=== PATIENT | male | born 1960 | race Caucasian/White ===

== ENCOUNTER 2022-12-07 13:29 | Outpatient (OUT) | payer OTHER, SELFPAY ==
--- NOTE | 2022-12-07 13:59 | PM.CN ---
Consult Note: HPI Data of Consult Patient: known to practice within the last 3 years Consult date: 12/07/22 Requesting Physician: HEIDE GRANGER NP Primary Care Provider: BARRY DEL RIO Consult Narrative Reason for consult: back pain Narrative: Patricio is here for f/u of right low back and hip pain. He had LS MRI done 11/09/22. He had NJ on 11/20/22. He is on Brillinta. He had 2 MBBs with 80% relief after procedures for several hours. he would like to proceed with RFA. Procedure discussed in detail. KASHMIR 14%. No new sensorimotor issues or bowel or bladder issues. cc:: CC: HEIDE GRANGER NP Review of Systems ROS Status of ROS 10 or more systems reviewed and unremarkable except as noted in history and below Exam Constitutional: Documenting provider has reviewed patient's vital signs: yes Common normals: no apparent distress, average body habitus, oriented x3, no limitations, healthy appearing, alert and well nourished General appearance: cooperative, comfortable and well developed Orientation/consciousness: Yes awake, Yes oriented to person, Yes oriented to place and Yes oriented to time HENMT: Common normals: normocephalic and head/scalp atraumatic Head and scalp: normal to inspection Nose: external nose normal Mouth: oral and palatal mucosa normal Respiratory: Common normals: normal respiratory effort, no retractions and no use of accessory muscles Effort & inspection: able to speak in complete sentences Back & Pelvis: Lumbar spine/lower back: normal to inspection, pain with ROM, straight leg raise negative bilaterally and other soft tissue findings (positive facet loading lumbar) Extremity: Common normals: normal to inspection, full ROM and normal capillary refill Other: muscle strength 5/5 with intact sensation bilat LE Skin: Common normals: no rashes or lesions noted and no wounds Assessment and Plan Assessment and Plan (1) Lumbar spondylosis: Plan schedule for thermal RFA bilat lumbar L3,4 and L5, S1 under fluoroscopy
== END 2022-12-07 13:30 ==
PROVIDERS: PCP Internal Medicine; Visit Provider Nurse Practitioner
DX: M47.816 Spondylosis without myelopathy or radiculopathy, lumbar region (principal)
CPT/HCPCS: G0463

== ENCOUNTER 2023-01-01 06:53 | Day surgery (SDC) | payer OTHER, SELFPAY ==
[2023-01-01 07:09] VITALS: BP 130/93; PULSE 83; RESP 16; TEMP 35.7; O2SAT 96
[2023-01-01] MEDS: 0.9 % SODIUM CHLORIDE 500 ML IV (07:31)
[2023-01-01] MEDS: BUPIVACAINE HCL 0.25% PF 25 MG/10 ML VIAL INJ (07:56)
[2023-01-01] MEDS: LIDOCAINE HCL 2% 400 MG/20 ML MDV 15 ML INJ (07:57)
[2023-01-01] MEDS: TRIAMCINOLONE ACETONIDE 40 MG/ML VIAL INJ (07:57)
--- NOTE | 2023-01-01 08:08 | P.ON_ITS ---
Date of procedure: 01/01/23 Pre-op diagnosis: lumbosacral spondylosis Post-op diagnosis: same Procedure: Bilateral L3, L4, L5 RFA Medications: Bupivacaine 0.25% 6cc, kenalog 80mg The patient was seen and examined in the preoperative holding area.? The site was marked.? Written informed consent was obtained and placed on the chart.? The patient was brought to the medical procedure unit and placed in the prone position.? A timeout was completed verifying correct patient, procedure, positioning, and special requirements.? The skin overlying the target points, the designated medial branch, were prepped and draped in the usual sterile fashion.? The target point was achieved with a 20-gauge 15 cm with a 10 mm curved active tip radiofrequency cannula under direct fluoroscopic visualization.? The needle was inserted at level L3 on the right side. Needle tip position was confirmed with lateral fluoroscopic position.? Motor stimulation was carried out at 2 Hz up to 5 volts with the absence of extremity activity.? This was repeated at level L4, 5 on right side.?? Sensory stimulation was carried out.? Concordant pain was realized at the above- mentioned sites.? Then radiofrequency lesioning was carried out times 90 seconds at 80 degrees times 2 lesions at each level.? The radiofrequency probe was removed prior to cannula removal.? The above-mentioned injectate was placed in 1 mL increments.? The needle was removed.? Insertion sites were covered.? The patient was taken to the postoperative recovery area and monitored for an appropriate length of time before being found suitable for discharge in the company of a responsible adult. The same procedure was then completed on the left side. Anesthesia: ANTWON Surgeon: Iqra Benitez Condition: stable
[2023-01-01 08:12] VITALS: BP 133/88; PULSE 80; RESP 16; TEMP 36.6
[2023-01-01 08:15] VITALS: BP 125/77; PULSE 80; RESP 16; TEMP 36.6; O2SAT 95
== END 2023-01-01 08:25 | disposition home or self-care (01) ==
PROVIDERS: PCP Internal Medicine; Visit Provider Anesthesiology
DX: M47.817 Spondylosis without myelopathy or radiculopathy, lumbosacral region (principal)
CPT/HCPCS: 64635; 64636; J2704

== ENCOUNTER 2023-01-24 07:12 | Outpatient (RCR) | payer OTHER, SELFPAY ==
--- NOTE | 2022-12-12 | CR1_ITS ---
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
--- NOTE | 2023-01-10 15:32 | CR1_ITS ---
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
== END 2023-02-06 13:51 | disposition home or self-care (01) ==
LOC: CR 07:12
PROVIDERS: PCP Internal Medicine; Visit Provider Internal Medicine Cardiovascular Disease
DX: I25.5 Ischemic cardiomyopathy (principal); E66.3 Overweight; Z68.29 Body mass index [BMI] 29.0-29.9, adult; I25.2 Old myocardial infarction
CPT/HCPCS: 93797; 93798

== ENCOUNTER 2023-03-21 15:12 | Outpatient (OUT) | payer OTHER, SELFPAY ==
--- NOTE | 2023-03-21 15:31 | P.CN_ITS ---
Consult Note: HPI Data of Consult Patient: known to practice within the last 3 years Requesting Physician: Iqra Benitez MD Primary Care Provider: Saman Schaffer DO Consult Narrative Reason for consult: procedure f/u Narrative: Patricio Sierra a pleasant 62 year old male presents for evaluation of chronic low back pain. Today rating pain 0/10. Patient had a bilateral L3/4 L5/S1 RFA with 100% pain relief and functional improvement. cc:: CC: Iqra Benitez MD Review of Systems ROS Status of ROS 10 or more systems reviewed and unremarkable except as noted in history and below [facility] Medical History (Updated 12/07/22 @ 15:22 by Adriana Hill) Surgical History (Updated 12/07/22 @ 15:22 by Adriana Hill) Meds Home Medications and Allergies Home Medications Medication Instructions Recorded Confirmed Type aspirin 81 mg capsule 81 mg PO QDAY 12/07/22 01/01/23 History atorvastatin 80 mg tablet 80 mg PO QDAY 12/07/22 01/01/23 History lisinopril 10 mg tablet 10 mg PO QDAY 12/07/22 01/01/23 History loratadine 10 mg capsule 10 mg PO QDAY 12/07/22 01/01/23 History metoprolol tartrate 100 mg tablet 200 mg PO QDAY 12/07/22 01/01/23 History nitroglycerin 0.4 mg sublingual PRN PRN chest 12/07/22 01/01/23 History pain ticagrelor 90 mg tablet (Brilinta) 90 mg PO BID 12/07/22 01/01/23 History Allergies Allergy/AdvReac Type Severity Reaction Status Date / Time No Known Drug Allergies Allergy Verified 01/01/23 07:07 Exam Constitutional Documenting provider has reviewed patient's vital signs: yes Common normals: no apparent distress, oriented x3, healthy appearing, alert and well nourished General appearance: cooperative HENMT Common normals: normocephalic, hearing grossly normal bilaterally and moist oral mucous membranes Head and scalp: normocephalic Eye Common normals: PERRL Pupil: PERRL Neck & C-Spine Common normals: full ROM General: normal visual inspection Chest Common normals: inspection of chest normal Respiratory Common normals: normal respiratory effort, no retractions and no use of accessory muscles Neuro Common normals: oriented x3, CN's II-XII intact bilaterally, moves all extremities, no focal motor deficits, no sensory deficits noted, deep tendon reflexes 2+ bilaterally and gait normal Sensorium/orientation: alert Motor exam: strength 5/5 throughout and no movement abnormalities noted Psych Common normals: mental status grossly normal, thought process normal, cooperative, affect normal, speech normal and activity/motor behavior normal Speech: normal speech Thought process: normal thought process Results Additional Findings Additional findings: I have checked an [place]AR[facility] report on this patient today and there are no aberrancies noted in the prescribing history.?? A drug screen was completed and reviewed within the last year, and if there has not been a drug screen completed we ordered one today to monitor higher risk, state monitored pain medication use. As part of providing excellent, safe, comprehensive care, the following was completed at our patient's visit: 1. A medication reconciliation and review to ensure accurate knowledge of current/active medications, including asking our patients to inform us about any [id number] medications or herbal remedies/nutritional supplements/alternative remedies. 2. A review to specifically ensure our patients have had annual screening for: elevated body mass index (BMI), tobacco use, screening for depression, and screening for unhealthy alcohol use. When screening is concerning, patients are provided with education and the specific recommendation to discuss the concerning health issue and treatment options with their primary care provider. Assessment and Plan Assessment and Plan (1) Lumbar spondylosis: Plan follow up as needed, discussed expectations of thermal RFAs to provide >50% functional improvement and pain relief for at least 6 months
== END 2023-03-21 15:13 | disposition home or self-care (01) ==
LOC: PM 15:12
PROVIDERS: PCP Internal Medicine; Visit Provider Anesthesiology
DX: M47.816 Spondylosis without myelopathy or radiculopathy, lumbar region (principal)
CPT/HCPCS: G0463

== ENCOUNTER 2023-05-14 09:25 | Outpatient (OUT) | payer OTHER, SELFPAY ==
[2023-05-14 10:03] LABS: Basophils Percent Auto 0.7 % (0.2-2.0); Eosinophils Absolute Auto 0.2 10^3/uL (0.0-0.7); Eosinophils Percent Auto 5.7 % (0.9-7.0); Hematocrit 34.9 % (42.0-54.0); Hemoglobin 11.4 g/dL (14.0-18.0); Immature Granulocytes Abs Auto 0.02 10^3/uL (0.00-0.03); Immature Granulocytes Pct Auto 0.5 % (0.0-0.5); Lymphocytes Absolute Auto 0.7 10^3/uL (1.2-3.8); Lymphocytes Percent Auto 16.5 % (20.5-60.0); Mean Corpuscular HGB Conc 32.7 g/dL (29.9-35.2); Mean Corpuscular Hemoglobin 29.3 pg (25.9-34.0); Mean Corpuscular Volume 89.7 fL (80.0-94.0); Mean Platelet Volume 10.1 fL (9.5-13.5); Monocytes Absolute Auto 0.6 10^3/uL (0.3-0.8); Monocytes Percent Auto 13.1 % (1.7-12.0); Neutrophils Absolute Auto 2.7 10^3/uL (1.4-6.5); Neutrophils Percent Auto 63.5 % (43.0-75.0); Platelet Count 160 10^3/uL (150-450); Red Blood Count 3.89 10^6/uL (4.70-6.10); Red Cell Distribution Width 13.2 % (11.0-15.0); White Blood Count 4.2 10^3/uL (4.0-11.0)
[2023-05-14 10:17] LABS: Alanine Aminotransferase 23 U/L (16-63); Albumin Globulin Ratio 1.1; Albumin Level 3.7 g/dL (3.4-5.0); Alkaline Phosphatase 83 U/L (46-116); Anion Gap 14.5; Aspartate Amino Transferase 14 U/L (15-37); Bilirubin Total 0.6 mg/dL (0.2-1.0); Calcium 8.9 mg/dL (8.5-10.1); Carbon Dioxide 24.8 mmol/L (21.0-32.0); Chloride 105 mmol/L (98-107); Chol HDL Ratio 3.1; Cholesterol 143 mg/dL (<=200); Estimated GFR (African America >60 (>=60); Estimated GFR (Non-African Ame >60 (>=60); Globulin 3.5 g/dL; Glucose 110 mg/dL (74-106); HDL Cholesterol 46 mg/dL (40-60); Potassium 4.3 mmol/L (3.5-5.1); Sodium 140 mmol/L (136-145); Total Protein 7.2 g/dL (6.4-8.2); Triglycerides 181 mg/dL (<=150); VLDL CHOLESTEROL 36.2 mg/dL
[2023-05-14 10:49] LABS: Prostate Specific Antigen Scrn 0.57 ng/mL (<=4.00)
== END 2023-05-14 09:26 | disposition home or self-care (01) ==
LOC: LAB 09:26
PROVIDERS: PCP Internal Medicine; Visit Provider Internal Medicine
DX: Z00.00 Encounter for general adult medical examination without abnormal findings (principal)
CPT/HCPCS: 36415; 80053; 80061; 85025; G0103

== ENCOUNTER 2023-08-18 09:21 | Outpatient (OUT) | payer OTHER, SELFPAY ==
--- OUTSIDE RECORDS SUMMARY | 2023-08-18 09:28 | XMS_ITS | CCD ---
Author Name Unknown Address [address] [place] [address] Organization [facility] Care Team Providers Care Management Manager Name Role Phone Saman Schaffer Unavailable LUIS Luis Emergency Provider DO Saman Schaffer Primary Care Provider [phone] DO Daryl Farrell Attending Provider VOLODYMYR ., DR KASEY Shabazz Consulting Unavailable HELM ., DR KASEY Shabazz Admitting Unavailable QUANG, DR REDDY Primary Care Unavailable HELM ., DR KASEY Shabazz Attending Unavailable QUANG, DR REDDY Primary Care Unavailable HALKER ., HEIDE Admitting Unavailable HALKER .HEIDE Attending Unavailable HELM ., DR KASEY Shabazz Consulting Unavailable QUANG, DR REDDY Primary Care Unavailable HELM ., DR KASEY Shabazz Admitting Unavailable HELM ., DR KASEY Shabazz Attending Unavailable CASTILLO ., DON Consulting Unavailable LAKSHMIPATHY ., NARJONATHAN Admitting Brisa vailable RICHI, DR CAITLYN Power Consulting Unavailable QUANG, DR REDDY Primary Care Unavailable LAKSHMIPATHY ., NARJONATHAN Attending Brisa vailable LAKSHMIPATHY ., NARENDRANATH Consulting Brisa vailable QUANG, DR REDDY Attending Unavailable QUANG, DR REDDY Consulting Unavailable QUANG, DR REDDY Primary Care Unavailable QUANG, DR REDDY Admitting Unavailable RICHI, DR CAITLYN Power Consulting Unavailable VOLODYMYR ., DR KASEY Shabazz Consulting Unavailable QUANG, DR REDDY Primary Care Unavailable HELM ., DR KASEY Shabazz Admitting Unavailable HELM ., DR KASEY Shabazz Attending Unavailable HELM ., DR KASEY Shabazz Consulting Unavailable QUANG, DR REDDY Primary Care Unavailable HELM ., DR KASEY Shabazz Admitting Unavailable HELM ., DR KASEY Shabazz Attending Unavailable CASTILLO ., DON Consulting Unavailable HELM ., DR KASEY Shabazz Consulting Unavailable HELM ., DR KASEY Shabazz Admitting Unavailable QUANG, DR REDDY Primary Care Unavailable VOLODYMYR ., DR KASEY Shabazz Attending Unavailable Saman Schaffer Unavailable Unavailable Unavailable Jim Hines Admitting Unavailable Jim Hines Attending Unavailable Saman Schaffer [facility] Unavailable Saman Schaffer [facility] Unavailable David Adler Admitting Unavailable Julianna Nguyen Consulting Unavailable Lacy Mitchell Attending Unavailable Daryl Farrell Consulting Unavailable DormanSal phelps Consulting Unavailable Conrad De La [place] Consulting Unavail able Garland Rolle Consulting Unavailable Gonsalo Fritz Consulting Unavailab Sirena Solorio Consulting Unavailable Mary Ann Hester Consulting Unavailable Ayan Sams Consulting Unavailab Shira Bowen Consulting Unavailable Namrata Charles Consulting Unavailable Sheela Davis Consulting Unavailable Saman Schaffer [facility] Unavailable Daryl Farrell Admitting Unavailable Daryl Farrell Attending Unavailable Bee, Mile Consulting Unavailable Chaban, Kamal Consulting Unavailable Leida, Christopher E Consulting Unavaila ble Swedeh, Markus Rowell Consulting Unavailable Kyle Gonzalez Consulting Unavailabl e Mildred Judd Consulting Unavailable Torito Meza Consulting Unavailable Deandre Otero Consulting Unavailable Silvino Mendoza Consulting Unavailable Ramos, Dr. Conrad [place] Attending Fern Schaffer, Dr. Saman Andino [facility] Elías Schaffer, Dr. Saman Andino [facility] Elías Farrell, Dr. Conrad [place] Referring Fern Farrell, Dr. Conrad [place] Attending Fern Schaffer, Dr. Saman Andino [facility] Elías Schaffer, Dr. Saman Andino [facility] Elías Benitez MD, Iqra Blanc Attending Unavailable Saman Schaffer DO Primary Care Provider CONRAD FARRELL Attending Unavailable SAMAN SCHAFFER [facility] UnavailSaman Herrera DO Primary Care Provider CONRAD FARRELL Referring Unavailable ASMAN SCHAFFER [facility] Unavailrodger e Allergies Allergy Classification Reported Allergen(s) Allergy Type Date of Onset Reaction(s) Facility (2 sources) patient allergy list reviewed by nurse or physicia Propensity to adverse reactions 9 Comment:Done [employer] Other Medications Current Medications Medication Drug Class(es) Dates Sig (Normalized) Sig (Original) aspirin 81 mg delayed release oral tablet (11 sources) Platelet Aggregation Inhibitor, Nonsteroidal Anti-inflammatory Drug Start: 12-06-2022 take 1 tablet by mouth once daily aspirin 81 mg EC tablet Take 1 tablet (81 mg) by mouth once daily. 0 12/06/2022 Active atorvastatin 80 mg oral tablet (19 sources) HMG-CoA Reductase Inhibitor Start: 05-11-2023 End: 05-23-2024 take 1 tablet by mouth once daily at bedtime atorvastatin (Lipitor) 80 mg tablet Indications: ASHD (arteriosclerotic heart disease) Take 1 tablet (80 mg) by mouth once daily at bedtime. 90 tablet 3 05/24/2023 05/23/2024 Active Start: 11-20-2022 take 20 mg by mouth once daily at bedtime Atorvastatin Active 20 MG PO Daily at bedtime November 20, 2022 12:00am escitalopram 10 mg oral tablet (10 sources) Serotonin Reuptake Inhibitor Start: 05-11-2023 take 1 tablet by mouth once daily at bedtime escitalopram (Lexapro) 10 mg tablet Take 1 tablet (10 mg) by mouth once daily at bedtime. 0 05/11/2023 Active lisinopril 10 mg oral tablet (17 sources) Angiotensin Converting Enzyme Inhibitor Start: 11-20-2022 End: 05-23-2024 take 1 tablet by mouth once daily lisinopril 10 mg tablet Indications: Cardiomyopathy, ischemic , Essential hypertension Take 1 tablet (10 mg) by mouth once daily. 90 tablet 3 05/24/2023 05/23/2024 Active loratadine 10 mg oral tablet (16 sources) Start: 11-20-2022 take 1 tablet by mouth once daily Allergy Relief, loratadine, 10 mg tablet Take 1 tablet (10 mg) by mouth once daily. 0 05/11/2023 Active meloxicam 15 mg oral tablet (8 sources) Nonsteroidal Anti-inflammatory Drug Start: 11-20-2022 take 15 mg by mouth once daily Meloxicam Active 15 MG PO Daily November 20, 2022 12:00am Meloxicam Active 24 hr metoprolol succinate 100 mg extended release oral tablet (20 sources) beta-Adrenergic Jaime Start: 05-11-2023 End: 05-23-2024 take 2 tablets by mouth once daily metoprolol succinate XL (Toprol-XL) 100 mg 24 hr tablet Indications: Cardiomyopathy, ischemic , Essential hypertension Take 2 tablets (200 mg) by mouth once daily. 180 tablet 3 05/24/2023 05/23/2024 Active Start: 11-28-2022 take 2 tablets by [facility] every twenty-four hours Metoprolol Succinate ER 100 MG 2 tablet Orally Once a day November, Active Start: 11-20-2022 take 100 mg by mouth once queta y Metoprolol Succinate Active 100 MG PO Daily November 20, 2022 12:00am nitroglycerin 0.4 mg sublingual tablet (5 sources) Nitrate Vasodilator Start: 11-25-2022 nitroglyce rin (Nitrostat) 0.[address] 1 tablet (0.4 mg) under the tongue every 5 minutes if needed for chest pain. 0 11/25/2022 Active Nitroglycerin 0. 4 MG Sublingual Tablet Sublingual TAKE DIRECTED. Quantity: 25 Refills: 11 Ordered: 06-Dec-2022 DO Active omeprazole 40 mg delayed release oral capsule (10 sources) Proton Pump Inhibitor Start: 01-03-2023 omeprazole (PriLOSEC) [address] capsule 1 capsule (40 mg) once daily. 0 05/11/2023 Active ticagrelor 90 mg oral tablet (14 sources) Start: 05-07-2023 End: 05-23-2024 take 1 tablet by mouth twice daily Brilinta 90 mg tablet Indications: Cardiomyopathy, ischemic Take 1 tablet (90 mg) by mouth 2 times a day. 180 tablet 3 05/24/2023 05/23/2024 Active Start: 11-28-2022 End: 12-20-2022 take 1 tablet by mouth every twelve hours Brilinta 90 MG 1 tablet Orally Twice a day November, Active Completed/Discontinued Medications Medication Drug Class(es) Dates Sig (Normalized) Sig (Original) doxycycline hyclate 100 mg oral capsule (6 sources) Tetracycline-class Drug take 1 capsule by mouth twice daily Doxycycline Hyclate 100 MG 1 capsule Orally twice daily for 7 days Not-Taking hydrocortisone 10 mg/ml / neomycin 3.5 mg/ml / polymyxin b [id number] unt/ml otic suspension (10 sources) Aminoglycoside Antibacterial, Polymyxin-class Antibacterial, Corticosteroid Start: 11-07-2022 Neomycin-Polymyx in-HC [id number] 4 drops into affected ear Otic q HS PRN itching for 30 days November, Not-Taking triamcinolone acetonide 40 mg/ml injectable suspension (13 sources) Corticosteroid Start: 05-14-2023 Kenalog-40 May, 60 mg Start: 11-07-2022 Kenalog-40 November, 40 mg Problems Active Problems Problem Classification Problem Date Documented Date Episodic/Chronic Acute bronchitis (5 sources) Acute bronchitis due to other specified organisms; Translations: [Acute bronchitis] Onset: 11-18-2014 Episodic Acute myocardial infarction (19 sources) Myocardial infarction; Translations: [ST elevation (STEMI) myocardial infarction of unspecified site] Onset: 11-25-2022 11-20-2022 Chronic Anxiety disorders (9 sources) Generalized anxiety disorder; Translations: [Generalized anxiety disorder] Chronic Cardiac dysrhythmias (12 sources) Supraventricular tachycardia; Translations: [Supraventricular tachycardia] Chronic Cardiac dysrhythmias (1 source) Tachycardia, unspecified; Translations: [Tachycardia, unspecified] Onset: 11-25-2022 Episodic Conduction disorders (2 sources) Sinus node dysfunction; Translations: [Sinoatrial node dysfunction] Onset: 08-14-2018 Chronic Coronary atherosclerosis and other heart disease (20 sources) Coronary arteriosclerosis; Translations: [Atherosclerotic heart disease of [place] coronary artery without angina pectoris] Onset: 05-24-2023 Chronic Coronary atherosclerosis and other heart disease (3 sources) Presence of coronary angioplasty implant and graft; Translations: [Coronary angioplasty status] Onset: 11-25-2022 Episodic Deficiency and other anemia (2 sources) Nutritional anemia; Translations: [Nutritional anemia, unspecified] Episodic Deficiency and other anemia (2 sources) Anemia; Translations: [Anemia, unspecified] Episodic Disorders of lipid metabolism (17 sources) Hyperlipidemia, group A; Translations: [Pure hypercholesterolemia, unspecified] Onset: 11-25-2022 Chronic Esophageal disorders (7 sources) Gastro-esophageal reflux disease with esophagitis; Translations: [Gastroesophageal reflux disease with esophagitis without hemorrhage] Chronic Essential hypertension (20 sources) Essential hypertension; Translations: [Essential (primary) hypertension] Onset: 11-25-2022 Chronic Hyperplasia of prostate (14 sources) Benign prostatic hypertrophy without outflow obstruction; Translations: [Benign prostatic hyperplasia without lower urinary tract symptoms] Onset: 02-04-2015 Chronic Immunizations and screening for infectious disease (4 sources) Vaccination given; Translations: [Encounter for immunization] Episodic Nonspecific chest pain (2 sources) Precordial pain; Translations: [Chest pain, unspecified] Onset: 01-02-2023 Episodic Other and ill-defined heart disease (2 sources) Left ventricular systolic dysfunction; Translations: [Heart disease, unspecified] Chronic Other and ill-defined heart disease (6 sources) Mild left ventricular systolic dysfunction; Translations: [Other ill-defined heart diseases] Onset: 05-24-2023 05-24-2023 Chronic Other and ill-defined heart disease (4 sources) Other ill-defined heart diseases; Translations: [Other ill-defined heart diseases] Onset: 05-24-2023 Chronic Other and unspecified benign neoplasm (12 sources) Benign neoplasm of colon; Translations: [Benign neoplasm of descending colon] Episodic Other and unspecified benign neoplasm (2 sources) Benign neoplasm of descending colon; Translations: [Benign neoplasm of descending colon] Episodic Other connective tissue disease (10 sources) Pain in limb; Translations: [Pain in right leg] Episodic Other connective tissue disease (2 sources) Pain in right lower limb; Translations: [Pain in right leg] Episodic Other ear and sense organ disorders (10 sources) Bilateral auditory canal chronic non-infective otitis externa; Translations: [Other otitis externa, bilateral] Chronic Other ear and sense organ disorders (1 source) Other otitis externa, bilateral Chronic Other lower respiratory disease (1 source) Dyspnea, unspecified; Translations: [Dyspnea, unspecified] Onset: 11-25-2022 Episodic Other nutritional; endocrine; and metabolic disorders (2 sources) Body mass index 40+ - severely obese; Translations: [Body mass index (BMI) 40.0-44.9, adult] Onset: 02-06-2017 Chronic Other nutritional; endocrine; and metabolic disorders (2 sources) Simple obesity ; Translations: [Other obesity due to excess calories] Chronic Other nutritional; endocrine; and metabolic disorders (2 sources) Body mass index 30+ - obesity; Translations: [Body mass index 30.0-30.9, adult] Onset: 06-27-2016 Chronic Other nutritional; endocrine; and metabolic disorders (2 sources) Overweight in adulthood with body mass index of 25 or more but less than 30; Translations: [Overweight] Episodic Other nutritional; endocrine; and metabolic disorders (11 sources) Overweight; Translations: [Overweight] Onset: 05-24-2023 05-24-2023 Episodic Other screening for suspected conditions (not mental disorders or infectious disease) (2 sources) Encounter for screening for malignant neoplasm of prostate; Translations: [ENC SCREEN MALIG NEOPLASM PROSTATE] Onset: 05-18-2022 Episodic Other upper respiratory disease (12 sources) Allergic rhinitis due to pollen; Translations: [Allergic rhinitis due to pollen] Chronic Other upper respiratory disease (2 sources) Allergic rhinitis due to pollen Chronic Other upper respiratory disease (2 sources) Seasonal allergic rhinitis; Translations: [Other seasonal allergic rhinitis] Onset: 10-03-2017 Chronic Other upper respiratory disease (4 sources) Allergic rhinitis; Translations: [Allergic rhinitis, unspecified] Onset: 11-18-2014 Chronic Other upper respiratory disease (1 source) Dysphonia Episodic Other upper respiratory infections (4 sources) Acute maxillary sinusitis; Translations: [Acute maxillary sinusitis, unspecified] Onset: 11-18-2014 Episodic Spondylosis; intervertebral disc disorders; other back problems (17 sources) Lumbar spondylosis; Translations: [Spondylosis without myelopathy or radiculopathy, lumbar region] Onset: 06-17-2022 Chronic Spondylosis; intervertebral disc disorders; other back problems (16 sources) Sciatica; Translations: [Lumbago with sciatica, unspecified side] Onset: 09-14-2022 Episodic Sprains and strains (6 sources) Strain of muscle, fascia and tendon of right hip, subsequent encounter; Translations: [Strain of right quadriceps muscle, fascia and tendon, initial encounter] Onset: 01-04-2018 Episodic Substance-related disorders (10 sources) Tobacco user; Translations: [Nicotine dependence, cigarettes, in remission] Chronic Unclassified (4 sources) LOW BACK PAIN, UNSPECIFIED; Translations: [LOW BACK PAIN, UNSPECIFIED] Onset: 06-17-2022 Unclassified (2 sources) Dietary management surveillance; Translations: [Dietary surveillance and counseling] Onset: 12-30-2013 Past or Other Problems Problem Classification Problem Date Documented Da te Episodic/Chronic Abdominal pain (2 sources) Right upper quadrant pain; Translations: [Right upper quadrant pain] Resolved: 11-05-2019 Episodic Allergic reactions (2 sources) Contact dermatitis; Translations: [Contact dermatitis and other eczema, due to unspecified cause] Onset: 07-28-2014 Episodic Bacterial infection; unspecified site (2 sources) Bacterial infectious disease; Translations: [Bacterial infection, unspecified, in conditions classified elsewhere and of unspecified site] Onset: 06-27-2016 Episodic Esophageal disorders (3 sources) Esophageal disorders Other non-traumatic joint disorders (2 sources) Shoulder joint pain; Translations: [Pain in left shoulder] Onset: 01-04-2018 Episodic Other nutritional; endocrine; and metabolic disorders (2 sources) Body mass index 25-29 - overweight; Translations: [Body mass index 29.0-29.9, adult] Onset: 06-27-2016 Episodic Other skin disorders (2 sources) Atrophoderma; Translations: [Unspecified hypertrophic and atrophic condition of skin] Onset: 10-03-2017 Episodic Screening and history of mental health and substance abuse codes (4 sources) Ex-smoker; Translations: [Personal history of tobacco use] Onset: 07-16-2017 Episodic Comment on above: quit 1993; Unclassified (1 source) LOW BACK PAIN, UNSPECIFIED; Translations: [LOW BACK PAIN, UNSPECIFIED] Onset: 06-13-2022 Viral infection (2 sources) Verruca vulgaris; Translations: [Viral wart, unspecified] Onset: 02-27-2013 Episodic Viral infection (12 sources) Disease caused by 2019-nCoV; Translations: [COVID-19] Results Test Name Value Interpretation Reference Range Facility US Heart TransthoracicOrdere d By: Sal Dorman on 07-04-2023 LV A4C EF 70.3 [facility] Work Phone: LVIDd 5.80 [facility] Work Phone: LVOT diam 2.60 [facility] Work Phone: [facility] Work Phone: Heart Transthoracicon [address], [address] [address] TRANSTHORACIC ECHOCARDIOGRAM REPORT Patient Name: FLORES SIERRA Reading Physician: [id number] Sal Dorman MD, [facility] Study Date: 07/03/2023 Ordering Provider: [id number] CONRAD FARRELL MRN/PID: [id number] Fellow: Nurse: Date of /Age: 2 1960 / 62 years [employer] Teacher: Araseli Smith RDCS, RVT Gender: M Additional Staff: Height: 172.72 cm Admit Date: Weight: 86.18 kg Admission Status: BSA: 2.00 m2 Department Location: [facility] Blood Pressure: 136 /82 mmHg Study Type: TRANSTHORACIC ECHO (TTE) LIMITED Diagnosis/ICD: Other ill defined heart diseases-I51.89 Indication: CAD, MT and PTCA-11/2022, Dyspnea on Exertion, Former Smoker, Ischemic Cardiomyopathy CPT Codes: Echo Limited-70093 Study Detail: The following Echo studies were performed: 2D and M-Mode. PHYSICIAN INTERPRETATION: Left Ventricle: Left ventricular systolic function is mildly decreased, with an estimated ejection fraction of 45%. The left ventricular cavity size is normal. Left ventricular diastolic filling was not assessed. Moderate anteroseptal hypokinesis. Left Atrium: The left atrium is normal in size. Right Ventricle: The right ventricle is normal in size. There is normal right ventricular global systolic function. Right Atrium: The right atrium is normal in size. Aortic Valve: The aortic valve appears structurally normal. Aortic valve regurgitation was not assessed. Mitral Valve: The mitral valve is normal in structure. Mitral valve regurgitation was not assessed. Tricuspid Valve: The tricuspid valve is structurally normal. Tricuspid regurgitation was not assessed. Pulmonic Valve: The pulmonic valve is not well visualized. The pulmonic valve regurgitation was not assessed. Pericardium: There is no pericardial effusion noted. Aorta: The aortic root is normal. Systemic Veins: The inferior vena cava appears to be of normal size. In comparison to the previous echocardiogram(s): When compared to study from 11/21/2022 the ejection fraction remains unchanged, current study did not include Doppler imaging. CONCLUSIONS: 1. Left ventricular systolic function is mildly decreased with a 45% estimated ejection fraction. 2. Moderate anteroseptal hypokinesis. 3. When compared to study from 11/21/2022 the ejection fraction remains unchanged, current study did not include Doppler imaging. QUANTITATIVE DATA SUMMARY: 2D MEASUREMENTS: Normal Ranges: Ao Root d: 3.10 cm (2.0-3.7cm) LAs: 3.90 cm (2.7-4.0cm) RVIDd: 3.20 cm (0.9-3.6cm) IVSd: 1.00 cm (0.6-1.1cm) LVPWd: 0.80 cm (0.6-1.1cm) LVIDd: 5.80 cm (3.9-5.9cm) LVIDs: 4.50 cm LV Mass Index: 101.8 g/m2 LV % FS 22.4 % LV SYSTOLIC FUNCTION BY 2D PLANIMETRY (MOD): Normal Ranges: EF-A4C View: 70.3 % (>=55%) AORTIC VALVE: Normal Ranges: LVOT Diameter: 2.60 cm (1.8-2.4cm) [id number] Sal Dorman MD, FACC Electronically signed on 07/04/2023 at 1:42:19 PM Final Sal Schmidt MD - 07/04/[address], [address] [place] [address] TRANSTHORACIC ECHOCARDIOGRAM REPORT Patient Name: FLORES SIERRA Gaye Physician: [id number] Sal Dorman MD, FACC Study Date: 07/03/2023 Ordering Provider: [id number] CONRAD FARRELL MRN/PID: [id number] Fellow: Nurse: Date of /Age: 2 1960 / 62 years [employer] Teacher: Araseli Smith RDCS, RVT Gender: M Additional Staff: Height: 172.72 cm Admit Date: Weight: 86.18 kg Admission Status: BSA: 2.00 m2 Department Location: [facility] Blood Pressure: 136 /82 mmHg Study Type: TRANSTHORACIC ECHO (TTE) LIMITED Diagnosis/ICD: Other ill defined heart diseases-I51.89 Indication: CAD, MT and PTCA-11/2022, Dyspnea on Exertion, Former Smoker, Ischemic Cardiomyopathy CPT Codes: Echo Limited-23426 Study Detail: The following Echo studies were performed: 2D and M-Mode. PHYSICIAN INTERPRETATION: Left Ventricle: Left ventricular systolic function is mildly decreased, with an estimated ejection fraction of 45%. The left ventricular cavity size is normal. Left ventricular diastolic filling was not assessed. Moderate anteroseptal hypokinesis. Left Atrium: The left atrium is normal in size. Right Ventricle: The right ventricle is normal in size. There is normal right ventricular global systolic function. Right Atrium: The right atrium is normal in size. Aortic Valve: The aortic valve appears structurally normal. Aortic valve regurgitation was not assessed. Mitral Valve: The mitral valve is normal in structure. Mitral valve regurgitation was not assessed. Tricuspid Valve: The tricuspid valve is structurally normal. Tricuspid regurgitation was not assessed. Pulmonic Valve: The pulmonic valve is not well visualized. The pulmonic valve regurgitation was not assessed. Pericardium: There is no pericardial effusion noted. Aorta: The aortic root is normal. Systemic Veins: The inferior vena cava appears to be of normal size. In comparison to the previous echocardiogram(s): When compared to study from 11/21/2022 the ejection fraction remains unchanged, current study did not include Doppler imaging. CONCLUSIONS: 1. Left ventricular systolic function is mildly decreased with a 45% estimated ejection fraction. 2. Moderate anteroseptal hypokinesis. 3. When compared to study from 11/21/2022 the ejection fraction remains unchanged, current study did not include Doppler imaging. QUANTITATIVE DATA SUMMARY: 2D MEASUREMENTS: Normal Ranges: Ao Root d: 3.10 cm (2.0-3.7cm) LAs: 3.90 cm (2.7-4.0cm) RVIDd: 3.20 cm (0.9-3.6cm) IVSd: 1.00 cm (0.6-1.1cm) LVPWd: 0.80 cm (0.6-1.1cm) LVIDd: 5.80 cm (3.9-5.9cm) LVIDs: 4.50 cm LV Mass Index: 101.8 g/m2 LV % FS 22.4 % LV SYSTOLIC FUNCTION BY 2D PLANIMETRY (MOD): Normal Ranges: EF-A4C View: 70.3 % (>=55%) AORTIC VALVE: Normal Ranges: LVOT Diameter: 2.60 cm (1.8-2.4cm) [id number] Sal Dorman MD, [facility] Electronically signed on 07/04/2023 at 1:42:19 PM Final [facility] Work Phone: TRANSTHORACIC ECHO (TTE) JUNIOR ITEDon 07-03-2023 TRANSTHORACIC ECHO (TTE) LIMITED [address], [address], [place] [address] TRANSTHORACIC ECHOCARDIOGRAM REPORT Patient Name: FLORES SIERRA Reading Physician: [id number] Sal Dorman MD, [facility] Study Date: 07/03/2023 Ordering Provider: [id number] CONRAD FARRELL MRN/PID: [id number] Fellow: Nurse: Date of /Age: 2 1960 / 62 years [employer] Teacher: Araseli Smith RDCS, RVT Gender: M Additional Staff: Height: 172.72 cm Admit Date: Weight: 86.18 kg Admission Status: BSA: 2.00 m2 Department Location: [facility] Blood Pressure: 136 /82 mmHg Study Type: TRANSTHORACIC ECHO (TTE) LIMITED Diagnosis/ICD: Other ill defined heart diseases-I51.89 Indication: CAD, MT and PTCA-11/2022, Dyspnea on Exertion, Former Smoker, Ischemic Cardiomyopathy CPT Codes: Echo Limited-43662 Study Detail: The following Echo studies were performed: 2D and M-Mode. PHYSICIAN INTERPRETATION: Left Ventricle: Left ventricular systolic function is mildly decreased, with an estimated ejection fraction of 45%. The left ventricular cavity size is normal. Left ventricular diastolic filling was not assessed. Moderate anteroseptal hypokinesis. Left Atrium: The left atrium is normal in size. Right Ventricle: The right ventricle is normal in size. There is normal right ventricular global systolic function. Right Atrium: The right atrium is normal in size. Aortic Valve: The aortic valve appears structurally normal. Aortic valve regurgitation was not assessed. Mitral Valve: The mitral valve is normal in structure. Mitral valve regurgitation was not assessed. Tricuspid Valve: The tricuspid valve is structurally normal. Tricuspid regurgitation was not assessed. Pulmonic Valve: The pulmonic valve is not well visualized. The pulmonic valve regurgitation was not assessed. Pericardium: There is no pericardial effusion noted. Aorta: The aortic root is normal. Systemic Veins: The inferior vena cava appears to be of normal size. In comparison to the previous echocardiogram(s): When compared to study from 11/21/2022 the ejection fraction remains unchanged, current study did not include Doppler imaging. CONCLUSIONS: 1. Left ventricular systolic function is mildly decreased with a 45% estimated ejection fraction. 2. Moderate anteroseptal hypokinesis. 3. When compared to study from 11/21/2022 the ejection fraction remains unchanged, current study did not include Doppler imaging. QUANTITATIVE DATA SUMMARY: 2D MEASUREMENTS: Normal Ranges: Ao Root d: 3.10 cm (2.0-3.7cm) LAs: 3.90 cm (2.7-4.0cm) RVIDd: 3.20 cm (0.9-3.6cm) IVSd: 1.00 cm (0.6-1.1cm) LVPWd: 0.80 cm (0.6-1.1cm) LVIDd: 5.80 cm (3.9-5.9cm) LVIDs: 4.50 cm LV Mass Index: 101.8 g/m2 LV % FS 22.4 % LV SYSTOLIC FUNCTION BY 2D PLANIMETRY (MOD): Normal Ranges: EF-A4C View: 70.3 % (>=55%) AORTIC VALVE: Normal Ranges: LVOT Diameter: 2.60 cm (1.8-2.4cm) [id number] Sal Dorman MD, FACC Electronically signed on 07/04/2023 at 1:42:19 PM Final [facility] B-Type Natriuretic Peptideon 01-02-2023 Natriuretic peptide B (Bld) [Mass/Vol] 112.0 pg/mL High 5-100 [facility] Comment on above: Result Comment: PERF ORMED BY: [place] [address] PATHOLOGIST R D MANAGER VITO GIL M.D. Performed By: #### C BC, LIPID, BMP, HS TROP #### [address] Basic Metabolic Panelon - Anion gap [Moles/Vol] 13.3 mmol/L Normal 6.0-15.0 [facility] Comment on above: Performed By: #### C BC, LIPID, BMP, HS TROP #### [facility] [address] Calcium [Mass/Vol] 9.4 mg/dL Normal 8.6-10.3 [facility] Comment on above: Performed By: #### C BC, LIPID, BMP, HS TROP #### [facility] [address] Chloride [Moles/Vol] 108 mmol/L High 98-107 [facility] Comment on above: Performed By: #### C BC, LIPID, BMP, HS TROP #### [address] CO2 [Moles/Vol] 21.9 mmol/L Normal 21.0-31.0 [facility] Comment on above: Performed By: #### C BC, LIPID, BMP, HS TROP #### [address] Creatinine [Mass/Vol] 1.00 mg/dL Normal 0.70-1.30 [facility] Comment on above: Performed By: #### C BC, LIPID, BMP, HS TROP #### [address] Creatinine Clr Calc Pharmacy 83.05 [facility] Comment on above: Result Comment: PERF ORMED BY: [place] [address] PATHOLOGIST R D MANAGER VITO GIL M.D. Performed By: #### C BC, LIPID, BMP, HS TROP #### [place] [address] [place] GFR/1.73 sq M.predicted MDRD (S/P/Bld) [Vol rate/Area] mL/min/{1.73_m2} [facility] Comment on above: Performed By: #### C BC, LIPID, BMP, HS TROP #### [place] [address] [place] Glucose [Mass/Vol] 126 mg/dL High 70-100 [facility] Comment on above: Result Comment: [facility] Glucose Reference Range is dependent on time and content of last meal. Glucose of more than 200 mg/dL in a nonstressed, ambulatory subject supports the diagnosis of Diabetes Mellitus. ADA recommended reference range Performed By: #### C BC, LIPID, BMP, HS TROP #### [facility] [address] Potassium [Moles/Vol] 4.2 mmol/L Normal 3.5-5.1 [facility] Comment on above: Performed By: #### C BC, LIPID, BMP, HS TROP #### [facility] [address] Sodium [Moles/Vol] 139 mmol/L Normal 136-145 [facility] Comment on above: Performed By: #### C BC, LIPID, BMP, HS TROP #### [facility] [address] [place] [address] [place] Urea nitrogen [Mass/Vol] 12 mg/dL Normal 7-25 [facility] Comment on above: Performed By: #### C BC, LIPID, BMP, HS TROP #### [facility] [address] Complete Blood Count Auto Di ffon 01-02-2023 Basophils (Bld) [#/Vol] 0.0 10*3/uL Normal 0.0-0.2 [facility] Comment on above: Result Comment: PERF ORMED BY: [place] [address] PATHOLOGIST R D MANAGER VITO GIL M.D. Performed By: #### C BC, LIPID, BMP, HS TROP #### [place] [address] [place] Basophils/100 WBC (Bld) 0.3 % Normal . [facility] Comment on above: Performed By: #### C BC, LIPID, BMP, HS TROP #### [facility] [address] [place] [address] [place] Eosinophils (Bld) [#/Vol] 0.0 10*3/uL Normal 0.0-0.45 [facility] Comment on above: Performed By: #### C BC, LIPID, BMP, HS TROP #### [facility] [address] [place] [address] Eosinophils/100 WBC (Bld) 0.0 % Normal . [facility] Comment on above: Performed By: #### C BC, LIPID, BMP, HS TROP #### [facility] [address] [place] [address] Erythrocyte distribution width (RBC) [Ratio] 13.8 % Normal 12.0-14.8 [facility] Comment on above: Performed By: #### C BC, LIPID, BMP, HS TROP #### [address] Hematocrit (Bld) [Volume fraction] 36.0 % Low 38.8-50.0 [facility] Comment on above: Performed By: #### C BC, LIPID, BMP, HS TROP #### [address] Hemoglobin (Bld) [Mass/Vol] 12.3 g/dL Low 13.0-17.0 [facility] Comment on above: Performed By: #### C BC, LIPID, BMP, HS TROP #### [address] Lymphocytes (Bld) [#/Vol] 0.5 10*3/uL Low 1.00-4.8 [facility] Comment on above: Performed By: #### C BC, LIPID, BMP, HS TROP #### [address] Lymphocytes/100 WBC (Bld) 3.9 % Normal . [facility] Comment on above: Performed By: #### C BC, LIPID, BMP, HS TROP #### [address] MCH (RBC) [Entitic mass] 30.1 pg Normal 27.5-35.2 [facility] Comment on above: Performed By: #### C BC, LIPID, BMP, HS TROP #### [facility] [address] MCV (RBC) [Entitic vol] 88.2 fL Normal 83.5-101 [facility] Comment on above: Performed By: #### C BC, LIPID, BMP, HS TROP #### [address] Mean Corpuscular HGB Conc 34.1 g/dL Normal 32.5-35.6 [facility] Comment on above: Performed By: #### C BC, LIPID, BMP, HS TROP #### [facility] [address] [place] [address] [place] Monocytes (Bld) [#/Vol] 0.7 10*3/uL Normal 0.0-0.8 [facility] Comment on above: Performed By: #### C BC, LIPID, BMP, HS TROP #### [address] Monocytes/100 WBC (Bld) 17.89 % Normal 0.00-20.00 [facility] Comment on above: Performed By: #### C BC, LIPID, BMP, HS TROP #### [place] [address] [place] Monocytes/100 WBC (Bld) 5.6 % Normal . [facility] Comment on above: Performed By: #### C BC, LIPID, BMP, HS TROP #### [place] [address] [place] Neutrophils (Bld) [#/Vol] 11.1 10*3/uL High 1.8-7.7 [facility] Comment on above: Performed By: #### C BC, LIPID, BMP, HS TROP #### [place] [address] [place] Neutrophils/100 WBC (Bld) 90.2 % Normal . [facility] Comment on above: Performed By: #### C BC, LIPID, BMP, HS TROP #### [place] [address] [place] NRBC% 0.0 /100{WBC} Normal 0-0.5 [facility] Comment on above: Performed By: #### C BC, LIPID, BMP, HS TROP #### [facility] [address] [place] [address] Platelet mean volume (Bld) [Entitic vol] 8.0 fL Normal 6.6-10.1 [facility] Comment on above: Performed By: #### C BC, LIPID, BMP, HS TROP #### [address] Platelets (Bld) [#/Vol] 187 10*3/uL Normal 150-450 [facility] Comment on above: Performed By: #### C BC, LIPID, BMP, HS TROP #### [address] RBC (Bld) [#/Vol] 4.08 10*6/uL Normal 3.90-5.60 [facility] Comment on above: Performed By: #### C BC, LIPID, BMP, HS TROP #### [address] WBC (Bld) [#/Vol] 12.3 10*3/uL High 4.1-10.5 [facility] Comment on above: Performed By: #### C BC, LIPID, BMP, HS TROP #### [address] ECG 12 lead ECGon 01-02-2023 ECG 12 lead ECG [facility] [place] [address] Electrocardiograph Report Signed Patient: Flores Sierra MR#: [id number] : 1960 Acct:[id number] Age/Sex: 62 / M ADM Date: 01/02/23 Loc: ER Room: Type: [facility] ER Attending Dr: Ordering Provider: Jim Hines DO Date of Service: 01/02/23 ECG/ECG 12 lead ECG: Chest Pain Copies to: Test Reason : Blood Pressure : 162/092 mmHG Vent. Rate : 072 BPM Atrial Rate : 072 BPM P-R Int : 180 ms QRS Dur : 102 ms QT Int : 396 ms P-R-T Axes : 028 -19 087 degrees QTc Int : 433 ms Normal sinus rhythm Confirmed by Jim Hines DO ([id number]) on 01/02/2023 1:39:14 PM Referred By: Electronically Signed By:Jim Hines DO Transcribed By: MUS Signed By Jim Hines DO 133[address] [facility] ECG 12 lead ECG [facility] [place] [address] [place] [address] Electrocardiograph Report Signed Patient: Flores Sierra MR#: [id number] : 1960 Acct:[id number] Age/Sex: 62 / M ADM Date: 01/02/23 Loc: ER Room: Type: [facility] ER Attending Dr: Ordering Provider: Jim Hines DO Date of Service: 01/02/23 ECG/ECG 12 lead ECG: . Copies to: Test Reason : Blood Pressure : / mmHG Vent. Rate : 073 BPM Atrial Rate : 073 BPM P-R Int : 170 ms QRS Dur : 102 ms QT Int : 394 ms P-R-T Axes : 040 -08 088 degrees QTc Int : 434 ms Normal sinus rhythm Confirmed by Jim Hines DO ([id number]) on 01/02/2023 1:39:49 PM Referred By: Electronically Signed By:Jim Hines DO Transcribed By: MUS Signed By Jim Hines DO 133[address] [facility] Partial Thromboplastin Timeo n 01-02-2023 aPTT Coag (Bld) [Time] 29.4 s Normal 25.1-36.5 [facility] Comment on above: Result Comment: PERF ORMED BY: [place] [address] PATHOLOGIST R D MANAGER VITO GIL M.D. Performed By: #### C BC, LIPID, BMP, HS TROP #### [place] [address] [place] Prothrombin Time INRon 01-02 INR Coag (PPP) [Relative time] 1.1 {INR} Normal [facility] Comment on above: Result Comment: INR Therapeutic Range A) Pre- and Peroperative OAT started two weeks before surgery. NOT HIP SURGERY: 1.5 - 2.5 HIP SURGERY: 2 - 3 B) Primary and secondary prevention of venous THROMBOSIS: 2 - 3 C) Active venous thrombosis, pulmonary embolism and prevention of recurrent venous thrombosis: 2 - 3 D) Prevention of arterial thromboembolism including patients with mechanical heart valves: 3 - 4.5 Performed By: #### C BC, LIPID, BMP, HS TROP #### [facility] [address] PT Coag (PPP) [Time] 12.3 s Normal 9.0-12.9 [facility] Comment on above: Performed By: #### C BC, LIPID, BMP, HS TROP #### [address] Troponin I High Sensitivityo n 01-02-2023 Troponin I High Sensitivity 6.4 pg/mL Normal 0.0-20.0 [facility] Comment on above: Result Comment: PERF ORMED BY: [place] [address] PATHOLOGIST R D MANAGER VITO GIL M.D. Performed By: #### C BC, LIPID, BMP, HS TROP #### [address] [address] [facility] Troponin I High Sensitivity 8.0 pg/mL Normal 0.0-20.0 [facility] Comment on above: Result Comment: PERF ORMED BY: [facility] [address] [place] [address] PATHOLOGIST R D MANAGER VITO GIL M.D. Performed By: #### C BC, LIPID, BMP, HS TROP #### [place] [id number] [place] XR chest 1V portableon 01-02 XR chest 1V portable [facility] [place] [address] [place] [address] XRay Report Signed Patient: Flores Sierra MR#: [id number] : 1960 Acct:[id number] Age/Sex: 62 / M ADM Date: 01/02/23 Loc: ER Room: Type: [place] ER Attending Dr: Copies to: Jim Hines DO Ordering Provider: Jim Hines DO Date of Service: 01/02/23 XR/XR chest 1V portable: Chest Pain XR chest 1V portable 01/02/2023 7:56 AM SIGNS AND SYMPTOMS: Midsternal chest pain PROTOCOL: Frontal radiograph of the chest COMPARISON: 11/24/2022 FINDINGS: The trachea is midline. The heart and mediastinal structures are within normal limits. The lung parenchyma is clear. The bony thorax is intact. XR/XR chest 1V portable IMPRESSION: No acute cardiopulmonary pathology. Impression dictated by: Howard Rodriguez M.D.01/02/2023 8:16 AM Dictation Location: [facility] Transcribed By: WALI 01/02/23 0816 Dictated By: Howard Rodriguez II, MD 01/02/23 0816 Signed By: 01/02/[address] [facility] Office Visit (Cardiology)on 12-06-2022 Follow-up visit Diagnoses/Problems Assessed Single vessel coronary disease (414.00) (I25.10) ASHD (arteriosclerotic heart disease) (414.00) (I25.10) ST elevation myocardial infarction (STEMI) (410.90) (I21.3) Overweight with body mass index (BMI) of 29 to 29.9 in adult (278.02,V85.25) (E66.3,Z68.29) Former smoker (V15.82) (Z87.891) quit 1993 Hypertension (401.9) (I10) Mild left ventricular systolic dysfunction (LVSD) (429.9) (I51.89) Orders Hypertension Renew: Metoprolol Succinate ER 100 MG Oral Tablet Extended Release 24 Hour; TAKE 2 TABLET Daily Hypertension, Ischemic cardiomyopathy Renew: Atorvastatin Calcium 80 MG Oral Tablet; TAKE 1 TABLET DAILY Ischemic cardiomyopathy Renew: Aspirin 81 MG Oral Tablet Delayed Release; TAKE 1 TABLET DAILY Overweight with body mass index (BMI) of 29 to 29.9 in adult Healthy Weight Tips; Status:Complete - Retrospective Authorization; Done: [id number] Cardiac Rehab Referral Evaluation and Treatment Evaluate AND Treat Status: Hold For - Scheduling,Retrospec tive Authorization Requested for: [id number] Agreement : I agree to have my patient participate in the phase III outpatient cardiac rehabilitation program after completion of the phase II program. Consent : I consent to have my patient participate in the cardiac rehabilitation program. I will continue regular medical care of my patient throughout his/her participation in the program. Individualized Treatment Plan and Exercise Prescription : Defer the patients ITP and exercise prescription to be developed by the staff for your review and approval I authorize the Cardiac Rehabilitation Department to : Current lab values are helpful in order to assess the lipid status and individualize diet therapy. A venous blood sample will be drawn and lipids analyzed at the laboratory I authorize the Cardiac Rehabilitation Department to : Schedule a symptom limited graded exercise test with 12 lead ECG prior to starting cardiac rehabilitation and at discharge, if needed. Some eating tips that can help you lose weight.; Status:Complete - Retrospective Authorization; Done: [id number] SocHx: Former smoker Tobacco Use Screening; Status:Complete; Done: [id number] Patient Instructions Please bring all medicines, vitamins, and herbal supplements with you when you come to the office. Prescriptions will not be filled unless you are compliant with your follow up appointments or have a follow up appointment scheduled as per instruction of your physician. Refills should be requested at the time of your visit. Follow up in 6 months cardiac rehab 12 RTW in 2 weeks Chief Complaint FLORES SIERRA is being seen for a 2-3 weeks [facility] follow-up of. Patient is a 62-year-old gentleman returns for follow-up following recent large anterior STEMI with revascularization of the proximal LAD with 3.5 x 15 mm [place] stent without complications. 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 This requires him lifting anywhere between 20 to greater than 40 pounds of repetitive work on a regular basis. Patient is also asking to be released to fly on a vacation in January (I have no problem of this). He is asymptomatic doing well without any cardiovascular complaints or shortness of breath or angina. He has underlying obesity and mild hypertension and treated for tachycardia in the past. He is tolerating his GDMT well Recommendations: Initiate cardiac rehab, follow-up in 6 months on same therapy Surgical History Problems History of Cardiac catheterization with stent placement History of Colonoscopy Current Meds Medication NameInstruction Aspirin 81 MG Oral Tablet Delayed ReleaseTAKE 1 TABLET DAILY. Atorvastatin Calcium 80 MG Oral TabletTAKE 1 TABLET DAILY. Brilinta 90 MG Oral TabletTAKE 1 TABLET TWICE DAILY. Lipitor 80 MG Oral TabletTAKE 1 TABLET AT BEDTIME. Lisinopril 10 MG Oral TabletTAKE 1 TABLET BY MOUTH DAILY Loratadine 10 MG Oral TabletTAKE 1 TABLET BY MOUTH EVERY DAY Metoprolol Succinate ER 100 MG Oral Tablet Extended Release 24 HourTAKE 2 TABLET Daily Nitroglycerin 0.4 MG Sublingual Tablet SublingualTAKE DIRECTED. Allergies Medication No Known Drug Allergies Recorded By: Brie Peña; 12/06/2022 11:56:00 AM Social History Problems Consumes alcohol occasionally (V49.89) (Z78.9) Former smoker (V15.82) (Z87.891) quit 1993 No illicit drug use Occasional caffeine consumption Review of Systems Constitutional: not feeling tired. Cardiovascular: no intermittent leg claudication and as noted in HPI. Respiratory: shortness of breath, but no cough. Gastrointestinal: no change in bowel habits and no blood in stools. Integumentary: no skin rashes. Neurological: no seizures and no frequent falls. All other systems have been reviewed and are negative for complaint. Vitals Vital Signs Recorded (more content not included)... Normal [facility] Tobacco Screening.on 023 Adult depression screening assessment No [facility] y 250 DO Work Phone: Fall risk assessment a) No falls within the last year [facility] y 250 DO Work Phone: Tobacco use status CP b) No M [facility] y 250 DO Work Phone: Basic Metabolic Panelon 11-07 Anion gap [Moles/Vol] 10.6 mmol/L Normal 6.0-15.0 [facility] Comment on above: Order Comment: AMI VILLATORO IV START IN ERROR ALW Performed By: #### C BC, LIPID, BMP, HS TROP #### [facility] [address] Calcium [Mass/Vol] 9.0 mg/dL Normal 8.6-10.3 [facility] Comment on above: Order Comment: AMI Cano IV START IN ERROR ALW Performed By: #### C BC, LIPID, BMP, HS TROP #### [facility] [address] [place] [address] [place] Chloride [Moles/Vol] 107 mmol/L Normal 98-107 [facility] Comment on above: Order Comment: AMI Cano IV START IN ERROR ALW Performed By: #### C BC, LIPID, BMP, HS TROP #### [facility] [address] CO2 [Moles/Vol] 23.4 mmol/L Normal 21.0-31.0 [facility] Comment on above: Order Comment: AMI Cano IV START IN ERROR ALW Performed By: #### C BC, LIPID, BMP, HS TROP #### [facility] [address] Creatinine [Mass/Vol] 0.94 mg/dL Normal 0.70-1.30 [facility] Comment on above: Order Comment: AMI Cano IV START IN ERROR ALW Performed By: #### C BC, LIPID, BMP, HS TROP #### [facility] [address] [place] [address] [place] Creatinine Clr Calc Pharmacy 89.[address] [facility] Comment on above: Order Comment: AMI Cano IV START IN ERROR ALW Result Comment: PERF ORMED BY: [place] [address] PATHOLOGIST R D MANAGER VITO GIL M.D. Performed By: #### C BC, LIPID, BMP, HS TROP #### [facility] [address] [place] [address] [place] GFR/1.73 sq M.predicted MDRD (S/P/Bld) [Vol rate/Area] mL/min/{1.73_m2} [facility] Comment on above: Order Comment: AMI Cano IV START IN ERROR ALW Performed By: #### C BC, LIPID, BMP, HS TROP #### [address] Glucose [Mass/Vol] 104 mg/dL High 70-100 [facility] Comment on above: Order Comment: AMI Cano IV START IN ERROR ALW Result Comment: [facility] Glucose Reference Range is dependent on time and content of last meal. Glucose of more than 200 mg/dL in a nonstressed, ambulatory subject supports the diagnosis of Diabetes Mellitus. ADA recommended reference range Performed By: #### C BC, LIPID, BMP, HS TROP #### [address] Potassium [Moles/Vol] 4.0 mmol/L Normal 3.5-5.1 [facility] Comment on above: Order Comment: AMI Cano IV START IN ERROR ALW Performed By: #### C BC, LIPID, BMP, HS TROP #### [address] Sodium [Moles/Vol] 137 mmol/L Normal 136-145 [facility] Comment on above: Order Comment: AMI Cano IV START IN ERROR ALW Performed By: #### C BC, LIPID, BMP, HS TROP #### [address] Urea nitrogen [Mass/Vol] 19 mg/dL Normal 7-25 [facility] Comment on above: Order Comment: AMI Cano IV START IN ERROR ALW Performed By: #### C BC, LIPID, BMP, HS TROP #### [address] Complete Blood Count Auto Di ffon 11-25-2022 Basophils (Bld) [#/Vol] 0.1 10*3/uL Normal 0.0-0.2 [facility] Comment on above: Result Comment: PERF ORMED BY: [place] [address] PATHOLOGIST R D MANAGER VITO GIL M.D. Performed By: #### C BC, LIPID, BMP, HS TROP #### [facility] [address] [place] [address] [place] Basophils/100 WBC (Bld) 1.1 % Normal . [facility] Comment on above: Performed By: #### C BC, LIPID, BMP, HS TROP #### [facility] [address] Eosinophils (Bld) [#/Vol] 0.2 10*3/uL Normal 0.0-0.45 [facility] Comment on above: Performed By: #### C BC, LIPID, BMP, HS TROP #### [facility] [address] Eosinophils/100 WBC (Bld) 1.9 % Normal . [facility] Comment on above: Performed By: #### C BC, LIPID, BMP, HS TROP #### [address] Erythrocyte distribution width (RBC) [Ratio] 13.7 % Normal 12.0-14.8 [facility] Comment on above: Performed By: #### C BC, LIPID, BMP, HS TROP #### [address] Hematocrit (Bld) [Volume fraction] 37.8 % Low 38.8-50.0 [facility] Comment on above: Performed By: #### C BC, LIPID, BMP, HS TROP #### [place] [address] [place] Hemoglobin (Bld) [Mass/Vol] 12.6 g/dL Low 13.0-17.0 [facility] Comment on above: Performed By: #### C BC, LIPID, BMP, HS TROP #### [facility] [address] [place] [address] [place] Lymphocytes (Bld) [#/Vol] 0.9 10*3/uL Low 1.00-4.8 [facility] Comment on above: Performed By: #### C BC, LIPID, BMP, HS TROP #### [facility] [address] [place] [address] [place] Lymphocytes/100 WBC (Bld) 8.9 % Normal . [facility] Comment on above: Performed By: #### C BC, LIPID, BMP, HS TROP #### [facility] [address] [place] [address] MCH (RBC) [Entitic mass] 29.5 pg Normal 27.5-35.2 [facility] Comment on above: Performed By: #### C BC, LIPID, BMP, HS TROP #### [address] MCV (RBC) [Entitic vol] 88.2 fL Normal 83.5-101 [facility] Comment on above: Performed By: #### C BC, LIPID, BMP, HS TROP #### [address] Mean Corpuscular HGB Conc 33.5 g/dL Normal 32.5-35.6 [facility] Comment on above: Performed By: #### C BC, LIPID, BMP, HS TROP #### [address] Monocytes (Bld) [#/Vol] 0.9 10*3/uL High 0.0-0.8 [facility] Comment on above: Performed By: #### C BC, LIPID, BMP, HS TROP #### [address] Monocytes/100 WBC (Bld) 16.64 % Normal 0.00-20.00 [facility] Comment on above: Performed By: #### C BC, LIPID, BMP, HS TROP #### [address] Monocytes/100 WBC (Bld) 8.9 % Normal . [facility] Comment on above: Performed By: #### C BC, LIPID, BMP, HS TROP #### [address] Neutrophils (Bld) [#/Vol] 7.8 10*3/uL High 1.8-7.7 [facility] Comment on above: Performed By: #### C BC, LIPID, BMP, HS TROP #### [address] Neutrophils/100 WBC (Bld) 79.2 % Normal . [facility] Comment on above: Performed By: #### C BC, LIPID, BMP, HS TROP #### [address] NRBC% 0.0 /100{WBC} Normal 0-0.5 [facility] Comment on above: Performed By: #### C BC, LIPID, BMP, HS TROP #### [address] Platelet mean volume (Bld) [Entitic vol] 7.8 fL Normal 6.6-10.1 [facility] Comment on above: Performed By: #### C BC, LIPID, BMP, HS TROP #### [address] Platelets (Bld) [#/Vol] 205 10*3/uL Normal 150-450 [facility] Comment on above: Performed By: #### C BC, LIPID, BMP, HS TROP #### [address] RBC (Bld) [#/Vol] 4.28 10*6/uL Normal 3.90-5.60 [facility] Comment on above: Performed By: #### C BC, LIPID, BMP, HS TROP #### [address] WBC (Bld) [#/Vol] 9.9 10*3/uL Normal 4.1-10.5 [facility] Comment on above: Performed By: #### C BC, LIPID, BMP, HS TROP #### [address] Comprehensive Metabolic Pane sanya 11-25-2022 Albumin [Mass/Vol] 4.1 g/dL Normal 3.5-5.7 [facility] Comment on above: Performed By: #### C BC, LIPID, BMP, HS TROP #### [address] [place] [address] [place] Albumin/Globulin [Mass ratio] 1.4 {ratio} Normal [facility] Comment on above: Performed By: #### C BC, LIPID, BMP, HS TROP #### [facility] [address] ALP [Catalytic activity/Vol] 59 U/L Normal 34-104 [facility] Comment on above: Performed By: #### C BC, LIPID, BMP, HS TROP #### [facility] [address] ALT [Catalytic activity/Vol] 29 U/L Normal 7-52 [facility] Comment on above: Performed By: #### C BC, LIPID, BMP, HS TROP #### [address] Anion gap [Moles/Vol] 15.1 mmol/L High 6.0-15.0 [facility] Comment on above: Performed By: #### C BC, LIPID, BMP, HS TROP #### [address] AST [Catalytic activity/Vol] 31 U/L Normal 13-39 [facility] Comment on above: Performed By: #### C BC, LIPID, BMP, HS TROP #### [address] Bilirubin [Mass/Vol] 0.5 mg/dL Normal 0.3-1.0 [facility] Comment on above: Performed By: #### C BC, LIPID, BMP, HS TROP #### [address] Calcium [Mass/Vol] 9.1 mg/dL Normal 8.6-10.3 [facility] Comment on above: Performed By: #### C BC, LIPID, BMP, HS TROP #### [address] Chloride [Moles/Vol] 106 mmol/L Normal 98-107 [facility] Comment on above: Performed By: #### C BC, LIPID, BMP, HS TROP #### [facility] [address] [place] [address] [place] CO2 [Moles/Vol] 19.6 mmol/L Low 21.0-31.0 [facility] Comment on above: Performed By: #### C BC, LIPID, BMP, HS TROP #### [facility] [address] [place] [address] [place] Creatinine [Mass/Vol] 1.09 mg/dL Normal 0.70-1.30 [facility] Comment on above: Performed By: #### C BC, LIPID, BMP, HS TROP #### [facility] [address] [place] [address] [place] Creatinine Clr Calc Pharmacy 77.84 [facility] Comment on above: Performed By: #### C BC, LIPID, BMP, HS TROP #### [facility] [address] [place] [address] [place] GFR/1.73 sq M.predicted MDRD (S/P/Bld) [Vol rate/Area] mL/min/{1.73_m2} [facility] Comment on above: Performed By: #### C BC, LIPID, BMP, HS TROP #### [facility] [address] Globulin (S) [Mass/Vol] 3.0 g/dL Normal [facility] Comment on above: Performed By: #### C BC, LIPID, BMP, HS TROP #### [facility] [address] [place] [address] [place] Glucose [Mass/Vol] 150 mg/dL High 70-100 [facility] Comment on above: Result Comment: [facility] Glucose Reference Range is dependent on time and content of last meal. Glucose of more than 200 mg/dL in a nonstressed, ambulatory subject supports the diagnosis of Diabetes Mellitus. ADA recommended reference range Performed By: #### C BC, LIPID, BMP, HS TROP #### [facility] [address] Potassium [Moles/Vol] 3.7 mmol/L Normal 3.5-5.1 [facility] Comment on above: Performed By: #### C BC, LIPID, BMP, HS TROP #### [facility] [address] [place] [id number] [place] Protein [Mass/Vol] 7.1 g/dL Normal 6.4-8.9 [facility] Comment on above: Performed By: #### C BC, LIPID, BMP, HS TROP #### [facility] [address] [place] [id number] [place] Sodium [Moles/Vol] 137 mmol/L Normal 136-145 [facility] Comment on above: Performed By: #### C BC, LIPID, BMP, HS TROP #### [facility] [address] [place] [id number] [place] Urea nitrogen [Mass/Vol] 26 mg/dL High 7-25 [facility] Comment on above: Performed By: #### C BC, LIPID, BMP, HS TROP #### [facility] [address] [place] [id number] [facility] Creatine Kinaseon 11-25-2022 CK [Catalytic activity/Vol] 172 U/L Normal 30-223 [facility] Comment on above: Performed By: #### C BC, LIPID, BMP, HS TROP #### [facility] [address] ECG 12 lead ECGon 11-25-2022 ECG 12 lead ECG [facility] Main [place] [address] [place] [address] Electrocardiograph Report Signed Patient: Flores Sierra MR#: [id number] : 1960 Acct:[id number] Age/Sex: 62 / M ADM Date: 11/24/22 Loc: Room: [address] [place] [address] Type: DIS INOo Attending Dr: Lacy Mitchell MD Ordering Provider: Lashell Diaz APRN Date of Service: 11/25/22 ECG/ECG 12 lead ECG: palpitations Copies to: Test Reason : Blood Pressure : / mmHG Vent. Rate : 090 BPM Atrial Rate : 090 BPM P-R Int : 154 ms QRS Dur : 092 ms QT Int : 386 ms P-R-T Axes : 023 -54 -04 degrees QTc Int : 472 ms Normal sinus rhythm Left axis deviation Septal infarct (cited on or before 25-NOV-2022) Abnormal ECG When compared with ECG of 24-NOV-2022 22:04, Incomplete right bundle branch block is no longer present Confirmed by GARLAND ROLLE MD ([id number]) on 11/27/2022 11:47:02 AM Referred By: Electronically Signed By:GARLAND ROLLE MD Transcribed By: MUS Signed By Garland Rolle MD 0 11/27/[address] [facility] ECG 12 lead ECG [facility] [place] [address] Electrocardiograph Report Signed Patient: Flores Sierra MR#: [id number] : 1960 Acct:[id number] Age/Sex: 62 / M ADM Date: 11/24/22 Loc: ER Room: Type: [place] [facility] Attending Dr: Ordering Provider: Jim Hines DO Date of Service: 11/24/22 ECG/ECG 12 lead ECG: Arrhythmia/Palpitati ons Copies to: Test Reason : Blood Pressure : 151/090 mmHG Vent. Rate : 112 BPM Atrial Rate : 112 BPM P-R Int : 166 ms QRS Dur : 094 ms QT Int : 344 ms P-R-T Axes : 065 262 060 degrees QTc Int : 469 ms Sinus tachycardia Right superior axis deviation Incomplete right bundle branch block ST elevation in V1 V2 aVL Abnormal ECG When compared with ECG of 22-NOV-2022 10:37, ST elevation now present in V2 T wave inversion less evident in aVL T wave amplitude has decreased in Inferior leads Confirmed by RIGOBERTO LOPEZ MD ([id number]) on 11/24/2022 10:58:49 PM Referred By: Electronically Signed By:RIGOBERTO LOPEZ MD Transcribed By: MUS Signed By Rigoberto Lopez Jr, MD [id number] [facility] Magnesiumon 11-25-2022 Magnesium [Mass/Vol] 1.9 mg/dL Normal 1.9-2.7 [facility] Comment on above: Result Comment: PERF ORMED BY: [place] [address] PATHOLOGIST R D MANAGER VITO GIL M.D. Performed By: #### C BC, LIPID, BMP, HS TROP #### [place] [id number] [facility] Partial Thromboplastin Timeo n 11-25-2022 aPTT Coag (Bld) [Time] 28.9 s Normal 25.1-36.5 [facility] Comment on above: Result Comment: PERF ORMED BY: [place] [address] PATHOLOGIST R D MANAGER VITO GIL M.D. Performed By: #### C BC, LIPID, BMP, HS TROP #### [address] Prothrombin Time INRon 11-25 INR Coag (PPP) [Relative time] 1.0 {INR} Normal [facility] Comment on above: Result Comment: INR Therapeutic Range A) Pre- and Peroperative OAT started two weeks before surgery. NOT HIP SURGERY: 1.5 - 2.5 HIP SURGERY: 2 - 3 B) Primary and secondary prevention of venous THROMBOSIS: 2 - 3 C) Active venous thrombosis, pulmonary embolism and prevention of recurrent venous thrombosis: 2 - 3 D) Prevention of arterial thromboembolism including patients with mechanical heart valves: 3 - 4.5 Performed By: #### C BC, LIPID, BMP, HS TROP #### [address] PT Coag (PPP) [Time] 11.5 s Normal 9.0-12.9 [facility] Comment on above: Performed By: #### C BC, LIPID, BMP, HS TROP #### [facility] [address] [place] [address] [place] Troponin I High Sensitivityo n 11-25-2022 Troponin I High Sensitivity 5299.1 pg/mL Off scale high 0.0-20.0 [facility] Comment on above: Order Comment: AMI Cano IV START IN ERROR ALW Result Comment: Crit ical Result : Called to and read back by: LASHELL ERIC at: 11/25/2022 13:26:04 by:[id number] PERFORMED BY: [place] [address] PATHOLOGIST R D MANAGER VITO GIL M.D. Performed By: #### C BC, LIPID, BMP, HS TROP #### [address] Troponin I High Sensitivity 7314.7 pg/mL Off scale high 0.0-20.0 [facility] Comment on above: Result Comment: Crit ical Result : Called to and read back by: JOHN QUINTERO at: 11/25/2022 02:41:15 by:[id number] PERFORMED BY: [place] [address] PATHOLOGIST R D MANAGER VITO GIL M.D. Performed By: #### C BC, LIPID, BMP, HS TROP #### [address] Troponin I High Sensitivity 8205.6 pg/mL Off scale high 0.0-20.0 [facility] Comment on above: Result Comment: Crit ical Result : Called to and read back by: LIDIA AUGUSTE at: 11/24/2022 23:09:13 by:[id number] PERFORMED BY: [place] [address] PATHOLOGIST R D MANAGER VITO GIL M.D. Performed By: #### C BC, LIPID, BMP, HS TROP #### [place] [id number] [facility] XR chest 1V portableon 11-25 XR chest 1V portable [facility] [place] [address] XRay Report Signed Patient: Flores Sierra MR#: [id number] : 1960 Acct:[id number] Age/Sex: 62 / M ADM Date: 11/24/22 Loc: Room: [address] [place] [address] Type: ADM INOo Attending Dr: Lacy Mitchell MD Copies to: DO Lacy Morel MD Ordering Provider: Jim Hines DO Date of Service: 11/24/22 XR/XR chest 1V portable: Arrhythmia/Palpitati ons Plain film chest single view HISTORY: Elevated heart rate COMPARISON: None FINDINGS: SUPPORT DEVICES: None POSTSURGICAL CHANGES: None HEART: Within normal limits PULMONARY MARTA: Within normal limits MEDIASTINUM: Unremarkable LUNGS AND PLEURA: No acute lung process, pleural effusion or pneumothorax identified. BONY STRUCTURES: Intact ADDITIONAL FINDINGS None XR/XR chest 1V portable IMPRESSION: No acute process. Impression dictated by: Taj Morales M.D.11/25/2022 8:48 AM Dictation Location: [place] [address] Transcribed By: [facility] 11/25/22847 Dictated By: Taj Morales DO 11/25/2247 Signed By: 11/25/2248 Normal [facility] Basic Metabolic Panelon 11-06 Anion gap [Moles/Vol] 13.1 mmol/L Normal 6.0-15.0 [facility] Comment on above: Performed By: #### C BC, LIPID, BMP, HS TROP #### [facility] [address] [place] [address] [place] Calcium [Mass/Vol] 9.3 mg/dL Normal 8.6-10.3 [facility] Comment on above: Performed By: #### C BC, LIPID, BMP, HS TROP #### [facility] [address] [place] [id number] [place] Chloride [Moles/Vol] 103 mmol/L Normal 98-107 [facility] Comment on above: Performed By: #### C BC, LIPID, BMP, HS TROP #### [facility] [address] [place] [address] [place] CO2 [Moles/Vol] 24.1 mmol/L Normal 21.0-31.0 [facility] Comment on above: Performed By: #### C BC, LIPID, BMP, HS TROP #### [facility] [address] [place] [id number] [place] Creatinine [Mass/Vol] 1.05 mg/dL Normal 0.70-1.30 [facility] Comment on above: Performed By: #### C BC, LIPID, BMP, HS TROP #### [facility] [address] [place] [address] [place] Creatinine Clr Calc Pharmacy 82.76 [facility] Comment on above: Result Comment: PERF ORMED BY: [place] [address] PATHOLOGIST R D MANAGER VITO GIL M.D. Performed By: #### C BC, LIPID, BMP, HS TROP #### [facility] [address] [place] [address] [place] GFR/1.73 sq M.predicted MDRD (S/P/Bld) [Vol rate/Area] mL/min/{1.73_m2} [facility] Comment on above: Performed By: #### C BC, LIPID, BMP, HS TROP #### [place] [address] [place] Glucose [Mass/Vol] 109 mg/dL High 70-100 [facility] Comment on above: Result Comment: [facility] Glucose Reference Range is dependent on time and content of last meal. Glucose of more than 200 mg/dL in a nonstressed, ambulatory subject supports the diagnosis of Diabetes Mellitus. ADA recommended reference range Performed By: #### C BC, LIPID, BMP, HS TROP #### [place] [address] [place] Potassium [Moles/Vol] 4.2 mmol/L Normal 3.5-5.1 [facility] Comment on above: Performed By: #### C BC, LIPID, BMP, HS TROP #### [facility] [address] [place] [address] [place] Sodium [Moles/Vol] 136 mmol/L Normal 136-145 [facility] Comment on above: Performed By: #### C BC, LIPID, BMP, HS TROP #### [facility] [address] [place] [address] [place] Urea nitrogen [Mass/Vol] 17 mg/dL Normal 7-25 [facility] Comment on above: Performed By: #### C BC, LIPID, BMP, HS TROP #### [address] Complete Blood Count Auto Di ffon 11-22-2022 Basophils (Bld) [#/Vol] 0.0 10*3/uL Normal 0.0-0.2 [facility] Comment on above: Result Comment: PERF ORMED BY: [place] [address] PATHOLOGIST R D MANAGER VITO GIL M.D. Performed By: #### C BC, LIPID, BMP, HS TROP #### [address] Basophils/100 WBC (Bld) 0.4 % Normal . [facility] Comment on above: Performed By: #### C BC, LIPID, BMP, HS TROP #### [address] Eosinophils (Bld) [#/Vol] 0.2 10*3/uL Normal 0.0-0.45 [facility] Comment on above: Performed By: #### C BC, LIPID, BMP, HS TROP #### [address] Eosinophils/100 WBC (Bld) 1.8 % Normal . [facility] Comment on above: Performed By: #### C BC, LIPID, BMP, HS TROP #### [address] Erythrocyte distribution width (RBC) [Ratio] 13.9 % Normal 12.0-14.8 [facility] Comment on above: Performed By: #### C BC, LIPID, BMP, HS TROP #### [address] Hematocrit (Bld) [Volume fraction] 38.3 % Low 38.8-50.0 [facility] Comment on above: Performed By: #### C BC, LIPID, BMP, HS TROP #### [address] Hemoglobin (Bld) [Mass/Vol] 13.0 g/dL Normal 13.0-17.0 [facility] Comment on above: Performed By: #### C BC, LIPID, BMP, HS TROP #### [facility] [address] [place] [address] Lymphocytes (Bld) [#/Vol] 1.2 10*3/uL Normal 1.00-4.8 [facility] Comment on above: Performed By: #### C BC, LIPID, BMP, HS TROP #### [address] Lymphocytes/100 WBC (Bld) 10.8 % Normal . [facility] Comment on above: Performed By: #### C BC, LIPID, BMP, HS TROP #### [address] MCH (RBC) [Entitic mass] 30.2 pg Normal 27.5-35.2 [facility] Comment on above: Performed By: #### C BC, LIPID, BMP, HS TROP #### [address] MCV (RBC) [Entitic vol] 88.7 fL Normal 83.5-101 [facility] Comment on above: Performed By: #### C BC, LIPID, BMP, HS TROP #### [address] Mean Corpuscular HGB Conc 34.1 g/dL Normal 32.5-35.6 [facility] Comment on above: Performed By: #### C BC, LIPID, BMP, HS TROP #### [address] Monocytes (Bld) [#/Vol] 1.2 10*3/uL High 0.0-0.8 [facility] Comment on above: Performed By: #### C BC, LIPID, BMP, HS TROP #### [address] Monocytes/100 WBC (Bld) 11.0 % Normal . [facility] Comment on above: Performed By: #### C BC, LIPID, BMP, HS TROP #### [facility] [address] Neutrophils (Bld) [#/Vol] 8.2 10*3/uL High 1.8-7.7 [facility] Comment on above: Performed By: #### C BC, LIPID, BMP, HS TROP #### [address] Neutrophils/100 WBC (Bld) 76.0 % Normal . [facility] Comment on above: Performed By: #### C BC, LIPID, BMP, HS TROP #### [address] NRBC% 0.0 /100{WBC} Normal 0-0.5 [facility] Comment on above: Performed By: #### C BC, LIPID, BMP, HS TROP #### [address] Platelet mean volume (Bld) [Entitic vol] 8.1 fL Normal 6.6-10.1 [facility] Comment on above: Performed By: #### C BC, LIPID, BMP, HS TROP #### [place] [address] [place] Platelets (Bld) [#/Vol] 186 10*3/uL Normal 150-450 [facility] Comment on above: Performed By: #### C BC, LIPID, BMP, HS TROP #### [place] [address] [place] RBC (Bld) [#/Vol] 4.31 10*6/uL Normal 3.90-5.60 [facility] Comment on above: Performed By: #### C BC, LIPID, BMP, HS TROP #### [place] [address] [place] WBC (Bld) [#/Vol] 10.8 10*3/uL High 4.1-10.5 [facility] Comment on above: Performed By: #### C BC, LIPID, BMP, HS TROP #### [address] ECG 12 lead ECGon 11-22-2022 ECG 12 lead ECG [facility] Main [place] [address] [place] [address] Electrocardiograph Report Signed Patient: Flores Sierra MR#: [id number] : 1960 Acct:[id number] Age/Sex: 62 / M ADM Date: 11/20/22 Loc: Room: [address] [place] [address] Type: DIS IN Attending Dr: Daryl Farrell DO Ordering Provider: Daryl Farrell DO Date of Service: 11/22/22 ECG/ECG 12 lead ECG: Ant STEMI Copies to: Test Reason : Blood Pressure : / mmHG Vent. Rate : 095 BPM Atrial Rate : 095 BPM P-R Int : 164 ms QRS Dur : 092 ms QT Int : 384 ms P-R-T Axes : 050 -89 104 degrees QTc Int : 482 ms Normal sinus rhythm Pulmonary disease pattern Incomplete right bundle branch block Left anterior fascicular block Prolonged QT Abnormal ECG When compared with ECG of 21-NOV-2022 07:58, No significant change was found Confirmed by GARLAND ROLLE MD ([id number]) on 11/22/2022 4:42:06 PM Referred By: Electronically Signed By:GARLAND ROLLE MD Transcribed By: MUS Signed By Garland Rolle MD 0 11/22/22 1642 Normal [facility] Basic Metabolic Panelon 05- Anion gap [Moles/Vol] 14.5 mmol/L Normal 6.0-15.0 [facility] Comment on above: Performed By: #### C BC, LIPID, BMP, HS TROP #### [facility] [address] [place] [address] [place] Calcium [Mass/Vol] 8.8 mg/dL Normal 8.6-10.3 [facility] Comment on above: Performed By: #### C BC, LIPID, BMP, HS TROP #### [facility] [address] [place] [address] [place] Chloride [Moles/Vol] 106 mmol/L Normal 98-107 [facility] Comment on above: Performed By: #### C BC, LIPID, BMP, HS TROP #### [facility] [address] [place] [address] [place] CO2 [Moles/Vol] 18.7 mmol/L Low 21.0-31.0 [facility] Comment on above: Performed By: #### C BC, LIPID, BMP, HS TROP #### [facility] [address] [place] [address] [place] Creatinine [Mass/Vol] 0.91 mg/dL Normal 0.70-1.30 [facility] Comment on above: Performed By: #### C BC, LIPID, BMP, HS TROP #### [facility] [address] [place] [address] [place] Creatinine Clr Calc Pharmacy 95.06 [facility] Comment on above: Performed By: #### C BC, LIPID, BMP, HS TROP #### [facility] [address] [place] [address] [place] GFR/1.73 sq M.predicted MDRD (S/P/Bld) [Vol rate/Area] mL/min/{1.73_m2} [facility] Comment on above: Performed By: #### C BC, LIPID, BMP, HS TROP #### [facility] [address] [place] [address] [place] Glucose [Mass/Vol] 112 mg/dL High 70-100 [facility] Comment on above: Result Comment: [facility] Glucose Reference Range is dependent on time and content of last meal. Glucose of more than 200 mg/dL in a nonstressed, ambulatory subject supports the diagnosis of Diabetes Mellitus. ADA recommended reference range Performed By: #### C BC, LIPID, BMP, HS TROP #### [facility] [address] [place] [address] [place] Potassium [Moles/Vol] 4.2 mmol/L Normal 3.5-5.1 [facility] Comment on above: Performed By: #### C BC, LIPID, BMP, HS TROP #### [facility] [address] [place] [address] [place] Sodium [Moles/Vol] 135 mmol/L Low 136-145 [facility] Comment on above: Performed By: #### C BC, LIPID, BMP, HS TROP #### [address] Urea nitrogen [Mass/Vol] 15 mg/dL Normal 7-25 [facility] Comment on above: Performed By: #### C BC, LIPID, BMP, HS TROP #### [address] Complete Blood Count Auto Di ffon 11-21-2022 Basophils (Bld) [#/Vol] 0.1 10*3/uL Normal 0.0-0.2 [facility] Comment on above: Result Comment: PERF ORMED BY: [place] [address] PATHOLOGIST R D MANAGER VITO GIL M.D. Performed By: #### C BC, LIPID, BMP, HS TROP #### [address] Basophils/100 WBC (Bld) 0.4 % Normal . [facility] Comment on above: Performed By: #### C BC, LIPID, BMP, HS TROP #### [address] Eosinophils (Bld) [#/Vol] 0.1 10*3/uL Normal 0.0-0.45 [facility] Comment on above: Performed By: #### C BC, LIPID, BMP, HS TROP #### [address] Eosinophils/100 WBC (Bld) 0.7 % Normal . [facility] Comment on above: Performed By: #### C BC, LIPID, BMP, HS TROP #### [address] Erythrocyte distribution width (RBC) [Ratio] 13.8 % Normal 12.0-14.8 [facility] Comment on above: Performed By: #### C BC, LIPID, BMP, HS TROP #### [address] Hematocrit (Bld) [Volume fraction] 36.4 % Low 38.8-50.0 [facility] Comment on above: Performed By: #### C BC, LIPID, BMP, HS TROP #### [facility] [address] Hemoglobin (Bld) [Mass/Vol] 12.2 g/dL Low 13.0-17.0 [facility] Comment on above: Performed By: #### C BC, LIPID, BMP, HS TROP #### [facility] [address] Lymphocytes (Bld) [#/Vol] 0.9 10*3/uL Low 1.00-4.8 [facility] Comment on above: Performed By: #### C BC, LIPID, BMP, HS TROP #### [address] Lymphocytes/100 WBC (Bld) 6.9 % Normal . [facility] Comment on above: Performed By: #### C BC, LIPID, BMP, HS TROP #### [address] MCH (RBC) [Entitic mass] 29.7 pg Normal 27.5-35.2 [facility] Comment on above: Performed By: #### C BC, LIPID, BMP, HS TROP #### [address] MCV (RBC) [Entitic vol] 88.8 fL Normal 83.5-101 F [facility] Comment on above: Performed By: #### C BC, LIPID, BMP, HS TROP #### [address] Mean Corpuscular HGB Conc 33.5 g/dL Normal 32.5-35.6 [facility] Comment on above: Performed By: #### C BC, LIPID, BMP, HS TROP #### [address] Monocytes (Bld) [#/Vol] 1.2 10*3/uL High 0.0-0.8 [facility] Comment on above: Performed By: #### C BC, LIPID, BMP, HS TROP #### [facility] [address] Monocytes/100 WBC (Bld) 8.6 % Normal . [facility] Comment on above: Performed By: #### C BC, LIPID, BMP, HS TROP #### [facility] [address] [place] [address] Neutrophils (Bld) [#/Vol] 11.3 10*3/uL High 1.8-7.7 [facility] Comment on above: Performed By: #### C BC, LIPID, BMP, HS TROP #### [address] Neutrophils/100 WBC (Bld) 83.4 % Normal . [facility] Comment on above: Performed By: #### C BC, LIPID, BMP, HS TROP #### [address] NRBC% 0.1 /100{WBC} Normal 0-0.5 [facility] Comment on above: Performed By: #### C BC, LIPID, BMP, HS TROP #### [address] Platelet mean volume (Bld) [Entitic vol] 7.9 fL Normal 6.6-10.1 [facility] Comment on above: Performed By: #### C BC, LIPID, BMP, HS TROP #### [place] [address] [place] Platelets (Bld) [#/Vol] 174 10*3/uL Normal 150-450 [facility] Comment on above: Performed By: #### C BC, LIPID, BMP, HS TROP #### [place] [address] [place] RBC (Bld) [#/Vol] 4.10 10*6/uL Normal 3.90-5.60 [facility] Comment on above: Performed By: #### C BC, LIPID, BMP, HS TROP #### [address] [place] [address] [place] WBC (Bld) [#/Vol] 13.5 10*3/uL High 4.1-10.5 [facility] [facility] Comment on above: Performed By: #### C BC, LIPID, BMP, HS TROP #### [facility] [address] [place] [address] ECG 12 lead ECGon 11-21-2022 ECG 12 lead ECG [facility] [place] [address] Electrocardiograph Report Signed Patient: Flores Sierra MR#: [id number] : 1960 Acct:[id number] Age/Sex: 62 / M ADM Date: 11/20/22 Loc: Room: [address] [place] [address] Type: ADM IN Attending Dr: Daryl Farrell DO Ordering Provider: Daryl Farrell DO Date of Service: 11/21/22 ECG/ECG 12 lead ECG: Ant STEMI Copies to: Test Reason : Blood Pressure : / mmHG Vent. Rate : 077 BPM Atrial Rate : 077 BPM P-R Int : 146 ms QRS Dur : 088 ms QT Int : 398 ms P-R-T Axes : 038 -46 081 degrees QTc Int : 450 ms Normal sinus rhythm Left anterior fascicular block Nonspecific ST and T wave abnormality Abnormal ECG When compared with ECG of 20-NOV-2022 17:05, (Unconfirmed) No significant change was found Confirmed by GARLAND ROLLE MD ([id number]) on 11/21/2022 12:56:22 PM Referred By: Electronically Signed By:GARLAND ROLLE MD Transcribed By: MUS Signed By Garland Rolle MD 0 11/21/22 1256 Normal [facility] ECH echo transthoracicon ECH echo transthoracic [facility] [place] [address] Echocardiogram Signed Patient: Flores Sierra MR#: [id number] : 1960 Acct:[id number] Age/Sex: 62 / M ADM Date: 11/20/22 Loc: Room: 9C3018-0 Type: ADM IN Attending Dr: Daryl Farrell DO Ordering Provider: Daryl Farrell DO Date of Service: 11/21/22 E[facility] echo transthoracic: Ant STEMI Copies to: MD Daryl Rosenbaum DO BSA: 2.1 m2 BP: 144/88 mmHg HR: 74 Reason For Study: Ant STEMI History: PCI 11/20/22. HTN. HLD. Former Smoker. Interpretation Summary Mild to moderate concentric left ventricular hypertrophy. The LV ejection fraction is 45 %. A variety of Doppler measurements indicate impaired left ventricular relaxation, which is associated with grade I/IV or mild diastolic dysfunction. Severe hypokinesis of the mid to distal anteroseptal wall and apex There is trace mitral regurgitation. There is no comparison study available. Procedure/Quality: A two-dimensional transthoracic echocardiogram with color flow, Doppler and injection of contrast agent Definity was performed. A two- dimensional transthoracic echocardiogram with color flow and Doppler was performed. The study was technically good in quality. Left Ventricle: The left ventricular size is normal. Mild to moderate concentric left ventricular hypertrophy. The LV ejection fraction is 45 %. A variety of Doppler measurements indicate impaired left ventricular relaxation, which is associated with grade I/IV or mild diastolic dysfunction. Severe hypokinesis of the mid to distal anteroseptal wall and apex. Left Atrium: The left atrium appears normal in size. Right Atrium: The right atrium appears normal in size. Right Ventricle: The right ventricular size, thickness and function are normal. Aortic Valve: The aortic valve is normal in structure and function. No aortic regurgitation is present. Mitral Valve: The mitral valve is normal in structure and function. There is trace mitral regurgitation. Tricuspid Valve: The tricuspid valve is normal in structure and function. No tricuspid regurgitation. Pulmonic Valve: The pulmonic valve is normal in structure and function. Arteries: The aortic root is normal size. Pericardium/Pleura: No pericardial effusion seen. There is no pleural effusion. IVC/Hepatic Viens: The inferior vena cava is normal in size, with a normal collapsibility index. Measurements with Normals IVSd: 1.6 cm (0.7-1.1 cm)LVIDd: 4.7 cm (3.7-5.4 cm) LVPWd: 1.5 cm (0.7-1.1 cm)LVIDs: 3.5 cm (2.3-3.6 cm) LA dimension: 3.2 cm (2.3-4.0 cm)Ao root diam: 4.5 cm(2.0-3.6 cm) asc Aorta Diam: 3.7 cm(2.1-3.4cm) Doppler with Normals RVSP(TR): 24.3 mmHg (18-35mmHg) MV E max margarette: 56.6 cm/sec (0.8-1.3m/s) MV A max margarette: 109.7 cm/sec(0.0-0.0m/s) MV E/A: 0.52 (<1.5) MMode/2D Measurements Calculations RVDd: 2.5 cm FS: 25.8 % Ao root area: LVLd ap4: 8.9 cm TAPSE: 1.9 cm EDV(Teich): 15.8 cm2 EDV(MOD-sp4): RV S Margarette: 101.9 ml 176.0 ml 23.2 cm/sec ESV(Teich): LVLs ap4: 7.4 cm 50.2 ml ESV(MOD-sp4): EF(Teich): 50.7 % 115.0 ml EF(MOD-sp4): 34.7 % __ SV(MOD-sp4): LAV(MOD-sp4): LA A2 area: 10.8 cm2 61.0 ml 23.2 ml LAV(MOD-sp2): LA A4 area: 10.8 cm2 24.3 ml LA length (vol): 4.1 cm LA vol: 24.3 ml LA vol index: 11.6 ml/m2 Doppler Measurements Calculations MV max P.0 mmHg E/E' lat: MR max margarette: TV max P.4 210.4 cm/sec 21.0 mmHg E/E' med: MR max P.7 mmHg 8.7 __ TR max margarette: 230.8 cm/sec TR max P.3 mmHg RAP systole: 3.0 mmHg Transcribed By: HUGH Performed At: 11/21/22 0759 Signed By: aGrland Rolle MD 11/21/22 0921 Normal [facility] Lipid Panelon 11-21-2022 Cholesterol [Mass/Vol] 163 mg/dL Normal 140-200 [facility] Comment on above: Result Comment: Chol less than 200 mg/dl low risk Chol 201-239 mg/dl borderline risk Chol 240 mg/dl and greater high risk Performed By: #### C BC, LIPID, BMP, HS TROP #### [facility] [address] Cholesterol in HDL [Mass/Vol] 51 mg/dL Normal 29-71 [facility] Comment on above: Result Comment: HDL CHOL ATP-III CLASSIFICATION Cardiovascular Risk HDL > or equal to 60 mg/dL LOW HDL < 40 mg/dL HIGH Performed By: #### C BC, LIPID, BMP, HS TROP #### [facility] [address] Cholesterol.total/Choles terol in HDL [Mass ratio] 3.2 {ratio} Normal <5.0 [facility] Comment on above: Result Comment: PERF ORMED BY: [place] [address] PATHOLOGIST R D MANAGER VITO GIL M.D. Performed By: #### C BC, LIPID, BMP, HS TROP #### [facility] [address] [place] [id number] [place] LDL Cholesterol,Calculated 57 mg/dL Normal 0-100 [facility] Comment on above: Result Comment: LDL ATP III CLASSIFICATION LDL less than 100 mg/dL Optimal LDL 100-129 mg/dL Near or above optimal LDL 130-159 mg/dL Borderline high LDL 160-189 mg/dL High LDL greater than 189 mg/dL Very high Performed By: #### C BC, LIPID, BMP, HS TROP #### [facility] [address] Triglyceride w/Reflex 277 mg/dL High 0-149 [facility] Comment on above: Result Comment: TRIG ATP III CLASSIFICATION TRIG less than 150 mg/dL Normal TRIG 150-199 mg/dL Borderline high TRIG 200-500 mg/dL High TRIG greater than 500 mg/dL Very high Standard traceable to the Center for Disease Conrtrol and Prevention (CDC) test method. Performed By: #### C BC, LIPID, BMP, HS TROP #### [address] VLDL CHOLESTEROL 55 mg/dL Normal [facility] Comment on above: Performed By: #### C BC, LIPID, BMP, HS TROP #### [address] Troponin I High Sensitivityo n 11-21-2022 Troponin I High Sensitivity 77995.0 pg/mL Off scale high 0.0-20.0 [facility] Comment on above: Result Comment: Crit ical Result I_TnIHS_d:[id number] Called to and read back by: STEPHANI CONNER at: 11/21/2022 05:35:07 by:[id number] PERFORMED BY: [place] [address] PATHOLOGIST R D MANAGER VITO GIL M.D. Performed By: #### C BC, LIPID, BMP, HS TROP #### [address] Troponin I High Sensitivity 66881.5 pg/mL Off scale high 0.0-20.0 [facility] Comment on above: Result Comment: Crit ical Result I_TnIHS_d:78714.5 Called to and read back by: MAGDIEL FARAH at: 11/21/2022 02:20:21 by:[id number] PERFORMED BY: [place] [address] PATHOLOGIST R D MANAGER VITO GIL M.D. Performed By: #### H S TROP #### [address] Troponin I High Sensitivity 950623.8 pg/mL Off scale high 0.0-20.0 [facility] Comment on above: Result Comment: Crit ical Result [id number]_d:[id number] Called to and read back by: STEPHANI CONNER at: 11/21/2022 01:16:55 by:[id number] PERFORMED BY: [place] [address] PATHOLOGIST R D MANAGER VITO GIL M.D. Performed By: #### C BC, LIPID, BMP, HS TROP #### [place] [id number] [facility] Alanine aminotransferase [En zymatic activity/volume] in Serum or PlasmaOrdered By: Ottoniel Luis on 11-20-2022 ALT [Catalytic activity/Vol] 18 U/L 7-52 [facility] Albumin [Mass/volume] in Ser um or Plasma by Bromocresol green (BCG) dye binding methoOrdered By: Ottoniel Luis on 11-20-2022 Albumin BCG dye [Mass/Vol] 3.8 g/dL 3.5-5.7 [facility] Alkaline phosphatase [Enzyma tic activity/volume] in Serum or PlasmaOrdered By: Ottoniel Luis on 11-20-2022 ALP [Catalytic activity/Vol] 40 U/L 34-104 [facility] Aspartate aminotransferase [ Enzymatic activity/volume] in Serum or PlasmaOrdered By: Ottoniel Luis on 11-20-2022 AST [Catalytic activity/Vol] 17 U/L 13-39 [facility] B-Type Natriuretic Peptideon 11-20-2022 Natriuretic peptide B (Bld) [Mass/Vol] 8.0 pg/mL Normal 5-100 [facility] Comment on above: Result Comment: PERF ORMED BY: [place] [address] PATHOLOGIST R D MANAGER VITO GIL M.D. Performed By: #### C BC, LIPID, BMP, HS TROP #### [place] [id number] [place] Basophils Auto (Bld) [#/Vol] Ordered By: Ottoniel Luis on 11-20-2022 Basophils (Bld) [#/Vol] 0.1 10*3/uL 0.0-0.2 [facility] Basophils/100 WBC Auto (Bld) Ordered By: Ottoniel Luis on 11-20-2022 Basophils/100 WBC (Bld) 0.7 % . [facility] Bilirubin.total [Mass/volume ] in Serum or PlasmaOrdered By: Ottoniel Luis on 11-20-2022 Bilirubin [Mass/Vol] 0.3 mg/dL 0.3-1.0 [facility] Calcium [Mass/volume] in Ser um or PlasmaOrdered By: Ottoniel Luis on 11-20-2022 Calcium [Mass/Vol] 8.0 mg/dL 8.6-10.3 [facility] Carbon dioxide, total [Moles /volume] in Serum or PlasmaOrdered By: Ottoniel Luis on 11-20-2022 CO2 [Moles/Vol] 23.8 mmol/L 21.0-31.0 [facility] Chloride [Moles/volume] in S raj or PlasmaOrdered By: Ottoniel Luis on 11-20-2022 Chloride [Moles/Vol] 108 mmol/L 98-107 [facility] Complete Blood Count Auto Di ffon 11-20-2022 Basophils (Bld) [#/Vol] 0.1 10*3/uL Normal 0.0-0.2 [facility] Comment on above: Result Comment: PERF ORMED BY: [facility] [address] [facility] [place] [address] PATHOLOGIST R D MANAGER VITO GIL M.D. Performed By: #### C BC, LIPID, BMP, HS TROP #### [facility] [address] [place] [address] [place] Basophils/100 WBC (Bld) 0.7 % Normal . [facility] Comment on above: Performed By: #### C BC, LIPID, BMP, HS TROP #### [facility] [address] [place] [address] [place] Eosinophils (Bld) [#/Vol] 0.2 10*3/uL Normal 0.0-0.45 [facility] Comment on above: Performed By: #### C BC, LIPID, BMP, HS TROP #### [address] Eosinophils/100 WBC (Bld) 2.3 % Normal . [facility] Comment on above: Performed By: #### C BC, LIPID, BMP, HS TROP #### [address] Erythrocyte distribution width (RBC) [Ratio] 13.5 % Normal 12.0-14.8 [facility] Comment on above: Performed By: #### C BC, LIPID, BMP, HS TROP #### [address] Hematocrit (Bld) [Volume fraction] 32.9 % Low 38.8-50.0 [facility] Comment on above: Performed By: #### C BC, LIPID, BMP, HS TROP #### [address] Hemoglobin (Bld) [Mass/Vol] 11.0 g/dL Low 13.0-17.0 [facility] Comment on above: Performed By: #### C BC, LIPID, BMP, HS TROP #### [address] Lymphocytes (Bld) [#/Vol] 2.0 10*3/uL Normal 1.00-4.8 [facility] Comment on above: Performed By: #### C BC, LIPID, BMP, HS TROP #### [address] Lymphocytes/100 WBC (Bld) 21.0 % Normal . [facility] Comment on above: Performed By: #### C BC, LIPID, BMP, HS TROP #### [address] MCH (RBC) [Entitic mass] 30.2 pg Normal 27.5-35.2 [facility] Comment on above: Performed By: #### C BC, LIPID, BMP, HS TROP #### [facility] [address] MCV (RBC) [Entitic vol] 90.3 fL Normal 83.5-101 [facility] Comment on above: Performed By: #### C BC, LIPID, BMP, HS TROP #### [facility] [address] Mean Corpuscular HGB Conc 33.4 g/dL Normal 32.5-35.6 [facility] Comment on above: Performed By: #### C BC, LIPID, BMP, HS TROP #### [facility] [address] Monocytes (Bld) [#/Vol] 1.0 10*3/uL High 0.0-0.8 [facility] Comment on above: Performed By: #### C BC, LIPID, BMP, HS TROP #### [facility] [address] [place] [address] [place] Monocytes/100 WBC (Bld) 10.6 % Normal . [facility] Comment on above: Performed By: #### C BC, LIPID, BMP, HS TROP #### [facility] [address] [place] [address] [place] Neutrophils (Bld) [#/Vol] 6.1 10*3/uL Normal 1.8-7.7 [facility] Comment on above: Performed By: #### C BC, LIPID, BMP, HS TROP #### [facility] [address] [place] [address] [place] Neutrophils/100 WBC (Bld) 65.4 % Normal . [facility] Comment on above: Performed By: #### C BC, LIPID, BMP, HS TROP #### [facility] [address] [place] [address] [place] NRBC% 0.1 /100{WBC} Normal 0-0.5 [facility] Comment on above: Performed By: #### C BC, LIPID, BMP, HS TROP #### [facility] [address] [place] [address] [place] Platelet mean volume (Bld) [Entitic vol] 7.8 fL Normal 6.6-10.1 [facility] Comment on above: Performed By: #### C BC, LIPID, BMP, HS TROP #### [facility] [address] [place] [address] Platelets (Bld) [#/Vol] 218 10*3/uL Normal 150-450 [facility] Comment on above: Performed By: #### C BC, LIPID, BMP, HS TROP #### [facility] [address] [place] [address] RBC (Bld) [#/Vol] 3.65 10*6/uL Low 3.90-5.60 [facility] Comment on above: Performed By: #### C BC, LIPID, BMP, HS TROP #### [address] WBC (Bld) [#/Vol] 9.4 10*3/uL Normal 4.1-10.5 [facility] Comment on above: Performed By: #### C BC, LIPID, BMP, HS TROP #### [address] Comprehensive Metabolic Pane sanya 11-20-2022 Albumin [Mass/Vol] 3.8 g/dL Normal 3.5-5.7 [facility] Comment on above: Performed By: #### C BC, LIPID, BMP, HS TROP #### [address] Albumin/Globulin [Mass ratio] 1.6 {ratio} Normal [facility] Comment on above: Performed By: #### C BC, LIPID, BMP, HS TROP #### [facility] [address] [place] [address] ALP [Catalytic activity/Vol] 40 U/L Normal 34-104 [facility] Comment on above: Performed By: #### C BC, LIPID, BMP, HS TROP #### [address] ALT [Catalytic activity/Vol] 18 U/L Normal 7-52 [facility] Comment on above: Performed By: #### C BC, LIPID, BMP, HS TROP #### [facility] [address] Anion gap [Moles/Vol] 10.3 mmol/L Normal 6.0-15.0 [facility] Comment on above: Performed By: #### C BC, LIPID, BMP, HS TROP #### [facility] [address] AST [Catalytic activity/Vol] 17 U/L Normal 13-39 [facility] Comment on above: Performed By: #### C BC, LIPID, BMP, HS TROP #### [facility] [address] Bilirubin [Mass/Vol] 0.3 mg/dL Normal 0.3-1.0 [facility] Comment on above: Performed By: #### C BC, LIPID, BMP, HS TROP #### [facility] [address] Calcium [Mass/Vol] 8.0 mg/dL Low 8.6-10.3 [facility] Comment on above: Performed By: #### C BC, LIPID, BMP, HS TROP #### [facility] [address] [place] [address] [place] Chloride [Moles/Vol] 108 mmol/L High 98-107 [facility] Comment on above: Performed By: #### C BC, LIPID, BMP, HS TROP #### [facility] [address] [place] [address] [place] CO2 [Moles/Vol] 23.8 mmol/L Normal 21.0-31.0 [facility] Comment on above: Performed By: #### C BC, LIPID, BMP, HS TROP #### [facility] [address] [place] [address] [place] Creatinine [Mass/Vol] 1.24 mg/dL Normal 0.70-1.30 [facility] Comment on above: Performed By: #### C BC, LIPID, BMP, HS TROP #### [facility] [address] [place] [address] [place] Creatinine Clr Calc Pharmacy 69.76 Normal [facility] Comment on above: Result Comment: PERF ORMED BY: [place] [address] PATHOLOGIST R D MANAGER VITO GIL M.D. Performed By: #### C BC, LIPID, BMP, HS TROP #### [facility] [address] GFR/1.73 sq M.predicted MDRD (S/P/Bld) [Vol rate/Area] mL/min/{1.73_m2} Normal [facility] Comment on above: Performed By: #### C BC, LIPID, BMP, HS TROP #### [facility] [address] Globulin (S) [Mass/Vol] 2.4 g/dL Normal [facility] Comment on above: Performed By: #### C BC, LIPID, BMP, HS TROP #### [address] Glucose [Mass/Vol] 144 mg/dL High 70-100 [facility] Comment on above: Result Comment: [facility] Glucose Reference Range is dependent on time and content of last meal. Glucose of more than 200 mg/dL in a nonstressed, ambulatory subject supports the diagnosis of Diabetes Mellitus. ADA recommended reference range Performed By: #### C BC, LIPID, BMP, HS TROP #### [address] Potassium [Moles/Vol] 4.1 mmol/L Normal 3.5-5.1 [facility] Comment on above: Performed By: #### C BC, LIPID, BMP, HS TROP #### [address] Protein [Mass/Vol] 6.2 g/dL Low 6.4-8.9 [facility] Comment on above: Performed By: #### C BC, LIPID, BMP, HS TROP #### [address] Sodium [Moles/Vol] 138 mmol/L Normal 136-145 [facility] Comment on above: Performed By: #### C BC, LIPID, BMP, HS TROP #### [facility] [address] [place] [id number] [place] Urea nitrogen [Mass/Vol] 20 mg/dL Normal - [facility] Comment on above: Performed By: #### C BC, LIPID, BMP, HS TROP #### [facility] [address] [place] [id number] [place] Creatinine [Mass/volume] in Serum or PlasmaOrdered By: Ottoniel Luis on 11-20-2022 Creatinine [Mass/Vol] 1.24 mg/dL 0.70-1.30 [facility] ECG 12 lead ECGon 11-20-2022 ECG 12 lead ECG [facility] [place] [address] [place] [address] Electrocardiograph Report Signed Patient: Flores Sierra MR#: [id number] : 1960 Acct:[id number] Age/Sex: 62 / M ADM Date: 11/20/22 Loc: Room: [address] [place] [address] Type: ADM IN Attending Dr: Daryl Farrell DO Ordering Provider: Daryl Farrell DO Date of Service: 11/20/22 ECG/ECG 12 lead ECG: Post Angioplasty Procedure Copies to: Test Reason : Blood Pressure : / mmHG Vent. Rate : 076 BPM Atrial Rate : 076 BPM P-R Int : 182 ms QRS Dur : 102 ms QT Int : 386 ms P-R-T Axes : 061 -50 062 degrees QTc Int : 434 ms Normal sinus rhythm Incomplete right bundle branch block Left anterior fascicular block Nonspecific ST and T wave abnormality Abnormal ECG When compared with ECG of 20-NOV-2022 15:52, (Unconfirmed) ST no longer elevated in Lateral leads T wave inversion no longer evident in Inferior leads T wave inversion less evident in Lateral leads Confirmed by GARLAND ROLLE MD ([id number]) on 11/21/2022 12:56:17 PM Referred By: Electronically Signed By:GARLAND ROLLE MD Transcribed By: MUS Signed By Garland Rolle MD 0 11/21/22 1256 Normal [facility] ECG 12 lead ECG [facility] [place] [address] [place] [address] Electrocardiograph Report Signed Patient: Flores Sierra MR#: [id number] : 1960 Acct:[id number] Age/Sex: 62 / M ADM Date: 11/20/22 Loc: Room: [address] [place] [address] Type: DIS IN Attending Dr: Daryl Farrell DO Ordering Provider: Ottoniel Luis PA-C Date of Service: 11/20/22 ECG/ECG 12 lead ECG: chest pain Copies to: Test Reason : Blood Pressure : / mmHG Vent. Rate : 060 BPM Atrial Rate : 060 BPM P-R Int : 178 ms QRS Dur : 110 ms QT Int : 426 ms P-R-T Axes : 066 -46 -23 degrees QTc Int : 426 ms Normal sinus rhythm Incomplete right bundle branch block Left anterior fascicular block Minimal voltage criteria for LVH, may be normal variant ST elevation, consider anterolateral injury or acute infarct ACUTE MT / STEMI Abnormal ECG No previous ECGs available Confirmed by GARLAND ROLLE MD ([id number]) on 11/22/2022 4:41:43 PM Referred By: Electronically Signed By:GARLAND ROLLE MD Transcribed By: MUS Signed By Garland Rolle MD 0 11/22/22 1641 Normal [facility] Eosinophils Auto (Bld) [#/Vo l]Ordered By: Ottoniel Luis on 11-20-2022 Eosinophils (Bld) [#/Vol] 0.2 10*3/uL 0.0-0.45 [facility] Eosinophils/100 WBC Auto (Bl d)Ordered By: Ottoniel Luis on 11-20-2022 Eosinophils/100 WBC (Bld) 2.3 % . [facility] Erythrocyte distribution wid th Auto (RBC) [Ratio]Ordered By: Ottoniel Luis on 11-20-2022 Erythrocyte distribution width (RBC) [Ratio] 13.5 % 12.0-14.8 [facility] Globulin Calc (S) [Mass/Vol] Ordered By: Ottoniel Luis on 11-20-2022 Globulin (S) [Mass/Vol] 2.4 g/dL [facility] Glucose [Mass/volume] in Ser um or PlasmaOrdered By: Ottoniel Luis on 11-20-2022 Glucose [Mass/Vol] 144 mg/dL 70-100 [facility] Comment on above: ADA recommended refe rence rangeRandom Glucose Reference Range is dependent on time and content of last meal. Glucose of more than 200 mg/dL in a nonstressed, ambulatory subject supports the diagnosis of Diabetes Mellitus. Hematocrit Auto (Bld) [Volum e fraction]Ordered By: Ottoniel Luis on 11-20-2022 Hematocrit (Bld) [Volume fraction] 32.9 % 38.8-50.0 [facility] Hemoglobin [Mass/volume] in BloodOrdered By: Ottoniel Luis on 11-20-2022 Hemoglobin (Bld) [Mass/Vol] 11.0 g/dL 13.0-17.0 [facility] Leukocytes [#/volume] correc flores for nucleated erythrocytes in Blood by Automated counOrdered By: Ottoniel Luis on 11-20-2022 WBC corrected for nucl RBC Auto (Bld) [#/Vol] 9.4 10*3/uL 4.1-10.5 [facility] Lymphocytes Auto (Bld) [#/Vo l]Ordered By: Ottoniel Luis on 11-20-2022 Lymphocytes (Bld) [#/Vol] 2.0 10*3/uL 1.00-4.8 [facility] Lymphocytes/100 WBC Auto (Bl d)Ordered By: Ottoniel Luis on 11-20-2022 Lymphocytes/100 WBC (Bld) 21.0 % . [facility] MCH Auto (RBC) [Entitic mass ]Ordered By: Ottoniel Luis on 11-20-2022 MCH (RBC) [Entitic mass] 30.2 pg 27.5-35.2 [facility] MCHC Auto (RBC) [Mass/Vol]Or dered By: Ottoniel Luis on 11-20-2022 MCHC (RBC) [Mass/Vol] 33.4 g/dL 32.5-35.6 [facility] MCV Auto (RBC) [Entitic vol] Ordered By: Ottoniel Luis on 11-20-2022 MCV (RBC) [Entitic vol] 90.3 fL 83.5-101 [facility] Monocytes Auto (Bld) [#/Vol] Ordered By: Ottoniel Luis on 11-20-2022 Monocytes (Bld) [#/Vol] 1.0 10*3/uL 0.0-0.8 [facility] Monocytes/100 WBC Auto (Bld) Ordered By: Ottoniel Luis on 11-20-2022 Monocytes/100 WBC (Bld) 10.6 % . [facility] Natriuretic peptide B [Mass/ Vol]Ordered By: Ottoniel Luis on 11-20-2022 Natriuretic peptide B (Bld) [Mass/Vol] 8.0 pg/mL 5-100 [facility] Neutrophils Auto (Bld) [#/Vo l]Ordered By: Ottoniel Luis on 11-20-2022 Neutrophils (Bld) [#/Vol] 6.1 10*3/uL 1.8-7.7 [facility] Neutrophils/100 WBC Auto (Bl d)Ordered By: Ottoniel Luis on 11-20-2022 Neutrophils/100 WBC (Bld) 65.4 % . [facility] No Panel InformationOrdered By: Ottoniel Luis on 11-20-2022 Estimated GFR (CKD-EPI) > 60.0 mL/Min [facility] Creatinine Clearance (Chem 69.76 [facility] Nucleated erythrocytes [Pres ence] in Blood by Automated countOrdered By: Ottoniel Luis on 11-20-2022 Nucleated RBC Auto Ql (Bld) 0.1 /100{WBC} 0-0.5 [facility] Platelet mean volume Auto (B ld) [Entitic vol]Ordered By: Ottoniel Luis on 11-20-2022 Platelet mean volume (Bld) [Entitic vol] 7.8 fL 6.6-10.1 [facility] Center Platelets Auto (Bld) [#/Vol] Ordered By: Ottoniel Luis on 11-20-2022 Platelets (Bld) [#/Vol] 218 10*3/uL 150-450 [facility] Potassium [Moles/volume] in Serum or PlasmaOrdered By: Ottoniel Luis on 11-20-2022 Potassium [Moles/Vol] 4.1 mmol/L 3.5-5.1 [facility] Protein [Mass/volume] in Ser um or PlasmaOrdered By: Ottoniel Luis on 11-20-2022 Protein [Mass/Vol] 6.2 g/dL 6.4-8.9 [facility] RBC Auto (Bld) [#/Vol]Ordere d By: Ottoniel Luis on 11-20-2022 RBC (Bld) [#/Vol] 3.65 10*6/uL 3.90-5.60 [facility] Serum or plasma albumin/glob ulin mass ratioOrdered By: Ottoniel Luis on 11-20-2022 Albumin/Globulin [Mass ratio] 1.6 {ratio} [facility] Serum or plasma anion gap de terminationOrdered By: Ottoniel Luis on 11-20-2022 Anion gap [Moles/Vol] 10.3 mmol/L 6.0-15.0 [facility] Sodium [Moles/volume] in Ser um or PlasmaOrdered By: Ottoniel Luis on 11-20-2022 Sodium [Moles/Vol] 138 mmol/L 136-145 [facility] Troponin I High Sensitivityo n 11-20-2022 Troponin I High Sensitivity 51178.5 pg/mL Off scale high 0.0-20.0 [facility] Comment on above: Result Comment: Crit ical Result I_TnIHS_d:[id number] Called to and read back by: JAVIER DIAZ at: 11/20/2022 22:33:11 by:[email or web address] PERFORMED BY: [place] [address] PATHOLOGIST R D MANAGER VITO GIL M.D. Performed By: #### H S TROP #### [address] Troponin I High Sensitivity 84360.0 pg/mL Off scale high 0.0-20.0 [facility] Comment on above: Result Comment: Crit ical Result I_TnIHS_d:[id number] Called to and read back by: ROBERTO CLARK at: 11/20/2022 19:39:08 by:[email or web address] PERFORMED BY: [place] [address] PATHOLOGIST R D MANAGER VITO GIL M.D. Performed By: #### C BC, LIPID, BMP, HS TROP #### [address] [address] [facility] Troponin I High Sensitivity 18.3 pg/mL Normal 0.0-20.0 [facility] Comment on above: Result Comment: PERF ORMED BY: [place] [address] PATHOLOGIST R D MANAGER VITO GIL M.D. Performed By: #### C BC, LIPID, BMP, HS TROP #### [address] [address] [facility] Troponin I.cardiac [Mass/vol ume] in Serum or Plasma by Detection limit <= 0.01 ng/Ordered By: Ottoniel Luis on 11-20-2022 Troponin I.cardiac DL <= 0.01 ng/mL [Mass/Vol] 18.3 pg/mL 0.0-20.0 [facility] Urea nitrogen [Mass/volume] in Serum or PlasmaOrdered By: Ottoniel Luis on 11-20-2022 Urea nitrogen [Mass/Vol] 20 mg/dL 7-25 [facility] WBC Auto (Bld) [#/Vol]Ordere d By: Ottoniel Luis on 11-20-2022 WBC (Bld) [#/Vol] 9.4 10*3/uL 4.1-10.5 [facility] MRI LSPINE WO CONon 11-10-19 23 MRI LSPINE WO CON EXAMINATION: MRI LSPINE WO CON HISTORY: Lumbar spondylosis COMPARISON: No relevant comparison available. TECHNIQUE: A variety of imaging planes and parameters were utilized for visualization of suspected pathology. FINDINGS: For the purposes of numbering, sagittal T2 image # 8 extends from the T11 vertebral body superiorly to the S3-S4 level inferiorly. PARASPINAL AREA: Normal with no visible mass. BONES: Normal alignment with no acute fracture or spondylolisthesis. Mild anterior wedging T12 and L1, chronic versus physiologic. Area of decreased STIR and decreased T1 and T2 signal superior endplate of L3 likely Modic 3 change CORD/CAUDA EQUINA: Normal caliber, contour, and signal intensity. DISC LEVELS: 12-L1: No significant disc/facet abnormality, spinal stenosis, or foraminal stenosis. L1-L2: No significant disc/facet abnormality, spinal stenosis, or foraminal stenosis. L2-L3: Disc desiccation. Mild diffuse disc bulge extending 2.8 mm. No central or foraminal stenosis L3-L4: Disc space narrowing with desiccation. Mild diffuse disc bulge. No central or foraminal stenosis L4-L5: Disc space narrowing and disc desiccation. Posterior broad-based disc herniation the protrusion type extending up to 3.9 mm sagittal image #8. Moderate to severe ligamentum flavum hypertrophy. This displaces nodes. No foraminal stenosis L5-S1: No significant disc/facet abnormality, spinal stenosis, or foraminal stenosis. IMPRESSION: Moderate degenerative changes as detailed above most significant at L4-L5 where there is mild central canal stenosis. No foraminal stenosis Electronically authenticated by: CAITLYN STODDARD Date: 2022-11-09 17:57 Normal [facility] CBC AUTO DIFFon 05-12-2022 BASO # 0.1 103/ul Normal 0.0-0.1 [facility] Comment on above: Performed By: #### C BC #### [facility] [address] [place] [address] Dr. Isabel Vega Basophils/100 WBC (Bld) 0.8 % Normal 0.2-2.0 [facility] Comment on above: Performed By: #### C BC #### [facility] [address] [place] [address] Dr. Isabel Vega EO # 0.3 103/ul Normal 0.0-0.7 [facility] Comment on above: Performed By: #### C BC #### [facility] [address] [place] [address] Dr. Isabel Vega Eosinophils/100 WBC (Bld) 5.5 % Normal 0.9-7.0 [facility] Comment on above: Performed By: #### C BC #### [facility] [address] [place] [address] Dr. Isabel Vega Erythrocyte distribution width (RBC) [Ratio] 12.9 % Normal 11.0-15.0 [facility] Comment on above: Performed By: #### C BC #### [facility] [address] [place] [address] Dr. Isabel Vega Hematocrit (Bld) [Volume fraction] 37.2 % Critically low 42.0-54.0 [facility] Comment on above: Performed By: #### C BC #### [facility] [address] [place] [address] Dr. Isabel Vega Hemoglobin (Bld) [Mass/Vol] 12.4 g/dL Critically low 14.0-18.0 [facility] Comment on above: Performed By: #### C BC #### [facility] [address] [place] [address] Dr. Isabel Vega IG # 0.02 10e3/ul Normal 0.00-0.03 [facility] Comment on above: Performed By: #### C BC #### [facility] [address] [place] [address] Dr. Isabel Vega IG % 0.3 % Normal 0.0-0.5 [facility] Comment on above: Performed By: #### C BC #### [facility] [address] [place] [address] Dr. Isabel Vega LYMPH # 1.3 103/ul Normal 1.2-3.8 [facility] Comment on above: Performed By: #### C BC #### [facility] [address] [place] [address] Dr. Isabel Vega Lymphocytes/100 WBC (Bld) 20.9 % Normal 20.5-60.0 [facility] Comment on above: Performed By: #### C BC #### [facility] [address] [place] [address] Dr. Isabel Vega MANUAL DIFF REQ NO Normal [facility] Comment on above: Performed By: #### C BC #### [facility] [address] [place] [address] Dr. Isabel Vega MCH (RBC) [Entitic mass] 30.4 pg Normal 25.9-34.0 [facility] Comment on above: Performed By: #### C BC #### [facility] [address] [place] [address] Dr. Isabel Vega MCHC (RBC) [Mass/Vol] 33.3 g/dL Normal 29.9-35.2 [facility] Comment on above: Performed By: #### C BC #### [facility] [address] [place] [address] Dr. Isabel Vega MCV (RBC) [Entitic vol] 91.2 fL Normal 80.0-94.0 [facility] Comment on above: Performed By: #### C BC #### [facility] [address] [place] [address] Dr. Isabel Vega MONO # 0.6 103/ul Normal 0.3-0.8 [facility] Comment on above: Performed By: #### C BC #### [facility] [address] [place] [address] Dr. Isabel Vega Monocytes/100 WBC (Bld) 10.2 % Normal 1.7-12.0 [facility] Comment on above: Performed By: #### C BC #### [facility] [address] [place] [address] Dr. Isabel Vega NEUT # 3.8 103/ul Normal 1.4-6.5 [facility] Comment on above: Performed By: #### C BC #### [facility] [address] [place] [address] Dr. Isabel Vega Neutrophils/100 WBC (Bld) 62.3 % Normal 43.0-75.0 [facility] Comment on above: Performed By: #### C BC #### [facility] [address] [place] [address] Dr. Isabel Vega Platelet mean volume (Bld) [Entitic vol] 9.5 fL Normal 9.5-13.5 [facility] Comment on above: Performed By: #### C BC #### [facility] [address] [place] [address] Dr. Isabel Vega PLT 206 103/ul Normal 150-450 [facility] Comment on above: Performed By: #### C BC #### [facility] [address] [address] [address] Isabel Vega RBC 4.08 106/ul Critically low 4.70-6.10 [facility] Comment on above: Performed By: #### C BC #### [facility] [address] [address] [address] Isabel Vega WBC 6.2 103/ul Normal 4.0-11.0 [facility] Comment on above: Performed By: #### C BC #### [facility] [address] [address] [address] Isabel Vega LIPID PROFILEon 05-12-2022 CHOL-HDL RATIO NORM SEE BELOW Normal [facility] Comment on above: Result Comment: 3.3 - 4.4 LOW RISK 4.4 - 7.1 AVERAGE RISK 7.1 - 11.0 MODERATE RISK >11.0 HIGH RISK Performed By: #### C MP, LIPID #### [facility] [address] [place] [address] Dr. Isabel Vega Cholesterol [Mass/Vol] 169 mg/dL Normal <=200 [facility] Comment on above: Performed By: #### C MP, LIPID #### [facility] [address] [address] [address] Isabel Vega Cholesterol in HDL [Mass/Vol] 50 mg/dL Normal 40-60 [facility] Comment on above: Performed By: #### C MP, LIPID #### [facility] [address] [address] [address] Isabel Vega Cholesterol in LDL [Mass/Vol] 45.4 mg/dL Normal [facility] Comment on above: Performed By: #### C MP, LIPID #### [facility] [address] [address] [address] Isabel Vega Cholesterol.total/Choles terol in HDL [Mass ratio] 3.4 {ratio} Normal [facility] Comment on above: Performed By: #### C MP, LIPID #### [facility] [address] [address] [address] Isabel Vega HDL NORMAL > or = 60 mg/dl - LOW CARDIOVASCULAR RISK <40 mg/dl - HIGH CARDIOVASCULAR RISK Normal [facility] Comment on above: Performed By: #### C MP, LIPID #### [facility] [address] [address] [address] Isabel Vega LDL CALC NORMAL SEE BELOW Normal [facility] Comment on above: Result Comment: <100 mg/dl OPTIMAL 100 - 129 mg/dl NEAR OR ABOVE OPTIMAL 130 - 159 mg/dl BORDERLINE HIGH 160 - 189 mg/dl HIGH >190 mg/dl VERY HIGH Performed By: #### C MP, LIPID #### [facility] [address] [address] [address] Isabel Vega Triglyceride [Mass/Vol] 368 mg/dL Critically high <=150 [facility] Comment on above: Performed By: #### C MP, LIPID #### [facility] [address] [place] [address] Dr. Isabel Vega VLDL CALC 73.6 mg/dL Normal [facility] Comment on above: Performed By: #### C MP, LIPID #### [facility] [address] [address] [address] Isabel Vega PROF 14(COMP METB)on 022 Albumin [Mass/Vol] 4.1 g/dL Normal 3.4-5.0 [facility] Comment on above: Performed By: #### C MP, LIPID #### [facility] [address] [place] [address] Dr. Isabel Vega Albumin/Globulin [Mass ratio] 1.1 {ratio} Normal [facility] Comment on above: Performed By: #### C MP, LIPID #### [facility] [address] [address] [address] Isabel Vega ALP [Catalytic activity/Vol] 62 U/L Normal 46-116 [facility] Comment on above: Performed By: #### C MP, LIPID #### [facility] [address] [address] [address] Isabel Vega ALT [Catalytic activity/Vol] 30 U/L Normal 16-63 [facility] Comment on above: Performed By: #### C MP, LIPID #### [facility] [address] [address] [address] Isabel Vega Anion gap [Moles/Vol] 10.5 mmol/L Normal [facility] Comment on above: Performed By: #### C MP, LIPID #### [facility] [address] [address] [address] Isabel Vega AST [Catalytic activity/Vol] 17 U/L Normal 15-37 [facility] Comment on above: Performed By: #### C MP, LIPID #### [facility] [address] [address] [address] Isabel Vega Bilirubin [Mass/Vol] 0.4 mg/dL Normal 0.2-1.0 [facility] Comment on above: Performed By: #### C MP, LIPID #### [facility] [address] [address] [address] Isabel Vega Calcium [Mass/Vol] 9.4 mg/dL Normal 8.5-10.1 [facility] Comment on above: Performed By: #### C MP, LIPID #### [facility] [address] [address] [address] Isabel Vega Chloride [Moles/Vol] 103 mmol/L Normal 98-107 [facility] Comment on above: Performed By: #### C MP, LIPID #### [facility] [address] [address] [address] Isabel Vega CO2 [Moles/Vol] 27.3 mmol/L Normal 21.0-32.0 [facility] Comment on above: Performed By: #### C MP, LIPID #### [facility] [address] [address] [address] Isabel Vega Creatinine [Mass/Vol] 0.98 mg/dL Normal 0.70-1.30 [facility] Comment on above: Performed By: #### C MP, LIPID #### [facility] [address] [address] [address] Isabel Vega EGFR-AF CITIZEN OF [place] >60 Normal >=60 [facility] Comment on above: Performed By: #### C MP, LIPID #### [facility] [address] [address] [address] Isabel Vega EGFR-NON AF CITIZEN OF [place] >60 Normal >=60 [facility] Comment on above: Performed By: #### C MP, LIPID #### [facility] [address] [address] [address] Isabel Vega Globulin (S) [Mass/Vol] 3.8 g/dL Normal [facility] Comment on above: Performed By: #### C MP, LIPID #### [facility] [address] [address] [address] Isabel Vega Glucose [Mass/Vol] 108 mg/dL Critically high 74-106 [facility] Comment on above: Performed By: #### C MP, LIPID #### [facility] [address] [address] [address] Isabel Vega Potassium [Moles/Vol] 4.8 mmol/L Normal 3.5-5.1 [facility] Comment on above: Performed By: #### C MP, LIPID #### [facility] [address] [address] [address] Isabel Vega Protein [Mass/Vol] 7.9 g/dL Normal 6.4-8.2 [facility] Comment on above: Performed By: #### C MP, LIPID #### [facility] [address] [address] [address] Isabel Vega Sodium [Moles/Vol] 136 mmol/L Normal 136-145 [facility] Comment on above: Performed By: #### C MP, LIPID #### [facility] [address] [address] [address] Isabel Vega Urea nitrogen [Mass/Vol] 14.0 mg/dL Normal 7.0-18.0 [facility] Comment on above: Performed By: #### C MP, LIPID #### [facility] [address] [address] [address] Isabel Vega Urea nitrogen/Creatinine [Mass ratio] 14.3 mg/mg Normal [facility] Comment on above: Performed By: #### C MP, LIPID #### [facility] [address] [place] [address] Dr. Isabel Vega XR LSPINE 2_3 VIEWSon 2021 XR LSPINE 2_3 VIEWS EXAMINATION: XR LSPINE 2_3 VIEWS HISTORY: Low back pain COMPARISON: No relevant comparison available. FINDINGS: BONES: Normal alignment with no acute fracture or spondylolisthesis. Moderate degenerative spondylosis and facet osteoarthropathy DISC SPACES: Normal. No significant disc height narrowing, subluxation, or endplate abnormality. PARASPINOUS: Negative. No paraspinous abnormality is seen. OTHER: Negative. IMPRESSION: Moderate degenerative changes Electronically authenticated by: CAITLYN STODDARD Date: 2022-05-12 17:27 Normal [facility] Vital Signs Date Time Vital Sign Value Performing Clinician Facility 07-03-2023 11:39-0500 Body height 172.[address] 07-03-2023 11:39-0500 Body mass index (BMI) [Ratio] 28.89 kg/m2 [address] 07-03-2023 11:39-0500 Body weight 86.[address] 07-03-2023 11:39-0500 Diastolic blood pressure 82 mm[Hg] [address] 07-03-2023 11:39-0500 Systolic blood pressure 136 mm[Hg] [address] 05-24-2023 11:42-0500 Diastolic blood pressure 78 mm[Hg] Conrad Farrell DO Work Phone: [facility] 05-24-2023 11:42-0500 Systolic blood pressure 126 mm[Hg] Conrad Farrell DO Work Phone: [facility] 05-24-2023 11:18-0500 Body height 172.7 cm Conrad Farrell DO Work Phone: [facility] 05-24-2023 11:18-0500 Body mass index (BMI) [Ratio] 28.89 kg/m2 Conrad Farrell DO Work Phone: [facility] 05-24-2023 11:18-0500 Body weight 86.18 kg Conrad Farrell DO Work Phone: [facility] 05-24-2023 11:18-0500 Heart rate 60 /min Conrad Farrell DO Work Phone: [facility] 05-14-2023 08:30-0500 Body height 172.72 cm Saman Ball Other [employer] Other 05-14-2023 08:30-0500 Body mass index (BMI) [Ratio] 29.1 kg/m2 Saman Ball Other [employer] Other 05-14-2023 08:30-0500 Body weight 86.82 kg Saman Ball Other [employer] Other 05-14-2023 08:30-0500 Diastolic blood pressure 79 mm[Hg] Saman Ball Other [employer] Other 05-14-2023 08:30-0500 Respiratory rate 16 /min Saman Ball Other [employer] Other 05-14-2023 08:30-0500 Systolic blood pressure 134 mm[Hg] Saman Ball Other [employer] Other 01-03-2023 15:15-0400 Body height 172.72 cm Saman Ball Other [employer] Other 01-03-2023 15:15-0400 Body mass index (BMI) [Ratio] 28.92 kg/m2 Saman Ball Other [employer] Other 01-03-2023 15:15-0400 Body weight 86.27 kg Saman Ball Other [employer] Other 01-03-2023 15:15-0400 Diastolic blood pressure 87 mm[Hg] Saman Ball Other [facility] [employer] Other 01-03-2023 15:15-0400 Respiratory rate 12 /min Saman Ball Other [facility] [employer] Other 01-03-2023 15:15-0400 Systolic blood pressure 122 mm[Hg] Saman Ball Other [facility] [employer] Other 12-06-2022 11:58-0400 Body height 172.72 cm Saman E Ball Work Phone: [facility] [employer] [address] DO Work Phone: 12-06-2022 11:58-0400 Body mass index (BMI) [Ratio] 29.19 kg/m2 Saman E Ball Work Phone: [facility] [employer] [address] DO Work Phone: 12-06-2022 11:58-0400 Body surface area Derived from formula 2.01 m2 Saman E Ball Work Phone: [facility] [employer] [address] DO Work Phone: 12-06-2022 11:58-0400 Body weight 87.09 kg Saman E Ball Work Phone: [facility] [employer] [address] DO Work Phone: 12-06-2022 11:58-0400 Diastolic blood pressure 60 mm[Hg] Saman E Ball Work Phone: [facility] [employer] [address] DO Work Phone: 12-06-2022 11:58-0400 Heart rate 80 /min Saman E Ball Work Phone: [facility] [place] [facility]Carl[facility] 250 DO Work Phone: 12-06-2022 11:58-0400 Systolic blood pressure 134 mm[Hg] Saman E Ball Work Phone: [facility] 250 DO Work Phone: 11-20-2022 17:20-0400 Body temperature 97.9 [degF] PA-C Ottoniel Luis Work Phone: [facility] 11-20-2022 17:20-0400 Diastolic blood pressure 89 mm[Hg] PA-C Ottoniel Luis Work Phone: [facility] 11-20-2022 17:20-0400 Heart rate 81 /min PA-C Ottoniel Luis Work Phone: [facility] 11-20-2022 17:20-0400 Respiratory rate 18 /min PA-C Ottoniel Luis Work Phone: [facility] 11-20-2022 17:20-0400 SaO2% (BldA) [Mass fraction] 98 % PA-C Ottoniel Luis Work Phone: [facility] 11-20-2022 17:20-0400 Systolic blood pressure 134 mm[Hg] PA-C Ottoniel Luis Work Phone: [facility] 11-20-2022 15:53-0400 Body height 172.72 cm PA-C Ottoniel Luis Work Phone: [facility] 11-20-2022 15:53-0400 Body weight 94.5 kg PA-C Ottoniel Luis Work Phone: [facility] 11-07-2022 16:30-0400 Body height 172.72 cm Saman Ball Other [facility] [employer] Other 11-07-2022 16:30-0400 Body mass index (BMI) [Ratio] 31.41 kg/m2 Saman Ball Other [facility] [employer] Other 11-07-2022 16:30-0400 Body weight 93.71 kg Saman Ball Other [facility] [employer] Other 11-07-2022 16:30-0400 Diastolic blood pressure 92 mm[Hg] Saman Schaffer Other [employer] Other 11-07-2022 16:30-0400 Respiratory rate 12 /min Saman Schaffer Other [employer] Other 11-07-2022 16:30-0400 Systolic blood pressure 151 mm[Hg] Saman Schaffer Other [employer] Other Encounters Encounter Date Encounter Type Care Provider Facility Start: 07-03-2023 End: 07-04-2023 ambulatory [facility] Start: 07-03-2023 End: 07-03-2023 Subsequent hospital visit by physician Nataliya Gonzalez Echo[facility] Comment on above: Mild left ventricula r systolic dysfunction Start: 05-24-2023 End: 05-24-2023 ambulatory [facility] Start: 05-24-2023 End: 05-24-2023 Office outpatient visit 15 minutes [facility] DO Work Phone: [facility] Comment on above: ASHD (arteriosclerot ic heart disease); ST elevation myocardial infarction (STEMI), unspecified artery (CMS/HCC); Cardiomyopathy, ischemic; Mild left ventricular systolic dysfunction; Essential hypertension; History of PTCA Start: 05-21-2023 End: 05-21-2023 ambulatory Saman Schaffer Other [employer] Other Start: 05-21-2023 Nursing evaluation o f patient and report Saman Schaffer [facility] Start: 05-15-2023 End: 05-15-2023 ambulatory Saman Schaffer Other [employer] Other Start: 05-15-2023 Telephone encounter Saman [facility] Start: 05-14-2023 End: 05-14-2023 ambulatory Saman [facility] Other [employer] Other Start: 05-14-2023 Encounter for genera l adult medical examination without abnormal findings Saman Schaffer [facility] Start: 05-14-2023 Periodic preventive med est patient 40-64yrs Saman Schaffer [facility] Start: 03-02-2023 End: 03-02-2023 ambulatory Saman Schaffer Other [employer] Other Start: 03-02-2023 Telephone encounter Saman Schaffer [facility] Start: 02-05-2023 End: 02-05-2023 ambulatory Saman Schaffer Other [employer] Other Start: 02-05-2023 Telephone encounter Saman Schaffer [facility] Start: 01-10-2023 End: 01-10-2023 ambulatory Saman Schaffer Other [employer] Other Start: 01-10-2023 Telephone encounter Saman Schaffer [facility] Start: 01-03-2023 End: 01-03-2023 ambulatory Saman Schaffer Other [employer] Other Start: 01-03-2023 Office outpatient visit 25 minutes Saman Schaffer [facility] Start: 01-02-2023 End: 01-02-2023 Emergency department patient visit Jim Hines Facility:[facility] Start: 01-01-2023 End: 01-02-2023 [facility] Start: 12-07-[address] SAMAN SCHAFFER Facili ty:[facility] Start: 12-06-2022 Telephone encounter Saman Schaffer [facility] [facility] Start: 12-06-2022 Office outpatient visit 25 minutes Saman Schaffer Work Phone: [facility] 250 DO Work Phone: Start: 12-06-2022 End: 12-06-[address] Saman Schaffer [employer] Other Start: 11-25-[address] Conrad Farrell Fac ility:[id number] Start: 11-25-2022 End: 11-25-2022 ambulatory Saman Schaffer Facility:[facility] Start: 11-22-[address] Conrad Headley ility:[id number] Start: 11-21-2022 Telephone encounter Saman Schaffer [facility] Start: 11-21-2022 End: 11-21-[address] Saman Schaffer [facility] Other Start: 11-20-2022 End: 11-22-2022 Evaluation and management of inpatient Saman Schaffer Facility:[facility] Start: 11-20-2022 Admission to [facility] LUIS Luis Work Phone: [facility] Work Phone: Start: 11-20-2022 ambulatory LUIS Luis Work Phone: [facility] Work Phone: Start: 11-20-[address] Saman Schaffer Facility:[id number] Start: 11-09-2022 End: 11-10-2022 ambulatory LONNIE LUISMIRAMONITA . Facility:H1 Start: 11-07-2022 End: 11-07-2022 ambulatory Saman Schaffer Other [facility] Other Start: 11-07-2022 Office outpatient visit 25 minutes Saman Schaffer [facility] Start: 09-14-2022 End: 09-15-[address] KASEY HELM . Facility:H1 Start: 08-22-2022 End: 08-22-[address] KASEY HELM . Facility:H1 Start: 08-03-2022 End: 08-04-[address] KASEY HELM . Facility:[facility]1 Start: 07-11-2022 End: 07-11-[address] KASEY HELM . Facility:[facility]1 Start: 06-13-2022 End: 06-14-[address] KASEY HELM . Facility:[facility]1 Start: 05-18-2022 Encounter for genera l adult medical examination without abnormal findings DR SAMAN SCHAFFER [facility] Start: 05-12-2022 Adult health examination Saman Schaffer Other [facility] Other Start: 05-12-2022 End: 05-13-[address] SAMAN SCHAFFER Facility:H1 Start: 05-12-2022 End: 05-13-2022 Encounter for general adult medical examination without abnormal findings DR SAMAN SCHAFFER Facility:H1 Procedures Date Procedure Procedure Detail Performing Clinician Start: 07-03-2023 TRANSTHORACIC ECHO ( TTE) LIMITED CONRAD FARRELL Start: 07-03-2023 Echo transthorc r-t 2d w/wo m-mode rec f-up/lmtd Conrad Farrell DO Work Phone: Start: 05-24-2023 History of percutane ous transluminal coronary angioplasty History of PTCA Conrad Farrell DO Work Phone: Start: 11-20-[address] acement 0 LUIS Luis Work Phone: Start: 11-20-2022 CL Coronary Thrombolysis IC RICARDO-C Ottoniel Luis Work Phone: Start: 11-20-2022 CL LHC & COR Angio PA-C Ottoniel Luis Work Phone: Start: 11-20-2022 CL PCI AMI 1st Vesse l LAD DOUG PA-C Ottoniel Luis Work Phone: Start: 05-12-[address] KASEY HELM . Comment on above: Performed By: #### P [facility] #### [facility] [address] [place] [address] Dr. Isabel Vega Start: 02-06-2017 General examination of patient Saman Schaffer Other Cardiac catheterization Benj sergio Schaffer Work Phone: Colonoscopy Saman Schaffer Work Phone: Depression screening Jimi Schaffer Other Screening for malign ant neoplasm of prostate Saman Schaffer Other Plan of Treatment Date Care Activity Detail Author Start: 11-22-2023 End: 11-22-2023 Patient encounter procedure 11/22/2023 11:00 AM EDT Office Visit [facility] [address] [place] [address] Conrad Farrell DO [address] [place] [address] [facility] Start: 05-24-2023 End: 05-24-2025 Heart Transthoracic Transthoracic Echo (TTE) Limited Echocardiography Routine Mild left ventricular systolic dysfunction Expected: 05/24/2023 (Approximate), Expires: 05/24/2025 [facility] Service Area Work Phone: Comment on above: Expected: 05/24/2023 (Approximate), Expires: 05/24/2025 Start: 05-24-2023 FUV, Provider: Conrad Farrell, Status: Pen, Time: 10:40 AM FUV, Provider: Conrad Farrell, Status: Pen, Time: 10:40 AM [facility] 250 DO Work Phone: Start: 03-09-2023 Influenza vaccination Influenza Vacc ine (#1) [facility] Start: 11-25-2022 Blood chemistry [facility] Start: 11-25-2022 [facility] Start: 11-24-2022 Blood chemistry [facility] Start: 11-24-2022 [facility] Start: 11-23-2022 Blood chemistry [facility] Start: 11-23-2022 [facility] Start: 11-22-2022 Blood chemistry [facility] Start: 11-22-2022 [facility] Start: 11-21-2022 Blood chemistry [facility] Start: 11-21-2022 Lipid panel [facility] Start: 11-21-2022 [facility] Start: 11-21-2022 [facility] Start: 11-20-2022 [facility] Start: 11-20-2022 [facility] Start: 11-20-2022 Consultation [facility] Start: 11-20-2022 Hospital admission [facility] Start: 11-20-2022 Referral to cardiac rehabilitation program [facility] Start: 11-20-2022 End: 11-20-2022 [facility] Start: 08-18-2021 COVID-19 Vaccine (4 - Pfizer series) COVID-19 Vaccine (4 - Pfizer series) [facility] Start: 2011 Zoster Vaccines (1 of 2) Zoster Vacc henrietta (1 of 2) [facility] Start: 1983 DTaP/Tdap/Td Vaccine s (1 - Tdap) DTaP/Tdap/Td Vaccines (1 - Tdap) [facility] Start: 1979 Diabetes mellitus screening Diabetes Screening [facility] Start: 1979 Hepatitis C [facility] Start: 1967 Pneumococcal Vaccine : Pediatrics (0 to 5 Years) and At-Risk Patients (6 to 64 Years) (1 - PCV) Pneumococcal Vaccine: Pediatrics (0 to 5 Years) and At-Risk Patients (6 to 64 Years) (1 - PCV) [facility] Start: 1962 MMR Vaccines (1 of 1 - Standard series) MMR Vaccines (1 of 1 - Standard series) [facility] Start: 1961 HIV screening HIV Screening [facility] Start: 1961 Lipid panel Lipid Panel [facility] Start: 1961 Screening for malign ant neoplasm of colon [facility] Start: 1961 Yearly Adult Physical Yearly Adult P hysical [facility] End: 07-03-2023 US Heart Transthoracic [facility] Service Area Work Phone: Comment on above: Once for 1 Occurrenc es starting 07/03/2023 until 07/03/2023 Immunizations Immunization Date Immunization Notes Care Provider Markos hare 05-21-2023 influenza, injectabl e, quadrivalent, preservative free Saman Schaffer Other [employer] Other 05-12-2022 influenza virus vaccine, split virus (incl. purified surface antigen) Saman Schaffer Other [employer] Other 05-12-2022 Influenza, injectabl e, Madin Wright Canine Kidney, preservative free, quadrivalent Saman Chance LD [employer] Work Phone: [facility] Work Phone: 05-12-2022 influenza virus vaccine, unspecified formulation Conrad Farrell DO Work Phone: [facility] Work Phone: 06-23-2021 Pfizer-BioNTech COVID-19 Vacc 30 MCG/0.3ML Intramuscular Suspension Saman Chance LD [employer] Work Phone: [facility] [employer] [facility] DO Work Phone: 05-11-2021 influenza virus vaccine, split virus (incl. purified surface antigen) Saman Schaffer Other [employer] Other 10-23-2020 Pfizer-BioNTech COVID-19 Vacc 30 MCG/0.3ML Intramuscular Suspension Saman Chance LD [employer] Work Phone: [facility] [employer] DO Work Phone: 10-02-2020 Pfizer-BioNTech COVID-19 Vacc 30 MCG/0.3ML Intramuscular Suspension Saman Chance LD [employer] Work Phone: [facility] [employer] DO Work Phone: 05-03-2020 influenza virus vaccine, split virus (incl. purified surface antigen) Saman Schaffer Other [employer] Other 05-03-2020 influenza, injectabl e, quadrivalent, preservative free Saman Chance LD [employer] Work Phone: [facility] [employer] [facility] DO Work Phone: 04-23-2019 influenza virus vaccine, split virus (incl. purified surface antigen) Saman Schaffer Other [employer] Other 04-02-2018 influenza virus vaccine, split virus (incl. purified surface antigen) Saman Schaffer Other [employer] [facility] Other 04-02-2018 influenza, injectabl e, quadrivalent, preservative free Saman Schaffer Work Phone: [facility] [employer] DO Work Phone: 05-03-2015 influenza, seasonal, injectable, preservative free Saman Schaffer Work Phone: [facility] Work Phone: 05-03-2015 tetanus and diphther ia toxoids, adsorbed, preservative free, for adult use (5 Lf of tetanus toxoid and 2 Lf of diphtheria toxoid) Saman Schaffer Other [employer] Other 02-18-2003 diphtheria, tetanus toxoids and acellular pertussis vaccine, unspecified formulation Saman Schaffer Other [employer] Other Payers Date Payer Category Payer Self-pay 2022 Unknown 1960 Unknown [id number] 2.16.84 [id number] 1960 Unknown [id number] 2.16.84 0.1.063588.3.579.2.593 1961 Unknown [id number] 2.16.84 0.1.250688.3.579.2.593 1961 Unknown [id number] 2.16.84 0.1.318760.3.579.2.593 1961 Unknown [id number] 2.16.84 0.1.481469.3.579.2.593 1961 Unknown [id number] 2.16.84 0.1.500579.3.579.2.593 1961 Unknown [id number] 2.16.84 0.1.108878.3.579.2.593 1961 Unknown [id number] 2.16.84 0.1.377252.3.579.2.593 1961 Unknown [id number] 2.16. 840.1.998537.3.579.2.356 1961 Unknown [id number] 2.16. 840.1.980235.3.579.2.356 1961 Unknown [id number] 2.16. 840.1.732297.3.579.2.356 1961 Unknown [id number] 2.16. 840.1.290593.3.579.2.356 1961 Unknown [id number] 2.16. 840.1.320685.3.579.2.356 1961 Unknown [id number] 2.16. 840.1.994594.3.579.2.356 1961 Unknown [id number] 2.16. 840.1.161105.3.579.2.356 1961 Unknown [id number] 2.16. 840.1.471399.3.579.2.196 1961 Unknown [id number] 2.16.8 40.1.323831.3.579.2.1244 1961 Unknown [id number] 2.16.84 0.1.913082.3.579.2.1246 1959 Unknown [id number] 1959 Unknown [id number] Unknown [id number] 2.16 .840.1.210174.19 Unknown [id number] 2.16.8 40.1.035182.3.579.2.531 Unknown [id number] 2.16.8 40.1.039222.3.579.2.531 Unknown [id number] 2.16.8 40.1.207524.3.579.2.531 Social History Date Type Detail Facility Start: 05-24-2023 Sex Assigned At N [facility] Other Start: 11-20-2022 End: 05-24-2023 Tobacco smoking status NHIS Ex-smoker (finding) [facility] Start: 1960 Sex Assigned At Male F [facility] Start: 05-24-2023 Consumes alcohol occasionally Consumes alcohol occasionally -[facility] DO Work Phone: Comment on above: quit 1993; End: 07-09-1993 History of tobacco use Current smoker [facility] Work Phone: End: 07-09-1993 History of tobacco use Cigarette Smoker [facility] Work Phone: Start: 05-24-2023 Tobacco use and exposure Smokeless tobacco non-user [facility] Work Phone: Start: 05-24-2023 Alcohol intake Current drinke r of alcohol (finding) [facility] Work Phone: Start: 05-24-2023 Alcohol Comment occasionally [facility] Work Phone: Start: 1960 Sex Assigned At Not on file [facility] Work Phone: Start: 05-14-2023 End: 07-03-2023 Exposure to SARS-CoV-2 (event) Not sure [facility] Functional Status Date Assessment Result Facility 11-20-2022 Functional status Patient is Pro gressing Toward Baseline [facility] Work Phone: Mental Status Date Assessment Result Facility 11-20-2022 Cognitive function Cognitive Sta tus Patient at Baseline [facility] Work Phone: Clinical Notes 06-13-2022 to 05-24-2023 Conrad Farrell, DO - 05/24/2023 10:40 AM ESTPatient Instructions Note Date & Type Note Facility 05-24-2023 History of Present illness Narrative Subjective Flores Tea is a 62 y.o. male Chief Complaint Follow-up 62-year-old gentleman returns for follow-up he is doing well he has no cardiovascular complaints, nitrate usage or recurrent hospitalizations. He does mention that he has exertional dyspnea which is likely in part related to ticagrelor side effect. He has a history of anterior STEMI in November 2022 with primary revascularization of the proximal RCA with large 3.5 mm stent with mild left ventricular dysfunction at the time ejection fraction of 45%. He remains on appropriate GDMT and DAPT. NYHA classification is II/C Recommendations, follow-up in 6 months we will obtain a limited echocardiogram to reassess LV function as well as obtain lipid panel prior to his return. ROS Visit Vitals BP (!) 134/92 (BP Location: Left arm, Patient Position: Sitting) Pulse 60 Ht 1.727 m (5' 8 ) Wt 86.2 kg (190 lb) BMI 28.89 kg/m Smoking Status Former BSA 2.03 m Objective Physical Exam Constitutional: Appearance: Normal appearance. He is normal weight. HENT: Nose: Nose normal. Neck: Vascular: No carotid bruit. Cardiovascular: Rate and Rhythm: Normal rate. Pulses: Normal pulses. Heart sounds: Normal heart sounds. Pulmonary: Effort: Pulmonary effort is normal. Abdominal: General: Bowel sounds are normal. Palpations: Abdomen is soft. Genitourinary: Rectum: Normal. Musculoskeletal: General: Normal range of motion. Cervical back: Normal range of motion. Right lower leg: No edema. Left lower leg: No edema. Skin: General: Skin is warm and dry. Neurological: General: No focal deficit present. Mental Status: He is alert. Psychiatric: Mood and Affect: Mood normal. Behavior: Behavior normal. Thought Content: Thought content normal. Judgment: Judgment normal. Current Medications Current Outpatient Medications: Allergy Relief, loratadine, 10 mg tablet, Take 1 tablet (10 mg) by mouth once daily., Disp: , Rfl: aspirin 81 mg EC tablet, Take 1 tablet (81 mg) by mouth once daily., Disp: , Rfl: atorvastatin (Lipitor) 80 mg tablet, Take 1 tablet (80 mg) by mouth once daily at bedtime., Disp: , Rfl: Brilinta 90 mg tablet, Take 1 tablet (90 mg) by mouth 2 times a day., Disp: , Rfl: escitalopram (Lexapro) 10 mg tablet, Take 1 tablet (10 mg) by mouth once daily at bedtime., Disp: , Rfl: lisinopril 10 mg tablet, Take 1 tablet (10 mg) by mouth once daily., Disp: , Rfl: metoprolol succinate XL (Toprol-XL) 100 mg 24 hr tablet, Take 2 tablets (200 mg) by mouth once daily., Disp: , Rfl: nitroglycerin (Nitrostat) 0.4 mg SL tablet, Place 1 tablet (0.4 mg) under the tongue every 5 minutes if needed for chest pain., Disp: , Rfl: omeprazole (PriLOSEC) [address] capsule, 1 capsule (40 mg) once daily., Disp: , Rfl: Assessment/Plan 1. ASHD (arteriosclerotic heart disease) 2. ST elevation myocardial infarction (STEMI), unspecified artery (CMS/HCC) 3. Cardiomyopathy, ischemic 4. Mild left ventricular systolic dysfunction 5. Essential hypertension 6. History of PTCA documented in this encounter [facility] Work Phone: 05-24-2023 Instructions Rosa Marcano CMA - 05/24/2023 10:40 AM EST Please bring all medicines, vitamins, and herbal supplements with you when you come to the office. Prescriptions will not be filled unless you are compliant with your follow up appointments or have a follow up appointment scheduled as per instruction of your physician. Refills should be requested at the time of your visit. documented in this encounter [facility] Work Phone: 05-14-2023 Evaluation note Encounter Date Diagnosis Assessment Notes May, Wellness examination (ICD-10 - Z00.00) Healthy diet and exercise. Reviewed age-appropriate preventive testing recommended. May, ASHD (arteriosclerotic heart disease) (ICD-10 - I25.10) PCI/stent LAD - 11/2022 This patient is stable without activity related CP, dyspnea or lightheadedness. They are instructed to continue exercise and AHA diet plan. Continue secondary prevention measures. May, Primary hypertension (ICD-10 - I10) This patient is instructed to consume a healthy, low-fat, low-salt diet. They are also encouraged to continue exercise to achieve/maintain a normal BMI. May, Hyperlipidemia, group A (ICD-10 - E78.00) Instructed on diet and exercise with continued statin therapy.Discussed the beneficial effects of lowering cholesterol in reducing the risk for cerebrovascular and cardiovascular disease. May, Gastroesophageal reflux disease with esophagitis without hemorrhage (ICD-10 - K21.00) Diet instructions: Smaller portions, avoid eating and laying flat, avoid eating or drinking prior to bedtime. Weight loss. May, MODESTA (generalized anxiety disorder) (ICD-10 - F41.1) Healthy diet and exercise, keep active. Continue medical therapy, counseled against abrupt cessation May, Seasonal allergic rhinitis due to pollen (ICD-10 - J30.1) Continue antihistamine and Flonase. Irrigate nasal passages w/ saline May, Screening PSA (prostate specific antigen) (ICD-10 - Z12.5) [employer] Other 08-25-2023 Evaluation note* Encounter Date Diagnosis Assessment Notes Treatment Notes Treatment Clinical Notes Feb, ASHD (arteriosclerot ic heart disease) (ICD-10 - I25.10) PCI/stent LAD - 11/2022Feb, Gastroesophageal ref lux disease with esophagitis without hemorrhage (ICD-10 - K21.00) [employer] Other 07-05-2023 Evaluation note* Encounter Date Diagnosis Assessment Notes Treatment Notes Treatment Clinical Notes Jan, Acute bronchitis due to other specified organisms (ICD-10 - J20.8) [employer] Other 06-28-2023 Evaluation note* Encounter Date Diagnosis Assessment Notes Treatment Notes Treatment Clinical Notes Dec, Precordial pain (ICD-10 - R07.2) Evaluated in ER: - no improvement w/ SLNTG - normal EKG and cardiac enzymes - reassured DIscussed alternative dx - GERD - MODESTA Dec, ASHD (arteriosclerot ic heart disease) (ICD-10 - I25.10) PCI/stent LAD - 11/2022 This patient is stable without activity related CP, dyspnea or lightheadedness. They are instructed to continue exercise and AHA diet plan. ER evaluation negative Dec, MODESTA (generalized anxiety disorder) (ICD-10 - F41.1) Healthy diet, exercise and keep active. Begin SSRI Dec, Gastroesophageal reflux disease with esophagitis without hemorrhage (ICD-10 - K21.00) Diet instructions: Smaller portions, avoid eating and laying flat, avoid eating or drinking prior to bedtime. Weight loss. Initiate PPI Dec, Hoarseness of voice (ICD-10 - R49.0) Likely due to GERD. Nonsmoker. Denies PND Recommend initiating PPI w/ GERD instructions. - update in month - ENT if no improvement [employer] Other 05-16-2023 Evaluation note* Encounter Date Diagnosis Assessment Notes Treatment Notes Treatment Clinical Notes November, ASHD (arteriosclerotic heart disease) (ICD-10 - I25.10) PCI/stent LAD - 11/2022 [employer] Other 05-15-2023 Procedure [facility]05-15-2023 Procedure [facility]05-02-2023 Evaluation note* Encounter Date Diagnosis Assessment Notes Treatment Notes Treatment Clinical Notes November, Essential hypertension (ICD-10 - I10) This patient is instructed to consume a healthy, low-fat, low-salt diet. They are also encouraged to continue exercise to achieve/maintain a normal BMI. November, Hyperlipidemia, group A (ICD-10 - E78.00) Instructed on diet and exercise with continued statin therapy.Discussed the beneficial effects of lowering cholesterol in reducing the risk for cerebrovascular and cardiovascular disease. November, Lumbar spondylosis (ICD-10 - M47.816) The patient is instructed to avoid bending, twisting or lifting. They are to use intermittent heat and ice as needed. They may schedule a massage or gentle manipulation. They may safely use Tylenol as needed. f/u pain management for ablation. November, Chronic actinic otitis externa of both ears (ICD-10 - H60.8X3) Keep clean and dry. Avoid use of QTips. Initiated cortisporin November, Seasonal allergic rhinitis due to pollen (ICD-10 - J30.1) Antihistamine: Meseret, Claritin or Zyrtec. Flonase NS Kenalog for seasonal flare of symptoms [employer] Other 03-09-2023 NoteCONSULTATION CONSULTATION DATE: 09/14/2022 HISTORY OF PRESENT ILLNESS: This is a 62-year-old gentleman who returns to the clinic, status post #2 bilateral MBB of L3, L4 and L5, S1 completed on 08/22/2022. The patient received 80% relief for three hours. During the time, he was able to sit for a prolonged period of time and have a longer endurance with activity. Today, his pain is 4/10 at rest, and he describes it as a dull achy feeling. It is diffusely across his back with radiating pain across his right buttock, down the lateral aspect of his right lower extremity to the calf. Only medication that he takes for pain is Extra Strength Tylenol. He denies any numbness or tingling. Patient's REVIEW OF SYSTEMS / PAST MEDICAL HISTORY / ALLERGIES and IMAGES have been reviewed and noted on the chart. PHYSICAL EXAM: VITAL SIGNS: Blood pressure 144/85, heart rate is 77. Temperature is 98. He is 5'8 and weighs 90 kg. GENERAL IMPRESSION: Pleasant, appropriate, in no acute distress. FOCUSED EXAM - BACK: Range of motion is guarded in lateral rotation and flexion/extension. Paravertebral muscles are non-spasmodic. Reproduction of spinal axial pain noted to direct compression along the lumbar facets of L3, L4 and L5, S1. Fullness palpated at the facets, indicative of facet arthropathy, lumbar spondylosis. Ronda's point non-tender. MUSCULOSKELETAL: Motor is intact, 4/5 bilaterally. Slight weakness noted to the right anterior tibialis. Extensors are intact. Patient walks unassisted with a stable gait. NEUROLOGICALLY: Patchy hypoesthesia noted along the L5 distribution to the level of the calf. Bilateral patellar and Achilles reflexes are 2/2 bilaterally. DIAGNOSIS: Spinal axial lower back pain, lumbar degenerative disc disease, lumbar spondylosis and lumbar radiculitis. PLAN: We will progress to radiofrequency ablation starting on the right side, subsequently move to the left of L3, L4 and L5, S1. He will begin meloxicam 15 mg daily. I encouraged the use of heat as well as stretches which were demonstrated. Patient agrees with the plan of care, will be followed up in the office thereafter.[id number] NoteCONSULTATION CONSULTATION DATE: 08/03/2022 HISTORY OF PRESENT ILLNESS: This is a pleasant, 61-year-old gentleman who returns to the clinic status post #1 bilateral MBB of L3, L4, and L5, S1 completed on 07/11/2022. The patient was afforded 75% relief for two hours. The patient, prior to the injection, had radiating pain down the lateral and anterior part of his right lower extremity to the level of the maxwell. This was completely mitigated and only now does it come back episodically. At rest his pain is a 4/10. He describes it as dull, diffusely across his lower back. Activities such as prolonged sitting and transitioning sitting to standing aggravate his pain. He will occasionally try heat, which is helpful to his pain. His medications include Extra Strength Tylenol 2-3 times a day. He does have an inversion table, which he does use for two minutes at a time, at least once daily. Patient's REVIEW OF SYSTEMS / PAST MEDICAL HISTORY / ALLERGIES and IMAGES have been reviewed and noted on the chart. PHYSICAL EXAM: VITAL SIGNS: Blood pressure 145/85, heart rate is 74. He is 5'8 , weighs 91 kg. GENERAL IMPRESSION: Pleasant, appropriate, in no acute distress. FOCUSED EXAM - BACK: Range of motion is guarded in lateral rotation and flexion/extension. Paravertebral muscles are taut but non-spasmodic. Reproduction of spinal axial pain noted to direct compression along the lumbar facets of L3, L4 and L5, S1 with fullness palpated as well. Pain does radiate below the right knee. Ronda's point non-tender bilaterally. Negative FABERs and compression test. MUSCULOSKELETAL: Motor is intact, 4/5 bilaterally. Patient walks unassisted with an antalgic gait. Some diffuse muscle atrophy noted bilateral lower extremities. NEUROLOGICAL: Radicular sensory is intact. Patchy hypoesthesia along the L4-L5 distribution on the right lower extremity. DIAGNOSIS: Lumbar radiculitis, lumbar spondylosis, lower back pain, lumbar degenerative disc disease. PLAN: We will move forward with the #2 bilateral MBB of L3, L4 and L5, S1. I did encourage the patient to daily use his Biofreeze with a heat pad and continue to use his inversion table daily. Patient agrees to move forward and will be followed up in the clinic thereafter.[facility] [id number] NoteCONSULTATION CONSULTATION DATE: 06/13/2022 CHIEF COMPLAINT: Low back pain, right posterior/anterior thigh pain. HISTORY OF PRESENT ILLNESS: This is a very pleasant, 61-year-old gentleman who has had chronic pain since 2020. The patient states the pain is in his low back, radiating to his right posterolateral thigh. He rates the pain as a 5/10, a dull aching sensation, which he cannot get away from. Sitting increases the pain. Standing, walking mitigate the pain. Driving aggravates the pain. Lifting the right leg aggravates the pain. Activities mitigate the pain. The patient has attended physical therapy. He has also attended chiropractic treatment for help. The patient takes Tylenol 1500 mg on a twice a day basis. The patient's PAST MEDICAL HISTORY / SURGICAL HISTORY / REVIEW OF SYSTEMS are noted on the chart, along with the MEDICATION LIST / ALLERGIES and the X-RAY of his lumbar spine and right hip, which are noted on to the chart. PHYSICAL EXAM: Upon physical examination, this is a very young, 61-year-old gentleman, who does not appear to be in acute distress. VITAL SIGNS: Stable at 146/84, with a heart rate of 91. At a height of 5'8 , the patient weighs 87 kg. HEAD: Atraumatic. NECK: No crepitus is noted. HEART: No orthopnea. LUNGS: No dyspnea. ABDOMEN: Soft, non-distended. BACK: The patient has slight loss of lumbar lordosis. Extension, compression and direct palpation along the L5-S1 facet, especially reproduces a substantial component of the patient's pain symptomatology. EXTREMITIES: No pedal edema. MUSCULOSKELETAL: Intact in the lower extremities at 4+/5 bilaterally. NEUROLOGICALLY: The patient is intact. PSYCHIATRICALLY: Affect is appropriate. IMPRESSION: Chronic low back pain, lumbar spondylosis. PLAN: We will schedule the patient for a diagnostic lumbar medial branch block at the level of L3, L4 and L5, S1. The patient is to continue using the Icy Hot rub that he applies on this. The patient understands and would like to proceed. CC: Saman Schaffer D.O.[facility]* Diagnosis Onset Date Resolution Status Hypercholesteremia acute Hypertension acute ST elevation (STEMI) myocardial infarction acute [facility] Work Phone: Evaluation noteNo [facility] impok Other Evaluation note* Diagnosis ASHD (arteriosclerotic heart disease) Coronary atherosclerosis of unspecified type of vessel, [place] or graft ST elevation myocardial infarction (STEMI), unspecified artery (CMS/HCC) Cardiomyopathy, ischemic Other specified forms of chronic ischemic heart disease Mild left ventricular systolic dysfunction Essential hypertension Unspecified essential hypertension History of PTCA Postsurgical percutaneous transluminal coronary angioplasty status documented in this encounter [facility] Work Phone: Evaluation note* Diagnosis Mild left ventricular systolic dysfunction documented in this encounter [facility] Work Phone: Evaluation note* Diagnosis Mild left ventricular systolic dysfunction documented in this encounter [facility] Work Phone: History and physical note Author Daryl Farrell [facility] November 20, 2022 5:18pm Note Date/Time November 20, 2022 5:01p m [facility] [address] [place] [address] Cardiology H&P Signed Patient: Flores Sierra MR#: [id number] 8 : 1960 Acct:[id number] Age/Sex: 62 / M Adm Date: 3 Loc: Room: [address] [place] [address] Type: REG SDC Attending Dr: Daryl Farrell DO Copies to: DO Daryl Mcdaniel DO~ Date of Service: 11/20/2022 Cardiology HPI History of Present Illness Chief complaint: Anterolateral STEMI HPI: Mr. Sierra is a 62 year old male admitted in transfer from [facility] with acute anterior ST elevation myocardial infarction. Patient developed chest discomfort at approximately 1445. He called the paramedics, transferred to the [facility], initial ECGs at 1523 and 1529 and 1545PM were all reviewed. Patient arrived at ER at 1548, Oxygraph Operator at 1603 and PCI of primary infarct vessel at 1623; door to device time was 20 minutes, after administering upstream antithrombotic and antiplatelet therapies, obtaining ECG. Past medical history is noted for hypertension and hyperlipidemia Patient is a non-smoker nondiabetic He denies any previous myocardial infarction, revascularization, stroke, thromboembolic or bleeding disorder. Upon arrival he is hemodynamically stable, with normal sinus rhythm with PVCs, no evidence of cardiogenic shock or pulmonary edema. A total of 60 minutes nonprocedural critical care time were devoted to the ER staff, reviewing of ECGs from the field, Oxygraph Operator staff, nursing staff, patient and family both pre and post procedurally. Review of Systems Review of Systems All other systems reviewed & are negative unless noted below or in HPI Constitutional Constitutional: Reports as per HPI Cardiovascular Cardiovascular: Reports as per HPI and Reports chest pain at rest Respiratory Respiratory: Reports system reviewed and no additional complaints, except as documented Gastrointestinal Gastrointestinal: Reports system reviewed and no additional complaints, except as documented Genitourinary Genitourinary: Reports system reviewed and no additional complaints, except as documented Musculoskeletal Musculoskeletal: Reports system reviewed and no additional complaints, except asdocumented Integumentary/Breasts Skin/Breast: Reports system reviewed and no additional complaints, except as documented Neurologic Neurologic: Reports system reviewed and no additional complaints, except as documented PMFSH Vaccinated for COVID-19?: Unknown Medical History (Updated 11/20/22 @ 17:18 by Daryl Farrell DO) Hypercholesteremia Hypertension Social History Smoking Status: Former smoker Substance Use Type: Alcohol Meds Medications and Allergies Allergies No Known Allergies Allergy (Verified 11/20/22 15:57) Home Medications atorvastatin 20 mg tablet 20 mg PO QHS 11/20/22 [History Confirmed 11/20/22] lisinopril 10 mg tablet 10 mg PO DAILY 11/20/22 [History Confirmed 11/20/22] loratadine 10 mg tablet 10 mg PO DAILY 11/20/22 [History Confirmed 11/20/22] meloxicam 15 mg tablet 15 mg PO DAILY 11/20/22 [History Confirmed 11/20/22] metoprolol succinate 100 mg tablet,extended release 24 hr 100 mg PO DAILY 11/20/22 [History Confirmed 11/20/22] Exam Physical Exam Vital Signs: Temp Resp BP Pulse Ox O2 Del Method 98.1 F 18 148/86 H 100 Room Air 11/20/22 15:53 11/20/22 15:53 11/20/22 15:53 11/20/22 15:53 11/20/22 15:53 Const General: cooperative, acute distress and anxious Nutritional Appearance: average body habitus Orientation: alert, awake and oriented x3 HEENT Head: normal to inspection Eyes General: appearance normal, both eyes and all related structures Neck Neck: normal visual inspection Chest Chest palpation & inspection: normal inspection of the chest Resp Effort & Inspection: normal respiratory effort Auscultation: clear to auscultation bilaterally Cardio Palpation: normal PMI Rate: regular rate Rhythm: regular rhythm Heart Sounds: S1 normal and S2 normal Pulses: radial pulses present and femoral pulses present GI Palpation: soft Skin General: no rashes or lesions noted Neuro General: patient alert, patient awake and patient oriented x3 Cognition: normal cognition Speech: speech normal Extrem General: no clubbing, cyanosis or edema Results Labs 11/20/22 15:50 11/20/22 15:50 Lab results: Cardiac Enzymes 11/20/22 11/20/22 Range/Units 15:50 15:50 AST 17 (13-39) U/L B-Natriuretic Peptide 8.0 (5-100) pg/mL CBC 11/20/22 Range/Units 15:50 RBC 3.65 L (3.90-5.60) X10E6/uL Hgb 11.0 L (13.0-17.0) g/dL Hct 32.9 L (38.8-50.0) % Plt Count 218 (150-450) x10E3/uL Neut # (Auto) 6.1 (1.8-7.7) x10E3/uL Lymph # (Auto) 2.0 (1.00-4.8) x10E3/uL [place] # (Auto) 1.0 H (0.0-0.8) x10E3/uL Eos # (Auto) 0.2 (0.0-0.45) x10E3/uL Baso # (Auto) 0.1 (0.0-0.2) x10E3/uL Comprehensive Metabolic Panel 11/20/22 Range/Units 15:50 Sodium 138 (136-145) mmol/L Potassium 4.1 (3.5-5.1) mmol/L Chloride 108 H (98-107) mmol/L Carbon Dioxide 23.8 (21.0-31.0) mmol/L BUN 20 (7-25) mg/dL Creatinine 1.24 (0.70-1.30) mg/dL Glucose 144 H (70-100) mg/dL Calcium 8.0 L (8.6-10.3) mg/dL AST 17 (13-39) U/L ALT 18 (7-52) U/L Alkaline Phosphatase 40 (34-104) U/L Total Protein 6.2 L (6.4-8.9) gm/dL Albumin 3.8 (3.5-5.7) gm/dL Intake and Output 11/20/22 11/20/22 11/20/22 07:59 15:59 23:59 Other: Weight 94.5 kg Patient Weight 11/20/22 23:59 Weight 94.5 kg EKG Interpretations EKG EKG results cardiology: sinus rhythm MT, pacemaker, normal Myocardial infarction: anterior MT (acute or recent) A&P - Cardiology (1) ST elevation (STEMI) myocardial infarction: Code(s): I21.3 - ST elevation (STEMI) myocardial infarction of unspecified site (2) Hypertension: Code(s): I10 - Essential (primary) hypertension (3) Hypercholesteremia: Code(s): E78.00 - Pure hypercholesterolemia, unspecified Documented By: Daryl Farrell DO 11/20/22 1657 Signed By: <Electronically signed by Daryl Farrell, > 11/20/22 1718 [facility] Work Phone: [facility] general Narrative - Reported* Type Description Date Medical History Seasonal allergic rhinitis due t o pollen Medical History Low back pain with radiation Medical History Leg pain, anterior, right Medical History COVID Medical History ANEMIA, DEFICENCY Medical History Nicotine dependence, cigarettes, in remission Medical History Hyperlipidemia, group A Medical History Adenomatous polyp of descending colon Medical History Essential hypertension Medical History Benign prostatic hyp erplasia without lower urinary tract symptoms Surgical History COLONOSCOPY 2016,2019 Surgical History LIGATION, HEMORRHOID, EXTERNAL 2019 Hospitalization History SEE SURGICAL [facility] Other History general Narrative - Reported* Type Description Date Medical History Seasonal allergic rhinitis due t o pollen Medical History Low back pain with radiation Medical History Leg pain, anterior, right Medical History COVID Medical History ANEMIA, DEFICENCY Medical History Nicotine dependence, cigarettes, in remission Medical History Hyperlipidemia, group A Medical History Adenomatous polyp of descending colon Medical History Essential hypertension Medical History Benign prostatic hyp erplasia without lower urinary tract symptoms Medical History ASHD Surgical History COLONOSCOPY Surgical History LIGATION, HEMORRHOID, EXTERNAL 2019 Surgical History PCI/stent LAD 11/2022 Hospitalization History SEE SURGICAL HX [facility] Other History general Narrative - Reported* Type Description Date Medical History Seasonal allergic rhinitis due t o pollen Medical History Low back pain with radiation Medical History Leg pain, anterior, right Medical History COVID Medical History ANEMIA, DEFICENCY Medical History Nicotine dependence, cigarettes, in remission Medical History Hyperlipidemia, group A Medical History Adenomatous polyp of descending colon Medical History Essential hypertension Medical History Benign prostatic hyp erplasia without lower urinary tract symptoms Medical History ASHD Surgical History COLONOSCOPY (repeat in 10 years) - hyperplastic polyps 05/28/2020 Surgical History LIGATION, HEMORRHOID, EXTERNAL 2019 Surgical History PCI/stent LAD 11/2022 Surgical History Colonoscopy 2016 Hospitalization History SEE SURGICAL [facility] Other Chief Complaint and Reason for Visit Chief Complaint chest pain Reason for Visit Hypercholesteremia Hypertension ST elevation (STEMI) myocardial infarction Advance Directives No Advanced Directives Records Found Advance Directive Response Recorded Date/ Time Advance Directives No November 20 4:03pm Summary Purpose Family History No Family History Records FoundUnknown Family Member Name Dates Details No pertinent family history: Mother(V49.89, Z78.9) Status:Active Family history of coronary a rtery disease: Sister(V17.3, Z82.49) Status:Active Family history of PTCA: Sist er(V17.49, Z82.49) Status:Active Unknown Family Member Name Dates Details No pertinent family history: Mother(V49.89, Z78.9) Status:Active Family history of coronary a rtery disease: Sister(V17.3, Z82.49) Status:Active Family history of PTCA: Sist er(V17.49, Z82.49) Status:Active Reason for Referral Specialty Diagnoses / Procedures Referred By Contac t Referred To Contact Cardiology Diagnoses Mild left ventricular systolic dysfunction Procedures Transthoracic Echo (TTE) Limited LA ECHO TRANSTHORC R-T 2D W/WO M-MODE REC F-UP/LMTD LA DOP ECHOCARD COLOR FLOW VELOCITY MAPPING LA DOP ECHOCARD PULSE WAVE W/SPECTRAL F-UP/LMTD STD Conrad Farrell, DO [address] [place] [address] 2, [address] [address] Referral ID Status Reason Start Date Expiration Date Visits Requested Visits Authorized [id number] Pending Review Perform Procedure 3 05/23/2024 1 1 Specialty Diagnoses / Procedures Referred By Anaid t Referred To Contact Cardiology Diagnoses ASHD (arteriosclerotic heart disease) Cardiomyopathy, ischemic Mild left ventricular systolic dysfunction Essential hypertension History of PTCA Procedures Follow Up In Cardiology Conrad Farrell, DO [address] [place] [address] [address], [address] [address] RamosConrad, DO [address] [place] [address] [address], [address] [address] Referral ID Status Reason Start Date Expiration Date V isits Requested Visits Authorized [id number] Authorized 05/24/2023 05/23/2024 1 1 Additional Source Comments REASON FOR VISIT (unrecogniz ed section and content) Reason Comments Follow-up 6 months Specialty Diagnoses / Procedures Referred By Anaid t Referred To Contact Cardiology Diagnoses Mild left ventricular systolic dysfunction Procedures Transthoracic Echo (TTE) Limited LA ECHO TRANSTHORC R-T 2D W/WO M-MODE REC F-UP/LMTD LA DOP ECHOCARD COLOR FLOW VELOCITY MAPPING LA DOP ECHOCARD PULSE WAVE W/SPECTRAL F-UP/LMTD STD Conrad Farrell, DO [address] [place] [address] 2, [address] [address] Referral ID Status Reason Start Date Expiration Date Visits Requested Visits Authorized [id number] Authorized Perform Procedure 3 05/23/2024 1 1 Care Teams (unrecognized sec tion and content) Team Status: Active Member Role Status Dates Saman Schaffer DO Primary Care Provider Active Team Status: Active Member Role Status Dates Ottoniel Luis PA-C Emergency Provider Active Saman Schaffer DO Primary Care Provider Active W Cruz Farrell DO Attending Provider Active Management Manager Relationship Specialty Start Date End Date Saman Schaffer DO [address] [facility] [place] [address] [place] [address] PCP - General 12/06/22 Management Manager Relationship Specialty Start Date End Date Saman Schaffer DO [address] [facility] [place] [address] [place] [address] PCP - General Internal Medicine 07/03/23 Management Manager Relationship Specialty Start Date End Date Saman Schaffer DO [address] [facility] [place] [address] [place] [address] PCP - General Internal Medicine 07/03/23 Goals (unrecognized section and content) Goals may be documented in a n alternate section (unrecognized sect ion and content) No Status Records FoundNo Status Records FoundNo Status Records FoundNo Status Records FoundNo Status Records FoundNo Status Records FoundNo Status Records Found INFORMATION SOURCE (unrecogn ized section and content) DATE CREATED AUTHOR 12/16/[address] [facility] DATE CREATED AUTHOR AUTHOR'S ORGANIZ ATION 12/16/2022 [facility] DATE CREATED AUTHOR AUTHOR'S ORGANIZ ATION 01/18/2023 [facility] DATE CREATED AUTHOR AUTHOR'S ORGANIZ ATION 01/20/2023 [facility] DATE CREATED AUTHOR AUTHOR'S ORGANIZ ATION 02/27/2023 [facility] DATE CREATED AUTHOR AUTHOR'S ORGANIZ ATION 05/26/2023 [facility] DATE CREATED AUTHOR AUTHOR'S ORGANIZ ATION 07/08/2023 [facility] FOR RECORDS PERTAINING TO PATIENTS WHO ARE OR HAVE BEEN ENROLLED IN A CHEMICAL DEPENDENCY/SUBSTANCEABUSE PROGRAM, SOME INFORMATION MAY BE OMITTED. This clinical summary was aggregated from multiple sources. Caution should be exercised in using it in the provision of clinical care. This summary normalizes information from multiple sources, and as a consequence, information in this document may materially change the coding, format and clinical context of patient data. In addition, data may be omitted in some cases. CLINICAL DECISIONS SHOULD BE BASED ON THE PRIMARY CLINICAL RECORDS. [facility] [employer] [facility]. provides no warranty or guarantee of the accuracy or completeness of information in this document.
[2023-08-18 10:06] LABS: Basophils Percent Auto 0.5 % (0.2-2.0); Eosinophils Absolute Auto 0.3 10^3/uL (0.0-0.7); Eosinophils Percent Auto 5.2 % (0.9-7.0); Hematocrit 37.5 % (42.0-54.0); Immature Granulocytes Abs Auto 0.03 10^3/uL (0.00-0.03); Immature Granulocytes Pct Auto 0.5 % (0.0-0.5); Lymphocytes Absolute Auto 0.9 10^3/uL (1.2-3.8); Lymphocytes Percent Auto 15.5 % (20.5-60.0); Mean Corpuscular Volume 90.6 fL (80.0-94.0); Mean Platelet Volume 10.4 fL (9.5-13.5); Monocytes Absolute Auto 0.7 10^3/uL (0.3-0.8); Monocytes Percent Auto 11.6 % (1.7-12.0); Neutrophils Absolute Auto 3.8 10^3/uL (1.4-6.5); Neutrophils Percent Auto 66.7 % (43.0-75.0); Platelet Count 164 10^3/uL (150-450); Red Blood Count 4.14 10^6/uL (4.70-6.10); Red Cell Distribution Width 13.5 % (11.0-15.0); Reticulocyte Pct Auto 1.33 % (0.60-3.10); White Blood Count 5.6 10^3/uL (4.0-11.0)
[2023-08-18 10:58] LABS: Percent Iron Saturation 17.2 %
== END 2023-08-18 09:22 | disposition home or self-care (01) ==
LOC: LAB 09:25
PROVIDERS: PCP Internal Medicine; Visit Provider Internal Medicine
DX: D64.9 Anemia, unspecified (principal)
CPT/HCPCS: 36415; 82607; 82728; 82746; 83540; 83550; 85025

== ENCOUNTER 2023-11-30 09:00 | Outpatient (OUT) | payer OTHER, SELFPAY ==
[2023-11-30 10:29] LABS: Chol HDL Ratio 2.9; Cholesterol 149 mg/dL (<=200); HDL Cholesterol 51 mg/dL (40-60); LDL Cholesterol Calculated 70.6 mg/dL; Triglycerides 137 mg/dL (<=150); VLDL CHOLESTEROL 27.4 mg/dL
== END 2023-11-30 09:01 | disposition home or self-care (01) ==
LOC: LAB 09:02
PROVIDERS: PCP Internal Medicine; Visit Provider Internal Medicine Cardiovascular Disease
DX: E78.5 Hyperlipidemia, unspecified (principal)
CPT/HCPCS: 36415; 80061

== ENCOUNTER 2024-02-05 09:27 | Outpatient (OUT) | payer OTHER, SELFPAY ==
--- OUTSIDE RECORDS SUMMARY | 2024-02-05 09:38 | XMS_ITS | CCD ---
Author Organization [facility] Care Team Providers Care Pad Extraction Tender Name Role Phone Saman Del Rio Unavailable LUIS Luis Emergency Provider DO Saman Del Rio Primary Care Provider DO Daryl Beasley Attending Provider VOLODYMYR ., DR KASEY Shabazz Consulting Unavailable HELM ., DR KASEY Shabazz Admitting Unavailable QUANG, DR REDDY Primary Care Unavailable HELM ., DR KASEY Shabazz Attending Unavailable QUANG, DR REDDY Primary Care Unavailable HALKER ., HEIDE Admitting Unavailable HALKER ., HEIDE Attending Unavailable HELM ., DR KASEY Shabazz Consulting Unavailable QUANG, DR REDDY Primary Care Unavailable HELM ., DR KASEY Shabazz Admitting Unavailable HELM ., DR KASEY Shabazz Attending Unavailable CASTILLO .DON Consulting Unavailable LAKSHMIPATHY ., LONNIE Admitting Brisa vailable RICHI, DR CAITLYN Power Consulting Unavailable QUANG, DR REDDY Primary Care Unavailable JANELLEMIPATHJoslyn ., LONNIE Attending Brisa vailable JANELLEMIRAMONITA ., LONNIE Consulting Brisa vailable QUANG, DR REDDY Attending Unavailable QUANG, DR REDDY Consulting Unavailable QUANG, DR REDDY Primary Care Unavailable QUANG, DR REDDY Admitting Unavailable RICHI, DR CAITLYN Power Consulting Unavailable VOLODYMYR ., DR KASEY Shabazz Consulting Unavailable QUANG, DR REDDY Primary Care Unavailable VOLODYMYR ., DR KASEY Shabazz Admitting Unavailable HELM [...] HELM ., DR KASEY Shabazz Attending Unavailable Saman Del Rio Unavailable Unavailable Unavailable Jim Andujar Admitting Unavailable Jim Andujar Attending Unavailable Saman Del Rio Primary Care Unavailable Saman Del Rio Primary Care Unavailable David Adler Admitting Unavailable Julianna Nguyen Consulting Unavailable Lacy Mitchell Attending Unavailable Daryl Beasley Consulting Unavailable Sal Dorman Consulting Unavailable Conrad De La Vega Consulting Unavail able Garland Wren Consulting Unavailable Gonsalo Fritz Consulting Unavailab Sirena Solorio Consulting Unavailable Mary Ann Hester Consulting Unavailable LatrellAyan jo Consulting Unavailab Shira Bowen Consulting Unavailable Namrata Charles Consulting Unavailable Sheela Davis Consulting Unavailable Saman Del Rio [facility] Care Unavailable Daryl Beasley Admitting Unavailable Daryl Beasley Attending Unavailable Bee, Mile Consulting Unavailable Chaban, Kamal Consulting Unavailable Leida, Luiz Chance Consulting Unavaila Markus Landaverde Consulting Unavailable Kyle Gonzalze Consulting Unavailabl e BalbinauwMildred garcia Consulting Unavailable KoszuTorito sharpe Consulting Unavailable ManDeandre moy Consulting Unavailable Silvino Mendoza Consulting Unavailable Ramos, Dr. Conrad Arroyo Attending Fern Del Rio, Dr. Saman Andino Primary Care Elías Del Rio, Dr. Saman Andino Primary [facility] Elías Beasley, Dr. Conrad Arroyo Referring Fern Beasley, Dr. Conrad Arroyo Attending Fern Del Rio, Dr. Saman Andino Primary [facility] Elías Del Rio, Dr. Saman Andino Primary [facility] Elías Benitez MD, Iqra Blanc Attending Saman Ovalle DO Primary Care Provider Saman Del Rio DO Primary Care Provider CONRAD BEASLEY Referring Unavailable SAMAN DEL RIO Primary [facility] UnavailSaman Herrera DO Primary Care Provider CONRAD BEASLEY Attending Unavailable SAMAN DEL RIO Primary Care Unavailable CONRAD BEASLEY Attending Unavailable CONRAD BEASLEY Referring Unavailable SAMAN DEL RIO Primary Care Unavailable SAMAN DEL RIO Primary Care Unavailable CONRAD BEASLEY Referring Unavailable Allergies Allergy Classification Reported Allergen(s) Allergy Type Date of Onset Reaction(s) Facility (2 sources) patient allergy list reviewed by nurse or physicia Propensity to adverse reactions Comment:Done [employer] Other Medications Current Medications Medication Drug Class(es) Dates Sig (Normalized) Sig (Original) aspirin 81 mg delayed release oral tablet (16 sources) Platelet Aggregation Inhibitor, Nonsteroidal Anti-inflammatory Drug Start: 11-22-2022 take 1 tablet by mouth once daily aspirin 81 mg EC tablet Take 1 tablet (81 mg) by mouth once daily. 12/06/2022 Active atorvastatin 80 mg oral tablet (20 sources) HMG-CoA Reductase Inhibitor Start: 11-22-2022 End: 11-21-2024 take 1 tablet by mouth once daily at bedtime atorvastatin (Lipitor) 80 mg tablet Indications: ASHD (arteriosclerotic heart disease) , Hyperlipidemia, unspecified hyperlipidemia type Take 1 tablet (80 mg) by mouth once daily at bedtime. 90 tablet 3 11/22/2023 11/21/2024 Active Start: 11-20-2022 End: 11-22-2022 take 20 mg by mouth once daily at bedtime Atorvastatin Discontinued 20 MG PO Daily at bedtime November 20, 2022 12:00am November 22, 2022 2:17pm escitalopram 10 mg oral tablet (14 sources) Serotonin Reuptake Inhibitor Start: 05-11-2023 take 10 mg by mouth once daily Escitalopram Oxalate Active 10 MG PO Daily November 09, 2023 12:00am lisinopril 10 mg oral tablet (20 sources) Angiotensin Converting Enzyme Inhibitor Start: 11-20-2022 End: 11-21-2024 take 1 tablet by mouth once daily lisinopril 10 mg tablet Indications: Cardiomyopathy, ischemic , Essential hypertension Take 1 tablet (10 mg) by mouth once daily. 90 tablet 3 11/22/2023 11/21/2024 Active loratadine 10 mg oral tablet (20 sources) Start: 11-20-2022 take 1 tablet by mouth once daily Allergy Relief, loratadine, 10 mg tablet Take 1 tablet (10 mg) by mouth once daily. 05/11/2023 Active 24 hr metoprolol succinate 100 mg extended release oral tablet (20 sources) beta-Adrenergic Jaime Start: 05-11-2023 End: 11-21-2024 take 2 tablets by mouth once daily metoprolol succinate XL (Toprol-XL) 100 mg 24 hr tablet Indications: Cardiomyopathy, ischemic , Essential hypertension Take 2 tablets (200 mg) by mouth once daily. 180 tablet 3 11/22/2023 11/21/2024 Active Start: 11-28-2022 take 2 tablets by [facility] every twenty-four hours Metoprolol Succinate ER 100 MG 2 tablet Orally Once a day November, Active Start: 11-25-2022 take 200 mg by mouth once queta y Metoprolol Succinate Active 200 MG PO Daily 0 November 25, 2022 4:33pm Start: 11-20-2022 End: 11-25-2022 take 150 mg by mouth once daily Metoprolol Succinate Discontinued 150 MG PO Daily November 20, 2022 12:00am November 25, 2022 4:33pm Start: 11-20-2022 take 100 mg by mouth once queta y Metoprolol Succinate Active 100 MG PO Daily November 20, 2022 12:00am nitroglycerin 0.4 mg sublingual tablet (8 sources) Nitrate Vasodilator Start: 11-25-2022 nitroglyce rin (Nitrostat) 0.[address] 1 tablet (0.4 mg) under the tongue every 5 minutes if needed for chest pain. 11/25/2022 Active Nitroglycerin 0. 4 MG Sublingual Tablet Sublingual TAKE DIRECTED. Quantity: 25 Refills: 11 Ordered: 06-Dec-2022 DO Active omeprazole 40 mg delayed release oral capsule (17 sources) Proton Pump Inhibitor Start: 09-11-2023 take 1 capsule by mouth once daily 30 minutes before breakfast Omeprazole Active 0 .ROUTE .COMPLEX September 11, 2023 5:43pm TAKE 1 CAPSULE BY MOUTH ONCE DAILY ON AN EMPTY STOMACH 30 MINUTES BEFORE BREAKFAST Start: 01-03-2023 End: 09-11-2023 take 40 mg by mouth once daily Omeprazole Discontinued 40 MG PO Daily September 11, 2023 1:00am September 11, 2023 5:43pm ticagrelor 90 mg oral tablet (19 sources) Start: 11-22-2022 End: 05-23-2024 take 1 tablet by mouth twice daily Brilinta 90 mg tablet Indications: Cardiomyopathy, ischemic Take 1 tablet (90 mg) by mouth 2 times a day. 180 tablet 3 05/24/2023 11/22/2023 Discontinued (Therapy completed) Completed/Discontinued Medications Medication Drug Class(es) Dates Sig (Normalized) Sig (Original) doxycycline hyclate 100 mg oral capsule (8 sources) Tetracycline-class Drug take 1 capsule by mouth twice daily as needed Doxycycline Hyclate 100 MG 1 capsule Orally twice daily for 7 days Not-Taking/PRN hydrocortisone 10 mg/ml / neomycin 3.5 mg/ml / polymyxin b [id number] unt/ml otic suspension (12 sources) Aminoglycoside Antibacterial, Polymyxin-class Antibacterial, Corticosteroid Start: 11-07-2022 Neomycin-Polymyxi n-HC 3.5-05151-9 4 drops into affected ear Otic q HS PRN itching for 30 days November, Not-Taking/PRN meloxicam 15 mg oral tablet (10 sources) Nonsteroidal Anti-inflammatory Drug Start: 11-20-2022 End: 11-22-2022 take 15 mg by mouth once daily Meloxicam Discontinued 15 MG PO Daily November 20, 2022 12:00am November 22, 2022 2:17pm Meloxicam Active triamcinolone acetonide 40 mg/ml injectable suspension (17 sources) Corticosteroid Start: 05-14-2023 Kenalog-40 May, 60 mg Start: 11-07-2022 Kenalog-40 November, 40 mg Problems Active Problems Problem Classification Problem Date Documented Date Episodic/Chronic Acute bronchitis (5 sources) Acute bronchitis due to other specified organisms; Translations: [Acute bronchitis] Onset: 11-18-2014 Episodic Acute myocardial infarction (20 sources) Myocardial infarction; Translations: [ST elevation (STEMI) myocardial infarction of unspecified site] Onset: 11-25-2022 11-20-2022 Chronic Anxiety disorders (11 sources) Generalized anxiety disorder; Translations: [Generalized anxiety disorder] Chronic Cardiac dysrhythmias (14 sources) Supraventricular tachycardia; Translations: [Supraventricular tachycardia] Chronic Cardiac dysrhythmias (7 sources) Tachycardia, unspecified; Translations: [Sinus tachycardia] Onset: 11-25-2022 06-20-2023 Episodic Conduction disorders (2 sources) Sinus node dysfunction; Translations: [Sinoatrial node dysfunction] Onset: 08-14-2018 Chronic Coronary atherosclerosis and other heart disease (20 sources) Coronary arteriosclerosis; Translations: [Atherosclerotic heart disease of redding coronary artery without angina pectoris] Onset: 05-24-2023 Chronic Deficiency and other anemia (2 sources) Nutritional anemia; Translations: [Nutritional anemia, unspecified] Episodic Deficiency and other anemia (2 sources) Anemia; Translations: [Anemia, unspecified] Episodic Deficiency and other anemia (1 source) Anemia, unspecified Episodic Disorders of lipid metabolism (20 sources) Hyperlipidemia, group A; Translations: [Pure hypercholesterolemia, unspecified] Onset: 11-25-2022 Chronic Esophageal disorders (9 sources) Gastro-esophageal reflux disease with esophagitis; Translations: [Gastroesophageal reflux disease with esophagitis without hemorrhage] Chronic Essential hypertension (20 sources) Essential hypertension; Translations: [Essential (primary) hypertension] Onset: 11-25-2022 Chronic Hyperplasia of prostate (16 sources) Benign prostatic hypertrophy without outflow obstruction; Translations: [Benign prostatic hyperplasia without lower urinary tract symptoms] Onset: 02-04-2015 Chronic Immunizations and screening for infectious disease (4 sources) Vaccination given; Translations: [Encounter for immunization] Episodic Nonspecific chest pain (4 sources) Precordial pain; Translations: [Chest pain, unspecified] Onset: 01-02-2023 Episodic Other and ill-defined heart disease (2 sources) Left ventricular systolic dysfunction; Translations: [Heart disease, unspecified] Chronic Other and ill-defined heart disease (8 sources) Mild left ventricular systolic dysfunction; Translations: [Other ill-defined heart diseases] Onset: 05-24-2023 05-24-2023 Chronic Other and ill-defined heart disease (4 sources) Other ill-defined heart diseases; Translations: [Other ill-defined heart diseases] Onset: 05-24-2023 Chronic Other and unspecified benign neoplasm (14 sources) Benign neoplasm of colon; Translations: [Benign neoplasm of descending colon] Episodic Other and unspecified benign neoplasm (2 sources) Benign neoplasm of descending colon; Translations: [Benign neoplasm of descending colon] Episodic Other connective tissue disease (12 sources) Pain in limb; Translations: [Pain in right leg] Episodic Other connective tissue disease (2 sources) Pain in right lower limb; Translations: [Pain in right leg] Episodic Other ear and sense organ disorders (12 sources) Bilateral auditory canal chronic non-infective otitis externa; Translations: [Other otitis externa, bilateral] Chronic Other ear and sense organ disorders (1 source) Other otitis externa, bilateral Chronic Other lower respiratory disease (1 source) Dyspnea, unspecified; Translations: [Dyspnea, unspecified] Onset: 11-25-2022 Episodic Other lower respiratory disease (2 sources) Dyspnea; Translations: [Dyspnea, unspecified] 06-20-2023 Episodic Other nutritional; endocrine; and metabolic disorders [...] Chronic Other nutritional; endocrine; and metabolic disorders (3 sources) Overweight in adulthood with body mass index of 25 or more but less than 30; Translations: [Overweight] Onset: 11-22-2023 11-22-2023 Episodic Other screening for suspected conditions (not mental disorders or infectious disease) (8 sources) Encounter for screening for malignant neoplasm of prostate; Translations: [Electrocardiogram abnormal] Onset: 05-18-2022 Episodic Other upper respiratory disease (14 sources) Allergic rhinitis due to pollen; Translations: [...] [Acute maxillary sinusitis, unspecified] Onset: 11-18-2014 Episodic Screening and history of mental health and substance abuse codes (5 sources) Ex-smoker; Translations: [Personal history of tobacco use] Onset: 07-16-2017 11-22-2023 Episodic Comment on above: quit 1994; Spondylosis; intervertebral disc disorders; other back problems (19 sources) Lumbar spondylosis; Translations: [Spondylosis without myelopathy or radiculopathy, lumbar region] Onset: 06-17-2022 Chronic Spondylosis; intervertebral disc disorders; other back problems (18 sources) Sciatica; Translations: [Lumbago with sciatica, unspecified side] Onset: 09-14-2022 Episodic Sprains and strains (6 sources) Strain of muscle, fascia and tendon of right hip, subsequent encounter; Translations: [Strain of right quadriceps muscle, fascia and tendon, initial encounter] Onset: 01-04-2018 Episodic Substance-related disorders (14 sources) Tobacco user; Translations: [Nicotine dependence, cigarettes, in remission] 11-10-2023 Chronic Unclassified (4 sources) LOW BACK PAIN, [...] and of unspecified site] Onset: 06-27-2016 Episodic Coronary atherosclerosis and other heart disease (5 sources) Presence of coronary angioplasty implant and graft; Translations: [Stented coronary artery] Onset: 11-25-2022 06-20-2023 Episodic Esophageal disorders (3 sources) Esophageal disorders Other non-traumatic joint disorders (2 sources) Shoulder joint pain; Translations: [Pain in left shoulder] Onset: 01-04-2018 Episodic Other nutritional; endocrine; and metabolic disorders (14 sources) Overweight; Translations: [Overweight] Onset: 05-24-2023 05-24-2023 Episodic Other nutritional; endocrine; and metabolic disorders (2 sources) Body mass index 25-29 - overweight; Translations: [Body mass index 29.0-29.9, adult] Onset: 06-27-2016 Episodic Other skin disorders (2 sources) Atrophoderma; Translations: [Unspecified hypertrophic and atrophic condition of skin] Onset: 10-03-2017 Episodic Unclassified (1 source) LOW BACK PAIN, UNSPECIFIED; Translations: [LOW BACK PAIN, UNSPECIFIED] Onset: 06-13-2022 Unclassified (2 sources) Recent myocardial infarction; Translations: [Recent ST elevation myocardial infarction (STEMI)] 06-20-2023 Viral infection (2 sources) Verruca vulgaris; Translations: [Viral wart, unspecified] Onset: 02-27-2013 Episodic Viral infection (14 sources) Disease caused by 2019-nCoV; Translations: [COVID-19] Results Test Name Value Interpretation Reference Range Facility Heart TransthoracicOrdere d By: Sal Dorman on 07-04-2023 LV A4C EF 70.3 [facility] Work Phone: LVIDd 5.80 [facility] Work Phone: LVOT diam 2.60 [facility] Work Phone: [facility] Work Phone: Heart Transthoracicon [address], [address] [place] [address] TRANSTHORACIC ECHOCARDIOGRAM REPORT Patient Name: FLORES SIERRA Gaye Physician: [id number] Sal Dorman MD, [facility] Study Date: 07/03/2023 Ordering Provider: [id number] CONRAD BEASLEY MRN/PID: [id number] Fellow: Nurse: Date of /Age: 2 1960 / 62 years Advertising Sales Consultant: Araseli Smith RDCS, T Gender: M Additional Staff: Height: 172.72 cm Admit Date: Weight: 86.18 kg Admission Status: BSA: 2.00 m2 Department Location: [facility] Blood Pressure: 136 /82 mmHg Study Type: TRANSTHORACIC ECHO (TTE) LIMITED Diagnosis/ICD: Other ill defined heart diseases-I51.89 Indication: CAD, ND and PTCA-11/2022, Dyspnea on Exertion, Former Smoker, Ischemic Cardiomyopathy CPT Codes: Echo Limited-[id number] Study Detail: The following Echo studies were [...] Normal Ranges: LVOT Diameter: 2.60 cm (1.8-2.4cm) [id number] Sal Dorman MD, FACC Electronically signed on 07/04/2023 at 1:42:19 PM Final Sal Schmidt MD - 07/04/[address], [address], [place] [address] TRANSTHORACIC ECHOCARDIOGRAM REPORT Patient Name: FLORES SIERRA Reading Physician: [id number] Sal Dorman MD, [facility] Study Date: 07/03/2023 Ordering Provider: [id number] CONRAD BEASLEY MRN/PID: [id number] Fellow: Nurse: Date of /Age: 2 1960 / 62 years Advertising Sales Consultant: Araseli Smith RDCS, T Gender: M Additional Staff: Height: 172.72 cm Admit Date: Weight: 86.18 kg Admission Status: BSA: 2.00 m2 Department Location: [facility] Blood Pressure: 136 /82 mmHg Study Type: TRANSTHORACIC ECHO (TTE) LIMITED Diagnosis/ICD: Other ill defined heart diseases-I51.89 Indication: CAD, ND and PTCA-11/2022, Dyspnea on Exertion, Former Smoker, Ischemic Cardiomyopathy CPT Codes: Echo Limited-78246 Study Detail: The following Echo studies were [...] Normal Ranges: LVOT Diameter: 2.60 cm (1.8-2.4cm) [id number] Sal Dorman MD, FACC Electronically signed on 07/04/2023 at 1:42:19 PM Final [facility] Work Phone: TRANSTHORACIC ECHO (TTE) [facility] 07-03-2023 TRANSTHORACIC ECHO (TTE) [address], [address] [place] [address] TRANSTHORACIC ECHOCARDIOGRAM REPORT Patient Name: FLORES SIERRA Gaye Physician: [id number] aSl Dorman MD, FACC Study Date: 07/03/2023 Ordering Provider: [id number] CONRAD BEASLEY MRN/PID: [id number] Fellow: Nurse: Date of /Age: 2 1960 / 62 years Advertising Sales Consultant: Araseli Smith RDCS, RVT Gender: M Additional Staff: Height: 172.72 cm Admit Date: Weight: 86.18 kg Admission Status: BSA: 2.00 m2 Department Location: [facility] Blood Pressure: 136 /82 mmHg Study Type: TRANSTHORACIC ECHO (TTE) LIMITED Diagnosis/ICD: Other ill defined heart diseases-I51.89 Indication: CAD, ND and PTCA-11/2022, Dyspnea on Exertion, Former Smoker, Ischemic Cardiomyopathy CPT Codes: Echo Limited-[id number] Study Detail: The following Echo studies were [...] Normal Ranges: LVOT Diameter: 2.60 cm (1.8-2.4cm) [id number] Sal Dorman MD, [facility] Electronically signed on 07/04/2023 at 1:42:19 PM Final [facility] B-Type Natriuretic Peptideon 01-02-2023 Natriuretic peptide B (Bld) [Mass/Vol] 112.0 pg/mL High 5-100 [facility] Comment on above: Result Comment: PERF ORMED BY: [place] [address] PATHOLOGIST ASSISTANT SIGNAL MAINTAINER VITO GIL M.D. Performed By: #### C BC, LIPID, BMP, HS TROP #### [address] Basic Metabolic Panelon 12-08 Anion gap [Moles/Vol] 13.3 mmol/L Normal 6.0-15.0 [facility] Comment on above: Performed By: #### C BC, LIPID, BMP, HS TROP #### [address] Calcium [Mass/Vol] 9.4 mg/dL Normal 8.6-10.3 [facility] Comment on above: Performed By: #### C BC, LIPID, BMP, HS TROP #### [place] [address] [place] Chloride [Moles/Vol] 108 mmol/L High 98-107 [facility] Comment on above: Performed By: #### C BC, LIPID, BMP, HS TROP #### [address] CO2 [Moles/Vol] 21.9 mmol/L Normal 21.0-31.0 [facility] Comment on above: Performed By: #### C BC, LIPID, BMP, HS TROP #### [facility] [address] Creatinine [Mass/Vol] 1.00 mg/dL Normal 0.70-1.30 [facility] Comment on above: Performed By: #### C BC, LIPID, BMP, HS TROP #### [facility] [address] Creatinine Clr Calc Pharmacy 83.05 [facility] Comment on above: Result Comment: PERF ORMED BY: [facility] [address] [place] [address] PATHOLOGIST ASSISTANT SIGNAL MAINTAINER VITO GIL M.D. Performed By: #### C BC, LIPID, BMP, HS TROP #### [facility] [address] [place] [address] [place] GFR/1.73 sq M.predicted MDRD (S/P/Bld) [Vol rate/Area] mL/min/{1.73_m2} [facility] Comment on above: Performed By: #### C BC, LIPID, BMP, HS TROP #### [facility] [address] Glucose [Mass/Vol] 126 mg/dL High 70-100 [facility] Comment on above: Result Comment: [facility] Glucose Reference Range is dependent on time and content of last meal. Glucose of more than 200 mg/dL in a nonstressed, ambulatory subject supports the diagnosis of Diabetes Mellitus. ADA recommended reference range Performed By: #### C BC, LIPID, BMP, HS TROP #### [facility] [address] [place] [address] [place] Potassium [Moles/Vol] 4.2 mmol/L Normal 3.5-5.1 [facility] Comment on above: Performed By: #### C BC, LIPID, BMP, HS TROP #### [facility] [address] [place] [address] [place] Sodium [Moles/Vol] 139 mmol/L Normal 136-145 [facility] Comment on above: Performed By: #### C BC, LIPID, BMP, HS TROP #### [facility] [address] [place] [address] [place] Urea nitrogen [Mass/Vol] 12 mg/dL Normal 7-25 [facility] Comment on above: Performed By: #### C BC, LIPID, BMP, HS TROP #### [address] Complete Blood Count Auto Di ffon 01-02-2023 Basophils (Bld) [#/Vol] 0.0 10*3/uL Normal 0.0-0.2 [facility] Comment on above: Result Comment: PERF ORMED BY: [place] [address] PATHOLOGIST ASSISTANT SIGNAL MAINTAINER VITO GIL M.D. Performed By: #### C BC, LIPID, BMP, HS TROP #### [address] Basophils/100 WBC (Bld) 0.3 % Normal . [facility] Comment on above: Performed By: #### C BC, LIPID, BMP, HS TROP #### [address] Eosinophils (Bld) [#/Vol] 0.0 10*3/uL Normal 0.0-0.45 [facility] Comment on above: Performed By: #### C BC, LIPID, BMP, HS TROP #### [address] Eosinophils/100 WBC (Bld) 0.0 % Normal . [facility] Comment on above: Performed By: #### C BC, LIPID, BMP, HS TROP #### [address] Erythrocyte distribution width (RBC) [Ratio] 13.8 % Normal 12.0-14.8 [facility] Comment on above: Performed By: #### C BC, LIPID, BMP, HS TROP #### [address] Hematocrit (Bld) [Volume fraction] 36.0 % Low 38.8-50.0 [facility] Comment on above: Performed By: #### C BC, LIPID, BMP, HS TROP #### [facility] [address] Hemoglobin (Bld) [Mass/Vol] 12.3 g/dL Low 13.0-17.0 [facility] Comment on above: Performed By: #### C BC, LIPID, BMP, HS TROP #### [facility] [address] Lymphocytes (Bld) [#/Vol] 0.5 10*3/uL Low 1.00-4.8 [facility] Comment on above: Performed By: #### C BC, LIPID, BMP, HS TROP #### [address] Lymphocytes/100 WBC (Bld) 3.9 % Normal . [facility] Comment on above: Performed By: #### C BC, LIPID, BMP, HS TROP #### [address] MCH (RBC) [Entitic mass] 30.1 pg Normal 27.5-35.2 [facility] Comment on above: Performed By: #### C BC, LIPID, BMP, HS TROP #### [address] MCV (RBC) [Entitic vol] 88.2 fL Normal 83.5-101 [facility] Comment on above: Performed By: #### C BC, LIPID, BMP, HS TROP #### [address] Mean Corpuscular HGB Conc 34.1 g/dL Normal 32.5-35.6 [facility] Comment on above: Performed By: #### C BC, LIPID, BMP, HS TROP #### [facility] [address] [place] [address] [place] Monocytes (Bld) [#/Vol] 0.7 10*3/uL Normal 0.0-0.8 [facility] Comment on above: Performed By: #### C BC, LIPID, BMP, HS TROP #### [place] [address] [place] Monocytes/100 WBC (Bld) 17.89 % Normal 0.00-20.00 [facility] Comment on above: Performed By: #### C BC, LIPID, BMP, HS TROP #### [address] Monocytes/100 WBC (Bld) 5.6 % Normal . [facility] Comment on above: Performed By: #### C BC, LIPID, BMP, HS TROP #### [address] Neutrophils (Bld) [#/Vol] 11.1 10*3/uL High 1.8-7.7 [facility] Comment on above: Performed By: #### C BC, LIPID, BMP, HS TROP #### [address] Neutrophils/100 WBC (Bld) 90.2 % Normal . [facility] Comment on above: Performed By: #### C BC, LIPID, BMP, HS TROP #### [address] NRBC% 0.0 /100{WBC} Normal 0-0.5 [facility] Comment on above: Performed By: #### C BC, LIPID, BMP, HS TROP #### [address] Platelet mean volume (Bld) [Entitic vol] 8.0 fL Normal 6.6-10.1 [facility] Comment on above: Performed By: #### C BC, LIPID, BMP, HS TROP #### [place] [address] [place] Platelets (Bld) [#/Vol] 187 10*3/uL Normal 150-450 [facility] Comment on above: Performed By: #### C BC, LIPID, BMP, HS TROP #### [address] RBC (Bld) [#/Vol] 4.08 10*6/uL Normal 3.90-5.60 [facility] Comment on above: Performed By: #### C BC, LIPID, BMP, HS TROP #### [facility] [address] [place] [address] WBC (Bld) [#/Vol] 12.3 10*3/uL High 4.1-10.5 [facility] Comment on above: Performed By: #### C BC, LIPID, BMP, HS TROP #### [facility] [address] [place], [place] [id number] [facility] ECG 12 lead ECGon 01-02-2023 ECG 12 lead ECG [facility] [place] [address] Electrocardiograph Report Signed Patient: Flores Sierra MR#: [id number] : 1960 Acct:[id number] Age/Sex: 62 / M ADM Date: 01/02/23 Loc: ER Room: Type: [facility] ER Attending Dr: Ordering Provider: Jim Andujar DO Date of Service: 01/02/23 ECG/ECG 12 [...] ms Normal sinus rhythm Confirmed by Jim Andujar DO ([id number]) on 01/02/2023 1:39:14 PM Referred By: Electronically Signed By:Jim Andujar DO Transcribed By: MUS Signed By Jim Andujar DO 1339 Normal [facility] ECG 12 lead ECG [facility] [place] [address] Electrocardiograph Report Signed Patient: Flores Sierra MR#: [id number] : 1960 Acct:[id number] Age/Sex: 62 / M ADM Date: 01/02/23 Loc: ER Room: Type: DEP ER Attending Dr: Ordering Provider: Jim Andujar DO Date of Service: 01/02/23 ECG/ECG 12 lead ECG: . Copies to: Test Reason : Blood Pressure : / mmHG Vent. Rate : 073 BPM Atrial Rate : 073 BPM P-R Int : 170 ms QRS Dur : 102 ms QT Int : 394 ms P-R-T Axes : 040 -08 088 degrees QTc Int : 434 ms Normal sinus rhythm Confirmed by Jim Andujar DO ([id number]) on 01/02/2023 1:39:49 PM Referred By: Electronically Signed By:Jim Andujar DO Transcribed By: MUS Signed By Jim Andujar DO 1339 Normal [facility] Partial Thromboplastin Timeo n 01-02-2023 aPTT Coag (Bld) [Time] 29.4 s Normal 25.1-36.5 [facility] Comment on above: Result Comment: PERF ORMED BY: [place] [address] PATHOLOGIST ASSISTANT SIGNAL MAINTAINER VITO GIL M.D. Performed By: #### C BC, LIPID, BMP, HS TROP #### [address] Prothrombin Time INRon 01-02 INR Coag (PPP) [Relative time] 1.1 {INR} Normal [facility] Comment on above: Result Comment: INR Therapeutic [...] C BC, LIPID, BMP, HS TROP #### [facility] [address] PT Coag (PPP) [Time] 12.3 s Normal 9.0-12.9 [facility] Comment on above: Performed By: #### C BC, LIPID, BMP, HS TROP #### [facility] [address] [place] [address] [place] Troponin I High Sensitivityo n 01-02-2023 Troponin I High Sensitivity 6.4 pg/mL Normal 0.0-20.0 [facility] Comment on above: Result Comment: PERF ORMED BY: [place] [address] PATHOLOGIST ASSISTANT SIGNAL MAINTAINER VITO GIL M.D. Performed By: #### C BC, LIPID, BMP, HS TROP #### [address] Troponin I High Sensitivity 8.0 pg/mL Normal 0.0-20.0 [facility] Comment on above: Result Comment: PERF ORMED BY: [place] [address] PATHOLOGIST ASSISTANT SIGNAL MAINTAINER VITO GIL M.D. Performed By: #### C BC, LIPID, BMP, HS TROP #### [address] XR chest 1V portableon 01-02 XR chest 1V portable [facility] [place] [address] XRay Report Signed Patient: Flores Sierra MR#: [id number] : 1960 Acct:[id number] Age/Sex: 62 / M ADM Date: 01/02/23 Loc: Room: Type: [facility] ER Attending Dr: Copies to: Jim Andujar DO Ordering Provider: Jim Andujar DO Date of Service: 01/02/23 XR/XR chest [...] Howard Rodriguez M.D.01/02/2023 8:16 AM Dictation Location: [place] [address] Transcribed By: [facility] 01/02/23 0816 Dictated By: Howard Rodriguez II, MD 01/02/2316 Signed By: 01/02/23815 [facility] Office Visit (Cardiology)on 12-06-2022 Follow-up visit [...] Weight Tips; Status:Complete - Retrospective Authorization; Done: 06Dec2022 Cardiac Rehab Referral Evaluation and Treatment Evaluate AND Treat Status: Hold For - Scheduling,Retrospec tive Authorization Requested for: 06Dec2022 Agreement : I agree to have my [...] lose weight.; Status:Complete - Retrospective Authorization; Done: 06Dec2022 SocHx: Former smoker Tobacco Use Screening; Status:Complete; Done: [id number] Patient Instructions Please bring all medicines, vitamins, [...] is being seen for a 2-3 weeks [facility] week follow-up of. Patient is a 62-year-old gentleman returns for follow-up following recent large anterior STEMI with revascularization of the proximal LAD with 3.5 x 15 mm Moris stent without complications. Ejection fraction subsequently measured by echo was 45% confirmed by angiography as well He works at [employer] is anxious to get back to working on the [employer] line. This requires him lifting anywhere between [...] Signs Recorded (more content not included)... Normal [employer] Tobacco Screening.on 023 Adult depression screening assessment No [facility] [employer] y 250 DO Work Phone: Fall risk assessment a) No falls within the last year [facility] [employer] y 250 DO Work Phone: Tobacco use status CP b) No [facility] [employer] y 250 DO Work Phone: Basic Metabolic Panelon 11-07-2022 Anion gap [Moles/Vol] 10.6 mmol/L Normal 6.0-15.0 [facility] Comment on above: Order Comment: AMI Cano IV START IN ERROR ALW Performed By: #### C BC, LIPID, BMP, HS TROP #### [facility] [address] [place] [id number] [place] Calcium [Mass/Vol] 9.0 mg/dL Normal 8.6-10.3 [facility] Comment on above: Order Comment: AMI Cano IV START IN ERROR ALW Performed By: #### C BC, LIPID, BMP, HS TROP #### [facility] [address] [place] [id number] [place] Chloride [Moles/Vol] 107 mmol/L Normal 98-107 [facility] Comment on above: Order Comment: AMI Cano IV START IN ERROR ALW Performed By: #### C BC, LIPID, BMP, HS TROP #### [facility] [address] [place] [id number] [place] CO2 [Moles/Vol] 23.4 mmol/L Normal 21.0-31.0 [facility] Comment on above: Order Comment: AMI Cano IV START IN ERROR ALW Performed By: #### C BC, LIPID, BMP, HS TROP #### [facility] [address] Creatinine [Mass/Vol] 0.94 mg/dL Normal 0.70-1.30 [facility] Comment on above: Order Comment: AMI Cano IV START IN ERROR ALW Performed By: #### C BC, LIPID, BMP, HS TROP #### [facility] [address] [place] [address] [place] Creatinine Clr Calc Pharmacy 89.93 [facility] Comment on above: Order Comment: AMI Cano IV START IN ERROR ALW Result Comment: PERF ORMED BY: [place] [address] PATHOLOGIST ASSISTANT SIGNAL MAINTAINER VITO GIL M.D. Performed By: #### C BC, LIPID, BMP, HS TROP #### [facility] [address] [place] [address] [place] GFR/1.73 sq M.predicted MDRD (S/P/Bld) [Vol rate/Area] mL/min/{1.73_m2} [facility] Comment on above: Order Comment: AMI Cano IV START IN ERROR ALW Performed By: #### C BC, LIPID, BMP, HS TROP #### [facility] [address] Glucose [Mass/Vol] 104 mg/dL High 70-100 [facility] Comment on above: Order Comment: AMI Cano IV START IN ERROR ALW Result Comment: [place] Glucose Reference Range is dependent on time and content of last meal. Glucose of more than 200 mg/dL in a nonstressed, ambulatory subject supports the diagnosis of Diabetes Mellitus. ADA recommended reference range Performed By: #### C BC, LIPID, BMP, HS TROP #### [facility] [address] [place] [address] [place] Potassium [Moles/Vol] 4.0 mmol/L Normal 3.5-5.1 [facility] Comment on above: Order Comment: AMI Rachael IV START IN ERROR ALW Performed By: #### C BC, LIPID, BMP, HS TROP #### [facility] [address] Sodium [Moles/Vol] 137 mmol/L Normal 136-145 [facility] Comment on above: Order Comment: AMI Cano IV START IN ERROR ALW Performed By: #### C BC, LIPID, BMP, HS TROP #### [facility] [address] Urea nitrogen [Mass/Vol] 19 mg/dL Normal 7-25 [facility] Comment on above: Order Comment: AMI Cano IV START IN ERROR ALW Performed By: #### C BC, LIPID, BMP, HS TROP #### [facility] [address] Complete Blood Count Auto Di ffon 11-25-2022 Basophils (Bld) [#/Vol] 0.1 10*3/uL Normal 0.0-0.2 [facility] Comment on above: Result Comment: PERF ORMED BY: [place] [address] PATHOLOGIST ASSISTANT SIGNAL MAINTAINER VITO GIL M.D. Performed By: #### C BC, LIPID, BMP, HS TROP #### [address] Basophils/100 WBC (Bld) 1.1 % Normal . [facility] Comment on above: Performed By: #### C BC, LIPID, BMP, HS TROP #### [address] Eosinophils (Bld) [#/Vol] 0.2 10*3/uL Normal 0.0-0.45 [facility] Comment on above: Performed By: #### C BC, LIPID, BMP, HS TROP #### [facility] [address] [place] [address] [place] Eosinophils/100 WBC (Bld) 1.9 % Normal . [facility] Comment on above: Performed By: #### C BC, LIPID, BMP, HS TROP #### [facility] [address] Erythrocyte distribution width (RBC) [Ratio] 13.7 % Normal 12.0-14.8 [facility] Comment on above: Performed By: #### C BC, LIPID, BMP, HS TROP #### [address] Hematocrit (Bld) [Volume fraction] 37.8 % Low 38.8-50.0 [facility] Comment on above: Performed By: #### C BC, LIPID, BMP, HS TROP #### [address] Hemoglobin (Bld) [Mass/Vol] 12.6 g/dL Low 13.0-17.0 [facility] Comment on above: Performed By: #### C BC, LIPID, BMP, HS TROP #### [address] Lymphocytes (Bld) [#/Vol] 0.9 10*3/uL Low 1.00-4.8 [facility] Comment on above: Performed By: #### C BC, LIPID, BMP, HS TROP #### [address] Lymphocytes/100 WBC (Bld) 8.9 % Normal . [facility] Comment on above: Performed By: #### C BC, LIPID, BMP, HS TROP #### [address] MCH (RBC) [Entitic mass] 29.5 pg Normal 27.5-35.2 [facility] Comment on above: Performed By: #### C BC, LIPID, BMP, HS TROP #### [address] MCV (RBC) [Entitic vol] 88.2 fL Normal 83.5-101 [facility] Comment on above: Performed By: #### C BC, LIPID, BMP, HS TROP #### [address] Mean Corpuscular HGB Conc 33.5 g/dL Normal 32.5-35.6 [facility] Comment on above: Performed By: #### C BC, LIPID, BMP, HS TROP #### [facility] [address] [place] [address] [place] Monocytes (Bld) [#/Vol] 0.9 10*3/uL High 0.0-0.8 [facility] Comment on above: Performed By: #### C BC, LIPID, BMP, HS TROP #### [facility] [address] [place] [address] [place] Monocytes/100 WBC (Bld) 16.64 % Normal 0.00-20.00 [facility] Comment on above: Performed By: #### C BC, LIPID, BMP, HS TROP #### [facility] [address] [place] [address] [place] Monocytes/100 WBC (Bld) 8.9 % Normal . [facility] Comment on above: Performed By: #### C BC, LIPID, BMP, HS TROP #### [facility] [address] [place] [address] [place] Neutrophils (Bld) [#/Vol] 7.8 10*3/uL High 1.8-7.7 [facility] Comment on above: Performed By: #### C BC, LIPID, BMP, HS TROP #### [facility] [address] [place] [address] [place] Neutrophils/100 WBC (Bld) 79.2 % Normal . [facility] Comment on above: Performed By: #### C BC, LIPID, BMP, HS TROP #### [facility] [address] [place] [address] [place] NRBC% 0.0 /100{WBC} Normal 0-0.5 [facility] Comment on above: Performed By: #### C BC, LIPID, BMP, HS TROP #### [facility] [address] [place] [address] [place] Platelet mean volume (Bld) [Entitic vol] 7.8 fL Normal 6.6-10.1 [facility] Comment on above: Performed By: #### C BC, LIPID, BMP, HS TROP #### [facility] [address] [place] [address] [place] Platelets (Bld) [#/Vol] 205 10*3/uL Normal 150-450 [facility] Comment on above: Performed By: #### C BC, LIPID, BMP, HS TROP #### [facility] [address] RBC (Bld) [#/Vol] 4.28 10*6/uL Normal 3.90-5.60 [facility] Comment on above: Performed By: #### C BC, LIPID, BMP, HS TROP #### [facility] [address] WBC (Bld) [#/Vol] 9.9 10*3/uL Normal 4.1-10.5 [facility] Comment on above: Performed By: #### C BC, LIPID, BMP, HS TROP #### [address] Comprehensive Metabolic Pane sanya 11-25-2022 Albumin [Mass/Vol] 4.1 g/dL Normal 3.5-5.7 [facility] Comment on above: Performed By: #### C BC, LIPID, BMP, HS TROP #### [facility] [address] [place] [address] Albumin/Globulin [Mass ratio] 1.4 {ratio} Normal [facility] Comment on above: Performed By: #### C BC, LIPID, BMP, HS TROP #### [facility] [address] [place] [address] ALP [Catalytic activity/Vol] 59 U/L Normal 34-104 [facility] Comment on above: Performed By: #### C BC, LIPID, BMP, HS TROP #### [facility] [address] [place] [address] ALT [Catalytic activity/Vol] 29 U/L Normal 7-52 [facility] Comment on above: Performed By: #### C BC, LIPID, BMP, HS TROP #### [facility] [address] [place] [address] Anion gap [Moles/Vol] 15.1 mmol/L High 6.0-15.0 [facility] Comment on above: Performed By: #### C BC, LIPID, BMP, HS TROP #### [facility] [address] [place] [address] [place] AST [Catalytic activity/Vol] 31 U/L Normal 13-39 [facility] Comment on above: Performed By: #### C BC, LIPID, BMP, HS TROP #### [facility] [address] Bilirubin [Mass/Vol] 0.5 mg/dL Normal 0.3-1.0 [facility] Comment on above: Performed By: #### C BC, LIPID, BMP, HS TROP #### [facility] [address] Calcium [Mass/Vol] 9.1 mg/dL Normal 8.6-10.3 [facility] Comment on above: Performed By: #### C BC, LIPID, BMP, HS TROP #### [facility] [address] [place] [address] [place] Chloride [Moles/Vol] 106 mmol/L Normal 98-107 [facility] Comment on above: Performed By: #### C BC, LIPID, BMP, HS TROP #### [facility] [address] [place] [address] [place] CO2 [Moles/Vol] 19.6 mmol/L Low 21.0-31.0 [facility] Comment on above: Performed By: #### C BC, LIPID, BMP, HS TROP #### [facility] [address] [place] [address] [place] Creatinine [Mass/Vol] 1.09 mg/dL Normal 0.70-1.30 [facility] Comment on above: Performed By: #### C BC, LIPID, BMP, HS TROP #### [facility] [address] [place] [address] [place] Creatinine Clr Calc Pharmacy 77.84 Normal [facility] Comment on above: Performed By: #### C BC, LIPID, BMP, HS TROP #### [facility] [address] [place] [address] [place] GFR/1.73 sq M.predicted MDRD (S/P/Bld) [Vol rate/Area] mL/min/{1.73_m2} Normal [facility] Comment on above: Performed By: #### C BC, LIPID, BMP, HS TROP #### [facility] [address] Globulin (S) [Mass/Vol] 3.0 g/dL Normal [facility] Comment on above: Performed By: #### C BC, LIPID, BMP, HS TROP #### [facility] [address] Glucose [Mass/Vol] 150 mg/dL High 70-100 [facility] Comment on above: Result Comment: [facility] Glucose Reference Range is dependent on time and content of last meal. Glucose of more than 200 mg/dL in a nonstressed, ambulatory subject supports the diagnosis of Diabetes Mellitus. ADA recommended reference range Performed By: #### C BC, LIPID, BMP, HS TROP #### [facility] [address] Potassium [Moles/Vol] 3.7 mmol/L Normal 3.5-5.1 [facility] Comment on above: Performed By: #### C BC, LIPID, BMP, HS TROP #### [address] Protein [Mass/Vol] 7.1 g/dL Normal 6.4-8.9 [facility] Comment on above: Performed By: #### C BC, LIPID, BMP, HS TROP #### [place] [address] [place] Sodium [Moles/Vol] 137 mmol/L Normal 136-145 [facility] Comment on above: Performed By: #### C BC, LIPID, BMP, HS TROP #### [facility] [address] [place] [address] [place] Urea nitrogen [Mass/Vol] 26 mg/dL High 7-25 [facility] Comment on above: Performed By: #### C BC, LIPID, BMP, HS TROP #### [place] [address] [place] Creatine Kinaseon 11-25-2022 CK [Catalytic activity/Vol] 172 U/L Normal 30-223 [facility] Comment on above: Performed By: #### C BC, LIPID, BMP, HS TROP #### [address] ECG 12 lead ECGon 11-25-2022 ECG 12 lead ECG [facility] [place] [address] [place] [address] Electrocardiograph Report Signed Patient: Flores Sierra MR#: [id number] : 1960 Acct:[id number] Age/Sex: 62 / M ADM Date: 11/24/22 Loc: Room: [address] [place] [address] Type: DIS INOo Attending Dr: Lacy Mitchell [...] is no longer present Confirmed by GARLAND WREN MD ([id number]) on 11/27/2022 11:47:02 AM Referred By: Electronically Signed By:GARLAND WREN MD Transcribed By: MUS Signed By Garland Wren MD 0 11/27/22 1147 Normal [facility] ECG 12 lead ECG [facility] [place] [address] [place] [address] Electrocardiograph Report Signed Patient: Flores Sierra MR#: [id number] : 1960 Acct:[id number] Age/Sex: 62 / M ADM Date: 11/24/22 Loc: ER Room: Type: REG ER Attending Dr: Ordering Provider: Jim Andujar, DO Date of Service: 11/24/22 ECG/ECG 12 [...] Inferior leads Confirmed by RIGOBERTO LOPEZ MD ([id number]) on 11/24/2022 10:58:49 PM Referred By: Electronically Signed By:RIGOBERTO LOPEZ MD Transcribed By: MUS Signed By Rigoberto Lopez Jr, MD 0905 Normal [facility] Magnesiumon 11-25-2022 Magnesium [Mass/Vol] 1.9 mg/dL Normal 1.9-2.7 [facility] Comment on above: Result Comment: PERF ORMED BY: [place] [address] PATHOLOGIST ASSISTANT SIGNAL MAINTAINER VITO GIL M.D. Performed By: #### C BC, LIPID, BMP, HS TROP #### [facility] [address] [place] [address] Partial Thromboplastin Timeo n 11-25-2022 aPTT Coag (Bld) [Time] 28.9 s Normal 25.1-36.5 [facility] Comment on above: Result Comment: PERF ORMED BY: [place] [address] PATHOLOGIST ASSISTANT SIGNAL MAINTAINER VITO GIL M.D. Performed By: #### C BC, LIPID, BMP, HS TROP #### [facility] [address] [place] [address] [place] Prothrombin Time INRon 11-25 INR Coag (PPP) [Relative time] 1.0 {INR} Normal [facility] Comment on above: Result Comment: INR Therapeutic [...] C BC, LIPID, BMP, HS TROP #### [facility] [address] PT Coag (PPP) [Time] 11.5 s Normal 9.0-12.9 [facility] Comment on above: Performed By: #### C BC, LIPID, BMP, HS TROP #### [place] [address] [place] Troponin I High Sensitivityo n 11-25-2022 Troponin I High Sensitivity 5299.1 pg/mL Off scale high 0.0-20.0 [facility] Comment on above: Order Comment: AMI Cano IV START IN ERROR ALW Result Comment: Crit ical Result : Called to and read back by: LASHELL ERIC at: 11/25/2022 13:26:04 by:[id number] PERFORMED BY: [place] [address] PATHOLOGIST ASSISTANT SIGNAL MAINTAINER VITO GIL M.D. Performed By: #### C BC, LIPID, BMP, HS TROP #### [place] [id number] [facility] Troponin I High Sensitivity 7314.7 pg/mL Off scale high 0.0-20.0 [facility] Comment on above: Result Comment: Crit ical Result : Called to and read back by: JOHN QUINTERO at: 11/25/2022 02:41:15 by:[id number] PERFORMED BY: [place] [address] PATHOLOGIST ASSISTANT SIGNAL MAINTAINER VITO GIL M.D. Performed By: #### C BC, LIPID, BMP, HS TROP #### [place] [id number] [place] Troponin I High Sensitivity 8205.6 pg/mL Off scale high 0.0-20.0 [facility] Comment on above: Result Comment: Crit ical Result : Called to and read back by: LIDIA AUGUSTE at: 11/24/2022 23:09:13 by:[id number] PERFORMED BY: [place] [address] PATHOLOGIST ASSISTANT SIGNAL MAINTAINER VITO GIL M.D. Performed By: #### C BC, LIPID, BMP, HS TROP #### [address] XR chest 1V portableon 11-25 XR chest 1V portable [facility] [place] [address] [place] [address] XRay Report Signed Patient: Flores Sierra MR#: [id number] : 1960 Acct:[id number] Age/Sex: 62 / M ADM Date: 11/24/22 Loc: Room: [address] [place] [address] Type: ADM INOo Attending Dr: Lacy Mitchell MD Copies to: DO Lacy Morel MD Ordering Provider: Jim Andujar DO Date of Service: 11/24/22 XR/XR chest [...] Taj Morales M.D.11/25/2022 8:48 AM Dictation Location: [place] [address] Transcribed By: [facility] 11/25/2248 Dictated By: Taj Morales DO 11/25/22 0847 Signed By: 11/25/22 0848 Normal [facility] Basic Metabolic Panelon 05- Anion gap [Moles/Vol] 13.1 mmol/L Normal 6.0-15.0 [facility] Comment on above: Performed By: #### C BC, LIPID, BMP, HS TROP #### [facility] [address] Calcium [Mass/Vol] 9.3 mg/dL Normal 8.6-10.3 [facility] Comment on above: Performed By: #### C BC, LIPID, BMP, HS TROP #### [facility] [address] [place] [address] [place] Chloride [Moles/Vol] 103 mmol/L Normal 98-107 [facility] Comment on above: Performed By: #### C BC, LIPID, BMP, HS TROP #### [address] CO2 [Moles/Vol] 24.1 mmol/L Normal 21.0-31.0 [facility] Comment on above: Performed By: #### C BC, LIPID, BMP, HS TROP #### [address] Creatinine [Mass/Vol] 1.05 mg/dL Normal 0.70-1.30 [facility] Comment on above: Performed By: #### C BC, LIPID, BMP, HS TROP #### [address] Creatinine Clr Calc Pharmacy 82.76 [facility] Comment on above: Result Comment: PERF ORMED BY: [place] [address] PATHOLOGIST ASSISTANT SIGNAL MAINTAINER VITO GIL M.D. Performed By: #### C BC, LIPID, BMP, HS TROP #### [place] [address] [place] GFR/1.73 sq M.predicted MDRD (S/P/Bld) [Vol rate/Area] mL/min/{1.73_m2} [facility] Comment on above: Performed By: #### C BC, LIPID, BMP, HS TROP #### [place] [address] [place] Glucose [Mass/Vol] 109 mg/dL High 70-100 [facility] Comment on above: Result Comment: [place] Glucose Reference Range is dependent on time and content of last meal. Glucose of more than 200 mg/dL in a nonstressed, ambulatory subject supports the diagnosis of Diabetes Mellitus. ADA recommended reference range Performed By: #### C BC, LIPID, BMP, HS TROP #### [facility] [address] Potassium [Moles/Vol] 4.2 mmol/L Normal 3.5-5.1 [facility] Comment on above: Performed By: #### C BC, LIPID, BMP, HS TROP #### [facility] [address] Sodium [Moles/Vol] 136 mmol/L Normal 136-145 [facility] Comment on above: Performed By: #### C BC, LIPID, BMP, HS TROP #### [facility] [address] Urea nitrogen [Mass/Vol] 17 mg/dL Normal 7-25 [facility] Comment on above: Performed By: #### C BC, LIPID, BMP, HS TROP #### [facility] [address] Complete Blood Count Auto Di ffon 11-22-2022 Basophils (Bld) [#/Vol] 0.0 10*3/uL Normal 0.0-0.2 [facility] Comment on above: Result Comment: PERF ORMED BY: [place] [address] PATHOLOGIST ASSISTANT SIGNAL MAINTAINER VITO GIL M.D. Performed By: #### C BC, LIPID, BMP, HS TROP #### [facility] [address] [place] [address] [place] Basophils/100 WBC (Bld) 0.4 % Normal . [facility] Comment on above: Performed By: #### C BC, LIPID, BMP, HS TROP #### [facility] [address] [place] [address] [place] Eosinophils (Bld) [#/Vol] 0.2 10*3/uL Normal 0.0-0.45 [facility] Comment on above: Performed By: #### C BC, LIPID, BMP, HS TROP #### [address] Eosinophils/100 WBC (Bld) 1.8 % Normal . [facility] Comment on above: Performed By: #### C BC, LIPID, BMP, HS TROP #### [address] Erythrocyte distribution width (RBC) [Ratio] 13.9 % Normal 12.0-14.8 [facility] Comment on above: Performed By: #### C BC, LIPID, BMP, HS TROP #### [address] Hematocrit (Bld) [Volume fraction] 38.3 % Low 38.8-50.0 [facility] Comment on above: Performed By: #### C BC, LIPID, BMP, HS TROP #### [address] Hemoglobin (Bld) [Mass/Vol] 13.0 g/dL Normal 13.0-17.0 [facility] Comment on above: Performed By: #### C BC, LIPID, BMP, HS TROP #### [address] Lymphocytes (Bld) [#/Vol] 1.2 10*3/uL Normal 1.00-4.8 [facility] Comment on above: Performed By: #### C BC, LIPID, BMP, HS TROP #### [address] Lymphocytes/100 WBC (Bld) 10.8 % Normal . [facility] Comment on above: Performed By: #### C BC, LIPID, BMP, HS TROP #### [address] MCH (RBC) [Entitic mass] 30.2 pg Normal 27.5-35.2 [facility] Comment on above: Performed By: #### C BC, LIPID, BMP, HS TROP #### [facility] [address] MCV (RBC) [Entitic vol] 88.7 fL Normal 83.5-101 [facility] Comment on above: Performed By: #### C BC, LIPID, BMP, HS TROP #### [facility] [address] Mean Corpuscular HGB Conc 34.1 g/dL Normal 32.5-35.6 [facility] Comment on above: Performed By: #### C BC, LIPID, BMP, HS TROP #### [facility] [address] [place] [address] [place] Monocytes (Bld) [#/Vol] 1.2 10*3/uL High 0.0-0.8 [facility] Comment on above: Performed By: #### C BC, LIPID, BMP, HS TROP #### [facility] [address] [place] [address] [place] Monocytes/100 WBC (Bld) 11.0 % Normal . [facility] Comment on above: Performed By: #### C BC, LIPID, BMP, HS TROP #### [facility] [address] [place] [address] [place] Neutrophils (Bld) [#/Vol] 8.2 10*3/uL High 1.8-7.7 [facility] Comment on above: Performed By: #### C BC, LIPID, BMP, HS TROP #### [facility] [address] [place] [address] [place] Neutrophils/100 WBC (Bld) 76.0 % Normal . [facility] Comment on above: Performed By: #### C BC, LIPID, BMP, HS TROP #### [facility] [address] [place] [address] [place] NRBC% 0.0 /100{WBC} Normal 0-0.5 [facility] Comment on above: Performed By: #### C BC, LIPID, BMP, HS TROP #### [facility] [address] [place] [address] [place] Platelet mean volume (Bld) [Entitic vol] 8.1 fL Normal 6.6-10.1 [facility] Comment on above: Performed By: #### C BC, LIPID, BMP, HS TROP #### [facility] [address] Platelets (Bld) [#/Vol] 186 10*3/uL Normal 150-450 [facility] Comment on above: Performed By: #### C BC, LIPID, BMP, HS TROP #### [facility] [address] [place] [address] [place] RBC (Bld) [#/Vol] 4.31 10*6/uL Normal 3.90-5.60 [facility] Comment on above: Performed By: #### C BC, LIPID, BMP, HS TROP #### [facility] [address] WBC (Bld) [#/Vol] 10.8 10*3/uL High 4.1-10.5 [facility] Comment on above: Performed By: #### C BC, LIPID, BMP, HS TROP #### [facility] [address] ECG 12 lead ECGon 11-22-2022 ECG 12 lead ECG [facility] [place] [address] [place] [address] Electrocardiograph Report Signed Patient: Flores Sierra MR#: [id number] : 1960 Acct:[id number] Age/Sex: 62 / M ADM Date: 11/20/22 Loc: Room: [address] [place] [address] Type: DIS IN Attending Dr: Daryl Beasley DO Ordering Provider: Daryl Beasley DO Date of Service: 11/22/22 ECG/ECG 12 [...] Abnormal ECG When compared with ECG of 16-MAY-2023 07:58, No significant change was found Confirmed by GARLAND WREN MD ([id number]) on 11/22/2022 4:42:06 PM Referred By: Electronically Signed By:GARLAND WREN MD Transcribed By: MUS Signed By Garland Wren MD 0 11/22/22 1642 [facility] Basic Metabolic Panelon 05- Anion gap [Moles/Vol] 14.5 mmol/L Normal 6.0-15.0 [facility] Comment on above: Performed By: #### C BC, LIPID, BMP, HS TROP #### [facility] [address] Calcium [Mass/Vol] 8.8 mg/dL Normal 8.6-10.3 [facility] Comment on above: Performed By: #### C BC, LIPID, BMP, HS TROP #### [facility] [address] Chloride [Moles/Vol] 106 mmol/L Normal 98-107 [facility] Comment on above: Performed By: #### C BC, LIPID, BMP, HS TROP #### [facility] [address] CO2 [Moles/Vol] 18.7 mmol/L Low 21.0-31.0 [facility] Comment on above: Performed By: #### C BC, LIPID, BMP, HS TROP #### [facility] [address] Creatinine [Mass/Vol] 0.91 mg/dL Normal 0.70-1.30 [facility] Comment on above: Performed By: #### C BC, LIPID, BMP, HS TROP #### [facility] [address] [place] [address] [place] Creatinine Clr Calc Pharmacy 95.06 [facility] Comment on above: Performed By: #### C BC, LIPID, BMP, HS TROP #### [facility] [address] [place] [address] [place] GFR/1.73 sq M.predicted MDRD (S/P/Bld) [Vol rate/Area] mL/min/{1.73_m2} Normal [facility] Comment on above: Performed By: #### C BC, LIPID, BMP, HS TROP #### [facility] [address] Glucose [Mass/Vol] 112 mg/dL High 70-100 [facility] Comment on above: Result Comment: [place] Glucose Reference Range is dependent on time and content of last meal. Glucose of more than 200 mg/dL in a nonstressed, ambulatory subject supports the diagnosis of Diabetes Mellitus. ADA recommended reference range Performed By: #### C BC, LIPID, BMP, HS TROP #### [address] Potassium [Moles/Vol] 4.2 mmol/L Normal 3.5-5.1 [facility] Comment on above: Performed By: #### C BC, LIPID, BMP, HS TROP #### [address] Sodium [Moles/Vol] 135 mmol/L Low 136-145 [facility] Comment on above: Performed By: #### C BC, LIPID, BMP, HS TROP #### [address] Urea nitrogen [Mass/Vol] 15 mg/dL Normal 7-25 [facility] Comment on above: Performed By: #### C BC, LIPID, BMP, HS TROP #### [address] Complete Blood Count Auto Di ffon 11-21-2022 Basophils (Bld) [#/Vol] 0.1 10*3/uL Normal 0.0-0.2 [facility] Comment on above: Result Comment: PERF ORMED BY: [place] [address] PATHOLOGIST ASSISTANT SIGNAL MAINTAINER VITO GIL M.D. Performed By: #### C BC, LIPID, BMP, HS TROP #### [place] [address] [place] Basophils/100 WBC (Bld) 0.4 % Normal . [facility] Comment on above: Performed By: #### C BC, LIPID, BMP, HS TROP #### [facility] [address] Eosinophils (Bld) [#/Vol] 0.1 10*3/uL Normal 0.0-0.45 [facility] Comment on above: Performed By: #### C BC, LIPID, BMP, HS TROP #### [facility] [address] Eosinophils/100 WBC (Bld) 0.7 % Normal . [facility] Comment on above: Performed By: #### C BC, LIPID, BMP, HS TROP #### [address] Erythrocyte distribution width (RBC) [Ratio] 13.8 % Normal 12.0-14.8 [facility] Comment on above: Performed By: #### C BC, LIPID, BMP, HS TROP #### [address] Hematocrit (Bld) [Volume fraction] 36.4 % Low 38.8-50.0 [facility] Comment on above: Performed By: #### C BC, LIPID, BMP, HS TROP #### [address] Hemoglobin (Bld) [Mass/Vol] 12.2 g/dL Low 13.0-17.0 [facility] Comment on above: Performed By: #### C BC, LIPID, BMP, HS TROP #### [place] [address] [place] Lymphocytes (Bld) [#/Vol] 0.9 10*3/uL Low 1.00-4.8 [facility] Comment on above: Performed By: #### C BC, LIPID, BMP, HS TROP #### [address] Lymphocytes/100 WBC (Bld) 6.9 % Normal . [facility] Comment on above: Performed By: #### C BC, LIPID, BMP, HS TROP #### [address] MCH (RBC) [Entitic mass] 29.7 pg Normal 27.5-35.2 [facility] Comment on above: Performed By: #### C BC, LIPID, BMP, HS TROP #### [address] MCV (RBC) [Entitic vol] 88.8 fL Normal 83.5-101 F [facility] Comment on above: Performed By: #### C BC, LIPID, BMP, HS TROP #### [address] Mean Corpuscular HGB Conc 33.5 g/dL Normal 32.5-35.6 [facility] Comment on above: Performed By: #### C BC, LIPID, BMP, HS TROP #### [address] Monocytes (Bld) [#/Vol] 1.2 10*3/uL High 0.0-0.8 [facility] Comment on above: Performed By: #### C BC, LIPID, BMP, HS TROP #### [address] Monocytes/100 WBC (Bld) 8.6 % Normal . [facility] Comment on above: Performed By: #### C BC, LIPID, BMP, HS TROP #### [address] Neutrophils (Bld) [#/Vol] 11.3 10*3/uL High 1.8-7.7 [facility] Comment on above: Performed By: #### C BC, LIPID, BMP, HS TROP #### [address] Neutrophils/100 WBC (Bld) 83.4 % Normal . [facility] Comment on above: Performed By: #### C BC, LIPID, BMP, HS TROP #### [address] NRBC% 0.1 /100{WBC} Normal 0-0.5 [facility] Comment on above: Performed By: #### C BC, LIPID, BMP, HS TROP #### [address] Platelet mean volume (Bld) [Entitic vol] 7.9 fL Normal 6.6-10.1 [facility] Comment on above: Performed By: #### C BC, LIPID, BMP, HS TROP #### [address] Platelets (Bld) [#/Vol] 174 10*3/uL Normal 150-450 [facility] Comment on above: Performed By: #### C BC, LIPID, BMP, HS TROP #### [address] RBC (Bld) [#/Vol] 4.10 10*6/uL Normal 3.90-5.60 [facility] Comment on above: Performed By: #### C BC, LIPID, BMP, HS TROP #### [address] WBC (Bld) [#/Vol] 13.5 10*3/uL High 4.1-10.5 [facility] Comment on above: Performed By: #### C BC, LIPID, BMP, HS TROP #### [address] ECG 12 lead ECGon 11-21-2022 ECG 12 lead ECG [facility] [place] [address] Electrocardiograph Report Signed Patient: Flores Sierra MR#: [id number] : 1960 Acct:[id number] Age/Sex: 62 / M ADM Date: 11/20/22 Loc: Room: [address] [place] [address] Type: ADM IN Attending Dr: Daryl Beasley DO Ordering Provider: Daryl Beasley DO Date of Service: 11/21/22 ECG/ECG 12 [...] significant change was found Confirmed by GARLAND WREN MD ([id number]) on 11/21/2022 12:56:22 PM Referred By: Electronically Signed By:GARLAND WREN MD Transcribed By: MUS Signed By Garland Wren MD 0 11/21/22 1256 [facility] echo transthoracicon [facility] echo transthoracic [facility] [place] [address] Echocardiogram Signed Patient: Flores Sierra MR#: [id number] : 1960 Acct:[id number] Age/Sex: 62 / M ADM Date: 11/20/22 Loc: Room: [address] [place] [address] Type: ADM IN Attending Dr: Daryl Beasley DO Ordering Provider: Daryl Beasley DO Date of Service: 11/21/22 [facility] echo transthoracic: Ant STEMI Copies to: MD [...] mmHg RAP systole: 3.0 mmHg Transcribed By: SCV Performed At: 11/21/22 0759 Signed By: Garland Wren MD 11/21/22 0921 [facility] Lipid Panelon 11-21-2022 Cholesterol [Mass/Vol] 163 mg/dL Normal 140-200 [facility] Comment on above: Result Comment: Chol less than 200 mg/dl low risk Chol 201-239 mg/dl borderline risk Chol 240 mg/dl and greater high risk Performed By: #### C BC, LIPID, BMP, HS TROP #### [address] Cholesterol in HDL [Mass/Vol] 51 mg/dL Normal 29-71 [facility] Comment on above: Result Comment: HDL CHOL ATP-III CLASSIFICATION Cardiovascular Risk HDL > or equal to 60 mg/dL LOW HDL < 40 mg/dL HIGH Performed By: #### C BC, LIPID, BMP, HS TROP #### [facility] [address] Cholesterol.total/Choles terol in HDL [Mass ratio] 3.2 {ratio} Normal <5.0 [facility] Comment on above: Result Comment: PERF ORMED BY: [place] [address] PATHOLOGIST ASSISTANT SIGNAL MAINTAINER VITO GIL M.D. Performed By: #### C BC, LIPID, BMP, HS TROP #### [facility] [address] LDL Cholesterol,Calculated 57 mg/dL Normal 0-100 [facility] Comment on above: Result Comment: LDL ATP III CLASSIFICATION LDL less than 100 mg/dL Optimal LDL 100-129 mg/dL Near or above optimal LDL 130-159 mg/dL Borderline high LDL 160-189 mg/dL High LDL greater than 189 mg/dL Very high Performed By: #### C BC, LIPID, BMP, HS TROP #### [facility] [address] Triglyceride w/Reflex 277 mg/dL High 0-149 [facility] Comment on above: Result Comment: TRIG ATP III CLASSIFICATION TRIG less than 150 mg/dL Normal TRIG 150-199 mg/dL Borderline high TRIG 200-500 mg/dL High TRIG greater than 500 mg/dL Very high Standard traceable to the Center for Disease Conrtrol and Prevention (CDC) test method. Performed By: #### C BC, LIPID, BMP, HS TROP #### [facility] [address] VLDL CHOLESTEROL 55 mg/dL Normal [facility] Comment on above: Performed By: #### C BC, LIPID, BMP, HS TROP #### [facility] [address] Troponin I High Sensitivityo n 11-21-2022 Troponin I High Sensitivity 99908.0 pg/mL Off scale high 0.0-20.0 [facility] Comment on above: Result Comment: Crit ical Result I_TnIHS_d:[id number] Called to and read back by: STEPHANI CONNER at: 11/21/2022 05:35:07 by:[id number] PERFORMED BY: [place] [phone] PATHOLOGIST ASSISTANT SIGNAL MAINTAINER VITO GIL M.D. Performed By: #### C BC, LIPID, BMP, HS TROP #### [facility] [address] [place] [address] Troponin I High Sensitivity 83404.5 pg/mL Off scale high 0.0-20.0 [facility] Comment on above: Result Comment: Crit ical Result I_TnIHS_d:93870.5 Called to and read back by: MAGDIEL FARAH at: 11/21/2022 02:20:21 by:[id number] PERFORMED BY: [place] [phone] PATHOLOGIST ASSISTANT SIGNAL MAINTAINER VITO GIL M.D. Performed By: #### H S TROP #### [address] Troponin I High Sensitivity 197696.8 pg/mL Off scale high 0.0-20.0 [facility] Comment on above: Result Comment: Crit ical Result I_TnIHS_d:[id number] Called to and read back by: STEPHANI CONNER at: 11/21/2022 01:16:55 by:[id number] PERFORMED BY: [place] [phone] PATHOLOGIST ASSISTANT SIGNAL MAINTAINER VITO GIL M.D. Performed By: #### C BC, LIPID, BMP, HS TROP #### [facility] [address] [place] [address] Alanine aminotransferase [En zymatic activity/volume] in Serum or PlasmaOrdered By: Ottoniel Luis on 11-20-2022 ALT [Catalytic activity/Vol] 18 U/L 7-52 [facility] Albumin [Mass/volume] in Ser um or Plasma by Bromocresol green (BCG) dye binding methoOrdered By: Ottoniel Luis on 11-20-2022 Albumin BCG dye [Mass/Vol] 3.8 g/dL 3.5-5.7 [facility] Alkaline phosphatase [Enzyma tic activity/volume] in Serum or PlasmaOrdered By: Ottoniel uLis on 11-20-2022 ALP [Catalytic activity/Vol] 40 U/L 34-104 [facility] Aspartate aminotransferase [ Enzymatic activity/volume] in Serum or PlasmaOrdered By: Ottoniel Luis on 11-20-2022 AST [Catalytic activity/Vol] 17 U/L 13-39 [facility] B-Type Natriuretic Peptideon 11-20-2022 Natriuretic peptide B (Bld) [Mass/Vol] 8.0 pg/mL Normal 5-100 [facility] Comment on above: Result Comment: PERF ORMED BY: [place] [address] PATHOLOGIST ASSISTANT SIGNAL MAINTAINER VITO GIL M.D. Performed By: #### C BC, LIPID, BMP, HS TROP #### [address] Basophils Auto (Bld) [#/Vol] Ordered By: Ottoniel Luis on 11-20-2022 Basophils (Bld) [#/Vol] 0.1 10*3/uL 0.0-0.2 [facility] Basophils/100 WBC Auto (Bld) Ordered By: Ottoniel Luis on 11-20-2022 Basophils/100 WBC (Bld) 0.7 % . [facility] Bilirubin.total [Mass/volume ] in Serum or PlasmaOrdered By: Ottoniel Luis on 11-20-2022 Bilirubin [Mass/Vol] 0.3 mg/dL 0.3-1.0 [facility] Calcium [Mass/volume] in Ser um or PlasmaOrdered By: Ottoniel Luis on 11-20-2022 Calcium [Mass/Vol] 8.0 mg/dL 8.6-10.3 [facility] Carbon dioxide, total [Moles /volume] in Serum or PlasmaOrdered By: Ottoniel Luis on 11-20-2022 CO2 [Moles/Vol] 23.8 mmol/L 21.0-31.0 [facility] Chloride [Moles/volume] in S raj or PlasmaOrdered By: Ottoniel Luis on 11-20-2022 Chloride [Moles/Vol] 108 mmol/L 98-107 [facility] Complete Blood Count Auto Di ffon 11-20-2022 Basophils (Bld) [#/Vol] 0.1 10*3/uL Normal 0.0-0.2 [facility] Comment on above: Result Comment: PERF ORMED BY: [place] [address] PATHOLOGIST ASSISTANT SIGNAL MAINTAINER VITO GIL M.D. Performed By: #### C BC, LIPID, BMP, HS TROP #### [address] Basophils/100 WBC (Bld) 0.7 % Normal . [facility] Comment on above: Performed By: #### C BC, LIPID, BMP, HS TROP #### [facility] [address] [place] [address] Eosinophils (Bld) [#/Vol] 0.2 10*3/uL Normal 0.0-0.45 [facility] Comment on above: Performed By: #### C BC, LIPID, BMP, HS TROP #### [address] Eosinophils/100 WBC (Bld) 2.3 % Normal . [facility] Comment on above: Performed By: #### C BC, LIPID, BMP, HS TROP #### [facility] [address] [place] [address] Erythrocyte distribution width (RBC) [Ratio] 13.5 % Normal 12.0-14.8 [facility] Comment on above: Performed By: #### C BC, LIPID, BMP, HS TROP #### [facility] [address] [place] [address] Hematocrit (Bld) [Volume fraction] 32.9 % Low 38.8-50.0 [facility] Comment on above: Performed By: #### C BC, LIPID, BMP, HS TROP #### [address] [place] [address] [place] Hemoglobin (Bld) [Mass/Vol] 11.0 g/dL Low 13.0-17.0 [facility] Comment on above: Performed By: #### C BC, LIPID, BMP, HS TROP #### [facility] [address] Lymphocytes (Bld) [#/Vol] 2.0 10*3/uL Normal 1.00-4.8 [facility] Comment on above: Performed By: #### C BC, LIPID, BMP, HS TROP #### [facility] [address] Lymphocytes/100 WBC (Bld) 21.0 % Normal . [facility] Comment on above: Performed By: #### C BC, LIPID, BMP, HS TROP #### [address] MCH (RBC) [Entitic mass] 30.2 pg Normal 27.5-35.2 [facility] Comment on above: Performed By: #### C BC, LIPID, BMP, HS TROP #### [place] [address] [place] MCV (RBC) [Entitic vol] 90.3 fL Normal 83.5-101 F [facility] Comment on above: Performed By: #### C BC, LIPID, BMP, HS TROP #### [address] Mean Corpuscular HGB Conc 33.4 g/dL Normal 32.5-35.6 [facility] Comment on above: Performed By: #### C BC, LIPID, BMP, HS TROP #### [facility] [address] [place] [address] [place] Monocytes (Bld) [#/Vol] 1.0 10*3/uL High 0.0-0.8 [facility] Comment on above: Performed By: #### C BC, LIPID, BMP, HS TROP #### [place] [address] [place] Monocytes/100 WBC (Bld) 10.6 % Normal . [facility] Comment on above: Performed By: #### C BC, LIPID, BMP, HS TROP #### [facility] [address] [place] [address] Neutrophils (Bld) [#/Vol] 6.1 10*3/uL Normal 1.8-7.7 [facility] Comment on above: Performed By: #### C BC, LIPID, BMP, HS TROP #### [address] Neutrophils/100 WBC (Bld) 65.4 % Normal . [facility] Comment on above: Performed By: #### C BC, LIPID, BMP, HS TROP #### [address] NRBC% 0.1 /100{WBC} Normal 0-0.5 [facility] Comment on above: Performed By: #### C BC, LIPID, BMP, HS TROP #### [address] Platelet mean volume (Bld) [Entitic vol] 7.8 fL Normal 6.6-10.1 [facility] Comment on above: Performed By: #### C BC, LIPID, BMP, HS TROP #### [address] Platelets (Bld) [#/Vol] 218 10*3/uL Normal 150-450 [facility] Comment on above: Performed By: #### C BC, LIPID, BMP, HS TROP #### [address] RBC (Bld) [#/Vol] 3.65 10*6/uL Low 3.90-5.60 [facility] Comment on above: Performed By: #### C BC, LIPID, BMP, HS TROP #### [place] [address] [place] WBC (Bld) [#/Vol] 9.4 10*3/uL Normal 4.1-10.5 [facility] Comment on above: Performed By: #### C BC, LIPID, BMP, HS TROP #### [facility] [address] Comprehensive Metabolic Pane sanya 11-20-2022 Albumin [Mass/Vol] 3.8 g/dL Normal 3.5-5.7 [facility] Comment on above: Performed By: #### C BC, LIPID, BMP, HS TROP #### [facility] [address] Albumin/Globulin [Mass ratio] 1.6 {ratio} Normal [facility] Comment on above: Performed By: #### C BC, LIPID, BMP, HS TROP #### [facility] [address] ALP [Catalytic activity/Vol] 40 U/L Normal 34-104 [facility] Comment on above: Performed By: #### C BC, LIPID, BMP, HS TROP #### [facility] [address] ALT [Catalytic activity/Vol] 18 U/L Normal 7-52 [facility] Comment on above: Performed By: #### C BC, LIPID, BMP, HS TROP #### [facility] [address] Anion gap [Moles/Vol] 10.3 mmol/L Normal 6.0-15.0 [facility] Comment on above: Performed By: #### C BC, LIPID, BMP, HS TROP #### [facility] [address] [place] [address] [place] AST [Catalytic activity/Vol] 17 U/L Normal 13-39 [facility] Comment on above: Performed By: #### C BC, LIPID, BMP, HS TROP #### [facility] [address]111 [place] [address] [place] Bilirubin [Mass/Vol] 0.3 mg/dL Normal 0.3-1.0 [facility] Comment on above: Performed By: #### C BC, LIPID, BMP, HS TROP #### [facility] [address] [place] [address] [place] Calcium [Mass/Vol] 8.0 mg/dL Low 8.6-10.3 [facility] Comment on above: Performed By: #### C BC, LIPID, BMP, HS TROP #### [facility] [address] Chloride [Moles/Vol] 108 mmol/L High 98-107 [facility] Comment on above: Performed By: #### C BC, LIPID, BMP, HS TROP #### [address] CO2 [Moles/Vol] 23.8 mmol/L Normal 21.0-31.0 [facility] Comment on above: Performed By: #### C BC, LIPID, BMP, HS TROP #### [address] Creatinine [Mass/Vol] 1.24 mg/dL Normal 0.70-1.30 [facility] Comment on above: Performed By: #### C BC, LIPID, BMP, HS TROP #### [address] Creatinine Clr Calc Pharmacy 69.76 Normal [facility] Comment on above: Result Comment: PERF ORMED BY: [place] [address] PATHOLOGIST ASSISTANT SIGNAL MAINTAINER VITO GIL M.D. Performed By: #### C BC, LIPID, BMP, HS TROP #### [address] GFR/1.73 sq M.predicted MDRD (S/P/Bld) [Vol rate/Area] mL/min/{1.73_m2} Normal [facility] Comment on above: Performed By: #### C BC, LIPID, BMP, HS TROP #### [address] Globulin (S) [Mass/Vol] 2.4 g/dL Normal [facility] Comment on above: Performed By: #### C BC, LIPID, BMP, HS TROP #### [place] [address] [place] Glucose [Mass/Vol] 144 mg/dL High 70-100 [facility] Comment on above: Result Comment: [place] Glucose Reference Range is dependent on time and content of last meal. Glucose of more than 200 mg/dL in a nonstressed, ambulatory subject supports the diagnosis of Diabetes Mellitus. ADA recommended reference range Performed By: #### C BC, LIPID, BMP, HS TROP #### [facility] [address] Potassium [Moles/Vol] 4.1 mmol/L Normal 3.5-5.1 [facility] Comment on above: Performed By: #### C BC, LIPID, BMP, HS TROP #### [facility] [address] [place] [address] [place] Protein [Mass/Vol] 6.2 g/dL Low 6.4-8.9 [facility] Comment on above: Performed By: #### C BC, LIPID, BMP, HS TROP #### [facility] [address] Sodium [Moles/Vol] 138 mmol/L Normal 136-145 [facility] Comment on above: Performed By: #### C BC, LIPID, BMP, HS TROP #### [facility] [address] [place] [address] [place] Urea nitrogen [Mass/Vol] 20 mg/dL Normal 7-25 [facility] Comment on above: Performed By: #### C BC, LIPID, BMP, HS TROP #### [facility] [address] [place] [address] [place] Creatinine [Mass/volume] in Serum or PlasmaOrdered By: Ottoniel Luis on 11-20-2022 Creatinine [Mass/Vol] 1.24 mg/dL 0.70-1.30 [facility] ECG 12 lead ECGon 11-20-2022 ECG 12 lead ECG [facility] [place] [address] [place] [address] Electrocardiograph Report Signed Patient: Flores Sierra MR#: [id number] : 1960 Acct:[id number] Age/Sex: 62 / M ADM Date: 11/20/22 Loc: Room: [address] [place] [address] Type: ADM IN Attending Dr: Daryl Beasley DO Ordering Provider: Daryl Beasley DO Date of Service: 11/20/22 ECG/ECG 12 [...] evident in Lateral leads Confirmed by GARLAND WREN MD ([facility]) on 11/21/2022 12:56:17 PM Referred By: Electronically Signed By:GARLAND WREN MD Transcribed By: MUS Signed By Garland Wren MD 0 11/21/22 1256 Normal [facility] ECG 12 lead ECG [facility] [place] [address] [place] [address] Electrocardiograph Report Signed Patient: Flores Sierra MR#: [id number] : 1960 Acct:[id number] Age/Sex: 62 / M ADM Date: 11/20/22 Loc: Room: [address] [place] [address] Type: DIS IN Attending Dr: Daryl Beasley DO Ordering Provider: Ottoniel Luis PA-C Date [...] consider anterolateral injury or acute infarct ACUTE ND / STEMI Abnormal ECG No previous ECGs available Confirmed by GARLAND WREN MD ([id number]) on 11/22/2022 4:41:43 PM Referred By: Electronically Signed By:GARLAND WREN MD Transcribed By: MUS Signed By Garland Wren MD 0 11/22/22 1641 Normal [facility] Eosinophils Auto (Bld) [#/Vo l]Ordered By: Ottoniel Luis on 11-20-2022 Eosinophils (Bld) [#/Vol] 0.2 10*3/uL 0.0-0.45 [facility] Eosinophils/100 WBC Auto (Bl d)Ordered By: Ottoniel Luis on 11-20-2022 Eosinophils/100 WBC (Bld) 2.3 % . [facility] Erythrocyte distribution wid th Auto (RBC) [Ratio]Ordered By: Ottoniel Luis on 11-20-2022 Erythrocyte distribution width (RBC) [Ratio] 13.5 % 12.0-14.8 [facility] Globulin Calc (S) [Mass/Vol] Ordered By: Ottoniel Luis on 11-20-2022 Globulin (S) [Mass/Vol] 2.4 g/dL [facility] Glucose [Mass/volume] in Ser um or PlasmaOrdered By: Ottoniel Luis on 11-20-2022 Glucose [Mass/Vol] 144 mg/dL 70-100 [facility] Comment on above: ADA recommended refe rence rangeRandom Glucose Reference Range is dependent on time and content of last meal. Glucose of more than 200 mg/dL in a nonstressed, ambulatory subject supports the diagnosis of Diabetes Mellitus. Hematocrit Auto (Bld) [Volum e fraction]Ordered By: Ottoniel Luis on 11-20-2022 Hematocrit (Bld) [Volume fraction] 32.9 % 38.8-50.0 [facility] Hemoglobin [Mass/volume] in BloodOrdered By: Ottoniel Luis on 11-20-2022 Hemoglobin (Bld) [Mass/Vol] 11.0 g/dL 13.0-17.0 [facility] Leukocytes [#/volume] correc flores for nucleated erythrocytes in Blood by Automated counOrdered By: Ottoniel Luis on 11-20-2022 WBC corrected for nucl RBC Auto (Bld) [#/Vol] 9.4 10*3/uL 4.1-10.5 [facility] Lymphocytes Auto (Bld) [#/Vo l]Ordered By: Ottoniel Luis on 11-20-2022 Lymphocytes (Bld) [#/Vol] 2.0 10*3/uL 1.00-4.8 [facility] Lymphocytes/100 WBC Auto (Bl d)Ordered By: Ottoniel Luis on 11-20-2022 Lymphocytes/100 WBC (Bld) 21.0 % . [facility] MCH Auto (RBC) [Entitic mass ]Ordered By: Ottoniel Luis on 11-20-2022 MCH (RBC) [Entitic mass] 30.2 pg 27.5-35.2 [facility] MCHC Auto (RBC) [Mass/Vol]Or dered By: Ottoniel Luis on 11-20-2022 MCHC (RBC) [Mass/Vol] 33.4 g/dL 32.5-35.6 [facility] MCV Auto (RBC) [Entitic vol] Ordered By: Ottoniel Luis on 11-20-2022 MCV (RBC) [Entitic vol] 90.3 fL 83.5-101 [facility] Monocytes Auto (Bld) [#/Vol] Ordered By: Ottoniel Luis on 11-20-2022 Monocytes (Bld) [#/Vol] 1.0 10*3/uL 0.0-0.8 [facility] Monocytes/100 WBC Auto (Bld) Ordered By: Ottoniel Luis on 11-20-2022 Monocytes/100 WBC (Bld) 10.6 % . [facility] Natriuretic peptide B [Mass/ Vol]Ordered By: Ottoniel Luis on 11-20-2022 Natriuretic peptide B (Bld) [Mass/Vol] 8.0 pg/mL 5-100 [facility] Neutrophils Auto (Bld) [#/Vo l]Ordered By: Ottoniel Luis on 11-20-2022 Neutrophils (Bld) [#/Vol] 6.1 10*3/uL 1.8-7.7 [facility] Neutrophils/100 WBC Auto (Bl d)Ordered By: Ottoniel Luis on 11-20-2022 Neutrophils/100 WBC (Bld) 65.4 % . [facility] No Panel InformationOrdered By: Ottoniel Luis on 11-20-2022 Estimated GFR (CKD-EPI) > 60.0 mL/Min [facility] Creatinine Clearance (Chem 69.76 [facility] Nucleated erythrocytes [Pres ence] in Blood by Automated countOrdered By: Ottoniel Luis on 11-20-2022 Nucleated RBC Auto Ql (Bld) 0.1 /100{WBC} 0-0.5 [facility] Platelet mean volume Auto (B ld) [Entitic vol]Ordered By: Ottoniel Luis on 11-20-2022 Platelet mean volume (Bld) [Entitic vol] 7.8 fL 6.6-10.1 [facility] Platelets Auto (Bld) [#/Vol] Ordered By: Ottoniel Luis on 11-20-2022 Platelets (Bld) [#/Vol] 218 10*3/uL 150-450 [facility] Potassium [Moles/volume] in Serum or PlasmaOrdered By: Ottoniel Luis on 11-20-2022 Potassium [Moles/Vol] 4.1 mmol/L 3.5-5.1 [facility] Protein [Mass/volume] in Ser um or PlasmaOrdered By: Ottoniel Luis on 11-20-2022 Protein [Mass/Vol] 6.2 g/dL 6.4-8.9 [facility] RBC Auto (Bld) [#/Vol]Ordere d By: Ottoniel Luis on 11-20-2022 RBC (Bld) [#/Vol] 3.65 10*6/uL 3.90-5.60 [facility] Serum or plasma albumin/glob ulin mass ratioOrdered By: Ottoniel Luis on 11-20-2022 Albumin/Globulin [Mass ratio] 1.6 {ratio} [facility] Serum or plasma anion gap de terminationOrdered By: Ottoniel Luis on 11-20-2022 Anion gap [Moles/Vol] 10.3 mmol/L 6.0-15.0 [facility] Sodium [Moles/volume] in Ser um or PlasmaOrdered By: Ottoniel Luis on 11-20-2022 Sodium [Moles/Vol] 138 mmol/L 136-145 [facility] Troponin I High Sensitivityo n 11-20-2022 Troponin I High Sensitivity 93435.5 pg/mL Off scale high 0.0-20.0 [facility] Comment on above: Result Comment: Crit ical Result I_TnIHS_d:58878.5 Called to and read back by: JAVIER DIAZ at: 11/20/2022 22:33:11 by:[id number] PERFORMED BY: [place] [address] PATHOLOGIST ASSISTANT SIGNAL MAINTAINER VITO GIL M.D. Performed By: #### H S TROP #### [address] Troponin I High Sensitivity 56083.0 pg/mL Off scale high 0.0-20.0 [facility] Comment on above: Result Comment: Crit ical Result I_TnIHS_d:54576.0 Called to and read back by: ROBERTO CLARK at: 11/20/2022 19:39:08 by:LFM PERFORMED BY: [place] [address] PATHOLOGIST ASSISTANT SIGNAL MAINTAINER VITO GIL M.D. Performed By: #### C BC, LIPID, BMP, HS TROP #### [facility] [address] [place] [address] Troponin I High Sensitivity 18.3 pg/mL Normal 0.0-20.0 [facility] Comment on above: Result Comment: PERF ORMED BY: [place] [address] PATHOLOGIST ASSISTANT SIGNAL MAINTAINER VITO GIL M.D. Performed By: #### C BC, LIPID, BMP, HS TROP #### [facility] [address] [place] [address] Troponin I.cardiac [Mass/vol ume] in Serum or Plasma by Detection limit <= 0.01 ng/Ordered By: Ottoniel Luis on 11-20-2022 Troponin I.cardiac DL <= 0.01 ng/mL [Mass/Vol] 18.3 pg/mL 0.0-20.0 [facility] Urea nitrogen [Mass/volume] in Serum or PlasmaOrdered By: Ottoniel Luis on 11-20-2022 Urea nitrogen [Mass/Vol] 20 mg/dL 7-25 [facility] WBC Auto (Bld) [#/Vol]Ordere d By: Ottoniel Luis on 11-20-2022 WBC (Bld) [#/Vol] 9.4 10*3/uL 4.1-10.5 [facility] MRI LSPINE WO CONon 11-10-19 MRI LSPINE WO CON EXAMINATION: MRI LSPINE [...] CAITLYN STODDARD Date: 2022-11-09 17:57 Normal [facility] CBC AUTO DIFFon 05-12-2022 BASO # 0.1 103/ul Normal 0.0-0.1 [facility] Comment on above: Performed By: #### C BC #### [facility] [address] [address] [address] Isabel Vega Basophils/100 WBC (Bld) 0.8 % Normal 0.2-2.0 [facility] Comment on above: Performed By: #### C BC #### [facility] [address] [address] [address] Isabel Vega EO # 0.3 103/ul Normal 0.0-0.7 [facility] Comment on above: Performed By: #### C BC #### [facility] [address] [place] [address] Dr. Isabel Vega Eosinophils/100 WBC (Bld) 5.5 % Normal 0.9-7.0 [facility] Comment on above: Performed By: #### C BC #### [facility] [address] [address] [address] Isabel Vega Erythrocyte distribution width (RBC) [Ratio] 12.9 % Normal 11.0-15.0 [facility] Comment on above: Performed By: #### C BC #### [facility] [address] [place] [address] Dr. Isabel Vega Hematocrit (Bld) [Volume fraction] 37.2 % Critically low 42.0-54.0 [facility] Comment on above: Performed By: #### C BC #### [facility] [address] [address] [address] Isabel Vega Hemoglobin (Bld) [Mass/Vol] 12.4 g/dL Critically low 14.0-18.0 [facility] Comment on above: Performed By: #### C BC #### [facility] [address] [address] [address] Isabel Vega IG # 0.02 10e3/ul Normal 0.00-0.03 [facility] Comment on above: Performed By: #### C BC #### [facility] [address] [place] [address] Dr. Isabel Vega IG % 0.3 % Normal 0.0-0.5 [facility] Comment on above: Performed By: #### C BC #### [facility] [address] [place] [address] Dr. Isabel Vega LYMPH # 1.3 103/ul Normal 1.2-3.8 [facility] Comment on above: Performed By: #### C BC #### [facility] [address] [place] [address] Dr. Isabel Vega Lymphocytes/100 WBC (Bld) 20.9 % Normal 20.5-60.0 [facility] Comment on above: Performed By: #### C BC #### [facility] [address] [place] [address] Dr. Isabel Vega MANUAL DIFF REQ NO Normal [facility] Comment on above: Performed By: #### C BC #### [facility] [address] [place] [address] Dr. Isbael Vega MCH (RBC) [Entitic mass] 30.4 pg Normal 25.9-34.0 [facility] Comment on above: Performed By: #### C BC #### [facility] [address] [place] [address] Dr. Isabel Vega MCHC (RBC) [Mass/Vol] 33.3 g/dL Normal 29.9-35.2 [facility] Comment on above: Performed By: #### C BC #### [facility] [address] [place] [address] Dr. Isabel Vega MCV (RBC) [Entitic vol] 91.2 fL Normal 80.0-94.0 [facility] Comment on above: Performed By: #### C BC #### [facility] [address] [place] [address] Dr. Isabel Vega MONO # 0.6 103/ul Normal 0.3-0.8 [facility] Comment on above: Performed By: #### C BC #### [facility] [address] [place] [address] Dr. Isabel Vega Monocytes/100 WBC (Bld) 10.2 % Normal 1.7-12.0 [facility] Comment on above: Performed By: #### C BC #### [facility] [address] [place] [address] Dr. Isabel Vega NEUT # 3.8 103/ul Normal 1.4-6.5 [facility] Comment on above: Performed By: #### C BC #### [facility] [address] [place] [address] Dr. Isabel Vega Neutrophils/100 WBC (Bld) 62.3 % Normal 43.0-75.0 [facility] Comment on above: Performed By: #### C BC #### [facility] [address] [place] [address] Dr. Isabel Vega Platelet mean volume (Bld) [Entitic vol] 9.5 fL Normal 9.5-13.5 [facility] Comment on above: Performed By: #### C BC #### [facility] [address] [place] [address] Dr. Isabel Vega PLT 206 103/ul Normal 150-450 [facility] Comment on above: Performed By: #### C BC #### [facility] [address] [place] [address] Dr. Isabel Vega RBC 4.08 106/ul Critically low 4.70-6.10 [facility] Comment on above: Performed By: #### C BC #### [facility] [address] [place] [address] Dr. Isabel Vega WBC 6.2 103/ul Normal 4.0-11.0 [facility] Comment on above: Performed By: #### C BC #### [facility] [address] [place], [place] [id number] Dr. Isabel Vega LIPID PROFILEon 05-12-2022 CHOL-HDL RATIO NORM SEE BELOW Normal [facility] Comment on above: Result Comment: 3.3 - 4.4 LOW RISK 4.4 - 7.1 AVERAGE RISK 7.1 - 11.0 MODERATE RISK >11.0 HIGH RISK Performed By: #### C MP, LIPID #### [facility] [address] [address] [address] Isabel Vega Cholesterol [Mass/Vol] 169 mg/dL Normal <=200 [facility] Comment on above: Performed By: #### C MP, LIPID #### [facility] [address] [address] [address] Isabel Vega Cholesterol in HDL [Mass/Vol] 50 mg/dL Normal 40-60 [facility] Comment on above: Performed By: #### C MP, LIPID #### [facility] [address] [address] [address] Isabel Vega Cholesterol in LDL [Mass/Vol] 45.4 mg/dL Normal [facility] Comment on above: Performed By: #### C MP, LIPID #### [facility] [address] [place] [address] Dr. Isabel Vega Cholesterol.total/Choles terol in HDL [Mass ratio] 3.4 {ratio} Normal [facility] Comment on above: Performed By: #### C MP, LIPID #### [facility] [address] [address] [address] Isabel Vega HDL NORMAL > or = 60 mg/dl - LOW CARDIOVASCULAR RISK <40 mg/dl - HIGH CARDIOVASCULAR RISK Normal [facility] Comment on above: Performed By: #### C MP, LIPID #### [facility] [address] [address] [address] Isabel Vega LDL CALC NORMAL SEE BELOW Normal [facility] Comment on above: Result Comment: <100 mg/dl OPTIMAL 100 - 129 mg/dl NEAR OR ABOVE OPTIMAL 130 - 159 mg/dl BORDERLINE HIGH 160 - 189 mg/dl HIGH >190 mg/dl VERY HIGH Performed By: #### C MP, LIPID #### [facility] [address] [address] [address] Isabel Vega Triglyceride [Mass/Vol] 368 mg/dL Critically high <=150 [facility] Comment on above: Performed By: #### C MP, LIPID #### [facility] [address] [address] [address] Isabel Vega VLDL CALC 73.6 mg/dL Normal [facility] Comment on above: Performed By: #### C MP, LIPID #### [facility] [address] [place] [address] Dr. Isabel Vega PROF 14(COMP METB)on 022 Albumin [Mass/Vol] 4.1 g/dL Normal 3.4-5.0 [facility] Comment on above: Performed By: #### C MP, LIPID #### [facility] [address] [place] [address] Dr. Isabel Vega Albumin/Globulin [Mass ratio] 1.1 {ratio} Normal [facility] Comment on above: Performed By: #### C MP, LIPID #### [facility] [address] [place] [address] Dr. Isabel Vega ALP [Catalytic activity/Vol] 62 U/L Normal 46-116 [facility] Comment on above: Performed By: #### C MP, LIPID #### [facility] [address] [place] [address] Dr. Isabel Vega ALT [Catalytic activity/Vol] 30 U/L Normal 16-63 [facility] Comment on above: Performed By: #### C MP, LIPID #### [facility] [address] [place] [address] Dr. Isabel Vega Anion gap [Moles/Vol] 10.5 mmol/L Normal [facility] Comment on above: Performed By: #### C MP, LIPID #### [facility] [address] [place] [address] Dr. Isabel Vega AST [Catalytic activity/Vol] 17 U/L Normal 15-37 [facility] Comment on above: Performed By: #### C MP, LIPID #### [facility] [address] [place] [address] Dr. Isabel Vega Bilirubin [Mass/Vol] 0.4 mg/dL Normal 0.2-1.0 [facility] Comment on above: Performed By: #### C MP, LIPID #### [facility] [address] [place] [address] Dr. Isabel Vega Calcium [Mass/Vol] 9.4 mg/dL Normal 8.5-10.1 [facility] Comment on above: Performed By: #### C MP, LIPID #### [facility] [address] [place] [address] Dr. Isabel Vega Chloride [Moles/Vol] 103 mmol/L Normal 98-107 [facility] Comment on above: Performed By: #### C MP, LIPID #### [facility] [address] [place] [address] Dr. Isabel Vega CO2 [Moles/Vol] 27.3 mmol/L Normal 21.0-32.0 [facility] Comment on above: Performed By: #### C MP, LIPID #### [facility] [address] [place] [address] Dr. Isabel Vega Creatinine [Mass/Vol] 0.98 mg/dL Normal 0.70-1.30 [facility] Comment on above: Performed By: #### C MP, LIPID #### [facility] [address] [place] [address] Dr. Isabel Vega EGFR-AF BELGIAN >60 Normal >=60 [facility] Comment on above: Performed By: #### C MP, LIPID #### [facility] [address] [place] [address] Dr. Isabel Vega EGFR-NON AF BELGIAN >60 Normal >=60 [facility] Comment on above: Performed By: #### C MP, LIPID #### [facility] [address] [place] [address] Dr. Isabel Vega Globulin (S) [Mass/Vol] 3.8 g/dL Normal [facility] Comment on above: Performed By: #### C MP, LIPID #### [facility] [address] [place] [address] Dr. Isabel Vega Glucose [Mass/Vol] 108 mg/dL Critically high 74-106 [facility] Comment on above: Performed By: #### C MP, LIPID #### [facility] [address] [place] [address] Dr. Isabel Vega Potassium [Moles/Vol] 4.8 mmol/L Normal 3.5-5.1 [facility] Comment on above: Performed By: #### C MP, LIPID #### [facility] [address] [place] [address] Dr. Isabel Vega Protein [Mass/Vol] 7.9 g/dL Normal 6.4-8.2 [facility] Comment on above: Performed By: #### C MP, LIPID #### [facility] [address] [place] [address] Dr. Isabel Vega Sodium [Moles/Vol] 136 mmol/L Normal 136-145 [facility] Comment on above: Performed By: #### C MP, LIPID #### [facility] [address] [place] [address] Dr. Isabel Vega Urea nitrogen [Mass/Vol] 14.0 mg/dL Normal 7.0-18.0 [facility] Comment on above: Performed By: #### C MP, LIPID #### [facility] [address] [place] [address] Dr. Isabel Vega Urea nitrogen/Creatinine [Mass ratio] 14.3 mg/mg Normal [facility] Comment on above: Performed By: #### C MP, LIPID #### [facility] [address] [place] [address] Dr. Isabel Vega XR LSPINE 2_3 VIEWSon [...] by: CAITLYN STODDARD Date: 2022-05-12 17:27 Normal [facility] Vital Signs Date Time Vital Sign Value Performing Clinician Facility 11-22-2023 12:16-0400 Diastolic blood pressure 100 mm[Hg] Conrad Beasley DO Work Phone: [facility] 11-22-2023 12:16-0400 Systolic blood pressure 148 mm[Hg] Conrad Beasley DO Work Phone: [facility] 11-22-2023 11:34-0400 Body height 172.7 cm Conrad Beasley DO Work Phone: [facility] 11-22-2023 11:34-0400 Body mass index (BMI) [Ratio] 29.8 kg/m2 Conrad Beasley DO Work Phone: [facility] 11-22-2023 11:34-0400 Body weight 88.91 kg Conrad Beasley DO Work Phone: [facility] 11-22-2023 11:34-0400 Heart rate 62 /min Conrad Beasley DO Work Phone: [facility] 11-12-2023 16:09-0400 Body height 172.72 cm [facility] 11-12-2023 16:09-0400 Body mass index (BMI) [Ratio] 30.2 kg/m2 [facility] 11-12-2023 16:09-0400 Body weight 90.37 kg [facility] 11-12-2023 16:09-0400 Diastolic blood pressure 86 mm[Hg] [facility] 11-12-2023 16:09-0400 Heart rate 71 /min [facility] 11-12-2023 16:09-0400 Respiratory rate 12 /min [facility] 11-12-2023 16:09-0400 Systolic blood pressure 134 mm[Hg] [facility] 07-03-2023 11:39-0500 Body height 172.[address] 07-03-2023 11:39-0500 Body mass index (BMI) [Ratio] 28.89 kg/m2 [address] 07-03-2023 11:39-0500 Body weight 86.[address] 07-03-2023 11:39-0500 Diastolic blood pressure 82 mm[Hg] [address] 12-26-2023 11:39-0500 Systolic blood pressure 136 mm[Hg] Nataliya 2 [facility] 05-24-2023 11:42-0500 Diastolic blood pressure 78 mm[Hg] Conrad Beasley DO Work Phone: [facility] 05-24-2023 11:42-0500 Systolic blood pressure 126 mm[Hg] Conrad Beasley DO Work Phone: [facility] 05-24-2023 11:18-0500 Body height 172.7 cm Conrad Beasley DO Work Phone: [facility] 05-24-2023 11:18-0500 Body mass index (BMI) [Ratio] 28.89 kg/m2 Conrad Beasley DO Work Phone: [facility] 05-24-2023 11:18-0500 Body weight 86.18 kg Conrad Beasley DO Work Phone: [facility] 05-24-2023 11:18-0500 Heart rate 60 /min Conrad Beasley DO Work Phone: [facility] 05-14-2023 08:30-0500 Body height 172.72 cm Saman Ball Other [employer] Other 05-14-2023 08:30-0500 Body mass index (BMI) [Ratio] 29.1 kg/m2 Saman Ball Other [employer] Other 05-14-2023 08:30-0500 Body weight 86.82 kg Saman Ball Other [employer] Other 05-14-2023 08:30-0500 Diastolic blood pressure 79 mm[Hg] Saman Ball Other [employer] Other 05-14-2023 08:30-0500 Respiratory rate 16 /min Saman Ball Other [employer] Other 05-14-2023 08:30-0500 Systolic blood pressure 134 mm[Hg] Saman Ball Other [employer] Other 01-03-2023 15:15-0400 Body height 172.72 cm Saman Ball Other [employer] Other 01-03-2023 15:15-0400 Body mass index (BMI) [Ratio] 28.92 kg/m2 Saman Ball Other [employer] Other 01-03-2023 15:15-0400 Body weight 86.27 kg Saman Ball Other [employer] Other 01-03-2023 15:15-0400 Diastolic blood pressure 87 mm[Hg] Saman Ball Other [employer] Other 01-03-2023 15:15-0400 Respiratory rate 12 /min Saman Ball Other [employer] Other 01-03-2023 15:15-0400 Systolic blood pressure 122 mm[Hg] Saman Ball Other [employer] Other 12-06-2022 11:58-0400 Body height 172.72 cm Saman E Ball Work Phone: [facility] [employer] 250 DO Work Phone: 12-06-2022 11:58-0400 Body mass index (BMI) [Ratio] 29.19 kg/m2 Saman E Ball Work Phone: [employer] 250 DO Work Phone: 12-06-2022 11:58-0400 Body surface area Derived from formula 2.01 m2 Saman E Ball Work Phone: [employer] 250 DO Work Phone: 12-06-2022 11:58-0400 Body weight 87.09 kg Saman E Ball Work Phone: [facility] [employer] 250 DO Work Phone: 12-06-2022 11:58-0400 Diastolic blood pressure 60 mm[Hg] Saman Chance Ball Work Phone: [facility] [employer] 250 DO Work Phone: 12-06-2022 11:58-0400 Heart rate 80 /min Saman Chance Ball Work Phone: [facility] [employer] 250 DO Work Phone: 12-06-2022 11:58-0400 Systolic blood pressure 134 mm[Hg] Saman Chance Ball Work Phone: [facility] [employer]Carlos 250 DO Work Phone: 11-20-2022 17:20-0400 Body temperature 97.9 [degF] PAMichael Luis Work Phone: [facility] 11-20-2022 17:20-0400 Diastolic blood pressure 89 mm[Hg] RICARDO-Gary Luis Work Phone: [facility] 11-20-2022 17:20-0400 Heart rate 81 /min LUIS Luis Work Phone: [facility] 11-20-2022 17:20-0400 Respiratory rate 18 /min LUIS Luis Work Phone: [facility] 11-20-2022 17:20-0400 SaO2% (BldA) [Mass fraction] 98 % RICARDO-Gary Luis Work Phone: [facility] 11-20-2022 17:20-0400 Systolic blood pressure 134 mm[Hg] RICARDO-Gary Luis Work Phone: [facility] 11-20-2022 15:53-0400 Body height 172.72 cm RICARDO-Gary Luis Work Phone: [facility] 11-20-2022 15:53-0400 Body weight 94.5 kg LUIS Luis Work Phone: [facility] 11-07-2022 16:30-0400 Body height 172.72 cm Saman Del Rio Other [employer] Other 11-07-2022 16:30-0400 Body mass index (BMI) [Ratio] 31.41 kg/m2 Saman Del Rio Other [employer] Other 11-07-2022 16:30-0400 Body weight 93.71 kg Saman Del Rio Other [employer] Other 11-07-2022 16:30-0400 Diastolic blood pressure 92 mm[Hg] Saman Del Rio Other [employer] Other 11-07-2022 16:30-0400 Respiratory rate 12 /min Saman Del Rio Other [employer] Other 11-07-2022 16:30-0400 Systolic blood pressure 151 mm[Hg] Saman Del Rio Other [employer] Other Encounters Encounter Date Encounter Type Care Provider Facility Start: 01-02-2024 End: 01-02-2024 ambulatory SAMAN Chance [facility] Start: 11-22-2023 End: 11-22-2023 Office outpatient visit 25 minutes Conrad Beasley DO Work Phone: [facility] Comment on above: ASHD (arteriosclerot ic heart disease); Cardiomyopathy, ischemic; Mild left ventricular systolic dysfunction; Essential hypertension; History of PTCA; ST elevation myocardial infarction (STEMI), unspecified artery (Multi); Hyperlipidemia, unspecified hyperlipidemia type; Ejection fraction < 50% Start: 11-22-2023 End: 11-22-2023 ambulatory [facility] Start: 11-12-2023 End: 11-12-2023 [facility] Work Phone: Start: 11-12-2023 End: 11-12-2023 Patient encounter procedure [facility] Work Phone: Start: 09-25-2023 End: 09-25-2023 ambulatory [facility] Work Phone: Start: 09-25-2023 End: 09-25-2023 Patient encounter procedure [facility] Work Phone: Start: 09-11-2023 Non-patient / Non-visit [facility] Work Phone: Start: 08-20-2023 End: 08-20-2023 ambulatory Saman Del Rio Other [employer] Other Start: 08-20-2023 Telephone encounter Saman WHITTINGTON [facility] Start: 08-15-2023 End: 08-15-2023 ambulatory Saman Del Rio Other [employer] Other Start: 08-15-2023 Telephone encounter Saman Quang [facility] Start: 07-03-2023 End: 07-04-2023 ambulatory [facility] Start: 07-03-2023 End: 07-03-2023 Subsequent hospital visit by physician Nataliya Gonzalez Echo/Vasc Room 2 [facility] Comment on above: Mild left ventricula r systolic dysfunction Start: 05-24-2023 End: 05-24-2023 Office outpatient visit 15 minutes [facility] Work Phone: [facility] Comment on above: ASHD (arteriosclerot ic heart disease); ST elevation myocardial infarction (STEMI), unspecified artery (CMS/HCC); Cardiomyopathy, ischemic; Mild left ventricular systolic dysfunction; Essential hypertension; History of PTCA Start: 05-24-2023 End: 05-24-2023 ambulatory [facility] Start: 05-21-2023 End: 05-21-2023 ambulatory Saman Del Rio Other [employer] Other Start: 05-21-2023 Nursing evaluation o f patient and report Saman Del Rio [facility] Start: 05-15-2023 End: 05-15-2023 ambulatory Saman Del Rio Other [employer] Other Start: 05-15-2023 Telephone encounter Saman Del Rio [facility] Start: 05-14-2023 End: 05-14-2023 ambulatory Saman Del Rio Other [employer] Other Start: 05-14-2023 Encounter for genera l adult medical examination without abnormal findings Saman Del Rio [facility] Start: 05-14-2023 Periodic preventive med est patient 40-64yrs Saman Del Rio [facility] Start: 03-02-2023 End: 03-02-2023 ambulatory Saman Del Rio Other [employer] Other Start: 03-02-2023 Telephone encounter Saman Del Rio [facility] Start: 02-05-2023 End: 02-05-2023 ambulatory Saman Del Rio Other [employer] Other Start: 02-05-2023 Telephone encounter Saman Del Rio [facility] Start: 01-10-2023 End: 01-10-2023 ambulatory Saman Del Rio Other [employer] Other Start: 01-10-2023 Telephone encounter Saman Del Rio [facility] Start: 01-03-2023 End: 01-03-2023 ambulatory Saman Del Rio Other [employer] Other Start: 01-03-2023 Office outpatient vi sit 25 minutes Saman Del Rio [facility] Start: 01-02-2023 End: 01-02-2023 Emergency department patient visit Jim Andujar Facility:[facility] Start: 01-01-2023 End: 01-02-2023 ambulatory Iqra Benitez MD Facility:[facility] Start: 12-07-[address] SAMAN DEL RIO Facili ty:H1 Start: 12-06-2022 Telephone encounter Saman Del Rio [facility] Start: 12-06-2022 Office outpatient vi sit 25 minutes Saman Del Rio Work Phone: [facility]Carl[facility] 250 DO Work Phone: Start: 12-06-2022 End: 12-06-[address] Saman Del Rio [facility] [employer] Other Start: 11-25-[address] Conrad Beasley Fac ility:[id number] Start: 11-25-2022 End: 11-25-2022 ambulatory Saman Del Rio Facility:[facility] Start: 11-22-[address] Conrad Headley ility:[id number] Start: 11-21-2022 Telephone encounter Saman WHITTINGTON Quang [facility] Start: 11-21-2022 End: 11-21-[address] Saman Del Rio [facility] [employer] Other Start: 11-20-2022 End: 11-22-2022 Evaluation and management of inpatient Saman Del Rio Facility:[facility] Start: 11-20-[address] [facility] LUIS Luis Work Phone: [facility] Work Phone: Start: 11-20-2022 ambulatory LUIS Luis Work Phone: [facility] Work Phone: Start: 11-20-[address] Saman Del Rio Facility:[id number] Start: 11-09-2022 End: 11-10-2022 ambulatory LONNIE VARNER . Facility:H1 Start: 11-07-2022 End: 11-07-2022 ambulatory Saman Del Rio Other [facility] [employer] Other Start: 11-07-2022 Office outpatient vi sit 25 minutes Saman Del Rio [facility] Start: 09-14-2022 End: 09-15-[address] [...] medical examination without abnormal findings DR SAMAN DEL RIO [facility] Start: 05-12-2022 Adult health examination Quintin Del Rio Other [employer] Other Start: 05-12-2022 End: 05-13-[address] SAMAN DEL RIO Facility:[facility] Start: 05-12-2022 End: 05-13-2022 Encounter for general adult medical examination without abnormal findings DR SAMAN DEL RIO Facility:[facility]1 Procedures Date Procedure Procedure Detail Performing Clinician Start: 11-22-2023 Lipid panel CONRAD CHAPO CASTILLO Start: 11-22-2023 FOLLOW UP IN CARDIOLOGY CONRAD BEASLEY Start: 07-03-2023 TRANSTHORACIC ECHO ( TTE) LIMITED CONRAD BEASLEY Start: 07-03-2023 Echo transthorc r-t 2d w/wo m-mode rec f-up/lmtd Conrad Mahandon DO Work Phone: Start: 05-24-2023 History of percutane ous transluminal coronary angioplasty History of PTCA Conrad Mahandon DO Work Phone: Start: 11-20-[address] acement 0 LUIS Luis Work Phone: Start: 11-20-2022 CL Coronary Thrombolysis IC LUIS Luis Work Phone: Start: 11-20-2022 CL LHC & COR Angio LUIS Luis Work Phone: Start: 11-20-2022 CL PCI AMI 1st Vesse l LAD DOUG LUIS Luis Work Phone: Start: 05-12-[address] KASEY HELM . Comment on above: Performed By: #### P [facility] #### [facility] [address] [address] [address] Isabel Vega Start: 02-06-2017 General examination of patient Saman Del Rio Other Cardiac catheterization [facility] Del [facility] Work Phone: Colonoscopy Saman Del Rio Work Phone: Depression screening Jimi Del Rio Other History of percutane ous transluminal coronary angioplasty History of PTCA Conrad Beasley DO Work Phone: Screening for malign ant neoplasm of prostate Saman Del Rio Other Plan of Treatment Date Care Activity Detail Author Start: 08-14-2024 End: 08-14-2024 Patient encounter procedure 08/14/2024 9:40 AM EST Office Visit [address] [address] Conrad Beasley DO [address] [place] [address] 2, Rajesh [address] [place] [id number] [facility] Start: 03-09-2024 Influenza vaccination Influenz a Vaccine (Season Ended) [facility] Start: 11-22-2023 End: 11-21-2024 Lipid 1996 panel - Serum or Plasma Lipid Panel Lab Routine Hyperlipidemia, unspecified hyperlipidemia type Expected: 11/22/2023 (Approximate), Expires: 11/21/2024 [facility] Service Area Work Phone: Comment on above: Expected: 11/22/2023 (Approximate), Expires: 11/21/2024 Start: 11-22-2023 End: 11-22-2023 Patient encounter procedure 11/22/2023 11:00 AM EDT Office Visit [address] [place] [address] Conrad Beasley DO [address] [facility] 2, Rajesh [address] [place] [address] [facility] Start: 05-24-2023 End: 05-24-2025 US Heart Transthoracic Transthoracic Echo (TTE) Limited Echocardiography Routine Mild left ventricular systolic dysfunction Expected: 05/24/2023 (Approximate), Expires: 05/24/2025 [facility] Service Area Work Phone: Comment on above: Expected: 05/24/2023 (Approximate), Expires: 05/24/2025 Start: 05-24-2023 FUV, Provider: Conrad Beasley, Status: Pen, Time: 10:40 AM FUV, Provider: Conrad Beasley, Status: Pen, Time: 10:40 AM [facility] 250 DO Work Phone: Start: 03-09-2023 COVID-19 Vaccine ( season) COVID-19 Vaccine ( season) [facility] Start: 03-09-2023 Influenza vaccination Influenza Vacc ine (#1) [facility] Start: 11-25-2022 Blood chemistry [facility] Start: 11-25-2022 [facility] Start: 11-24-2022 Blood chemistry [facility] Start: 11-24-2022 [facility] Start: 11-23-2022 Blood chemistry [facility] Start: 11-23-2022 [facility] Start: 11-22-2022 Blood chemistry [facility] Start: 11-22-2022 [facility] Start: 11-21-2022 Blood chemistry [facility] Start: 11-21-2022 Lipid panel [facility] Start: 11-21-2022 [facility] Start: 11-21-2022 [facility] Start: 11-20-2022 [facility] Start: 11-20-2022 [facility] Start: 11-20-2022 Consultation [facility] Start: 11-20-2022 Hospital admission [facility] Start: 11-20-2022 Referral to cardiac rehabilitation program [facility] Start: 11-20-2022 End: 11-20-2022 [facility] Start: 2021 RSV patient s and/or patients aged 60+ years (1 - 1-dose 60+ series) RSV patients and/or patients aged 60+ years (1 - 1-dose 60+ series) [facility] Start: 08-18-2021 COVID-19 Vaccine (4 - Pfizer series) COVID-19 Vaccine (4 - Pfizer series) [facility] Start: 2011 Zoster Vaccines (1 of 2) Zoster Vacc henrietta (1 of 2) [facility] Start: 1983 DTaP/Tdap/Td Vaccine s (1 - Tdap) DTaP/Tdap/Td Vaccines (1 - Tdap) [facility] Start: 1979 Diabetes mellitus screening Diabetes Screening [facility] Start: 1979 Hepatitis C screening Hepatitis C Sc [facility] Start: 1967 Pneumococcal Vaccine : Pediatrics (0 to 5 Years) and At-Risk Patients (6 to 64 Years) (1 - PCV) Pneumococcal Vaccine: Pediatrics (0 to 5 Years) and At-Risk Patients (6 to 64 Years) (1 - PCV) [facility] Start: 1967 Pneumococcal Vaccine : Pediatrics (0 to 5 Years) and At-Risk Patients (6 to 64 Years) (1 of 2 - PCV) Pneumococcal Vaccine: Pediatrics (0 to 5 Years) and At-Risk Patients (6 to 64 Years) (1 of 2 - PCV) [facility] Start: 1962 MMR Vaccines (1 of 1 - Standard series) MMR Vaccines (1 of 1 - Standard series) [facility] Start: 1961 HIV screening HIV Screening [facility] Start: 1961 Lipid panel Lipid Panel [facility] Start: 1961 Screening for malign ant neoplasm of colon [facility] Start: 1961 Yearly Adult Physical Yearly Adult P hysical [facility] End: 07-03-2023 US Heart Transthoracic [facility] Service Area Work Phone: Comment on above: Once for 1 Occurrenc es starting 07/03/2023 until 07/03/2023 Immunizations Immunization Date Immunization Notes Care Provider Markos hare 05-21-2023 influenza, injectabl e, quadrivalent, preservative free Saman Del Rio Other [facility] 05-12-2022 influenza virus vaccine, split virus (incl. purified surface antigen) Saman Del Rio Other [facility] [employer] Other 05-12-2022 Influenza, injectabl e, Madin Pemberton Canine Kidney, preservative free, quadrivalent [facility]an Del [facility] Work Phone: 05-12-2022 influenza virus vaccine, unspecified formulation Conrad Beasley DO Work Phone: [facility] 06-23-2021 Pfizer-BioNTech COVID-19 Vacc 30 MCG/0.3ML Intramuscular Suspension [facility] E Quang [facility] Work Phone: 05-11-2021 influenza virus vaccine, split virus (incl. purified surface antigen) Saman Del Rio Other [facility] [employer] Other 05-11-2021 influenza virus vaccine, unspecified formulation [facility] 10-23-2020 Pfizer-BioNTech COVID-19 Vacc 30 MCG/0.3ML Intramuscular Suspension Saman E Quang [facility] Work Phone: 10-02-2020 Pfizer-BioNTech COVID-19 Vacc 30 MCG/0.3ML Intramuscular Suspension Saman E Quang Work Phone: [facility] 250 DO Work Phone: 05-03-2020 influenza virus vaccine, split virus (incl. purified surface antigen) Saman Del Rio Other [facility] [employer] Other 05-03-2020 influenza virus vaccine, unspecified formulation [facility] 05-03-2020 influenza, injectabl e, quadrivalent, preservative free Saman Del Rio Work Phone: [facility] [employer] DO Work Phone: 04-23-2019 influenza virus vaccine, split virus (incl. purified surface antigen) Saman Del Rio Other [facility] [employer] Other 04-23-2019 influenza virus vaccine, unspecified formulation [facility] 04-02-2018 influenza virus vaccine, split virus (incl. purified surface antigen) Saman Del Rio Other [facility] [employer] Other 04-02-2018 influenza virus vaccine, unspecified formulation [facility] 04-02-2018 influenza, injectabl e, quadrivalent, preservative free Saman Del Rio Work Phone: [place] [address] DO Work Phone: 05-03-2015 influenza, seasonal, injectable, preservative free Saman Del Rio Work [facility]: [facility] DO Work Phone: 05-03-2015 tetanus and diphther ia toxoids, adsorbed, preservative free, for adult use (5 Lf of tetanus toxoid and 2 Lf of diphtheria toxoid) Saman Del Rio Other [facility] 02-18-2003 diphtheria, tetanus toxoids and acellular pertussis vaccine, unspecified formulation Saman eDl Rio Other [facility] Payers Date Payer Category Payer Unknown [id number] 2022 Self-pay 2022 Unknown 1960 Unknown [id number] 2.16.84 [id number] 1961 Unknown [id number] 2.16.84 0.1.221556.3.579.2.593 1961 Unknown [id number] 2.16.84 0.1.221198.3.579.2.593 1961 Unknown [id number] 2.16.84 0.1.327852.3.579.2.593 1961 Unknown [id number] 2.16.84 0.1.984255.3.579.2.593 1961 Unknown [id number] 2.16.84 0.1.236699.3.579.2.593 1961 Unknown [id number] 2.16.84 0.1.533554.3.579.2.593 1961 Unknown [id number] 2.16.84 0.1.520516.3.579.2.593 1961 Unknown [id number] 2.16. 840.1.667273.3.579.2.356 1961 Unknown [id number] 2.16. 840.1.496229.3.579.2.356 1961 Unknown [id number] 2.16. 840.1.835690.3.579.2.356 1961 Unknown [id number] 2.16. 840.1.970259.3.579.2.356 1961 Unknown [id number] 2.16. 840.1.384054.3.579.2.356 1961 Unknown [id number] 2.16. 840.1.324864.3.579.2.356 1961 Unknown [id number] 2.16. 840.1.168106.3.579.2.356 1961 Unknown [id number] 2.16. 840.1.108960.3.579.2.196 1961 Unknown [id number] 2.16.84 0.1.363240.3.579.2.1246 1961 Unknown [id number] 2.16.8 40.1.658132.3.579.2.1244 1961 Unknown [id number] 2.16.8 40.1.558193.3.579.2.1244 1961 Unknown [id number] 2.16.8 40.1.690405.3.579.2.1244 1959 Unknown [id number] 1959 Unknown [id number] Unknown [id number] 2.16 .840.1.211787.19 Unknown [id number] 2.16.8 40.1.950282.3.579.2.531 Unknown [id number] 2.16.8 40.1.234936.3.579.2.531 Unknown [id number] 2.16.8 40.1.477429.3.579.2.531 Social History Date Type Detail Facility Start: 05-24-2023 Sex Assigned At [facility] [employer] Other Start: 11-20-2022 End: 11-22-2023 Tobacco smoking status MTIS Ex-smoker (finding) [facility] Start: 1960 Sex Assigned At Male [facility] Start: 05-24-2023 Consumes alcohol occasionally Consumes alcohol occasionally -[facility] 250 DO Work Phone: Comment on above: quit 1993; End: 07-09-1993 History of tobacco use Current smoker [facility] Work Phone: End: 07-09-1993 History of tobacco use Cigarette Smoker [facility] Work Phone: Start: 05-24-2023 End: 11-22-2023 Tobacco use and exposure Smokeless tobacco non-user [facility] Work Phone: Start: 05-24-2023 End: 11-22-2023 Alcohol intake Current drinker of alcohol (finding) [facility] Work Phone: Start: 05-24-2023 Alcohol Comment occasionally [facility] Work Phone: Start: 1960 Sex Assigned At Not on file [facility] Work Phone: Start: 05-14-2023 End: 11-22-2023 Exposure to SARS-CoV-2 (event) Not sure [facility] Start: 01-02-2023 Tobacco smoking stat us NHIS Never smoked tobacco (finding) [facility] Medical Equipment Procedure Code Equipment Code Equipment Origin al Text Equipment Identifier Dates CL CLOSURE DEVIC E ANGIOSEAL 6F FDA Start: 11-20-2022 CL STENT MORIS FRONTIER 3.5 X 15 FDA Start: 11-20-2022 CL CLOSURE DEVIC E ANGIOSEAL 6F FDA Start: 11-20-2022 CL STENT MORIS FRONTIER 3.5 X 15 FDA Start: 11-20-2022 Functional Status Date Assessment Result Facility 11-20-2022 Functional status Patient is Pro gressing [facility] Work Phone: Mental Status Date Assessment Result Facility 11-20-2022 Cognitive function Cognitive Sta tus Patient at [facility] Work Phone: Clinical Notes 06-13-2022 to 11-22-2023 Conrad Beasley, DO - 11/22/2023 11:00 AM EDTPatient Instructions Note Date & Type Note Facility 11-22-2023 History of Present illness Narrative Subjective Flores Sierra is a 63 y.o. male Chief Complaint Follow-up 63-year-old gentleman returns for 6-month follow-up he is doing well he denies any cardiovascular events, complaints, nitrate usage or hospitalizations He sustained anterolateral STEMI in November 2022 with revascularization of the LAD and mild persistent LV dysfunction upon follow-up with recent echo revealing ejection fraction of 45%. He has no shortness of breath or heart failure He remains on appropriate GDMT as reviewed. Today's blood pressure is elevated at 148/100 Recommendations, continue current therapies, recheck blood pressure in the next 6 to 8 weeks, discontinue Brilinta when this current prescription runs out as he is satisfied the 1 year guideline for DAPT, and we will see him again in 8 months. Make appropriate adjustments in antihypertensives following blood pressure check. Review of Systems Respiratory: Positive for shortness of breath. All other systems reviewed and are negative. Vitals: 11/22/23 1134 BP: (!) 140/100 BP Location: Right arm Patient Position: Sitting Pulse: 62 Weight: 88.9 kg (196 lb) Height: 1.727 m (5' 8 ) Objective Physical Exam Constitutional: Appearance: Normal appearance. HENT: Nose: Nose normal. Neck: Vascular: No carotid bruit. Cardiovascular: Rate and Rhythm: Normal rate. Pulses: Normal pulses. Heart sounds: Normal heart sounds. Pulmonary: Effort: Pulmonary effort is normal. Abdominal: General: Bowel sounds are normal. Palpations: Abdomen is soft. Musculoskeletal: General: Normal range of motion. Cervical back: Normal range of motion. Right lower leg: No edema. Left lower leg: No edema. Skin: General: Skin is warm and dry. Neurological: General: No focal deficit present. Mental Status: He is alert. Psychiatric: Mood and Affect: Mood normal. Behavior: Behavior normal. Thought Content: Thought content normal. Judgment: Judgment normal. Allergies Patient has no known allergies. Current Medications Current Outpatient Medications: Allergy Relief, loratadine, 10 mg tablet, Take 1 tablet (10 mg) by mouth once daily., Disp: , Rfl: aspirin 81 mg EC tablet, Take 1 tablet (81 mg) by mouth once daily., Disp: , Rfl: atorvastatin (Lipitor) 80 mg tablet, Take 1 tablet (80 mg) by mouth once daily at bedtime., Disp: 90 tablet, Rfl: 3 Brilinta 90 mg tablet, Take 1 tablet (90 mg) by mouth 2 times a day., Disp: 180 tablet, Rfl: 3 escitalopram (Lexapro) 10 mg tablet, Take 1 tablet (10 mg) by mouth once daily at bedtime., Disp: , Rfl: lisinopril 10 mg tablet, Take 1 tablet (10 mg) by mouth once daily., Disp: 90 tablet, Rfl: 3 metoprolol succinate XL (Toprol-XL) 100 mg 24 hr tablet, Take 2 tablets (200 mg) by mouth once daily., Disp: 180 tablet, Rfl: 3 nitroglycerin (Nitrostat) 0.4 mg SL tablet, Place 1 tablet (0.4 mg) under the tongue every 5 minutes if needed for chest pain., Disp: , Rfl: omeprazole (PriLOSEC) [address] capsule, 1 capsule (40 mg) once daily., Disp: , Rfl: Assessment/Plan 1. ASHD (arteriosclerotic heart disease) Follow Up In Cardiology 2. Cardiomyopathy, ischemic Follow Up In Cardiology 3. Mild left ventricular systolic dysfunction Follow Up In Cardiology 4. Essential hypertension Follow Up In Cardiology 5. History of PTCA Follow Up In Cardiology 6. ST elevation myocardial infarction (STEMI), unspecified artery (Multi) 7. Hyperlipidemia, unspecified hyperlipidemia type 8. Ejection fraction < 50% Scribe Attestation By signing my name below, ICharlotte LPN Scribalondra attest that this documentation has been prepared under the direction and in the presence of Conrad Beasley DO. Provider Attestation - Scribe documentation All medical record entries made by the Scribe were at my direction and personally dictated by me. I have reviewed the chart and agree that the record accurately reflects my personal performance of the history, physical exam, discussion and plan. documented in this encounter [facility] Work Phone: 11-22-2023 Instructions Sam Buenrostro MA - 11/22/2023 11:00 AM EDT Please bring all medicines, vitamins, and herbal supplements with you when you come to the office. Prescriptions will not be filled unless you are compliant with your follow up appointments or have a follow up appointment scheduled as per instruction of your physician. Refills should be requested at the time of your visit. documented in this encounter [facility] Work Phone: 08-15-2023 Evaluation note Encounter Date Diagnosis Assessment Notes Aug, Anemia (ICD-10 - D64.9) [employer] Other [id number] History of Present illness Narrative* Conrad Beasley DO - 05/24/2023 10:40 AM EST Subjective Flores Tea is a 62 y.o. [...] by mouth once daily at bedtime., Disp: ,Rfl: Brilinta 90 mg tablet, Take 1 tablet (90 mg) by mouth 2 times a day., Disp: , Rfl: escitalopram (Lexapro) 10 mg tablet, Take 1 tablet (10 mg) by mouth once daily at bedtime., Disp: ,Rfl: lisinopril 10 mg tablet, Take 1 tablet [...] 6. History of PTCA [facility]: 1(779) 250-628411-16-2023 Instructions* Patient Instructions* Rosa Marcano CMA - 05/24/2023 10:40 AM [...] time of your visit. [facility] Phone: 1(833) 195-974011-06-2023 Evaluation note* Encounter Date Diagnosis Assessment Notes Treatment Notes Treatment Clinical Notes May, Wellness examination (ICD-10 - Z00.00) [...] to achieve/maintain a normal BMI. May, Hyperlipidemia, grou p A (ICD-10 - E78.00) Instructed on diet [...] PSA (prostate specific antigen) (ICD-10 - Z12.5) [employer] Other 08-25-2023 Evaluation note* Encounter Date Diagnosis Assessment Notes Treatment Notes Treatment Clinical Notes Feb, ASHD (arteriosclerot ic heart disease) (ICD-10 - I25.10) PCI/stent LAD - 11/2022Feb, Gastroesophageal ref lux disease with esophagitis without hemorrhage (ICD-10 - K21.00) [employer] Other 07-05-2023 Evaluation note* Encounter Date Diagnosis Assessment Notes Treatment Notes Treatment Clinical Notes Jan, Acute bronchitis due to other specified organisms (ICD-10 - J20.8) [employer] Other 06-28-2023 Evaluation note* Encounter Date Diagnosis [...] in month - ENT if no improvement [employer] Other 05-16-2023 Evaluation note* Encounter Date Diagnosis Assessment Notes Treatment Notes Treatment Clinical Notes November, ASHD (arteriosclerotic heart disease) (ICD-10 - I25.10) PCI/stent LAD - 11/2022 [employer] Other 05-15-2023 Procedure [facility]05-15-2023 Procedure [facility]05-02-2023 Evaluation note* Encounter Date Diagnosis [...] NS Kenalog for seasonal flare of symptoms [employer] Other 03-09-2023 NoteCONSULTATION CONSULTATION DATE: 09/14/2022 HISTORY [...] be followed up in the office thereafter.[id number] NoteCONSULTATION CONSULTATION DATE: 08/03/2022 HISTORY OF PRESENT [...] be followed up in the clinic thereafter.[facility] [id number] NoteCONSULTATION CONSULTATION DATE: 06/13/2022 CHIEF COMPLAINT: Low [...] and would like to proceed. CC: Saman Del Rio D.O.[facility]* Diagnosis Onset Date Resolution Status Hypercholesteremia acute Hypertension acute ST elevation (STEMI) myocardial infarction acute [facility] Work Phone: Evaluation noteNo InformationN[employer] Other Evaluation note* Diagnosis ASHD (arteriosclerotic heart disease) Coronary atherosclerosis of unspecified type of vessel, redding or graft ST elevation myocardial infarction (STEMI), unspecified artery (CMS/HCC) Cardiomyopathy, ischemic Other specified forms of chronic ischemic heart disease Mild left ventricular systolic dysfunction Essential hypertension Unspecified essential hypertension History of PTCA Postsurgical percutaneous transluminal coronary angioplasty status documented in this encounter [facility] Work Phone: Evaluation note* Diagnosis Mild left ventricular systolic dysfunction documented in this encounter [facility] Work Phone: Evaluation note* Diagnosis Mild left ventricular systolic dysfunction documented in this encounter [facility] Work Phone: Evaluation noteNo assessment information available [facility] Work Phone: Evaluation note* Diagnosis Onset Date Resolution Status ASHD (arteriosclerotic heart disease) acute Elevated cholesterol acute Essential hypertension acute Nicotine dependence, cigarettes, in remission acute [facility] Work Phone: Evaluation note* Diagnosis ASHD (arteriosclerotic heart disease) Coronary atherosclerosis of unspecified type of vessel, redding or graft Cardiomyopathy, ischemic Other specified forms of chronic ischemic heart disease Mild left ventricular systolic dysfunction Essential hypertension Unspecified essential hypertension History of PTCA Postsurgical percutaneous transluminal coronary angioplasty status ST elevation myocardial infarction (STEMI), unspecified artery (Multi) Hyperlipidemia, unspecified hyperlipidemia type Ejection fraction < 50% Other symptoms involving cardiovascular system documented in this encounter [facility] Work Phone: History and physical note Author Daryl Beasley [facility] November 20, 2022 5:18pm Note Date/Time November 20, 2022 5:01p m [facility] [address] [place] [address] Cardiology H&P Signed Patient: Flores Sierra MR#: [id number] 8 : 1960 Acct:[id number] Age/Sex: 62 / M Adm Date: 3 Loc: Room: [address] [place] [address] Type: REG SDC Attending Dr: Daryl Beasley DO Copies to: DO Daryl Mcdaniel DO~ Date of Service: 11/20/2022 Cardiology HPI History of Present Illness Chief complaint: Anterolateral STEMI HPI: Mr. Sierra is a 62 year old male admitted in transfer from [facility]) with acute anterior ST elevation myocardial infarction. Patient developed chest discomfort at approximately 1445. He called the paramedics, transferred to the [facility], initial ECGs at 1523 and 1529 and 1545PM were all reviewed. Patient arrived at ER at 1548, Community Leader at 1603 and PCI of primary infarct [...] staff, reviewing of ECGs from the field, Community Leader staff, nursing staff, patient and family both [...] History (Updated 11/20/22 @ 17:18 by Daryl Beasley DO) Hypercholesteremia Hypertension Social History Smoking Status: [...] x10E3/uL Lymph # (Auto) 2.0 (1.00-4.8) x10E3/uL [place] # (Auto) 1.0 H (0.0-0.8) x10E3/uL Eos [...] Interpretations EKG EKG results cardiology: sinus rhythm ND, pacemaker, normal Myocardial infarction: anterior ND (acute or recent) A&P - Cardiology (1) ST elevation (STEMI) myocardial infarction: Code(s): I21.3 - ST elevation (STEMI) myocardial infarction of unspecified site (2) Hypertension: Code(s): I10 - Essential (primary) hypertension (3) Hypercholesteremia: Code(s): E78.00 - Pure hypercholesterolemia, unspecified Documented By: Daryl Beasley DO 11/20/22 1657 Signed By: <Electronically signed by Daryl Beasley DO> 11/20/22 1715 [facility] Work Phone: His[facility] general Narrative - Reported* Type Description Date [...] lower urinary tract symptoms Surgical History COLONOSCOPY Surgical History LIGATION, HEMORRHOID, EXTERNAL 2019 Hospitalization History SEE SURGICAL [employer] Other [employer] general Narrative - Reported* Type Description Date [...] PCI/stent LAD 11/2022 Hospitalization History SEE SURGICAL [employer] Other [facility]issk[facility] general Narrative - Reported* Type Description Date [...] History PCI/stent LAD 11/2022 Surgical History Colonoscopy 2017 Hospitalization History SEE SURGICAL [employer] Other Reason for referral (narrative)* Consultation (Routine) - Authorized Specialty Diagnoses / Procedures Referred By Anaid burnham Referred To Contact Cardiology Diagnoses Cardiomyopathy, ischemic Procedures Follow Up In Cardiology Conrad Beasley DO [address] [facility] [address], [address] [address] Conrad Beasley DO [address] [facility], [address] [place] [address] Referral ID Status Reason Start Date Expiration Date V isits Requested Visits Authorized [id number] Authorized 11/22/2023 11/21/2024 1 1 [facility] Work Phone: Chief Complaint and Reason for Visit Chief Complaint chest pain Reason for Visit Hypercholesteremia Hypertension ST elevation (STEMI) myocardial infarction Chief Complaint Amb Documentation Allergy Shot Chief Complaint Amb Documentation Allergy Shot 6 month follow up Reason for Visit ASHD (arteriosclerot ic heart disease) Elevated cholesterol Essential hypertension Nicotine dependence, cigarettes, in remission Advance Directives No Advanced Directives Records Found [...] history of PTCA: Sist er(V17.49, Z82.49) Status:Active Relationship Condition Age at Onset Recorded Date/T yari Not Specified Hypertension Unknown Reason for Referral Specialty Diagnoses / Procedures Referred By Contac t Referred To Contact Cardiology Diagnoses Mild left ventricular systolic dysfunction Procedures Transthoracic Echo (TTE) Limited [place] ECHO TRANSTHORC R-T 2D W/WO M-MODE REC F-UP/LMTD IL DOP ECHOCARD COLOR FLOW VELOCITY MAPPING IL DOP ECHOCARD PULSE WAVE W/SPECTRAL F-UP/LMTD STD Conrad Beasley DO [address] [facility] [address], [address] [place] [phone] Referral ID Status Reason Start Date Expiration Date Visits Requested Visits Authorized [id number] Pending Review Perform Procedure 3 05/23/2024 1 1 Specialty Diagnoses / Procedures Referred By Contac t Referred To Contact Cardiology Diagnoses ASHD (arteriosclerotic heart disease) Cardiomyopathy, ischemic Mild left ventricular systolic dysfunction Essential hypertension History of PTCA Procedures Follow Up In Cardiology Conrad Beasley, DO [address], [address] [place] [phone] Conrad Beasley, DO [address], [address] [place], [place] [phone] Referral ID Status Reason Start Date Expiration Date V isits Requested Visits Authorized [id number] Authorized 05/24/2023 05/23/2024 1 1 Additional Source Comments REASON FOR VISIT (unrecogniz ed section and content) Reason Comments Follow-up 6 months Specialty Diagnoses / Procedures Referred By Contac t Referred To Contact Cardiology Diagnoses Mild left ventricular systolic dysfunction Procedures Transthoracic Echo (TTE) Limited IL ECHO TRANSTHORC R-T 2D W/WO M-MODE REC F-UP/LMTD IL DOP ECHOCARD COLOR FLOW VELOCITY MAPPING IL DOP ECHOCARD PULSE WAVE W/SPECTRAL F-UP/LMTD STD Conrad Beasley, DO [address] [facility], [place] [phone] Referral ID Status Reason Start Date Expiration Date Visits Requested Visits Authorized [id number] Authorized Perform Procedure 3 05/23/2024 1 1 Reason Comments Follow-up 6m Specialty Diagnoses / Procedures Referred By Contac t Referred To Contact Cardiology Diagnoses ASHD (arteriosclerotic heart disease) Cardiomyopathy, ischemic Mild left ventricular systolic dysfunction Essential hypertension History of PTCA Procedures Follow Up In Cardiology RamosConrad pena, DO [address], [address] [place] [phone] Ramos, Conrad Mele, DO [address], [address] [address] Referral ID Status Reason Start Date Expiration Date V isits Requested Visits Authorized [id number] Authorized 05/24/2023 05/23/2024 1 1 Care Teams (unrecognized sec tion and content) Team Status: Active Member Role Status Dates Saman Del Rio DO Primary Care Provider Active Team Status: Active Member Role Status Dates Ottoniel Luis PA-C Emergency Provider Active Saman Del Rio , Primary Care Provider Active Daryl Beasley DO Attending Provider Active Pad Extraction Tender Relationship Specialty Start Date End Date QuangSaman FarooqjenniferDO [address] [facility] [address] [place] [id number] PCP - General 12/06/22 Pad Extraction Tender Relationship Specialty Start Date End Date QuangSaman FarooqjenniferDO [address] [facility] [place] [id number] PCP - General Internal Medicine 07/03/23 Pad Extraction Tender Relationship Specialty Start Date End Date Quang Saman Andino DO [address] [facility] [address] Mike [id number] PCP - General Internal Medicine 07/03/23 Team Status: Active Member Role Status Dates Saman Del Rio DO Primary Care Provider Active Start: September 11, 2023 ISAIAS Cervantes Attending Provider Active Start : September 11, 2023 Team Status: Inactive Member Role Status Dates Saman Del Rio DO Primary Care Provide r, Attending Provider Active Start: September 25, 2023 End: September 25, 2023 Team Status: Inactive Member Role Status Dates Saman Del Rio DO Primary Care Provide r, Attending Provider Active Start: November 12, 2023 End: November 12, 2023 Pad Extraction Tender Relationship Specialty Start Date End Date Saman Del Rio DO PCP - General Internal Medicine 07/03/23 Goals (unrecognized section and content) Goals may be documented in a n alternate section (unrecognized sect ion and content) No Status Records FoundNo Status Records FoundNo Status Records FoundNo Status Records FoundNo Status Records FoundNo Status Records FoundNo Status Records Found INFORMATION SOURCE (unrecogn ized section and content) DATE CREATED AUTHOR 12/16/2022 [facility] DATE CREATED AUTHOR AUTHOR'S ORGANIZ ATION 12/16/2022 [employer] DATE CREATED AUTHOR AUTHOR'S ORGANIZ ATION 01/18/2023 [facility] DATE CREATED AUTHOR AUTHOR'S ORGANIZ ATION 01/20/2023 [facility] DATE CREATED AUTHOR AUTHOR'S ORGANIZ ATION 02/27/2023 [facility] DATE CREATED AUTHOR AUTHOR'S ORGANIZ ATION 07/08/2023 [facility] DATE CREATED AUTHOR AUTHOR'S ORGANIZ ATION 01/04/2024 [facility] FOR RECORDS PERTAINING TO PATIENTS WHO ARE [...] BE BASED ON THE PRIMARY CLINICAL RECORDS. [facility] provides no warranty or guarantee of the accuracy or completeness of information in this document.
[2024-02-05 10:00] LABS: Hematocrit 36.6 % (42.0-54.0); Hemoglobin 11.7 g/dL (14.0-18.0); Mean Corpuscular Hemoglobin 28.9 pg (25.9-34.0); Mean Corpuscular Volume 90.4 fL (80.0-94.0); Mean Platelet Volume 10.4 fL (9.5-13.5); Platelet Count 156 10^3/uL (150-450); Red Blood Count 4.05 10^6/uL (4.70-6.10); Red Cell Distribution Width 13.5 % (11.0-15.0); White Blood Count 4.7 10^3/uL (4.0-11.0)
[2024-02-05 14:42] LABS: Basophils Abs Manual 0.09 10^3/uL (0.00-0.10); Eosinophils Absolute Manual 0.23 10^3/uL (0.00-0.70); Lymphocytes Absolute Manual 0.65 10^3/uL (1.20-3.80); Monocytes Absolute Manual 0.23 10^3/uL (0.30-0.80); Segmented Neut Absolute Manual 3.47 10^3/uL (1.4-6.5)
== END 2024-02-05 09:28 | disposition home or self-care (01) ==
LOC: LAB 09:28
PROVIDERS: PCP Internal Medicine; Visit Provider Internal Medicine
DX: D64.9 Anemia, unspecified (principal)
CPT/HCPCS: 36415; 85007; 85027

== ENCOUNTER 2024-05-30 08:15 | Outpatient (OUT) | payer OTHER, SELFPAY ==
[2024-05-30 08:45] LABS: Basophils Percent Auto 0.8 % (0.2-2.0); Eosinophils Absolute Auto 0.6 10^3/uL (0.0-0.7); Eosinophils Percent Auto 11.9 % (0.9-7.0); Hematocrit 36.3 % (42.0-54.0); Hemoglobin 11.8 g/dL (14.0-18.0); Immature Granulocytes Abs Auto 0.01 10^3/uL (0.00-0.03); Immature Granulocytes Pct Auto 0.2 % (0.0-0.5); Lymphocytes Absolute Auto 0.8 10^3/uL (1.2-3.8); Lymphocytes Percent Auto 16.1 % (20.5-60.0); Mean Corpuscular HGB Conc 32.5 g/dL (29.9-35.2); Mean Corpuscular Hemoglobin 28.9 pg (25.9-34.0); Mean Corpuscular Volume 88.8 fL (80.0-94.0); Monocytes Absolute Auto 0.6 10^3/uL (0.3-0.8); Neutrophils Absolute Auto 3.1 10^3/uL (1.4-6.5); Platelet Count 170 10^3/uL (150-450); Red Blood Count 4.09 10^6/uL (4.70-6.10); Red Cell Distribution Width 13.3 % (11.0-15.0); White Blood Count 5.2 10^3/uL (4.0-11.0)
[2024-05-30 09:12] LABS: Percent Iron Saturation 16.2 %
[2024-05-30 09:17] LABS: Alanine Aminotransferase 27 U/L (16-63); Albumin Globulin Ratio 1.1; Albumin Level 3.7 g/dL (3.4-5.0); Alkaline Phosphatase 89 U/L (46-116); Anion Gap 16.8; Aspartate Amino Transferase 21 U/L (15-37); BUN Creatinine Ratio 10.3; Bilirubin Total 0.5 mg/dL (0.2-1.0); Calcium 8.7 mg/dL (8.5-10.1); Carbon Dioxide 24.3 mmol/L (21.0-32.0); Chloride 104 mmol/L (98-107); Chol HDL Ratio 3.2; Cholesterol 155 mg/dL (<=200); Estimated GFR (African America >60 (>=60 mL/min/1.73m^2); Estimated GFR (Non-African Ame >60 (>=60 mL/min/1.73m^2); Globulin 3.3 g/dL; Glucose 118 mg/dL (74-106); HDL Cholesterol 49 mg/dL (40-60); Potassium 4.1 mmol/L (3.5-5.1); Sodium 141 mmol/L (136-145); Thyroid Stimulating Hormone 1.707 uIU/mL (0.358-3.740); Triglycerides 204 mg/dL (<=150); VLDL CHOLESTEROL 40.8 mg/dL
[2024-05-30 09:27] LABS: Prostate Specific Antigen Scrn 1.01 ng/mL (<=4.00)
[2024-05-31 04:07] LABS: Vitamin B12 529 pg/mL (232-1245)
== END 2024-05-30 08:16 | disposition home or self-care (01) ==
LOC: LAB 08:17
PROVIDERS: PCP Internal Medicine; Visit Provider Internal Medicine
DX: Z00.00 Encounter for general adult medical examination without abnormal findings (principal); D64.9 Anemia, unspecified; R25.1 Tremor, unspecified
CPT/HCPCS: 36415; 80053; 80061; 82607; 82728; 82746; 83540; 83550; 84443; 85025; G0103

== ENCOUNTER 2024-09-30 10:57 | Outpatient (OUT) | payer OTHER, SELFPAY ==
--- NOTE | 2024-09-30 11:12 | XR_ITS ---
The [address] [address] Patient Name: AISHA POOLE MRN: [id number] date: 1960 Sex: M Assigned Patient Location: LAB Current Patient Location: LAB Accession/Order Number: [id number] Exam Date: 09/30/2024 14:01 Report Date: 09/30/2024 14:03 At the request of: BARRY DEL RIO DO Procedure: XR ankle RT min 3V RIGHT ANKLE - 3 views CLINICAL HISTORY: Right Ankle Swelling COMPARISON: None FINDINGS: Soft tissue swelling is noted. Ankle mortise appears intact with degenerative change. No acute bony process. Plantar spurring. XR/XR ankle RT min 3V IMPRESSION: SOFT TISSUE SWELLING. NO ACUTE BONY PROCESS IS SEEN. Impression dictated by: Lawson Rodriguez Jr., D.O.09/30/2024 2:03 PM Dictation Location: [place] [address] Electronically authenticated by: [id number] Y Date: 09/30/2024 14:03
[2024-09-30 11:20] LABS: Basophils Percent Auto 0.2 % (0.2-2.0); Eosinophils Absolute Auto 0.2 10^3/uL (0.0-0.7); Eosinophils Percent Auto 4.2 % (0.9-7.0); Hematocrit 34.6 % (42.0-54.0); Hemoglobin 11.4 g/dL (14.0-18.0); Immature Granulocytes Abs Auto 0.02 10^3/uL (0.00-0.03); Immature Granulocytes Pct Auto 0.4 % (0.0-0.5); Lymphocytes Absolute Auto 0.7 10^3/uL (1.2-3.8); Lymphocytes Percent Auto 12.5 % (20.5-60.0); Mean Corpuscular HGB Conc 32.9 g/dL (29.9-35.2); Mean Corpuscular Hemoglobin 29.6 pg (25.9-34.0); Mean Corpuscular Volume 89.9 fL (80.0-94.0); Mean Platelet Volume 9.6 fL (9.5-13.5); Monocytes Absolute Auto 0.7 10^3/uL (0.3-0.8); Monocytes Percent Auto 12.7 % (1.7-12.0); Platelet Count 140 10^3/uL (150-450); Red Blood Count 3.85 10^6/uL (4.70-6.10); Red Cell Distribution Width 13.8 % (11.0-15.0); White Blood Count 5.7 10^3/uL (4.0-11.0)
--- OUTSIDE RECORDS SUMMARY | 2024-09-30 11:20 | XMS_ITS | CCD ---
Author Organization [facility] Care Team Providers Care Senior Mortgage Loan Processor Name Role Phone Saman Schaffer Unavailable LUIS Luis Emergency Provider DO Saman Schaffer Primary Care Provider DO Daryl Farrell Attending Provider VOLODYMYR ., [...] CASTILLO ., DON Consulting Unavailable LAKSHMIPATHY ., LONNIE Admitting Brisa vailable WEST, DR CAITLYN Power Consulting Unavailable QUANG, DR REDDY Primary Care Unavailable LAKSHMIPATHY ., LONNIE Attending Brisa vailable LAKSHMIPATHY ., LONNIE Consulting Brisa vailable QUANG, DR REDDY Attending Unavailable QUANG, DR REDDY Consulting Unavailable QUANG, DR REDYD Primary Care Unavailable QUANG, DR REDDY Admitting Unavailable WEST, DR CAITLYN Power Consulting Unavailable HELM ., DR KASEY Shabazz [...] Attending Unavailable Saman Schaffer Unavailable Unavailable Unavailable Ramos, Dr. Conrad Arroyo Attending Fern Schaffer, Dr. Saman Triveditowaco Primary Care Elías Schaffer, Dr. Saman Andino Primary Care Elías Farrell, Dr. Conrad Arroyo Referring Fern Farrell, Dr. Conrad Arroyo Attending Fern Schaffer, Dr. Saman Andino Primary Care Elías Schaffer, Dr. Saman Andino Primary [facility] Elías Benitez MD, Iqra Blanc Attending Unavailable Quang DO, Saman Andino Primary Care Provider Quang DO, Saman Andino Primary Care Provider Quang DO, Saman Chance Primary Care Provider CONRAD FARRELL Referring Unavailable QUANG, SAMAN E Primary Care Unavailable Quang DUDLEY, Saman Primary Care Provider Maxx Doss MD Attending Provider [phone] Maxx Doss Attending Unavailable Maxx Doss Admitting Unavailable Saman Schaffer Primary Care Unavailable RAMOS, CONRAD Shabazz Attending Unavailable RAMOS, CONRAD S Referring Unavailable BALL, SAMAN Chance Primary Care Unavailable QUANG, SAMAN Chance Primary Care Unavailable RAMOS, CONRAD S Referring Unavailable RAMOS, CONRAD S Attending Unavailable RAMOS, CONRAD S Referring Unavailable QUANG, SAMAN E Primary Care Unavailable Quang , Saman Primary Care Provider Maxx Doss MD Attending Provider Allergies Allergy Classification Reported Allergen(s) Allergy Type Date of Onset Reaction(s) Facility (2 sources) patient allergy list reviewed by nurse or physicia Propensity to adverse reactions 9 Comment:Done Numecent Other Medications Current Medications Medication Drug Class(es) Dates Sig (Normalized) Sig (Original) aspirin 81 mg delayed release oral tablet (20 sources) Platelet Aggregation Inhibitor, Nonsteroidal Anti-inflammatory Drug Start: 11-22-2022 take 1 tablet by mouth once daily Aspirin 81 mg Tablet,Delayed Release (Dr/Ec) Active 81 MG PO Daily 0 November 22, 2022 12:00am atorvastatin 80 mg oral tablet (20 sources) HMG-CoA Reductase Inhibitor Start: 11-22-2022 End: 05-16-2025 take 1 tablet by mouth once daily in the evening Atorvastatin 80 mg Tablet Active 80 MG PO Every evening November 22, 2022 12:00am Start: 11-20-2022 End: 11-22-2022 take 1 tablet by mouth once daily at bedtime Atorvastatin 20 mg tablet Discontinued 20 MG PO Daily at bedtime November 20, 2022 12:00am November 22, 2022 2:17pm escitalopram 10 mg oral tablet (20 sources) Serotonin Reuptake Inhibitor Start: 11-27-2023 End: 06-08-2024 take 1 tablet by mouth at bedtime Escitalopram Oxalate 10 mg tablet Active 0 .ROUTE .COMPLEX June 08, 2024 9:51am TAKE 1 TABLET BY MOUTH AT BEDTIME Start: 11-27-2023 take 1 tablet by chilo th at bedtime Escitalopram Oxalate Active 0 .ROUTE .COMPLEX November 27, 2023 1:19pm TAKE 1 TABLET BY MOUTH AT BEDTIME Start: 05-11-2023 End: 11-27-2023 take 1 tablet by mouth once daily Escitalopram Oxalate 10 mg tablet Discontinued 10 MG PO Daily November 09, 2023 12:00am November 27, 2023 1:19pm lisinopril 10 mg oral tablet (20 sources) Angiotensin Converting Enzyme Inhibitor Start: 03-07-2024 take 1 tablet by mouth once daily Lisinopril 10 mg tablet Active 0 .ROUTE .COMPLEX March 07, 2024 1:34pm TAKE 1 TABLET BY MOUTH ONCE DAILY Start: 11-20-2022 End: 11-21-2024 take 1 tablet by mouth once daily Lisinopril 10 mg tablet Discontinued 10 MG PO Daily November 20, 2022 12:00am March 07, 2024 1:34pm loratadine 10 mg oral tablet (20 sources) Start: 11-27-2023 take 1 tablet by mouth once daily Loratadine (Allergy Relief (Loratadine)) 10 mg tablet Active 0 .ROUTE .COMPLEX November 27, 2023 1:37pm TAKE 1 TABLET BY MOUTH DAILY Start: 11-20-2022 End: 11-27-2023 take 1 tablet by mouth once daily Loratadine 10 mg tablet Discontinued 10 MG PO Daily November 20, 2022 12:00am November 27, 2023 1:37pm 24 hr metoprolol succinate 100 mg extended release oral tablet (20 sources) beta-Adrenergic Jaime Start: 05-11-2023 End: 11-21-2024 take 2 tablets by mouth once daily metoprolol succinate XL (Toprol-XL) 100 mg 24 hr tablet Indications: Cardiomyopathy, ischemic , Essential hypertension Take 2 tablets (200 mg) by mouth once daily. 180 tablet 3 11/22/2023 11/21/2024 Active Start: 11-28-2022 take 2 tablets by [facility] every twenty-four hours Metoprolol Succinate ER 100 MG 2 tablet Orally Once a day November, Active Start: 11-25-2022 End: 09-06-2024 Metoprolol Succinate 100 mg tablet extended release 24 hr Discontinued 200 MG PO Daily 0 November 25, 2022 4:33pm September 06, 2024 2:57pm Start: 11-25-2022 take 200 mg by mouth once queta y Metoprolol Succinate Active 200 MG PO Daily 0 November 25, 2022 4:33pm Start: 11-20-2022 End: 11-25-2022 Metoprolol Succinate 100 mg tablet extended release 24 hr Discontinued 150 MG PO Daily November 20, 2022 12:00am November 25, 2022 4:33pm Start: 11-20-2022 End: 11-25-2022 take 150 mg by mouth once daily Metoprolol Succinate Discontinued 150 MG PO Daily November 20, 2022 12:00am November 25, 2022 4:33pm Start: 11-20-2022 take 100 mg by mouth once queta y Metoprolol Succinate Active 100 MG PO Daily November 20, 2022 12:00am nitroglycerin 0.4 mg sublingual tablet (15 sources) Nitrate Vasodilator Start: 11-25-2022 Nitroglyce rin 0.4 mg Tablet, Sublingual Active 0.4 MG SUBLINGUAL Q5M as needed for Chest Pain November 25, 2022 12:00am every 5 minutes x 3 doses do not exceed 3 doses per episode Nitroglycerin 0. 4 MG Sublingual Tablet Sublingual TAKE DIRECTED. Quantity: 25 Refills: 11 Ordered: 06-Dec-2022 DO Active omeprazole 40 mg delayed release oral capsule (20 sources) Proton Pump Inhibitor Start: 09-11-2023 End: 03-06-2024 take 1 capsule by mouth once daily at breakfast Omeprazole 40 mg capsule,delayed release(DR/EC) Active 0 .ROUTE .COMPLEX March 06, 2024 9:58am TAKE 1 CAPSULE BY MOUTH ONCE DAILY ON AN EMPTY STOMACH 30 MINUTES BREAKFAST Start: 01-03-2023 End: 09-11-2023 take 1 capsule by mouth once daily Omeprazole 40 mg capsule,delayed release(DR/EC) Discontinued 40 MG PO Daily September 11, 2023 1:00am September 11, 2023 5:43pm predniSONE 20 mg oral tablet (3 sources) Start: 09-12-2024 take 1 tablet by mouth twice daily, then take 1 tablet by mouth once daily Prednisone 20 mg tablet Active 20 MG PO As Directed 15 September 12, 2024 1:00am 1 tablet bid x 5 days followed by 1 tablet qd x 5 days Start: 09-06-2024 Prednisone 20 mg tablet Active 20 MG PO .COMPLEX September 06, 2024 1:00am Take 2 tabs po daily x 4 days, then take 1 tab po x 4 days Completed/Discontinued Medications Medication Drug Class(es) Dates Sig (Normalized) Sig (Original) doxycycline hyclate 100 mg oral capsule (13 sources) Tetracycline-cla ss Drug Start: 03-26-2024 End: 05-23-2024 take 1 capsule by mouth twice daily Doxycycline Hyclate 100 mg capsule Discontinued 100 MG PO Twice daily 04 12March 26, 2024 12:00am May 23, 2024 11:04am take 1 capsule by [facility] twice daily as needed Doxycycline Hyclate 100 MG 1 capsule Ora lly twice daily for 7 days Not-Taking/PRN hydrocortisone 10 mg/ml / neomycin 3.5 mg/ml / polymyxin b 08008 unt/ml otic suspension (12 sources) Aminoglycoside Antibacterial, Polymyxin-class Antibacterial, Corticosteroid Start: 11-07-2022 [id number]-[id number] 3.5-82290-4 4 drops into affected ear Otic q HS PRN itching for 30 days November, Not-Taking/PRN meloxicam 15 mg oral tablet (16 sources) Nonsteroidal Anti-inflammatory Drug Start: 11-20-2022 End: 11-22-2022 take 1 tablet by mouth once daily Meloxicam 15 mg tablet Discontinued 15 MG PO Daily November 20, 2022 12:00am November 22, 2022 2:17pm Meloxicam Active ticagrelor 90 mg oral tablet (20 sources) Start: 11-22-2022 End: 08-14-2024 take 1 tablet by mouth twice daily Ticagrelor (Brilinta) 90 mg Tablet Discontinued 90 MG PO Twice daily 180 90 November 22, 2022 12:00am November 22, 2023 12:47pm triamcinolone acetonide 40 mg/ml injectable suspension (17 sources) Corticosteroid Start: 05-14-2023 Kenalog-40 May, 60 mg Start: 11-07-2022 Kenalog-40 November, 40 mg Problems Active Problems Problem Classification Problem Date Documented Date Episodic/Chronic Acute bronchitis (12 sources) Acute bronchitis due to other specified organisms; Translations: [Acute bronchitis] Onset: 11-18-2014 Episodic Acute myocardial infarction (20 sources) Myocardial infarction; Translations: [ST elevation (STEMI) myocardial infarction of unspecified site] Onset: 05-24-2023 11-20-2022 Chronic Comment on above: Problem List clean-u p per request of Phys. EHR Cmte Anxiety disorders (11 sources) Generalized anxiety disorder; Translations: [Generalized anxiety disorder] Chronic Cardiac dysrhythmias (14 sources) Supraventricular tachycardia; Translations: [Supraventricular tachycardia] Chronic Cardiac dysrhythmias (20 sources) Sinus tachycardia; Translations: [Tachycardia, unspecified] 06-20-2023 Episodic Comment on above: Problem List clean-u p per request of Phys. EHR Cmte Conduction disorders (2 sources) Sinus node dysfunction; Translations: [Sinoatrial node dysfunction] Onset: 08-14-2018 Chronic Congestive heart failure; nonhypertensive (2 sources) Chronic systolic heart failure; Translations: [Chronic systolic (congestive) heart failure] 08-14-2024 Chronic Comment on above: Echo: LVEF 45%, norm al RV size/function, RVSP - 11/2022 Coronary atherosclerosis and other heart disease (20 sources) Coronary arteriosclerosis; Translations: [Atherosclerotic heart disease of [place] coronary artery without angina pectoris] Onset: 05-24-2023 Chronic Comment on above: Problem List clean-u p per request of Phys. EHR Cmte PCI/stent LAD - 11/25 22 Coronary atherosclerosis and other heart disease (10 sources) Stented coronary artery; Translations: [Presence of coronary angioplasty implant and graft] Onset: 05-24-2023 06-20-2023 Episodic Comment on above: Problem List clean-u p per request of Phys. EHR Cmte Deficiency and other anemia (2 sources) Nutritional anemia; Translations: [Nutritional anemia, unspecified] Episodic Deficiency and other anemia (8 sources) Anemia; Translations: [Anemia, unspecified] 11-12-2023 Episodic Deficiency and other anemia (7 sources) Anemia, unspecified; Translations: [Anemia, unspecified] Onset: 07-18-2024 Episodic Disorders of lipid metabolism (20 sources) Hyperlipidemia, group A; Translations: [Pure hypercholesterolemia, unspecified] Onset: 11-22-2023 Chronic Comment on above: Problem List clean-u p per request of Phys. EHR Cmte Esophageal disorders (9 sources) Gastro-esophageal reflux disease with esophagitis; Translations: [Gastroesophageal reflux disease with esophagitis without hemorrhage] Chronic Essential hypertension (20 sources) Essential hypertension; Translations: [Essential (primary) hypertension] Onset: 05-24-2023 Chronic Comment on above: Problem List clean-u p per request of Phys. EHR Cmte Gout and other crystal arthropathies (3 sources) Gouty arthritis of right ankle; Translations: [Gout, unspecified] 09-12-2024 Chronic Hyperplasia of prostate (16 sources) Benign prostatic hypertrophy without outflow obstruction; Translations: [Benign prostatic hyperplasia without lower urinary tract symptoms] Onset: 02-04-2015 Chronic Immunizations and screening for infectious disease (4 sources) Vaccination given; Translations: [Encounter for immunization] Episodic Nonspecific chest pain (9 sources) Precordial pain; Translations: [Chest pain] Episodic Comment on above: Problem List clean-u p per request of Phys. EHR Cmte Other and ill-defined heart disease (2 sources) Left ventricular systolic dysfunction; Translations: [Heart disease, unspecified] Chronic Other and ill-defined heart disease (9 sources) Mild left ventricular systolic dysfunction; Translations: [...] externa, bilateral Chronic Other lower respiratory disease (8 sources) Dyspnea; Translations: [Dyspnea, unspecified] 06-20-2023 Episodic Comment on above: Problem List clean-u p per request of Phys. EHR Cmte Other nervous system disorders (4 sources) Tremor; Translations: [Tremor, unspecified] 05-23-2024 Episodic Other nutritional; endocrine; and metabolic disorders [...] Chronic Other nutritional; endocrine; and metabolic disorders (6 sources) Obesity; Translations: [Obesity, unspecified] 11-12-2023 Chronic Other nutritional; endocrine; and metabolic disorders (5 sources) Obesity, unspecified; Translations: [Obesity, unspecified] 11-12-2023 Chronic Other nutritional; endocrine; and metabolic disorders (5 sources) Overweight in adulthood with body mass index of 25 or more but less than 30; Translations: [Overweight] Onset: 11-22-2023 11-22-2023 Episodic Other nutritional; endocrine; and metabolic disorders (2 sources) Body mass index (BMI) 29.0-29.9, adult; Translations: [Body mass index (BMI) 29.0-29.9, adult] Onset: 11-22-2023 Episodic Other screening for suspected conditions (not mental disorders or infectious disease) (20 sources) Encounter for screening for malignant neoplasm of prostate; Translations: [Electrocardiogram abnormal] Onset: 05-18-2022 Episodic Comment on above: PSA: 0.57 - 05/2023, Problem List clean-u p per request of Phys. EHR Cmte PSA: 0.57 - 05/2023, 1.01 - 05/2024 Other upper respiratory disease (17 sources) Allergic rhinitis due to pollen; Translations: [Allergic rhinitis due to pollen] 07-04-2024 Chronic Other upper respiratory disease (2 sources) [...] of mental health and substance abuse codes (9 sources) Ex-smoker; Translations: [Personal history of tobacco [...] initial encounter] Onset: 01-04-2018 Episodic Substance-related disorders (20 sources) Tobacco user; Translations: [Nicotine dependence, cigarettes, in remission] 11-10-2023 Chronic Comment on above: Age started, PPD, Ag e quit Unclassified (4 sources) LOW BACK PAIN, UNSPECIFIED; [...] Episodic Other nutritional; endocrine; and metabolic disorders (15 sources) Overweight; Translations: [Overweight] Onset: 05-24-2023 05-24-2023 Episodic Other nutritional; endocrine; and metabolic disorders (2 sources) Body mass index 25-29 - overweight; Translations: [Body mass index 29.0-29.9, adult] Onset: 06-27-2016 Episodic Other skin disorders (2 sources) Atrophoderma; Translations: [Unspecified hypertrophic and atrophic condition of skin] Onset: 10-03-2017 Episodic Unclassified (1 source) LOW BACK PAIN, UNSPECIFIED; Translations: [LOW BACK PAIN, UNSPECIFIED] Onset: 06-13-2022 Unclassified (5 sources) Recent myocardial infarction; Translations: [Recent ST elevation myocardial infarction (STEMI)] 06-20-2023 Comment on above: Problem List clean-u p per request of PhysJanice Johsnon Viral infection (2 sources) Verruca vulgaris; Translations: [Viral wart, unspecified] Onset: 02-27-2013 Episodic Viral infection (14 sources) Disease caused by 2019-nCoV; Translations: [COVID-19] Results Test Name Value Interpretation Reference Range [facility] 07-18-2024 Specimen: [id number] Received: 07/18/24 Status: JALIL Neville Num: [id number] Spec Type: Surgical Subm Dr: Maxx Doss MD Tissues: A Small Intestine - Biopsy/Polyp (SM BOWEL BX R/O CELIAC) B Colon Biopsy (CECAL POLYP) Procedures: HE/4, Gross/Micro L4/2 Age/ Patient Sex Location Account Attending Physician Flores Sierra/Candy [id number] Maxx Doss MD SPEC NUM: [id number] RECD: 07/18/24 STATUS: JALIL ROSSRg NUM: [id number] ROSAS: 07/18/[address] [facility] [address]: Maxx Doss MD ENTERED: 07/18/[address]: SPEC TYPE: Surgical DEPT: S ENTERED BY: [id number] RECV BY: [id number] ORDERED: HE/4, Gross/Micro L4/2 ORDERED: HE/4, Gross/Micro L4/2 Pathological Diagnosis A. Small bowel, biopsy: - Small bowel mucosa with no significant histopathology. - No evidence of celiac disease identified. B. Colon, cecum, polypectomy: - Tubular adenoma. Clinical Information Iron deficient anemia, cecal polyp, rule out celiac disease. Gross Description Part A is received in formalin labeled with the patients name, date of , and Sm bowel BX are two hauser-villalba, focally erythematous, friable, 0.3 and 0.4 cm in greatest dimension tissue bits. The specimen is entirely submitted in a single cassette. (1, ns, [id number] A) JG Part B is received in formalin labeled with the patients name, date of , and cecal polyp is a hauser-villalba, focally erythematous, friable, 0.5 cm in greatest dimension polypoid fragment. The specimen is entirely submitted in a single cassette. (1, ns, [id number] B) JG Specimen: [id number] Received: 07/18/24 Status: JALIL Neville Num: [id number] Spec Type: Surgical Subm Dr: Maxx Doss MD Tissues: A Small Intestine - Biopsy/Polyp (SM BOWEL BX R/O CELIAC) B Colon Biopsy (CECAL POLYP) Procedures: PRABHA/Elsa, Gross/Micro L4/2 Patient: Flores Sierra [id number] (Continued) Specimen: Received: 07/18/24 (Continued) Signed (signature on file) Ibrahima Hand MD 07/21/24 1022 Specimen: Received: 07/18/24 Status: JALIL Kelin Num: [id number] Spec Type: Surgical Subm Dr: Maxx Doss MD Tissues: A Small Intestine - Biopsy/Polyp (SM BOWEL BX R/O CELIAC) B Colon Biopsy (CECAL POLYP) Procedures: PRABHA/Elsa, Gross/Melisa L4/2 Patient: Flores Sierra [id number] (Continued) Specimen: Received: 07/18/24 (Continued) Microscopic Description A B: Microscopic examination is performed CPT Codes 50254 x2 Specimen: [id number] Received: 07/18/24 Status: JALIL Neville Num: [id number] Spec Type: Surgical Subm Dr: Maxx Doss MD Tissues: A Small Intestine - Biopsy/Polyp (SM BOWEL BX R/O CELIAC) B Colon Biopsy (CECAL POLYP) Procedures: PRABHA/Elsa, Gross/Micro L4/2 Patient: Flores Sierra [id number] (Continued) Signed (signature on file) Ibrahima Hand MD 07/21/24 1022 Normal [facility] Basophils Auto (Bld) [#/Vol] on 05-30-2024 Basophils (Bld) [#/Vol] Automated basoph il count 0.0-0.1 [facility] Basophils/100 WBC Auto (Bld) on 05-30-2024 Basophils/100 WBC (Bld) Automated basophil % 0. 2-2.0 [facility] Cholesterol in LDL Calc [Mas s/Vol]on 05-30-2024 Cholesterol in LDL [Mass/Vol] Cholesterol in LDL [Mass/volume] in Serum or Plasma by calculation [facility] Comment on above: <100 mg/dl [id number] 0-129 mg/dl NEAR OR ABOVE [id number] mg/dl BORDERLINE [id number] mg/dl HIGH>190 mg/dl VERY HIGH Cholesterol in VLDL Calc [Ma ss/Vol]on 05-30-2024 Cholesterol in VLDL [Mass/Vol] Cholesterol in VLDL [Mass/volume] in Serum or Plasma by calculation [facility] Eosinophils/100 WBC Auto (Bl d)on 05-30-2024 Eosinophils/100 WBC (Bld) Automated eosinophil % High 0.9-7.0 [facility] Erythrocyte distribution wid th Auto (RBC) [Ratio]on 05-30-2024 Erythrocyte distribution width (RBC) [Ratio] Erythrocyte distribution width [Ratio] by Automated count 11.0-15.0 [facility] Estimated glomerular filtrat ion rate (GFR) non- Americanon 05-30-2024 GFR/1.73 sq M.predicted among non-blacks MDRD (S/P/Bld) [Vol rate/Area] Estimated glomerular filtration rate (GFR) non- >=60 mL/min/1.73m 2 [facility] Globulin Calc (S) [Mass/Vol] on 05-30-2024 Globulin (S) [Mass/Vol] Serum globulin measurement by calculation (mass/volume) [facility] Hematocrit Auto (Bld) [Volum e fraction]on 05-30-2024 Hematocrit (Bld) [Volume fraction] Hematocrit [Volume Fraction] of Blood by Automated count Low 42.0-54.0 [facility] Hemoglobin [Mass/volume] in Bloodon 05-30-2024 Hemoglobin (Bld) [Mass/Vol] Hemoglobin [Mass/volume] in Blood Low 14.0-18.0 [facility] Iron binding capacity [Mass/ volume] in Serum or Plasmaon 05-30-2024 Iron binding capacity [Mass/Vol] Iron binding capacity [Mass/volume] in Serum or Plasma 250.0-450.0 [facility] Iron saturation [Mass Fracti on] in Serum or Plasmaon 05-30-2024 Iron saturation [Mass fraction] Iron saturation [Mass Fraction] in Serum or Plasma [facility] Laboratory - Chemistry and C hemistry - challengeon 05-30-2024 Albumin [Mass/Vol] 3.7 g/dL 3.4-5.0 [facility] ALP [Catalytic activity/Vol] 89 U/L 46-116 [facility] ALT [Catalytic activity/Vol] 27 U/L 16-63 [facility] AST [Catalytic activity/Vol] 21 U/L 15-37 [facility] Bilirubin [Mass/Vol] 0.5 mg/dL 0.2-1.0 [facility] Calcium [Mass/Vol] 8.7 mg/dL 8.5-10.1 [facility] Chloride [Moles/Vol] 104 mmol/L 98-107 [facility] Cholesterol [Mass/Vol] 155 mg/dL <=200 [facility] Cholesterol in HDL [Mass/Vol] 49 mg/dL 40-60 [facility] Comment on above: > or =60 mg/dl - LOW CARDIOVASCULAR RISK<40 mg/dl - HIGH CARDIOVASCULAR RISK CO2 [Moles/Vol] 24.3 mmol/L 21.0-32.0 [facility] Cobalamin (Vitamin B12) [Mass/Vol] 529 pg/mL 232-1245 [facility] Comment on above: Performed at: - [id number] [id number] Director: Yaya Gant PhD, Phone: [phone] Creatinine [Mass/Vol] 1.17 mg/dL 0.70-1.30 [facility] Ferritin [Mass/Vol] 123.0 ng/mL 26.0-388.0 [facility] GFR/1.73 sq M.predicted MDRD (S/P/Bld) [Vol rate/Area] mL/min/{1.73_m2} >=60 mL/min/1.73m 2 [facility] Glucose [Mass/Vol] 118 mg/dL High 74-106 [facility] Iron [Mass/Vol] 53.0 ug/dL Low 65.0-175.0 [facility] Potassium [Moles/Vol] 4.1 mmol/L 3.5-5.1 [facility] Protein [Mass/Vol] 7.0 g/dL 6.4-8.2 [facility] Sodium [Moles/Vol] 141 mmol/L 136-145 [facility] Triglyceride [Mass/Vol] 204 mg/dL High <=150 F [facility] TSH Qn 1.707 m[IU]/L 0.358-3.740 [facility] Urea nitrogen [Mass/Vol] 12.0 mg/dL 7.0-18.0 [facility] Urea nitrogen/Creatinine [Mass ratio] 10.3 mg/mg [facility] Laboratory - Hematology and Cell countson 05-30-2024 Immature granulocytes/100 WBC (Bld) 0.2 % 0.0-0.5 [facility] Leukocytes [#/volume] correc flores for nucleated erythrocytes in Blood by Automated counon 05-30-2024 WBC corrected for nucl RBC Auto (Bld) [#/Vol] Leukocytes [#/volume] corrected for nucleated erythrocytes in Blood by Automated coun 4.0-11.0 [facility] Lymphocytes Auto (Bld) [#/Vo l]on 05-30-2024 Lymphocytes (Bld) [#/Vol] Lymphocytes [#/volume] in Blood by Automated count Low 1.2-3.8 [facility] Lymphocytes/100 WBC Auto (Bl d)on 05-30-2024 Lymphocytes/100 WBC (Bld) Lymphocytes/100 leukocytes in Blood by Automated count Low 20.5-60.0 [facility] MCH Auto (RBC) [Entitic mass ]on 05-30-2024 MCH (RBC) [Entitic mass] MCH [Entitic ma ss] by Automated count 25.9-34.0 [facility] MCHC Auto (RBC) [Mass/Vol]on 05-30-2024 MCHC (RBC) [Mass/Vol] MCHC [Mass/volume] by Automated count 29.9-35.2 [facility] MCV Auto (RBC) [Entitic vol] on 05-30-2024 MCV (RBC) [Entitic vol] MCV [Entitic vol ume] by Automated count 80.0-94.0 [facility] Monocytes Auto (Bld) [#/Vol] on 05-30-2024 Monocytes (Bld) [#/Vol] Automated blood monocyte count 0.3-0.8 [facility] Monocytes/100 WBC Auto (Bld) on 05-30-2024 Monocytes/100 WBC (Bld) Automated monocyte % 1. 7-12.0 [facility] Neutrophils Auto (Bld) [#/Vo l]on 05-30-2024 Neutrophils (Bld) [#/Vol] Neutrophils [#/volume] in Blood by Automated count 1.4-6.5 [facility] Neutrophils/100 WBC Auto (Bl d)on 05-30-2024 Neutrophils/100 WBC (Bld) Automated neutrophil % 43.0-75.0 [facility] No Panel Informationon 05-30 Eosinophils # (Auto) 0.6 10 3/uL 0.0-0.7 [facility] Folate 12.40 ng/mL 8.60-58.90 [facility] Immature Granulocyte # (Auto) 0.01 10 3/uL 0.00-0.03 [facility] Prostate Specific Antigen Screen 1.01 ng/mL <=4.00 [facility] Platelet mean volume Auto (B ld) [Entitic vol]on 05-30-2024 Platelet mean volume (Bld) [Entitic vol] Platelet mean volume [Entitic volume] in Blood by Automated count 9.5-13.5 [facility] Platelets Auto (Bld) [#/Vol] on 05-30-2024 Platelets (Bld) [#/Vol] Platelets [#/vol ume] in Blood by Automated count 150-450 [facility] RBC Auto (Bld) [#/Vol]on RBC (Bld) [#/Vol] Erythrocytes [#/volume] in Blood by Automated count Low 4.70-6.10 [facility] Serum or plasma albumin/glob ulin mass ratioon 05-30-2024 Albumin/Globulin [Mass ratio] Serum or plasma albumin/globulin mass ratio [facility] Serum or plasma anion gap de terminationon 05-30-2024 Anion gap [Moles/Vol] Serum or plasma anion gap determination [facility] Serum or plasma total choles terol/high density lipoprotein (HDL) cholesterol mass roxi 05-30-2024 Cholesterol.total/Choles terol in HDL [Mass ratio] Serum or plasma total cholesterol/high density lipoprotein (HDL) cholesterol mass rat [facility] Comment on above: 3.3 - 4.4 LOW RISK4. 4 - 7.1 AVERAGE RISK7.1 - 11.0 MODERATE RISK>11.0 HIGH RISK Basophils/100 WBC Manual cnt (Bld)on 02-05-2024 Basophils/100 WBC (Bld) 2.0 % 0.2-2.0 [facility] Eosinophils/100 WBC Manual c nt (Bld)on 02-05-2024 Eosinophils/100 WBC (Bld) 5.0 % 0.9-7.0 [facility] Erythrocyte distribution wid th Auto (RBC) [Ratio]on 02-05-2024 Erythrocyte distribution width (RBC) [Ratio] 13.5 % 11.0-15.0 [facility] Hematocrit Auto (Bld) [Volum e fraction]on 02-05-2024 Hematocrit (Bld) [Volume fraction] 36.6 % Low 42.0-54.0 [facility] Hemoglobin [Mass/volume] in Bloodon 02-05-2024 Hemoglobin (Bld) [Mass/Vol] 11.7 g/dL Low 14.0-18.0 [facility] Laboratory - Hematology and Cell countson 02-05-2024 Lymphocytes/100 WBC (Bld) 14.0 % Low 20.5-60.0 [facility] Monocytes/100 WBC (Bld) 5.0 % 1.7-12.0 [facility] Leukocytes [#/volume] correc flores for nucleated erythrocytes in Blood by Automated counon 02-05-2024 WBC corrected for nucl RBC Auto (Bld) [#/Vol] 4.7 10 3/uL 4.0-11.0 [facility] MCH Auto (RBC) [Entitic mass ]on 02-05-2024 MCH (RBC) [Entitic mass] 28.9 pg 25.9-34.0 [facility] MCHC Auto (RBC) [Mass/Vol]on 02-05-2024 MCHC (RBC) [Mass/Vol] 32.0 g/dL 29.9-35.2 [facility] MCV Auto (RBC) [Entitic vol] on 02-05-2024 MCV (RBC) [Entitic vol] 90.4 fL 80.0-94.0 [facility] No Panel Informationon 02-04 Absolute Basophils (Manual) 0.09 10 3/uL 0.00-0.10 [facility] Eosinophils # (Manual) 0.23 10 3/uL 0.00-0.70 [facility] Lymphocytes # (Manual) 0.65 10 3/uL Low 1.20-3.80 [facility] Monocytes # (Manual) 0.23 10 3/uL Low 0.30-0.[address] [facility] Segmented Neutrophils # (Manual) 3.47 10 3/uL 1.4-6.5 [facility] Platelet mean volume Auto (B ld) [Entitic vol]on 02-05-2024 Platelet mean volume (Bld) [Entitic vol] 10.4 fL 9.5-13.5 [facility] Platelets Auto (Bld) [#/Vol] on 02-05-2024 Platelets (Bld) [#/Vol] 156 10 3/uL 150-450 [facility] RBC Auto (Bld) [#/Vol]on RBC (Bld) [#/Vol] 4.05 10 6/uL Low 4.70-6.10 [facility] Segmented neutrophils/100 WB C Manual cnt (Bld)on 02-05-2024 Segmented neutrophils/100 WBC (Bld) 74.0 % 43.0-75.0 [facility] Cholesterol in LDL Calc [Mas s/Vol]on 11-30-2023 Cholesterol in LDL [Mass/Vol] 70.6 mg/dL [facility] Comment on above: <100 mg/dl [id number] 0-129 mg/dl NEAR OR ABOVE [id number] mg/dl BORDERLINE [id number] mg/dl HIGH>190 mg/dl VERY HIGH Cholesterol in VLDL Calc [Ma ss/Vol]on 11-30-2023 Cholesterol in VLDL [Mass/Vol] 27.4 mg/dL [facility] Laboratory - Chemistry and C hemistry - challengeon 11-30-2023 Cholesterol [Mass/Vol] 149 mg/dL <=[address] [facility] Cholesterol in HDL [Mass/Vol] 51 mg/dL 40-60 [facility] Comment on above: > or =60 mg/dl - LOW CARDIOVASCULAR RISK<40 mg/dl - HIGH CARDIOVASCULAR RISK Triglyceride [Mass/Vol] 137 mg/dL <=150 [facility] Serum or plasma total choles terol/high density lipoprotein (HDL) cholesterol mass roxi 11-30-2023 Cholesterol.total/Choles terol in HDL [Mass ratio] 2.9 {ratio} [facility] Comment on above: 3.3 - 4.4 LOW RISK4. 4 - 7.1 AVERAGE RISK7.1 - 11.0 MODERATE RISK>11.0 HIGH RISK US Heart TransthoracicOrdere d By: Sal Dorman on 07-04-2023 LV A4C EF 70.3 [place] Work Phone: LVIDd 5.80 [place] Work Phone: LVOT diam 2.60 [place] Work Phone: [place] Work Phone: Heart Transthoracicon [address], [address] [place] [address] TRANSTHORACIC ECHOCARDIOGRAM REPORT Patient Name: FLORES Huizar Physician: [id number] Sal Dorman MD, [facility] Study Date: 07/03/2023 Ordering Provider: [id number] CONRAD FARRELL MRN/PID: [id number] Fellow: Nurse: Date of /Age: 2 1960 / 62 years Straightening Roll Operator: Araseli Smith RDCS, RVDex Gender: M Additional Staff: Height: 172.72 cm Admit Date: Weight: 86.18 kg Admission Status: BSA: 2.00 m2 Department Location: [facility] Blood Pressure: 136 /82 mmHg Study Type: TRANSTHORACIC ECHO (TTE) LIMITED Diagnosis/ICD: Other ill defined heart diseases-I51.89 Indication: CAD, DE and PTCA-11/2022, Dyspnea on Exertion, Former Smoker, Ischemic Cardiomyopathy CPT Codes: Echo Limited-31346 Study Detail: The following Echo studies were [...] Normal Ranges: LVOT Diameter: 2.60 cm (1.8-2.4cm) [id number] Sal Dorman MD, [facility] Electronically signed on 07/04/2023 at 1:42:19 PM Final Sal Schmidt MD - 07/04/[address], [address] [place] [address] TRANSTHORACIC ECHOCARDIOGRAM REPORT Patient Name: FLORES SIERRA Gaye Physician: [id number] Sal Dorman MD, [facility] Study Date: 07/03/2023 Ordering Provider: [id number] CONRAD FARRELL MRN/PID: [id number] Fellow: Nurse: Date of /Age: 2 1960 / 62 years Straightening Roll Operator: Araseli Smith RDCS, T Gender: M Additional Staff: Height: 172.72 cm Admit Date: Weight: 86.18 kg Admission Status: BSA: 2.00 m2 Department Location: [facility] Blood Pressure: 136 /82 mmHg Study Type: TRANSTHORACIC ECHO (TTE) LIMITED Diagnosis/ICD: Other ill defined heart diseases-I51.89 Indication: CAD, DE and PTCA-11/2022, Dyspnea on Exertion, Former Smoker, Ischemic Cardiomyopathy CPT Codes: Echo Limited-19642 Study Detail: The following Echo studies were [...] Normal Ranges: LVOT Diameter: 2.60 cm (1.8-2.4cm) [id number] Sal Dorman MD, FACC Electronically signed on 07/04/2023 at 1:42:19 PM Final [place] Work Phone: TRANSTHORACIC ECHO (TTE) JUNIOR Metcalf 07-03-2023 TRANSTHORACIC ECHO (TTE) LIMITED [facility] [address] [place] [address], [address], [place] [address] TRANSTHORACIC ECHOCARDIOGRAM REPORT Patient Name: FLORES SIERRA Reading Physician: [id number] Sal Dorman MD, [facility] Study Date: 07/03/2023 Ordering Provider: [id number] CONRAD Mele RAMOS MRN/PID: [id number] Fellow: Nurse: Date of /Age: 2 1960 / 62 years Straightening Roll Operator: Araseli Smith RDCS, RVT Gender: M Additional Staff: Height: 172.72 cm Admit Date: Weight: 86.18 kg Admission Status: BSA: 2.00 m2 Department Location: [facility] Blood Pressure: 136 /82 mmHg Study Type: TRANSTHORACIC ECHO (TTE) LIMITED Diagnosis/ICD: Other ill defined heart diseases-I51.89 Indication: CAD, DE and PTCA-11/2022, Dyspnea on Exertion, Former Smoker, Ischemic Cardiomyopathy CPT Codes: Echo Limited-26937 Study Detail: The following Echo studies were [...] Normal Ranges: LVOT Diameter: 2.60 cm (1.8-2.4cm) [id number] Sal Dorman MD, FACC Electronically signed on 07/04/2023 at 1:42:19 PM Final [facility] Office Visit (Cardiology)on 12-06-2022 Follow-up [...] Weight Tips; Status:Complete - Retrospective Authorization; Done: [id number] Cardiac Rehab Referral Evaluation and Treatment Evaluate AND Treat Status: Hold For - Scheduling,Retrospec tive Authorization Requested for: [id number] Agreement : I agree to have my [...] lose weight.; Status:Complete - Retrospective Authorization; Done: [id number] SocHx: Former smoker Tobacco Use Screening; Status:Complete; Done: [id number] Patient Instructions Please bring all medicines, vitamins, [...] is being seen for a 2-3 weeks [facility] follow-up of. Patient is a 62-year-old gentleman returns for follow-up following recent large anterior STEMI with revascularization of the proximal LAD with 3.5 x 15 mm Moris stent without complications. Ejection fraction subsequently measured by echo was 45% confirmed by angiography as well He works at [employer] is anxious to get back to working [...] Signs Recorded (more content not included)... Normal [employer] Tobacco Screening.on 023 Adult depression screening assessment No [facility] y 250 DO Work Phone: Fall risk assessment a) No falls within the last year [facility] [employer] y 250 DO Work Phone: Tobacco use status CP b) No [facility] [employer] y 250 DO Work Phone: Alanine aminotransferase [En zymatic activity/volume] in Serum or PlasmaOrdered By: Ottoniel Luis on 11-20-2022 ALT [Catalytic activity/Vol] 18 U/L 7-52 [facility] Albumin [Mass/volume] in Ser um or Plasma by Bromocresol green (BCG) dye binding methoOrdered By: Ottoniel Luis on 11-20-2022 Albumin BCG dye [Mass/Vol] 3.8 g/dL 3.5-5.7 [facility] Alkaline phosphatase [Enzyma tic activity/volume] in Serum or PlasmaOrdered By: Ottoniel Luis 11-20-2022 ALP [Catalytic activity/Vol] 40 U/L 34-104 [facility] Aspartate aminotransferase [ Enzymatic activity/volume] in Serum or PlasmaOrdered By: Ottoniel Luis 11-20-2022 AST [Catalytic activity/Vol] 17 U/L 13-39 [facility] Basophils Auto (Bld) [#/Vol] Ordered By: Ottoniel Luis 11-20-2022 Basophils (Bld) [#/Vol] 0.1 10*3/uL 0.0-0.2 [facility] Basophils/100 WBC Auto (Bld) Ordered By: Ottoniel Luis 11-20-2022 Basophils/100 WBC (Bld) 0.7 % . F [facility] Bilirubin.total [Mass/volume ] in Serum or PlasmaOrdered By: Ottoniel Luis 11-20-2022 Bilirubin [Mass/Vol] 0.3 mg/dL 0.3-1.0 [facility] Calcium [Mass/volume] in Ser um or PlasmaOrdered By: Ottoniel Luis 11-20-2022 Calcium [Mass/Vol] 8.0 mg/dL 8.6-10.3 [facility] Carbon dioxide, total [Moles /volume] in Serum or PlasmaOrdered By: Ottoniel Luis 11-20-2022 CO2 [Moles/Vol] 23.8 mmol/L 21.0-31.0 [facility] Chloride [Moles/volume] in S raj or PlasmaOrdered By: Ottoniel Luis 11-20-2022 Chloride [Moles/Vol] 108 mmol/L 98-107 [facility] Creatinine [Mass/volume] in Serum or PlasmaOrdered By: Ottoniel Luis 11-20-2022 Creatinine [Mass/Vol] 1.24 mg/dL 0.70-1.30 [facility] Eosinophils Auto (Bld) [#/Vo l]Ordered By: Ottoniel Luis on 11-20-2022 Eosinophils (Bld) [#/Vol] 0.2 10*3/uL 0.0-0.45 [facility] Eosinophils/100 WBC Auto (Bl d)Ordered By: Ottoniel Luis on 11-20-2022 Eosinophils/100 WBC (Bld) 2.3 % . [facility] Erythrocyte distribution wid th Auto (RBC) [Ratio]Ordered By: Ottoniel Luis on 11-20-2022 Erythrocyte distribution width (RBC) [Ratio] 13.5 % 12.0-14.8 [facility] Globulin Calc (S) [Mass/Vol] Ordered By: Ottoniel Luis on 11-20-2022 Globulin (S) [Mass/Vol] 2.4 g/dL [facility] Glucose [Mass/volume] in Ser um or PlasmaOrdered By: Ottoniel Luis on 11-20-2022 Glucose [Mass/Vol] 144 mg/dL 70-100 [facility] Comment on above: ADA recommended refe rence rangeRandom Glucose Reference Range is dependent on time and content of last meal. Glucose of more than 200 mg/dL in a nonstressed, ambulatory subject supports the diagnosis of Diabetes Mellitus. Hematocrit Auto (Bld) [Volum e fraction]Ordered By: Ottoniel Luis on 11-20-2022 Hematocrit (Bld) [Volume fraction] 32.9 % 38.8-50.0 [facility] Hemoglobin [Mass/volume] in BloodOrdered By: Ottoniel Luis on 11-20-2022 Hemoglobin (Bld) [Mass/Vol] 11.0 g/dL 13.0-17.0 [facility] Leukocytes [#/volume] correc flores for nucleated erythrocytes in Blood by Automated counOrdered By: Ottoniel Luis on 11-20-2022 WBC corrected for nucl RBC Auto (Bld) [#/Vol] 9.4 10*3/uL 4.1-10.5 [facility] Lymphocytes Auto (Bld) [#/Vo l]Ordered By: Ottoniel Luis on 11-20-2022 Lymphocytes (Bld) [#/Vol] 2.0 10*3/uL 1.00-4.8 [facility] Lymphocytes/100 WBC Auto (Bl d)Ordered By: Ottoniel Luis on 11-20-2022 Lymphocytes/100 WBC (Bld) 21.0 % . [facility] MCH Auto (RBC) [Entitic mass ]Ordered By: Ottoniel Luis on 11-20-2022 MCH (RBC) [Entitic mass] 30.2 pg 27.5-35.2 [facility] MCHC Auto (RBC) [Mass/Vol]Or dered By: Ottoniel Luis on 11-20-2022 MCHC (RBC) [Mass/Vol] 33.4 g/dL 32.5-35.6 [facility] MCV Auto (RBC) [Entitic vol] Ordered By: Ottoniel Luis on 11-20-2022 MCV (RBC) [Entitic vol] 90.3 fL 83.5-101 [facility] Monocytes Auto (Bld) [#/Vol] Ordered By: Ottoniel Luis on 11-20-2022 Monocytes (Bld) [#/Vol] 1.0 10*3/uL 0.0-0.8 [facility] Monocytes/100 WBC Auto (Bld) Ordered By: Ottoniel Luis on 11-20-2022 Monocytes/100 WBC (Bld) 10.6 % . [facility] Natriuretic peptide B [Mass/ Vol]Ordered By: Ottoniel Luis on 11-20-2022 Natriuretic peptide B (Bld) [Mass/Vol] 8.0 pg/mL 5-100 [facility] Neutrophils Auto (Bld) [#/Vo l]Ordered By: Ottoniel Luis on 11-20-2022 Neutrophils (Bld) [#/Vol] 6.1 10*3/uL 1.8-7.7 [facility] Neutrophils/100 WBC Auto (Bl d)Ordered By: Ottoniel Luis on 11-20-2022 Neutrophils/100 WBC (Bld) 65.4 % . [facility] No Panel InformationOrdered By: Ottoniel Luis on 11-20-2022 Estimated GFR (CKD-EPI) > 60.0 mL/Min [facility] Creatinine Clearance (Chem 69.76 [facility] Nucleated erythrocytes [Pres ence] in Blood by Automated countOrdered By: Ottoniel Luis on 11-20-2022 Nucleated RBC Auto Ql (Bld) 0.1 /100{WBC} 0-0.5 [facility] Platelet mean volume Auto (B ld) [Entitic vol]Ordered By: Ottoniel Luis on 11-20-2022 Platelet mean volume (Bld) [Entitic vol] 7.8 fL 6.6-10.1 [facility] Platelets Auto (Bld) [#/Vol] Ordered By: Ottoniel Luis on 11-20-2022 Platelets (Bld) [#/Vol] 218 10*3/uL 150-450 [facility] Potassium [Moles/volume] in Serum or PlasmaOrdered By: Ottoniel Luis on 11-20-2022 Potassium [Moles/Vol] 4.1 mmol/L 3.5-5.1 [facility] Protein [Mass/volume] in Ser um or PlasmaOrdered By: Ottoniel Luis on 11-20-2022 Protein [Mass/Vol] 6.2 g/dL 6.4-8.9 [facility] RBC Auto (Bld) [#/Vol]Ordere d By: Ottoniel Luis on 11-20-2022 RBC (Bld) [#/Vol] 3.65 10*6/uL 3.90-5.60 [facility] Serum or plasma albumin/glob ulin mass ratioOrdered By: Ottoniel Luis on 11-20-2022 Albumin/Globulin [Mass ratio] 1.6 {ratio} [facility] Serum or plasma anion gap de terminationOrdered By: Ottoniel Luis on 11-20-2022 Anion gap [Moles/Vol] 10.3 mmol/L 6.0-15.0 [facility] Sodium [Moles/volume] in Ser um or PlasmaOrdered By: Ottoniel Luis on 11-20-2022 Sodium [Moles/Vol] 138 mmol/L 136-145 [facility] Troponin I.cardiac [Mass/vol ume] in Serum or Plasma by Detection limit <= 0.01 ng/Ordered By: Ottoniel Luis on 11-20-2022 Troponin I.cardiac DL <= 0.01 ng/mL [Mass/Vol] 18.3 pg/mL 0.0-20.0 [facility] Urea nitrogen [Mass/volume] in Serum or PlasmaOrdered By: Ottoniel Luis on 11-20-2022 Urea nitrogen [Mass/Vol] 20 mg/dL 7-25 [facility] WBC Auto (Bld) [#/Vol]Ordere d By: Ottoniel Luis on 11-20-2022 WBC (Bld) [#/Vol] 9.4 10*3/uL 4.1-10.5 [facility] MRI LSPINE WO CONon 11-10-19 23 MRI [...] CAITLYN STODDARD Date: 2022-11-09 17:57 Normal [facility] CBC AUTO DIFFon 05-12-2022 BASO # 0.1 103/ul Normal 0.0-0.1 [facility] Comment on above: Performed By: #### C BC #### [facility] [address] [place] [address] Dr. Isabel Vega Basophils/100 WBC (Bld) 0.8 % Normal 0.2-2.0 [facility] Comment on above: Performed By: #### C BC #### [facility] [address] [place] [address] Dr. Isabel Vega EO # 0.3 103/ul Normal 0.0-0.7 [facility] Comment on above: Performed By: #### C BC #### [facility] [address] [place] [address] Dr. Isabel Vega Eosinophils/100 WBC (Bld) 5.5 % Normal 0.9-7.0 [facility] Comment on above: Performed By: #### C BC #### [facility] [address] [place] [address] Dr. Isabel Vega Erythrocyte distribution width (RBC) [Ratio] 12.9 % Normal 11.0-15.0 [facility] Comment on above: Performed By: #### C BC #### [facility] [address] [place] [address] Dr. Isabel Vega Hematocrit (Bld) [Volume fraction] 37.2 % Critically low 42.0-54.0 [facility] Comment on above: Performed By: #### C BC #### [facility] [address] [place] [address] Dr. Isabel Vega Hemoglobin (Bld) [Mass/Vol] 12.4 g/dL Critically low 14.0-18.0 [facility] Comment on above: Performed By: #### C BC #### [facility] [address] [place] [address] Dr. Isabel Vega IG # 0.02 10e3/ul Normal 0.00-0.03 [facility] Comment on above: Performed By: #### C BC #### [facility] [address] [place] [address] Dr. Isabel Vega IG % 0.3 % Normal 0.0-0.5 [facility] Comment on above: Performed By: #### C BC #### [facility] [address] [place] [address] Dr. Isabel Vega LYMPH # 1.3 103/ul Normal 1.2-3.8 [facility] Comment on above: Performed By: #### C BC #### [facility] [address] [place] [address] Dr. Isabel Vega Lymphocytes/100 WBC (Bld) 20.9 % Normal 20.5-60.0 [facility] Comment on above: Performed By: #### C BC #### [facility] [address] [place] [address] Dr. Isabel Vega MANUAL DIFF REQ NO Normal [facility] Comment on above: Performed By: #### C BC #### [facility] [address] [place] [address] Dr. Isabel Vega MCH (RBC) [Entitic mass] 30.4 pg Normal 25.9-34.0 [facility] Comment on above: Performed By: #### C BC #### [facility] [address] [place] [address] Dr. Isabel Vega MCHC (RBC) [Mass/Vol] 33.3 g/dL Normal 29.9-35.2 [facility] Comment on above: Performed By: #### C BC #### [facility] [address] [place] [address] Dr. Isabel Vega MCV (RBC) [Entitic vol] 91.2 fL Normal 80.0-94.0 [facility] Comment on above: Performed By: #### C BC #### [facility] [address] [place] [address] Dr. Isabel Vega MONO # 0.6 103/ul Normal 0.3-0.8 [facility] Comment on above: Performed By: #### C BC #### [facility] [address] [place] [address] Dr. Isabel Vega Monocytes/100 WBC (Bld) 10.2 % Normal 1.7-12.0 [facility] Comment on above: Performed By: #### C BC #### [facility] [address] [place] [address] [address] Isabel Vega NEUT # 3.8 103/ul Normal 1.4-6.5 [facility] Comment on above: Performed By: #### C BC #### [facility] [address] [place] [address] [address] Isabel Vega Neutrophils/100 WBC (Bld) 62.3 % Normal 43.0-75.0 [facility] Comment on above: Performed By: #### C BC #### [facility] [address] [place] [address] [address] Isabel Vega Platelet mean volume (Bld) [Entitic vol] 9.5 fL Normal 9.5-13.5 [facility] Comment on above: Performed By: #### C BC #### [facility] [address] [place] [address] Dr. Isabel Vega PLT 206 103/ul Normal 150-450 [facility] Comment on above: Performed By: #### C BC #### [facility] [address] [place] [address] [address] Isabel Vega RBC 4.08 106/ul Critically low 4.70-6.10 [facility] Comment on above: Performed By: #### C BC #### [facility] [address] [place] [address] [address] Isabel Vega WBC 6.2 103/ul Normal 4.0-11.0 [facility] Comment on above: Performed By: #### C BC #### [facility] [address] [place] [address] [address] Isabel Vega LIPID PROFILEon 05-12-2022 CHOL-HDL RATIO NORM SEE BELOW Normal [facility] Comment on above: Result Comment: 3.3 - 4.4 LOW RISK 4.4 - 7.1 AVERAGE RISK 7.1 - 11.0 MODERATE RISK >11.0 HIGH RISK Performed By: #### C MP, LIPID #### [facility] [address] [place] [address] Dr. Isabel Vega Cholesterol [Mass/Vol] 169 mg/dL Normal <=200 [facility] Comment on above: Performed By: #### C MP, LIPID #### [facility] [address] [place] [address] [address] Isabel Vega Cholesterol in HDL [Mass/Vol] 50 mg/dL Normal 40-60 [facility] Comment on above: Performed By: #### C MP, LIPID #### [facility] [address] [place] [address] [address] Isabel Vega Cholesterol in LDL [Mass/Vol] 45.4 mg/dL Normal [facility] Comment on above: Performed By: #### C MP, LIPID #### [facility] [address] [place] [address] [address] Isabel Vega Cholesterol.total/Choles terol in HDL [Mass ratio] 3.4 {ratio} Normal [facility] Comment on above: Performed By: #### C MP, LIPID #### [facility] [address] [place] [address] [address] Isabel Vega HDL NORMAL > or = 60 mg/dl - LOW CARDIOVASCULAR RISK <40 mg/dl - HIGH CARDIOVASCULAR RISK Normal [facility] Comment on above: Performed By: #### C MP, LIPID #### [facility] [address] [place] [address] Dr. Isabel Vega LDL CALC NORMAL SEE BELOW Normal [facility] Comment on above: Result Comment: <100 mg/dl OPTIMAL 100 - 129 mg/dl NEAR OR ABOVE OPTIMAL 130 - 159 mg/dl BORDERLINE HIGH 160 - 189 mg/dl HIGH >190 mg/dl VERY HIGH Performed By: #### C MP, LIPID #### [facility] [address] [place] [address] [address] Isabel Vega Triglyceride [Mass/Vol] 368 mg/dL Critically high <=150 [facility] Comment on above: Performed By: #### C MP, LIPID #### [facility] [address] [place] [address] [address] Isabel Vega VLDL CALC 73.6 mg/dL Normal [facility] Comment on above: Performed By: #### C MP, LIPID #### [facility] [address] [address] [address] Isabel Vega PROF 14(COMP METB)on 022 Albumin [Mass/Vol] 4.1 g/dL Normal 3.4-5.0 [facility] Comment on above: Performed By: #### C MP, LIPID #### [facility] [address] [address] [address] Isabel Vega Albumin/Globulin [Mass ratio] 1.1 {ratio} Normal [facility] Comment on above: Performed By: #### C MP, LIPID #### [facility] [address] [address] [address] Isabel Vega ALP [Catalytic activity/Vol] 62 U/L Normal 46-116 [facility] Comment on above: Performed By: #### C MP, LIPID #### [facility] [address] [place] [address] Dr. Isabel Vega ALT [Catalytic activity/Vol] 30 U/L Normal 16-63 [facility] Comment on above: Performed By: #### C MP, LIPID #### [facility] [address] [place] [address] Dr. Isabel Vega Anion gap [Moles/Vol] 10.5 mmol/L Normal [facility] Comment on above: Performed By: #### C MP, LIPID #### [facility] [address] [place] [address] Dr. Isabel Vega AST [Catalytic activity/Vol] 17 U/L Normal 15-37 [facility] Comment on above: Performed By: #### C MP, LIPID #### [facility] [address] [place] [address] Dr. Isabel Vega Bilirubin [Mass/Vol] 0.4 mg/dL Normal 0.2-1.0 [facility] Comment on above: Performed By: #### C MP, LIPID #### [facility] [address] [place] [address] Dr. Isabel Vega Calcium [Mass/Vol] 9.4 mg/dL Normal 8.5-10.1 [facility] Comment on above: Performed By: #### C MP, LIPID #### [facility] [address] [address] [address] Isabel Vega Chloride [Moles/Vol] 103 mmol/L Normal 98-107 [facility] Comment on above: Performed By: #### C MP, LIPID #### [facility] [address] [place] [address] Dr. Isabel Vega CO2 [Moles/Vol] 27.3 mmol/L Normal 21.0-32.0 [facility] Comment on above: Performed By: #### C MP, LIPID #### [facility] [address] [place] [address] Dr. Isabel Vega Creatinine [Mass/Vol] 0.98 mg/dL Normal 0.70-1.30 [facility] Comment on above: Performed By: #### C MP, LIPID #### [facility] [address] [place] [address] Dr. Isabel Vega EGFR-AF ISRAELI >60 Normal >=60 [facility] Comment on above: Performed By: #### C MP, LIPID #### [facility] [address] [place] [address] Dr. Isabel Vega EGFR-NON AF ISRAELI >60 Normal >=60 [facility] Comment on above: Performed By: #### C MP, LIPID #### [facility] [address] [place] [address] Dr. Isabel Vega Globulin (S) [Mass/Vol] 3.8 g/dL Normal [facility] Comment on above: Performed By: #### C MP, LIPID #### [facility] [address] [place] [address] Dr. Isabel Vega Glucose [Mass/Vol] 108 mg/dL Critically high 74-106 [facility] Comment on above: Performed By: #### C MP, LIPID #### [facility] [address] [place] [address] Dr. Isabel Vega Potassium [Moles/Vol] 4.8 mmol/L Normal 3.5-5.1 [facility] Comment on above: Performed By: #### C MP, LIPID #### [facility] [address] [address] [address] Isabel Vega Protein [Mass/Vol] 7.9 g/dL Normal 6.4-8.2 [facility] Comment on above: Performed By: #### C MP, LIPID #### [facility] [address] [address] [address] Isabel Vega Sodium [Moles/Vol] 136 mmol/L Normal 136-145 [facility] Comment on above: Performed By: #### C MP, LIPID #### [facility] [address] [address] [address] Isabel Vega Urea nitrogen [Mass/Vol] 14.0 mg/dL Normal 7.0-18.0 [facility] Comment on above: Performed By: #### C MP, LIPID #### [facility] [address] [address] [address] Isabel Vega Urea nitrogen/Creatinine [Mass ratio] 14.3 mg/mg Normal [facility] Comment on above: Performed By: #### C MP, LIPID #### [facility] [address] [address] [address] Isabel Vega XR LSPINE 2_3 VIEWSon [...] by: CAITLYN STODDARD Date: 2022-05-12 17:27 Normal [facility] Vital Signs Date Time Vital Sign Value Performing Clinician Facility 09-12-2024 13:31-0500 Body height 170.18 cm Saman Backlift Work Phone: [facility] 09-12-2024 13:31-0500 Body mass index (BMI) [Ratio] 31.8 kg/m2 Saman Backlift Work Phone: [facility] 09-12-2024 13:31-0500 Body weight 92.24 kg Saman Ball DO Work Phone: [facility] 09-12-2024 13:31-0500 Diastolic blood pressure 83 mm[Hg] Saman Ball DO Work Phone: [facility] 09-12-2024 13:31-0500 Heart rate 72 /min Saman Ball DO Work Phone: [facility] 09-12-2024 13:31-0500 Respiratory rate 12 /min Saman Ball DO Work Phone: [facility] 09-12-2024 13:31-0500 Systolic blood pressure 141 mm[Hg] Saman Ball DO Work Phone: [facility] 09-06-2024 14:05-0500 Body height 170.18 cm Saman Ball DO Work Phone: [facility] 09-06-2024 14:05-0500 Body mass index (BMI) [Ratio] 31.6 kg/m2 Saman Ball DO Work Phone: [facility] 09-06-2024 14:05-0500 Body temperature 98.3 [degF] Saman Ball DO Work Phone: [facility] 09-06-2024 14:05-0500 Body weight 91.62 kg Saman Ball DO Work Phone: [facility] 09-06-2024 14:05-0500 Diastolic blood pressure 74 mm[Hg] Saman Ball DO Work Phone: [facility] 09-06-2024 14:05-0500 Heart rate 68 /min Saman Ball DO Work Phone: [facility] 09-06-2024 14:05-0500 Respiratory rate 18 /min Saman Ball DO Work Phone: [facility] 09-06-2024 14:05-0500 SaO2% (BldA) [Mass fraction] 98 % Saman Ball DO Work Phone: [facility] 09-06-2024 14:05-0500 Systolic blood pressure 114 mm[Hg] Saman Ball DO Work Phone: [facility] 08-14-2024 13:40-0500 Body height 172.7 cm Conrad Farrell DO Work Phone: [place] 08-14-2024 13:40-0500 Body mass index (BMI) [Ratio] 29.8 kg/m2 Conrad Farrell DO Work Phone: [place] 08-14-2024 13:40-0500 Body weight 88.91 kg Conrad Farrell DO Work Phone: [place] 08-14-2024 13:40-0500 Diastolic blood pressure 68 mm[Hg] Conrad Farrell DO Work Phone: [place] 08-14-2024 13:40-0500 Heart rate 68 /min Conrad Farrell DO Work Phone: [place] 08-14-2024 13:40-0500 Systolic blood pressure 116 mm[Hg] Conrad Farrell DO Work Phone: [place] 07-18-2024 10:42-0500 Diastolic blood pressure 85 mm[Hg] Saman Ball DO Work Phone: [facility] 07-18-2024 10:42-0500 Heart rate 63 /min Saman Ball DO Work Phone: [facility] 07-18-2024 10:42-0500 Respiratory rate 16 /min Saman Ball DO Work Phone: [facility] 07-18-2024 10:42-0500 SaO2% (BldA) [Mass fraction] 99 % Saman Ball DO Work Phone: [facility] 07-18-2024 10:42-0500 Systolic blood pressure 119 mm[Hg] Saman Ball DO Work Phone: [facility] 07-18-2024 09:22-0500 Body height 170.18 cm Saman Ball DO Work Phone: [facility] 07-18-2024 09:22-0500 Body weight 90.71 kg Saman Ball DO Work Phone: [facility] 05-23-2024 10:00-0500 Body height 172.[address] [facility] 05-23-2024 10:00-0500 Body mass index (BMI) [Ratio] 31.3 kg/m2 [facility] 05-23-2024 10:00-0500 Body weight 93.[address] [facility] 05-23-2024 10:00-0500 Diastolic blood pressure 80 mm[Hg] [facility] 05-23-2024 10:00-0500 Heart rate 90 /min [facility] 05-23-2024 10:00-0500 Respiratory rate 16 /min [facility] 05-23-2024 10:00-0500 Systolic blood pressure 134 mm[Hg] [facility] 02-06-2024 15:29-0400 Body height 172.[address] [facility] 02-06-2024 15:29-0400 Body mass index (BMI) [Ratio] 30.2 kg/m2 [facility] 02-06-2024 15:29-0400 Body weight 90.[address] [facility] 02-06-2024 15:29-0400 Diastolic blood pressure 84 mm[Hg] [facility] 02-06-2024 15:29-0400 Heart rate 75 /min [facility] 02-06-2024 15:29-0400 Respiratory rate 12 /min [facility] 02-06-2024 15:29-0400 Systolic blood pressure 135 mm[Hg] [facility] 11-22-2023 12:16-0400 Diastolic blood pressure 100 mm[Hg] Conrad Farrell DO Work Phone: [place] 11-22-2023 12:16-0400 Systolic blood pressure 148 mm[Hg] Conrad Farrell DO Work Phone: [place] 11-22-2023 11:34-0400 Body height 172.7 cm Conrad Farrell DO Work Phone: [place] 11-22-2023 11:34-0400 Body mass index (BMI) [Ratio] 29.8 kg/m2 Conrad Farrell DO Work Phone: [place] 11-22-2023 11:34-0400 Body weight 88.91 kg Conrad Farrell DO Work Phone: [place] 11-22-2023 11:34-0400 Heart rate 62 /min Conrad Farrell DO Work Phone: [place] 11-12-2023 16:09-0400 Body height 172.[address] [facility] 11-12-2023 16:09-0400 Body mass index (BMI) [Ratio] 30.2 kg/m2 [facility] 11-12-2023 16:09-0400 Body weight 90.[address] [facility] 11-12-2023 16:09-0400 Diastolic blood pressure 86 mm[Hg] [facility] 11-12-2023 16:09-0400 Heart rate 71 /min [facility] 11-12-2023 16:09-0400 Respiratory rate 12 /min [facility] 11-12-2023 16:09-0400 Systolic blood pressure 134 mm[Hg] [facility] 07-03-2023 11:39-0500 Body height 172.[address] 07-03-2023 11:39-0500 Body mass index (BMI) [Ratio] 28.89 kg/m2 [address] 07-03-2023 11:39-0500 Body weight 86.[address] 07-03-2023 11:39-0500 Diastolic blood pressure 82 mm[Hg] [address] 07-03-2023 11:39-0500 Systolic blood pressure 136 mm[Hg] [address] 05-24-2023 11:42-0500 Diastolic blood pressure 78 mm[Hg] Conrad Farrell DO Work Phone: [place] 05-24-2023 11:42-0500 Systolic blood pressure 126 mm[Hg] Conrad Farrell DO Work Phone: [place] 05-24-2023 11:18-0500 Body height 172.7 cm Conrad Farrell DO Work Phone: [place] 05-24-2023 11:18-0500 Body mass index (BMI) [Ratio] 28.89 kg/m2 Conrad Farrell DO Work Phone: [place] 05-24-2023 11:18-0500 Body weight 86.18 kg Conrad Farrell DO Work Phone: [place] 05-24-2023 11:18-0500 Heart rate 60 /min Conrad Farrell DO Work Phone: [place] 05-14-2023 08:30-0500 Body height 172.72 cm Saman Ball Other [employer] Other 05-14-2023 08:30-0500 Body mass index (BMI) [Ratio] 29.1 kg/m2 Saman Ball Other [employer] Other 05-14-2023 08:30-0500 Body weight 86.82 kg Saman Ball Other [employer] Other 05-14-2023 08:30-0500 Diastolic blood pressure 79 mm[Hg] Saman Ball Other [employer] Other 05-14-2023 08:30-0500 Respiratory rate 16 /min Saman Ball Other [employer] Other 05-14-2023 08:30-0500 Systolic blood pressure 134 mm[Hg] Saman Ball Other [employer] Other 01-03-2023 15:15-0400 Body height 172.72 cm Saman Ball Other [employer] Other 01-03-2023 15:15-0400 Body mass index (BMI) [Ratio] 28.92 kg/m2 Saman Ball Other [employer] Other 01-03-2023 15:15-0400 Body weight 86.27 kg Saman Ball Other [employer] Other 01-03-2023 15:15-0400 Diastolic blood pressure 87 mm[Hg] Saman Ball Other [employer] Other 01-03-2023 15:15-0400 Respiratory rate 12 /min Saman Ball Other [employer] Other 01-03-2023 15:15-0400 Systolic blood pressure 122 mm[Hg] Saman Ball Other [employer] Other 12-06-2022 11:58-0400 Body height 172.72 cm Saman E Ball Work Phone: [employer] DO Work Phone: 12-06-2022 11:58-0400 Body mass index (BMI) [Ratio] 29.19 kg/m2 Saman E Ball Work Phone: [facility] [employer] DO Work Phone: 12-06-2022 11:58-0400 Body surface area Derived from formula 2.01 m2 Saman E Ball Work Phone: [employer] DO Work Phone: 12-06-2022 11:58-0400 Body weight 87.09 kg Saman E Ball Work Phone[facility] [employer] DO Work Phone: 12-06-2022 11:58-0400 Diastolic blood pressure 60 mm[Hg] Saman E Ball Work Phone: [facility] 250 DO Work Phone: 12-06-2022 11:58-0400 Heart rate 80 /min Saman E Ball Work Phone: [facility] 250 DO Work Phone: 12-06-2022 11:58-0400 Systolic blood pressure 134 mm[Hg] Saman E Ball Work Phone: [facility] [facility] DO Work Phone: 11-20-2022 17:20-0400 Body temperature 97.9 [degF] PA-Gary Luis Work Phone: [facility] 11-20-2022 17:20-0400 Diastolic blood pressure 89 mm[Hg] PA-Gary Luis Work Phone: [facility] 11-20-2022 17:20-0400 Heart rate 81 /min PA-Gary Luis Work Phone: [facility] 11-20-2022 17:20-0400 Respiratory rate 18 /min PA-C Ottoniel Luis Work Phone: [facility] 11-20-2022 17:20-0400 SaO2% (BldA) [Mass fraction] 98 % PA-C Ottoniel Luis Work Phone: [facility] 11-20-2022 17:20-0400 Systolic blood pressure 134 mm[Hg] PA-Gary Luis Work Phone: [facility] 11-20-2022 15:53-0400 Body height 172.72 cm PA-Gary Luis Work Phone: [facility] 11-20-2022 15:53-0400 Body weight 94.5 kg RICARDO-Gary Luis Work Phone: [facility] 11-07-2022 16:30-0400 Body height 172.72 cm Saman Schaffer Other [facility] [employer] Other 11-07-2022 16:30-0400 Body mass index (BMI) [Ratio] 31.41 kg/m2 Saman Ball Other [employer] Other 11-07-2022 16:30-0400 Body weight 93.71 kg Saman Schaffer Other [employer] Other 11-07-2022 16:30-0400 Diastolic blood pressure 92 mm[Hg] Saman Schaffer Other [facility] [employer] Other 11-07-2022 16:30-0400 Respiratory rate 12 /min Saman Schaffer Other [employer] Other 11-07-2022 16:30-0400 Systolic blood pressure 151 mm[Hg] Saman Schaffer Other [facility] [employer] Other Encounters Encounter Date Encounter Type Care Provider Facility Start: 09-12-2024 End: 09-12-2024 ambulatory Saman Ball DO Work Phone: [facility] Work Phone: Start: 09-12-2024 End: 09-12-2024 Patient encounter procedure Saman Ball DO Work Phone: [facility] Work Phone: Start: 09-06-2024 End: 09-06-2024 ambulatory Saman Ball DO Work Phone: [facility] Work Phone: Start: 09-06-2024 End: 09-06-2024 Patient encounter procedure Saman Ball DO Work Phone: [facility] Work Phone: Start: 08-14-2024 End: 08-14-2024 Office outpatient visit 15 minutes Conrad Farrell DO Work Phone: [facility] Comment on above: ASHD (arteriosclerot ic heart disease); Cardiomyopathy, ischemic; ST elevation myocardial infarction (STEMI), unspecified artery (Multi); History of PTCA; BMI 29.0-29.9,adult; Former smoker Start: 08-14-2024 End: 08-14-2024 ambulatory [facility] Start: 07-23-2024 Non-patient / Non-visit Benjam in Ball DO Work Phone: [facility] Work Phone: Start: 07-18-2024 Non-patient / Non-visit Benjam in Ball DO Work Phone: [facility] Work Phone: Start: 07-18-2024 End: 07-18-2024 Admission to same day surgery center Saman Ball DO Work Phone: [facility] Work Phone: Start: 07-18-2024 End: 07-18-2024 ambulatory Saman Ball DO Work Phone: [facility] Work Phone: Start: 07-04-2024 End: 07-04-2024 Patient encounter procedure Saman Schaffer DO Work Phone: [facility] Work Phone: Start: 05-30-2024 Non-patient / Non-visit Benjam in Ball DO Work Phone: [facility] Work Phone: Start: 05-23-2024 End: 05-23-2024 ambulatory [facility] Work Phone: Start: 05-23-2024 End: 05-23-2024 Encounter for general adult medical examination without abnormal findings [facility] Start: 05-23-2024 End: 05-23-2024 Patient encounter procedure [facility] Work Phone: Start: 05-21-2024 Patient encounter status [facility] Start: 05-15-2024 Non-patient / Non-visit [facility] Work Phone: Start: 03-26-2024 End: 03-26-2024 ambulatory [facility] Work Phone: Start: 03-26-2024 End: 03-26-2024 Patient encounter procedure [facility] Work Phone: Start: 02-06-2024 End: 02-06-2024 ambulatory [facility] Work Phone: Start: 02-06-2024 End: 02-06-2024 Patient encounter procedure [facility] Work Phone: Start: 02-05-2024 Non-patient / Non-visit [facility] Work Phone: Start: 01-02-2024 End: 01-02-2024 ambulatory [facility] Start: 11-30-2023 Non-patient / Non-visit [facility] Work Phone: Start: 11-22-2023 End: 11-22-2023 Office outpatient visit 25 minutes Conrad Ramos Work Phone: [facility] Comment on above: ASHD (arteriosclerot ic heart disease); Cardiomyopathy, ischemic; Mild left ventricular systolic dysfunction; Essential hypertension; History of PTCA; ST elevation myocardial infarction (STEMI), unspecified artery (Multi); Hyperlipidemia, unspecified hyperlipidemia type; Ejection fraction < 50% Start: 11-22-2023 End: 11-22-2023 ambulatory [facility] Start: 11-12-2023 End: 11-12-2023 [facility] Work Phone: Start: 11-12-2023 End: 11-12-2023 Patient encounter procedure [facility] Work Phone: Start: 09-25-2023 End: 09-25-2023 ambulatory [facility] Work Phone: Start: 09-25-2023 End: 09-25-2023 Patient encounter procedure [facility] Work Phone: Start: 09-11-2023 Non-patient / Non-visit [facility] Work Phone: Start: 08-20-2023 End: 08-20-2023 ambulatory Saman Schaffer Other [employer] Other Start: 08-20-2023 Telephone encounter Saman Schaffer [facility] Start: 08-15-2023 End: 08-15-2023 ambulatory Saman Schaffer Other [employer] Other Start: 08-15-2023 Telephone encounter Saman Schaffer [facility] Start: 07-03-2023 End: 07-03-2023 Subsequent hospital visit by physician Nataliya Gonzalez Echo/Vasc Room 2 [facility] Comment on above: Mild left ventricula r systolic dysfunction Start: 07-03-2023 End: 07-03-2023 ambulatory [facility] Start: 05-24-2023 End: 05-24-2023 Office outpatient visit 15 minutes [facility] DO Work Phone: [facility] Comment on above: ASHD (arteriosclerot ic heart disease); ST elevation myocardial infarction (STEMI), unspecified artery (CMS/HCC); Cardiomyopathy, ischemic; Mild left ventricular systolic dysfunction; Essential hypertension; History of PTCA Start: 05-21-2023 End: 05-21-2023 ambulatory Saman Schaffer Other [employer] Other Start: 05-21-2023 Nursing evaluation o f patient and report Saman Schaffer [facility] Start: 05-15-2023 End: 05-15-2023 ambulatory Saman Schaffer Other [employer] Other Start: 05-15-2023 Telephone encounter Saman Quang [facility] Start: 05-14-2023 End: 05-14-2023 ambulatory Saman Schaffer Other [employer] Other Start: 05-14-2023 Encounter for genera l adult medical examination without abnormal findings Saman Schaffer [facility] Start: 05-14-2023 Periodic preventive med est patient 40-64yrs Saman Schaffer [facility] Start: 03-02-2023 End: 03-02-2023 ambulatory Saman Schaffer Other [employer] Other Start: 03-02-2023 Telephone encounter Saman [facility] Start: 02-05-2023 End: 02-05-2023 ambulatory Saman Schaffer Other [employer] Other Start: 02-05-2023 Telephone encounter Saman Schaffer [facility] Start: 01-10-2023 End: 01-10-2023 ambulatory Saman Schaffer Other [employer] Other Start: 01-10-2023 Telephone encounter Saman Schaffer [facility] Start: 01-03-2023 End: 01-03-2023 ambulatory Saman Schaffer Other [employer] Other Start: 01-03-2023 Office outpatient vi sit 25 minutes Saman Schaffer [facility] Start: 01-01-2023 End: 01-02-2023 ambulatory Iqra Benitez MD Facility:[facility] Start: 12-07-[address] SAMAN SCHAFFER Facili ty:[facility] Start: 12-06-2022 Telephone encounter Saman Quang [facility] Start: 12-06-2022 Office outpatient vi sit 25 minutes Saman Schaffer Work Phone: [facility] [facility] DO Work Phone: Start: 12-06-2022 End: 12-06-[address] Saman Schaffer [facility] [employer] Other Start: 11-25-[address] Conrad Farrell Fac ility:[id number] Start: 11-22-[address] Conrad Headley ility:[id number] Start: 11-21-2022 Telephone encounter Saman Schaffer [facility] Start: 11-21-2022 End: 11-21-[address] Saman Schaffer [facility] [employer] Other Start: 11-20-2022 Admission to [facility] LUIS Luis Work Phone: [facility] Work Phone: Start: 11-20-2022 ambulatory LUIS Luis Work Phone: [facility] Work Phone: Start: 11-20-[address] Saman Schaffer Facility:[id number] Start: 11-09-2022 End: 11-10-2022 ambulatory LONNIE LUISMIPATHJoslyn . Facility:[facility] Start: 11-07-2022 End: 11-07-2022 ambulatory Saman Schaffer Other [facility] [employer] Other Start: 11-07-2022 Office outpatient vi sit 25 minutes Saman Schaffer [facility] Start: 09-14-2022 End: 09-15-[address] KASEY [...] examination without abnormal findings DR SAMAN SCHAFFER [facility] Start: 05-12-2022 Adult health examination Quintin Schaffer Other [facility] [employer] Other Start: 05-12-2022 End: 05-13-[address] SAMAN SCHAFFER Facility:[facility] Start: 05-12-2022 End: 05-13-2022 Encounter for general adult medical examination without abnormal findings DR SAMAN SCHAFFER Facility:[facility] Procedures Date Procedure Procedure Detail Performing Clinician Start: 07-18-2024 Esophagogastroduodenoscopy Saman Schaffer DO Work Phone: Start: 11-22-2023 Lipid panel CONRAD FARRELL Start: 11-22-2023 FOLLOW UP IN CARDIOLOGY CONRAD FARRELL Start: 07-03-2023 TRANSTHORACIC ECHO (TTE) LIMITED CONRAD FARRELL Start: 07-03-2023 Echo transthorc r-t 2d w/wo m-mode rec f-up/lmtd Conrad Farerll DO Work Phone: Start: 05-24-2023 History of percutaneous transluminal coronary angioplasty History of PTCA Conrad Farrell DO Work Phone: Start: 11-20-2022 CL Closure Device Placement 0 LUIS Luis Work Phone: Start: 11-20-2022 CL Coronary Thrombolysis IC LUIS Luis Work Phone: Start: 11-20-2022 CL [facility] Angio LUIS Luis Work Phone: Start: 11-20-2022 CL PCI AMI 1st Vessel LAD DOUG LUIS Luis Work Phone: Start: 05-12-[address] KASEY HELM . Comment on above: Performed By: #### [facility] #### [facility] [address] [place] [address] Dr. Isabel Vega Start: 02-06-2017 General examination of patient Saman Schaffer Other Cardiac catheterization Benj sergio Schaffer Work Phone: Colonoscopy Saman Schaffer Work Phone: Depression screening Jimi smith Quang Other History of percutane ous transluminal coronary angioplasty History of PTCA Conrad Farrell DO Work Phone: History of percutane ous transluminal coronary angioplasty History of PTCA Conrad Mahandon DO Work Phone: Screening for malign ant neoplasm of prostate Saman Ball Other Plan of Treatment Date Care Activity Detail Author Start: 08-27-2025 End: 08-27-2025 Patient encounter procedure 08/27/2025 10:00 AM EST Office Visit [facility] [address] [place] [address] Conrad Farrell, DO [address] [place] [address] [facility] Start: 08-14-2024 End: 08-14-2024 Patient encounter procedure 08/14/2024 9:40 AM EST Office Visit [address] [place] [address] Conrad Farrell DO [address] [place] [address] [facility] Start: 07-18-2024 [facility] Start: 03-09-2024 COVID-19 Vaccine ( season) COVID-19 Vaccine ( season) [place] Start: 03-09-2024 Influenza vaccination Influenz a Vaccine (Season Ended) [place] Start: 11-22-2023 End: 11-21-2024 Lipid 1996 panel - Serum or Plasma Lipid Panel Lab Routine Hyperlipidemia, unspecified hyperlipidemia type Expected: 11/22/2023 (Approximate), Expires: 11/21/2024 [facility] Service Area Work Phone: Comment on above: Expected: 11/22/2023 (Approximate), Expires: 11/21/2024 Start: 11-22-2023 End: 11-22-2023 Patient encounter procedure 11/22/2023 11:00 AM EDT Office Visit [place] [id number] [place] [address] Conrad Farrell, DO [address] [place] [address] [facility] Start: 05-24-2023 End: 05-24-2025 Heart Transthoracic Transthoracic Echo (TTE) Limited Echocardiography Routine Mild left ventricular systolic dysfunction Expected: 05/24/2023 (Approximate), Expires: 05/24/2025 [facility] Service Area Work Phone: Comment on above: Expected: 05/24/2023 (Approximate), Expires: 05/24/2025 Start: 05-24-2023 FUV, Provider: Conrad Farrell, Status: Pen, Time: 10:40 AM FUV, Provider: Conrad Farrell, Status: Pen, Time: 10:[address] [facility] [address] DO Work Phone: Start: 03-09-2023 COVID-19 Vaccine ( season) COVID-19 Vaccine ( season) [place] Start: 03-09-2023 Influenza vaccination Influenza Vacc ine (#1) [place] Start: 11-25-2022 Blood chemistry [facility] Start: 11-25-2022 [facility] Start: 11-24-2022 Blood chemistry [facility] Start: 11-24-2022 [facility] Start: 11-23-2022 Blood chemistry [facility] Start: 11-23-2022 [facility] Start: 11-22-2022 Blood chemistry [facility] Start: 11-22-2022 [facility] Start: 11-21-2022 Blood chemistry [facility] Start: 11-21-2022 Lipid panel [facility] Start: 11-21-2022 [facility] Start: 11-21-2022 [facility] Start: 11-20-2022 [facility] Start: 11-20-2022 [facility] Start: 11-20-2022 Consultation [facility] Start: 11-20-2022 Hospital admission [facility] Start: 11-20-2022 Referral to cardiac rehabilitation program [facility] Start: 11-20-2022 End: 11-20-2022 [facility] Start: 2021 RSV High Risk: (Elde rly (60+) or Population) (1 - Risk 60-74 years 1-dose series) RSV High Risk: (Elderly (60+) or Population) (1 - Risk 60-74 years 1-dose series) [place] Start: 2021 RSV patient s and/or patients aged 60+ years (1 - 1-dose 60+ series) RSV patients and/or patients aged 60+ years (1 - 1-dose 60+ series) [place] Start: 08-18-2021 COVID-19 Vaccine (4 - Pfizer series) COVID-19 Vaccine (4 - Pfizer series) [place] Start: 2011 Zoster Vaccines (1 of 2) Zoster Vacc henrietta (1 of 2) [place] Start: 1983 DTaP/Tdap/Td Vaccine s (1 - Tdap) DTaP/Tdap/Td Vaccines (1 - Tdap) [place] Start: 1980 Pneumococcal vaccination Pneum ococcal Vaccine (1 of 2 - PCV) [place] Start: 1979 Diabetes mellitus screening Diabetes Screening [place] Start: 1979 Hepatitis C screening Hepatitis C [facility] Start: 1967 Pneumococcal Vaccine : Pediatrics (0 to 5 Years) and At-Risk Patients (6 to 64 Years) (1 - PCV) Pneumococcal Vaccine: Pediatrics (0 to 5 Years) and At-Risk Patients (6 to 64 Years) (1 - PCV) [place] Start: 1967 Pneumococcal Vaccine : Pediatrics (0 to 5 Years) and At-Risk Patients (6 to 64 Years) (1 of 2 - PCV) Pneumococcal Vaccine: Pediatrics (0 to 5 Years) and At-Risk Patients (6 to 64 Years) (1 of 2 - PCV) [place] Start: 1962 MMR Vaccines (1 of 1 - Standard series) MMR Vaccines (1 of 1 - Standard series) [place] Start: 1961 HIV screening HIV Screening [facility] Start: 1961 Lipid panel Lipid Panel [place] Start: 1961 Screening for malign ant neoplasm of colon [place] Start: 1961 Yearly Adult Physical Yearly Adult P hysical [place] Comprehensive metabo lic 2000 panel - Serum or Plasma [facility] Patient Education [facility] Work Phone: End: 07-03-2023 US Heart Transthoracic [facility] Service Area Work Phone: Comment on above: Once for 1 Occurrenc es starting 07/03/2023 until 07/03/2023 [facility] Immunizations Immunization Date Immunization Notes Care Provider Fa cility 05-23-2024 influenza, seasonal, injectable, preservative free [facility] 05-21-2023 influenza, injectabl e, quadrivalent, preservative free Saman Schaffer Other [facility] 05-12-2022 influenza virus vaccine, split virus (incl. purified surface antigen) Saman Schaffer Other [employer] Other 05-12-2022 Influenza, injectabl e, Madin Percy Canine Kidney, preservative free, quadrivalent [facility] Schaffer [facility] Work Phone: 05-12-2022 influenza virus vaccine, unspecified formulation Conrad Farrell DO Work Phone: [facility] 06-23-2021 Pfizer-BioNTech COVID-19 Vacc 30 MCG/0.3ML Intramuscular Suspension Saman Schaffer Work Phone: [facility] [address] DO Work Phone: 05-11-2021 influenza virus vaccine, split virus (incl. purified surface antigen) Saman Schaffer Other [employer] Other 05-11-2021 influenza virus vaccine, unspecified formulation [facility] 10-23-2020 Pfizer-BioNTech COVID-19 Vacc 30 MCG/0.3ML Intramuscular Suspension Saman Chance Tray Work Phone: [place] [address] DO Work Phone: 10-02-2020 Pfizer-BioNTech COVID-19 Vacc 30 MCG/0.3ML Intramuscular Suspension Saman Chance Tray Work Phone: [place] [address] DO Work Phone: 05-03-2020 influenza virus vaccine, split virus (incl. purified surface antigen) Saman Schaffer Other [facility] [employer] Other 05-03-2020 influenza virus vaccine, unspecified formulation [facility] 05-03-2020 influenza, injectabl e, quadrivalent, preservative free Saman E Tray Work Phone: [place] [address] DO Work Phone: 04-23-2019 influenza virus vaccine, split virus (incl. purified surface antigen) Saman Schaffer Other [facility] [employer] Other 04-23-2019 influenza virus vaccine, unspecified formulation [facility] 04-02-2018 influenza virus vaccine, split virus (incl. purified surface antigen) Saman Schaffer Other [facility] [employer] Other 04-02-2018 influenza virus vaccine, unspecified formulation [facility] 04-02-2018 influenza, injectabl e, quadrivalent, preservative free Saman E Quang Work Phone: [place] [address] DO Work Phone: 05-03-2015 influenza, seasonal, injectable, preservative free Saman E Quang Work Phone: [place] 05-03-2015 tetanus and diphther ia toxoids, adsorbed, preservative free, for adult use (5 Lf of tetanus toxoid and 2 Lf of diphtheria toxoid) Saman Schaffer Other [facility] 02-18-2003 diphtheria, tetanus toxoids and acellular pertussis vaccine, unspecified formulation Saman Schaffer Other [facility] Payers Date Payer Category Payer Self-pay 2023 Private Health Insurance GENERIC COMMERCIAL [id number] 2023 Unknown [id number] 2022 Unknown 1961 Unknown [id number] 2.16.840.1.226027.3.579.2 .593 1961 Unknown [id number] 2.16.840.1.415064.3.579.2 .593 1961 Unknown [id number] 2.16.840.1.995726.3.579.2 .593 1961 Unknown [id number] 2.16.840.1.611088.3.579.2 .593 1961 Unknown [id number] 2.16.840.1.302049.3.579.2 .593 1961 Unknown [id number] 2.16.840.1.963607.3.579.2 .593 1961 Unknown [id number] 2.16.840.1.120619.3.579.2 .593 1961 Unknown [id number] 2.16.840.1.562034.3.579.2 .593 1961 Unknown [id number] 2.16.840.1.175142.3.579.2 .356 1961 Unknown [id number] 2.16.840.1.582908.3.579.2 .356 1961 Unknown [id number] 2.16.840.1.487792.3.579.2 .356 1961 Unknown [id number] 2.16.840.1.489727.3.579.2 .356 1961 Unknown [id number] 2.16.840.1.673040.3.579.2 .356 1961 Unknown [id number] 2.16.840.1.412615.3.579.2 .356 1961 Unknown [id number] 2.16.840.1.715496.3.579.2 .356 1961 Unknown [id number] 2.16.840.1.033865.3.579.2 .196 1961 Unknown [id number] 2.16.840.1.811288.3.579.2 .1246 1961 Unknown [id number] 2.16.840.1.314770.3.579.2 .1244 1961 Unknown [id number] 2.16.840.1.000691.3.579.2 .1244 1961 Unknown [id number] 2.16.840.1.362037.3.579.2 .1244 1959 Unknown [id number] 1959 Unknown [id number] Unknown [id number] 2.16.840.1.133906.19 Unknown [id number] 2.16.840.1.309380.3.579.2 .531 Social History Date Type Detail Facility Start: 05-24-2023 End: 11-22-2023 Sex Assigned At [facility] [employer] Other Start: 11-20-2022 End: 07-18-2024 Tobacco smoking status NHIS Ex-smoker (finding) [facility] Start: 1960 Sex Assigned At Male F [facility] Start: 05-24-2023 End: 11-22-2023 Consumes alcohol occasionally Consumes alcohol occasionally -[facility] [address] DO Work Phone: Comment on above: quit 1993; End: 07-09-1993 History of tobacco use Current smoker [facility] Work Phone: End: 07-09-1993 History of tobacco use Cigarette Smoker [facility] Work Phone: Start: 05-24-2023 End: 11-22-2023 Tobacco use and exposure Smokeless tobacco non-user [place] Work Phone: Start: 05-24-2023 End: 08-14-2024 Alcohol intake Current drinker of alcohol (finding) [place] Work Phone: Start: 05-24-2023 Alcohol Comment occasionally [facility] Work Phone: Start: 1960 Sex Assigned At Not on file [facility] Work Phone: Start: 05-14-2023 End: 08-14-2024 Exposure to SARS-CoV-2 (event) Not sure [place] Start: 01-02-2023 Tobacco smoking stat us NHIS Never smoked tobacco (finding) [facility] Start: 05-23-2024 End: 09-12-2024 Sex Male (finding) [facility] Medical Equipment Procedure Code Equipment Code Equipment [...] FRONTIER 3.5 X 15 FDA Start: 11-20-2022 Goals Date Patient Goal Desired Activity /State Functional Status Date Assessment Result Facility 11-20-2022 Functional status Patient is Pro gressing Toward Baseline [facility] Work Phone: Mental Status Date Assessment Result Facility 11-20-2022 Cognitive function Cognitive Sta tus Patient at Baseline [facility] Work Phone: Clinical Notes 06-13-2022 to 09-06-2024 Note Date & Type Note Facility 09-06-2024 Evaluation note Diagnosis Onset Date Resolution Gout of right ankle acute September 06, 2024 1:57pm Essential hypertension acute Ma h 2024 1:23pm Gout of right ankle acute September 12, 2024 1:23pm Ischemic cardiomyopathy acute M arch 2024 1:23pm [facility] Work Phone: 1(461) 135-624702-06-2025 History of Present illness Narrative* Conrad Farrell, DO - 08/14/2024 1:40 PM EST Subjective Flores Tea is a 63 y.o. male Chief Complaint Follow-up 63-year-old gentleman returns for follow-up he is doing well he denies any cardiovascular events, complaints or nitrate usage or hospitalizations. He has some mild exertional dyspnea but is able to perform all activities and work load without any difficulty or disability his NYHA class is 1, stage C He sustained anterolateral STEMI in November 2022 with revascularization of the LAD and mild persistent LV dysfunction upon follow-up with recent echo revealing ejection fraction of 45%. Most recent LDL is 66 Recommendations: Follow-up in 1 year on same therapies ROS Vitals: 08/14/24 1340 BP: 116/68 BP Location: Left arm Patient Position: Sitting Pulse: 68 Weight: 88.9 kg (196 lb) Height: 1.727 [...] at bedtime., Disp: 90 tablet, Rfl: 3 escitalopram (Lexapro) 10 mg [...] Assessment/Plan 1. ASHD (arteriosclerotic heart disease) 2. Cardiomyopathy, ischemic Follow Up In Cardiology 3. ST elevation myocardial infarction (STEMI), unspecified artery (Multi) 4. History of PTCA 5. BMI 29.0-29.9,adult 6. Former smoker Scribe Attestation By signing my name below, I, Charlotte Faith LPN , Scribalondra attest that this documentation has been prepared under the direction and in the presence of Pau Farrell DO. Provider Attestation - Scribe documentation All medical record entries made by the Scribe were at my direction and personally dictated by me. Ihave reviewed the chart and agree that the record accurately reflects my personal performance of the history, physical exam, discussion and plan. documented in this [facility] Work Phone: 1(430) 950-398002-06-2025 Instructions* Patient Instructions* Charlotte Ramirez LPN - 08/14/2024 1:40 PM EST Please bring all medicines, vitamins, and herbal supplements with you when you come to the office. Prescriptions will not be filled unless you are compliant with your follow up appointments or have a follow up appointment scheduled as per instruction of your physician. Refills should be requested at the time of your visit. BMI was above normal measurement. Current weight: 88.9 kg (196 lb) Weight change since last visit (-) denotes wt loss 0 lbs Weight loss needed to achieve BMI 25: 31.9 Lbs Weight loss needed to achieve BMI 30: -0.9 Lbs Provided instructions on dietary changes Provided instructions on exercise. documented in this [facility] Work Phone: 1(436) 609-861001-10-[address] [address] EGD/Colonoscopy Procedure Signed Patient: Flores Sierra MR#: [id number] 8 : 1960 Acct:[id number] Age/Sex: 63 / M Adm Date: 5 Loc: Room: Type: [facility] Attending Dr: Maxx Doss MD Copies to: DO Maxx Mcdaniel MD~ EGD & Colonoscopy Date/Provider 07/18/2024 Maxx Doss MD Narrative Procedure: EGD with biopsy and Colonoscopy with polypectomy Indication: 63-year-old male presents for EGD and colonoscopy to evaluate normocytic anemia. Mildlylow iron, normal TIBC and ferritin. Pre-operative diagnosis: Anemia Post-operative diagnosis: Normal EGD, small hemorrhoids, colon polyp Sedation: propofol per anesthesia dept O2 oximetry, hemodynamic monitoring was performed pre, during, and post procedure. Patient was identified, H&P completed, patient was given full explanation of the procedure as well as associatedrisks and written consent wasobtained prior to procedure. Patient expressed complete understanding of the procedure as well as alternatives to the procedure and to anesthesia and agreed to proceed with the procedure as indicated. Patient was immediately reassessed prior to IV sedation. Following IV sedation, patient was placed in the left lateral decubitus position. Bite block was inserted. Endoscope was passed through the mouth, into the esophagus. Endoscope was advanced into the stomach through the pyloricchannel and into the 2nd portion of duodenum by direct visualization. Endoscopewas withdrawn into the stomach and retroflexion was performed. The endoscope was straightened,the stomach was decompressed. Endoscope was withdrawn into the esophagus then completely removed with the findings as below. Findings EGD: DUODENUM: bulb and descending portion appeared normal. Biopsies obtained, bottle 1-rule out celiac. STOMACH: pyloric channel, antrum, body, fundus and cardia, including retroflexedviews appear normal. ESOPHAGUS: Diaphragmatic hiatus was 41 cm from incisors and GE junction (upper margin of gastric folds) was at 41 cm from incisors. Squamocolumnar junction was at 41 cm from incisors. Mucosa appearednormal. Subsequently the bed was switched around. Digital rectal exam was performed andnormal. Colonoscope was inserted and passed proximally to the cecum, which was identified by the ileocecal valve, appendiceal orifice and cecal floor. Colonoscope was slowly withdrawn with the findings as below. Whiteside bowel prep score was good. Findings colonoscopy: Cecum: Diminutive polyp removed from the posterior cecal wall with cold forceps,bottle 2. Ascending colon: Normal. Hepatic flexure: Normal. Transverse colon: Normal. Splenic flexure: Normal. Descending colon: Normal. Sigmoid colon: Normal. Rectum: Normal. Retroflexed views: Demonstrated small hemorrhoids. Biopsy taken: yes Complications: None EBL: Minimal Recommendations: -His anemia is not consistent with SHRADDHA, we would recommend referral to hematology if he remains anemic, further GI workup not needed -Repeat colonoscopy in 5 years for colorectal cancer screening -Follow up pathology -If pathology shows celiac disease then the GI office will arrange follow-up, otherwise follow-up with the GI office on an as-needed basis -Follow up with PCP Following a period of recovery, patient was seen and given full explanation of the procedure. Patient tolerated the procedure well and will be discharged in satisfactory, stable condition. Maxx Doss MD Documented By: Maxx Doss MD 07/18/24 0944 Signed By: 07/18/[address] [place], [place] 9224201-10-2025 [place] [address] Gastroenterology H&P Signed Patient: Flores Sierra MR#: [id number] 8 : 1960 Acct:[id number] Age/Sex: 63 / M Adm Date: 5 Loc: Room: Type: [facility] Attending Dr: Maxx Doss MD Copies to: DO Maxx Mcdaniel MD~ Date of Service: 07/18/2024 HISTORY & PHYSICAL: Patient's history with special attention to the cardiovascular, pulmonary systems and the current problem was reviewed with the patient immediately prior to the procedure. Present medications and doses reviewed in the EMR. Allergies and pertinent laboratory tests were also re viewedat this time in the EMR. The physical examination, as below, was then performed. Indication, assessment and HPI: 63-year-old male presents for EGD and colonoscopy to evaluate normocytic anemia. Mildly low iron, normal TIBC and ferritin. Family history of GI malignancy? no PHYSICAL EXAMINATION Mouth and Pharynx : moist mucus membranes, normal dentition Eyes: EOM intact b/l, normal sclera Pulmonary: normal respiratory effort, able to speak in complete sentences Neurological: alert and oriented x3, moves all extremities Skin: non-jaundiced, warm and dry Abdomen: non-distended, normal to inspection Psych: Mental status and mood grossly normal REVIEW OF SYSTEMS Constitutional: Denies malaise, fevers Cardiovascular: Denies chest pain, palpitations Respiratory: Denies shortness of breath, wheezing Gastrointestinal: Per HPI Genitourinary: Denies dysuria, polyuria Musculoskeletal: Denies joint swelling, joint stiffness Neurological: Denies numbness, tingling Integumentary: Denies rashes, skin lesions Endocrine: Denies fatigue, weight loss Written informed consent obtained from the patient. Risks (including but not limited to perforation, infection, bloating, bleeding, need for emergent surgeryand loss of life), benefits and alternatives explained and questions answered. The patient verbalized understanding. Based on history patient is an appropriate candidate for the procedure. Maxx Doss MD Documented By: Maxx Doss MD 07/18/24 0943 Signed By: 07/18/24 0944 [facility]11-15-2024 Evaluation note* Diagnosis Onset Date Resolution Status Admit Date Anemia acute May 23, 2024 9:57am ASHD (arteriosclerotic heart disease) acute May 23, 2 024 9:57am Elevated cholesterol acute 2023 9:57am Essential hypertension acute No vember 2023 9:57am Nicotine dependence, cigarettes, in remission acute Novembe r 2023 9:57am Obesity acute May 23, 2024 9:57am Screening PSA (prostate specific antigen) acute May 23, 2024 9:57am Wellness examination acute 2023 9:57am [facility] Work Phone: 1(431) 976-270709-18-2024 Evaluation note* Diagnosis Onset Date Resolution Status Admit Date Acute bronchitis due to othe r specified organisms acute March 262023 11:48am ASHD (arteriosclerotic heart disease) acute March 26, 2024 11:48am Anemia acute May 23, 2024 9:57am ASHD (arteriosclerotic heart disease) acute May 23, 2 024 9:57am Elevated cholesterol acute 2023 9:57am Essential hypertension acute No vember 2023 9:57am Nicotine dependence, cigarettes, in remission acute Novembe r 2023 9:57am Obesity acute May 23, 2024 9:57am Screening PSA (prostate specific antigen) acute May 23, 2024 9:57am Wellness examination acute 2023 9:57am [facility] Work Phone: 1(355) 257-322005-16-2024 History of Present illness Narrative* Conrad Farrell, - 11/22/2023 11:00 AM EDT Subjective Flores Sierra is a 63 y.o. [...] Scribe Attestation By signing my name below, I, Meliton Porter LPN attest that this documentation has been prepared under the direction and in the presence of Pau Farrell DO. Provider Attestation - Scribe documentation All medical record entries made by the Scribe were at my direction and personally dictated by me. Ihave reviewed the chart and agree that the record accurately reflects my personal performance of the history, physical exam, discussion and plan. [facility] Work Phone: 1(313) 635-659105-16-2024 Instructions* Patient Instructions* Sam Buenrostro MA - 11/22/2023 11:00 AM [...] time of your visit. documented [facility] Work Phone: 1(178) 951-118702-07-2024 Evaluation note* Encounter Date Diagnosis Assessment Notes Treatment Notes Treatment Clinical Notes Aug, Anemia (ICD-10 - D64.9) [employer] Other 11-16-2023 History of Present illness Narrative* Conrad Farrell DO - 05/24/2023 10:40 AM EST Subjective Flores Sierra is a 62 y.o. male Chief Complaint [...] 6. History of PTCA [facility] Work Phone: 1([phone]) 100-237311-16-2023 Instructions* Patient Instructions* Rosa Marcano CMA - [...] time of your visit. documented in [facility] Work Phone: 1(332) 436-390911-06-2023 Evaluation note* Encounter Date Diagnosis Assessment Notes [...] to achieve/maintain a normal BMI. May, Hyperlipidemia, kavita Ingram (ICD-10 - E78.00) Instructed on diet and [...] PSA (prostate specific antigen) (ICD-10 - Z12.5) [employer] Other 08-25-2023 Evaluation note* Encounter Date Diagnosis Assessment Notes Treatment Notes Treatment Clinical Notes Feb, ASHD (arteriosclerot ic heart disease) (ICD-10 - I25.10) PCI/stent LAD - 11/2022Feb, Gastroesophageal ref lux disease with esophagitis without hemorrhage (ICD-10 - K21.00) [facility] Other 07-05-2023 Evaluation note* Encounter Date Diagnosis Assessment Notes Treatment Notes Treatment Clinical Notes Jan, Acute bronchitis due to other specified organisms (ICD-10 - J20.8) [facility] Other 06-28-2023 Evaluation note* Encounter Date Diagnosis [...] in month - ENT if no improvement boo-box [facility] [employer] Other 05-16-2023 Evaluation note* Encounter Date Diagnosis Assessment Notes Treatment Notes Treatment Clinical Notes November, ASHD (arteriosclerotic heart disease) (ICD-10 - I25.10) PCI/stent LAD - 11/2022 [facility] [employer] Other 05-15-2023 Procedure [facility]05-15-2023 Procedure [facility]05-02-2023 Evaluation note* Encounter Date Diagnosis Assessment Notes [...] NS Kenalog for seasonal flare of symptoms boo-box [facility] [employer] Other 03-09-2023 NoteCONSULTATION CONSULTATION DATE: 09/14/2022 HISTORY [...] be followed up in the office thereafter.[id number] NoteCONSULTATION CONSULTATION DATE: 08/03/2022 HISTORY OF PRESENT [...] be followed up in the clinic thereafter.[id number] NoteCONSULTATION CONSULTATION DATE: 06/13/2022 CHIEF COMPLAINT: Low [...] like to proceed. CC: Saman Schaffer D.O.[facility]* Diagnosis Onset Date Resolution Status Hypercholesteremia acute Hypertension acute ST elevation (STEMI) myocardial infarction acute [facility] Work Phone: Evaluation noteNo InformationNoc[facility] [employer] Other Evaluation note* Diagnosis ASHD (arteriosclerotic heart disease) Coronary atherosclerosis of unspecified type of vessel, [place]umi[place] or graft ST elevation myocardial infarction (STEMI), unspecified artery (CMS/HCC) Cardiomyopathy, ischemic Other specified forms of chronic ischemic heart disease Mild left ventricular systolic dysfunction Essential hypertension Unspecified essential hypertension History of PTCA Postsurgical percutaneous transluminal coronary angioplasty status documented in this encounter [place] Work Phone: [phone] note* Diagnosis Mild left ventricular systolic dysfunction documented in this encounter [place] Work Phone: [phone] note* Diagnosis Mild left ventricular systolic dysfunction documented in this encounter [place] Work Phone: [phone] noteNo assessment information available [facility] Work Phone: Evaluation note* Diagnosis Onset Date Resolution Status ASHD (arteriosclerotic heart disease) acute Elevated cholesterol acute Essential hypertension acute Nicotine dependence, cigarettes, in remission acute [facility] Work Phone: Evaluation note* Diagnosis ASHD (arteriosclerotic heart disease) Coronary atherosclerosis of unspecified type of vessel, [place] or graft Cardiomyopathy, ischemic Other specified forms of chronic ischemic heart disease Mild left ventricular systolic dysfunction Essential hypertension Unspecified essential hypertension History of PTCA Postsurgical percutaneous transluminal coronary angioplasty status ST elevation myocardial infarction (STEMI), unspecified artery (Multi) Hyperlipidemia, unspecified hyperlipidemia type Ejection fraction < 50% Other symptoms involving cardiovascular system documented in this encounter [place] Work Phone: Evaluation note* Diagnosis Onset Date Resolution Status Anemia acute ASHD (arteriosclerotic heart disease) acute Elevated cholesterol acute Essential hypertension acute Nicotine dependence, cigarettes, in remission acute Obesity acute Anemia acute ASHD (arteriosclerotic heart disease) acute Elevated cholesterol acute Essential hypertension acute Nicotine dependence, cigarettes, in remission acute Obesity acute [facility] Work Phone: Evaluation note* Diagnosis Onset Date Resolution Status Anemia acute ASHD (arteriosclerotic heart disease) acute Elevated cholesterol acute Essential hypertension acute Nicotine dependence, cigarettes, in remission acute Obesity acute Acute bronchitis due to other specified organisms acute ASHD (arteriosclerotic heart disease) acute [facility] Work Phone: Evaluation note* Diagnosis ASHD (arteriosclerotic heart disease) Coronary atherosclerosis of unspecified type of vessel, [place] or graft Cardiomyopathy, ischemic Other specified forms of chronic ischemic heart disease ST elevation myocardial infarction (STEMI), unspecified artery (Multi) History of PTCA Postsurgical percutaneous transluminal coronary angioplasty status BMI 29.0-29.9,adult Former smoker Personal history of tobacco use, presenting hazards to health documented in this encounter [place] Work Phone: History and physical note Author Daryl Farrell [facility] November 20, 2022 5:18pm Note Date/Time November 20, 2022 5:01p m [facility] [address] [place] [address] Cardiology H&P Signed Patient: Flores Sierra MR#: [id number] 8 : 1960 Acct:[id number] Age/Sex: 62 / M Adm Date: 3 Loc: Room: [address] [place] [address] Type: REG SDC Attending Dr: Daryl Farrell DO Copies to: DO Daryl Mcdaniel DO~ Date of Service: 11/20/2022 Cardiology HPI History of Present Illness Chief complaint: Anterolateral STEMI HPI: Mr. Sierra is a 62 year old male admitted in transfer from [facility]) with acute anterior ST elevation myocardial infarction. Patient developed chest discomfort at approximately 1445. He called the paramedics, transferred to the [facility], initial ECGs at 1523 and 1529 and 1545PM were all reviewed. Patient arrived at ER at 1548, Pharmacy Associate at 1603 and PCI of primary infarct [...] staff, reviewing of ECGs from the field, Pharmacy Associate staff, nursing staff, patient and family both [...] x10E3/uL Lymph # (Auto) 2.0 (1.00-4.8) x10E3/uL [place] # (Auto) 1.0 H (0.0-0.8) x10E3/uL Eos [...] Interpretations EKG EKG results cardiology: sinus rhythm DE, pacemaker, normal Myocardial infarction: anterior DE (acute or recent) A&P - Cardiology (1) ST elevation (STEMI) myocardial infarction: Code(s): I21.3 - ST elevation (STEMI) myocardial infarction of unspecified site (2) Hypertension: Code(s): I10 - Essential (primary) hypertension (3) Hypercholesteremia: Code(s): E78.00 - Pure hypercholesterolemia, unspecified Documented By: Daryl Farrell DO 11/20/22 1657 Signed By: <Electronically signed by Daryl Farrell DO> 11/20/22 0358 [facility] Work Phone: History and physical note Author Maxx Doss [facility] Note Date/Time July 18, 2024 9 :44am [facility] [address] [place] [address] Gastroenterology H&P Signed Patient: Flores Sierra MR#: [id number] 8 : 1960 Acct:[id number] Age/Sex: 63 / M Adm Date: 5 Loc: Room: Type: [facility] Attending Dr: Maxx Doss MD Copies to: DO Maxx Mcdaniel MD~ Date of Service: 07/18/2024 HISTORY & PHYSICAL: Patient's history with special attention to the cardiovascular, pulmonary systems and the current problem was reviewed with the patient immediately prior to the procedure. Present medications and doses reviewed in the EMR. Allergies and pertinent laboratory tests were also reviewedat this time in the EMR. The physical examination, as below, was then performed. Indication, assessment and HPI: 63-year-old male presents for EGD and colonoscopy to evaluate normocytic anemia. Mildly low iron, normal TIBC and ferritin. Family history of GI malignancy? no PHYSICAL EXAMINATION Mouth and Pharynx : moist mucus membranes, normal dentition Eyes: EOM intact b/l, normal sclera Pulmonary: normal respiratory effort, able to speak in complete sentences Neurological: alert and oriented x3, moves all extremities Skin: non-jaundiced, warm and dry Abdomen: non-distended, normal to inspection Psych: Mental status and mood grossly normal REVIEW OF SYSTEMS Constitutional: Denies malaise, fevers Cardiovascular: Denies chest pain, palpitations Respiratory: Denies shortness of breath, wheezing Gastrointestinal: Per HPI Genitourinary: Denies dysuria, polyuria Musculoskeletal: Denies joint swelling, joint stiffness Neurological: Denies numbness, tingling Integumentary: Denies rashes, skin lesions Endocrine: Denies fatigue, weight loss Written informed consent obtained from the patient. Risks (including but not limited to perforation, infection, bloating, bleeding, need for emergent surgeryand loss of life), benefits and alternatives explained and questions answered. The patient verbalized understanding. Based on history patient is an appropriate candidate for the procedure. Maxx Doss MD Documented By: Maxx Doss MD 07/18/24 0943 Signed By: <Electronically signed by Maxx Doss MD> 07/18/[address] [facility] Work Phone: History general Narrative - Reported* Type Description [...] HEMORRHOID, EXTERNAL 2019 Hospitalization History SEE SURGICAL [facility] Other History general Narrative - Reported* Type [...] PCI/stent LAD 11/2022 Hospitalization History SEE SURGICAL [facility] Other History general Narrative - Reported* Type [...] History Colonoscopy 2017 Hospitalization History SEE SURGICAL HX [facility] [employer] Other Reason for referral (narrative)* Consultation (Routine) - Authorized Specialty Diagnoses / Procedures Referred By Anaid burnham Referred To Contact Cardiology Diagnoses Cardiomyopathy, ischemic Procedures Follow Up In Cardiology Conrad Farrell DO [address] [place] [address] 2, [place] [address] Conrad Farrell DO [address] [place] [address] 2, [place] [address] Referral ID Status Reason Start Date Expiration Date V isits Requested Visits Authorized [id number] Authorized 11/22/2023 11/21/2024 1 1 [place] Work Phone: Chief Complaint and Reason for Visit Chief Complaint chest pain Reason for Visit Hypercholesteremia Hypertension ST elevation (STEMI) myocardial infarction Chief Complaint Amb Documentation Allergy Shot Chief Complaint Amb Documentation Allergy Shot 6 month follow up Reason for Visit ASHD (arteriosclerot ic heart disease) Elevated cholesterol Essential hypertension Nicotine dependence, cigarettes, in remission Chief Complaint 6 month follow up 3 month f/u Reason for Visit Anemia ASHD (arteriosclerotic heart disease) Elevated cholesterol Essential hypertension Nicotine dependence, cigarettes, in remission Obesity Anemia ASHD (arteriosclerotic heart disease) Elevated cholesterol Essential hypertension Nicotine dependence, cigarettes, in remission Obesity Chief Complaint 3 month f/u [phone] cough up phlem 3 days covid neg Reason for Visit Anemia ASHD (arteriosclerotic heart disease) Elevated cholesterol Essential hypertension Nicotine dependence, cigarettes, in remission Obesity Acute bronchitis due to other specified organisms ASHD (arteriosclerotic heart disease) Chief Complaint Admit Date [phone] cough up phlem 3 days covid neg March 26, 2024 11:48am CC Adult Risk Stratification May 10:54am wellness May 23, 2024 9:57am Reason for Visit Admit Date Acute bronchitis due to other specified organisms March 26, 2024 11:48am ASHD (arteriosclerotic heart disease) Se ptember 2023 11:48am Anemia May 23, 2024 9:57am ASHD (arteriosclerotic heart disease) No vember 2023 9:57am Elevated cholesterol May 23, 2024 9:57am Essential hypertension May 23 9:57am Nicotine dependence, cigarettes, in armando ssion May 23, 2024 9:57am Obesity May 23, 2024 9:57am Screening PSA (prostate specific antigen ) May 23, 2024 9:57am Wellness examination May 23, 2024 9:57am Chief Complaint Admit Date CC Adult Risk Stratification May 10:54am wellness May 23, 2024 9:57am allergy shot July 04, 2024 8:51am Iron def anemia July 18, 2024 8 :47am Iron def anemia July 18, 2024 9 :43am Reason for Visit Admit Date Anemia May 23, 2024 9:57am ASHD (arteriosclerotic heart disease) No vember 2023 9:57am Elevated cholesterol May 23, 2024 9:57am Essential hypertension May 23 9:57am Nicotine dependence, cigarettes, in armando ssion May 23, 2024 9:57am Obesity May 23, 2024 9:57am Screening PSA (prostate specific antigen ) May 23, 2024 9:57am Wellness examination May 23, 2024 9:57am Chief Complaint Admit Date allergy shot July 04, 2024 8:51am Iron def anemia July 18, 2024 8 :47am Iron def anemia July 18, 2024 9 :43am Amb Documentation July 23, 2024 3 :53pm Right ankle pain w/o injury March 1st, 2 025 1:57pm Chief Complaint Admit Date allergy shot July 04, 2024 8:51am Iron def anemia July 18, 2024 8 :47am Iron def anemia July 18, 2024 9 :43am Amb Documentation July 23, 2024 3 :53pm Right ankle pain w/o injury September 06 1:57pm gout September 12, 2024 1:23 pm Reason for Visit Admit Date Gout of right ankle September 06, 2024 1:57 pm Essential hypertension September 12, 2024 1 :23pm Gout of right ankle September 12, 2024 1:23 pm Ischemic cardiomyopathy September 12, 2024 1:23pm Advance Directives Advance Directive Response Recorded Date/ Time Advance Directives No November 20 4:03pm Advance Directive Response Recorded Date/ Time Advance Directives No November 20 3:03pm Summary Purpose Family History Unknown Family Member Name Dates Details No [...] Recorded Date/T yari Not Specified Hypertension Unknown Relationship Condition Age at Onset Recorded Date/T yari mother Hypertension Unknown Relationship Condition Age at Onset Recorded Date/T yari mother Hypertension Unknown brother Malignant neoplasm of throat Unknown Reason for Referral Specialty Diagnoses / Procedures Referred By Contac t Referred To Contact Cardiology Diagnoses Mild left ventricular systolic dysfunction Procedures Transthoracic Echo (TTE) Limited ND ECHO TRANSTHORC R-T 2D W/WO M-MODE REC F-UP/LMTD ND DOP ECHOCARD COLOR FLOW VELOCITY MAPPING ND DOP ECHOCARD PULSE WAVE W/SPECTRAL F-UP/LMTD STD Conrad Farrell, [address] [facility] 2, Rajesh [address] [place] [id number] Referral ID Status Reason Start Date Expiration Date Visits Requested Visits Authorized [id number] Pending Review Perform Procedure 3 05/23/2024 1 1 Specialty Diagnoses / Procedures Referred By Contac t Referred To Contact Cardiology Diagnoses ASHD (arteriosclerotic heart disease) Cardiomyopathy, ischemic Mild left ventricular systolic dysfunction Essential hypertension History of PTCA Procedures Follow Up In Cardiology Conrad Farrell, DO [address] [facility] 2, [address] [place] [address] Conrad Farrell, DO [address], [address] [place] [address] Referral ID Status Reason Start Date Expiration Date V isits Requested Visits Authorized [id number] Authorized 05/24/2023 05/23/2024 1 1 Additional Source Comments REASON FOR VISIT (unrecogniz ed section and content) Reason Comments Follow-up 6 months Specialty Diagnoses / Procedures Referred By Contac t Referred To Contact Cardiology Diagnoses Mild left ventricular systolic dysfunction Procedures Transthoracic Echo (TTE) Limited ND ECHO TRANSTHORC R-T 2D W/WO M-MODE REC F-UP/LMTD ND DOP ECHOCARD COLOR FLOW VELOCITY MAPPING ND DOP ECHOCARD PULSE WAVE W/SPECTRAL F-UP/LMTD STD Conrad Farrell, DO [address] [place] [address] 2, Rajesh [address] [place], [place] [id number] Referral ID Status Reason Start Date Expiration Date Visits Requested Visits Authorized [id number] Authorized Perform Procedure 3 05/23/2024 1 1 Reason Comments Follow-up 6m Specialty Diagnoses / Procedures Referred By Contac t Referred To Contact Cardiology Diagnoses ASHD (arteriosclerotic heart disease) Cardiomyopathy, ischemic Mild left ventricular systolic dysfunction Essential hypertension History of PTCA Procedures Follow Up In Cardiology Conrad Farrell, DO [address] [facility] 2, [address] [place] [address] Conrad Farrell, DO [address] [facility] 2, Rajesh [address] [place] [id number] Referral ID Status Reason Start Date Expiration Date V isits Requested Visits Authorized [id number] Authorized 05/24/2023 05/23/2024 1 1 Reason Comments Follow-up 8 months Specialty Diagnoses / Procedures Referred By Anaid t Referred To Contact Cardiology Diagnoses Cardiomyopathy, ischemic Procedures Follow Up In Cardiology Conrad Farrell, DO [address] [facility], [address] [place] [address] Phone: tel: fax: Conrad Farrell, DO [address] [facility] 2, [address] [place] [id number] Phone: tel: fax: Referral ID Status Reason Start Date Expiration Date V isits Requested Visits Authorized [id number] Authorized 11/22/2023 11/21/2024 1 1 Care Teams (unrecognized sec tion and content) Team Status: Active Member Role Status Dates Saman Schaffer DO Primary Care Provider Active Team Status: Inactive Member Role Status Dates Saman Schaffer DO Primary Care Provide r, Attending Provider Active Start: July 04, 2024 End: July 04, 2024 Team Status: Inactive Member Role Status Dates Saman Schaffer DO Primary Care Provider Active Start: July 18, 2024 End: July 18, 2024 Maxx Doss MD Attending Provider Active S tart: July 18, 2024 End: July 18, 2024 Team Status: Active Member Role Status Dates Saman Schaffer DO Primary Care Provider Active Start: July 18, 2024 Maxx Doss MD Attending Provider, Other Provider Active Start: July 18, 2024 Team Status: Active Member Role Status Dates Saman Schaffer DO Primary Care Provider Active Start: July 23, 2024 Elvi Brothers Attending Provider Active Start: Deyvi gore 2024 Team Status: Inactive Member Role Status Dates Saman Schaffer DO Primary Care Provider Active Start: September 06, 2024 End: September 06, 2024 Rama Valdez APRN Attending Provider Active Start: September 06, 2024 End: September 06, 2024 Team Status: Active Member Role Status Dates Saman Schaffer DO Primary Care Provide r, Attending Provider Active Start: May 15, 2024 Team Status: Inactive Member Role Status Dates Saman Schaffer DO Primary Care Provide r, Attending Provider Active Start: May 23, 2024 End: May 23, 2024 Team Status: Active Member Role Status Dates Saman Schaffer DO Primary Care Provide r, Attending Provider Active Start: May 30, 2024 Team Status: Inactive Member Role Status Dates Saman Schaffer DO Primary Care Provide r, Attending Provider Active Start: March 26, 2024 End: March 26, 2024 Team Status: Active Member Role Status Dates Saman Schaffer , Primary Care Provide r, Attending Provider Active Start: February 05, 2024 Team Status: Inactive Member Role Status Dates Saman Schaffer DO Primary Care Provide r, Attending Provider Active Start: February 06, 2024 End: February 06, 2024 Team Status: Inactive Member Role Status Dates Saman Schaffer , Primary Care Provide r, Attending Provider Active Start: November 12, 2023 End: November 12, 2023 Team Status: Active Member Role Status Dates Saman Schaffer DO Primary Care Provider Active Start: November 30, 2023 W Cruz Farrell , Attending Provider Active S tart: November 30, 2023 Team Status: Active Member Role Status Dates Ottoniel Luis PA-C Emergency Provider Active Saman Schaffer , Primary Care Provider Active W Cruz Farrell , Attending Provider Active Senior [employer]or Relationship Specialty Start Date End Date Saman Schaffer DO [address] [place] [address] [place] [address] PCP - General 12/06/22 Senior [employer] Loan [employer]or Relationship Specialty Start Date End Date Saman Schaffer DO [address] [place] [address] [place] [address] PCP - General Internal Medicine 07/03/23 Senior Mortgage Loan Processor Relationship Specialty Start Date End Date Saman Schaffer DO [address] [place] [address] [place] [address] PCP - General Internal Medicine 07/03/23 Team Status: Active Member Role Status Dates Saman Schaffer DO Primary Care Provider Active Start: September 11, 2023 ISAIAS Cervantes Attending Provider Active Start : September 11, 2023 Team Status: Inactive Member Role Status Dates Saman Schaffer DO Primary Care Provide r, Attending Provider Active Start: September 25, 2023 End: September 25, 2023 Senior Mortgage Loan Processor Relationship Specialty Start Date End Date Saman Schaffer DO PCP - General Internal Medicine 07/03/23 Senior Mortgage Loan Processor Relationship Specialty Start Date End Date Saman Schaffer PCP - General Internal Medicine 07/03/23 Team Status: Inactive Member Role Status Dates Saman Schaffer DO Primary Care Provide r, Attending Provider Active Start: September 12, 2024 End: September 12, 2024 Goals (unrecognized section and content) Goals may be documented in a n alternate section (unrecognized sect ion and content) No Status Records FoundNo Status Records FoundNo Status Records FoundNo Status Records FoundNo Status Records FoundNo Status Records FoundNo Status Records Found INFORMATION SOURCE (unrecogn ized section and content) DATE CREATED AUTHOR 12/16/2022 [facility] DATE CREATED AUTHOR AUTHOR'S ORGANIZ ATION 12/16/2022 [employer] DATE CREATED AUTHOR AUTHOR'S ORGANIZ ATION 01/20/2023 [facility] DATE CREATED AUTHOR AUTHOR'S ORGANIZ ATION 02/27/2023 [facility] DATE CREATED AUTHOR AUTHOR'S ORGANIZ ATION 03/22/2024 [facility] DATE CREATED AUTHOR AUTHOR'S ORGANIZ ATION 07/27/2024 [facility] DATE CREATED AUTHOR AUTHOR'S ORGANIZ ATION 08/18/2024 [facility] FOR RECORDS PERTAINING TO PATIENTS WHO ARE [...] BE BASED ON THE PRIMARY CLINICAL RECORDS. [facility] provides no warranty or guarantee of the accuracy or completeness of information in this document.
[2024-09-30 12:17] LABS: C Reactive Protein 1.91 mg/dL (<=0.50)
== END 2024-09-30 10:58 | disposition home or self-care (01) ==
LOC: LAB 10:59
PROVIDERS: PCP Internal Medicine; Visit Provider Internal Medicine
DX: M25.471 Effusion, right ankle (principal)
CPT/HCPCS: 36415; 73610; 84550; 85025; 86140

== ENCOUNTER 2025-05-27 10:11 | Outpatient (OUT) | payer OTHER, SELFPAY ==
--- OUTSIDE RECORDS SUMMARY | 2025-05-27 10:23 | XMS_ITS | CCD ---
Author Organization [facility] Care Team Providers Care Ham Stringer Name Role Phone Saman Schaffer Unavailable LUIS [...] CASTILLO ., DON Consulting Unavailable LAKSHMIPATHY ., LNONIE Admitting Brisa vailable WEST, DR CAITLYN Power [...] REDDY Primary Care Unavailable HELM ., DR KSAEY Shabazz Attending Unavailable Saman Schaffer Unavailable Unavailable Unavailable Ramos, Dr. Conrad Arroyo Attending Fern Schaffer, Dr. Saman Andino Primary Care Elías Schaffer, Dr. Saman Andino Primary Care Elías Farrell, Dr. Conrad Arroyo Referring Fern Farrell, Dr. Conrad Arroyo Attending Fern Schaffer, Dr. Saamn Andino Primary Care Elías Schaffer, Dr. Saman Trivedisandy level Primary [facility] Elías Benitez MD, Iqra Blanc Attending Unavailable Quang DUDLEY, Saman Andino Primary Care Provider Quang DUDLEY, Saman jennifer Primary [facility] Provider Quang DUDLEY Saman Robson Primary Care Provider CONRAD FARRELL Referring Unavailable SAMAN SCHAFFER Primary Care Unavailable Saman Schaffer DO Primary Care Provider [phone] Maxx Doss MD Attending Provider [phone] Maxx Doss Attending Unavailable Maxx Doss Admitting Unavailable Saman Schaffer Primary [facility] Unavailable Saman Schaffer DO Primary Care Provider Maxx Doss MD Attending Provider [phone] SAMAN SCHAFFER Primary Care Unavailable CONRAD FARRELL Referring Unavailable RAMOS, CONRAD Shabazz Attending Unavailable CONRAD FARRELL Referring Unavailable SAMAN SCHAFFER Primary Care Unavailable Quang DO Saman Primary Care Provider [phone] Quang DUDLEY Saman Attending Provider Allergies Allergy ClassificationReported Allergen(s)Allergy TypeDate of OnsetReaction(s) Facility (2 sources)patient allergy list reviewed by nurse or physiciaPropensity to adverse -[phone]:[facility] Other Medications Current Medications MedicationDrug Class(es)DatesSig (Normalized)Sig (Original)amoxicillin 875 mg oral tablet (1 source)Penicillin-class AntibacterialStart: 73-74-9649ldsw 1 tablet by mouth twice dailyAmoxicillin 875 mg tablet Active 875 MG PO Twice daily 19 01March 11, 2025 12:00am Complies with drug therapyaspirin 81 mg delayed release oral tablet (20 sources)Platelet Aggregation Inhibitor, Nonsteroidal Anti-inflammatory Drug Start: 12-68-8935uxsb 1 tablet by mouth once dailyAspirin 81 mg Tablet,Delayed Release (Dr/Ec) Active 81 MG PO Daily 0 November 22, 2022 12:00am Complies with drug therapyatorvastatin 80 mg oral tablet (20 sources)HMG-CoA Reductase InhibitorStart: 11-22-2022 End: 18-44-1586wjlv 1 tablet by mouth once daily in the eveningAtorvastatin 80 mg tablet Active 80 MG PO Every evening December 29, 2024 5:30pm Complies with drug therapyStart: 11-20-2022 End: 00-79-9598sdaw 1 tablet by mouth once daily at bedtimeAtorvastatin 20 mg tablet Discontinued 20 MG PO Daily at bedtime November 20, 2022 12:00am November 22, 2022 2:17pmescitalopram 10 mg oral tablet (20 sources)Serotonin Reuptake InhibitorStart: 36-14-8510vrpo 1 tablet by mouth once dailyEscitalopram Oxalate 10 mg tablet Active 10 MG PO Daily December 29, 2024 5:30pm Complies with drug therapyStart: 11-27-2023 End: 01-27-2360lsqb 1 tablet by mouth at bedtimeEscitalopram Oxalate 10 mg tablet Discontinued 0 .ROUTE .COMPLEX December 03, 2024 9:06pm December 29, 2024 5:31pm TAKE 1 TABLET BY MOUTH AT BEDTIMEStart: 55-65-1659rllp 1 tablet by mouth at bedtimeEscitalopram Oxalate Active 0 .ROUTE .COMPLEX November 27, 2023 1:19pm TAKE 1 TABLET BY MOUTH AT BEDTIMEStart: 05-11-2023 End: 66-86-9009hskm 1 tablet by mouth once dailyEscitalopram Oxalate 10 mg tablet Discontinued 10 MG PO Daily November 09, 2023 12:00am November 27, 2023 1:19pm lisinopril 10 mg oral tablet (20 sources)Angiotensin Converting Enzyme InhibitorStart: 50-24-0913xncq 1 tablet by mouth once dailyLisinopril 10 mg tablet Active 10 MG PO Daily 90 90 December 29, 2024 5:29pm Complies with drug therapyStart: 03-07-2024 End: 75-70-8547pqyn 1 tablet by mouth once dailyLisinopril 10 mg tablet Discontinued 0 .ROUTE .COMPLEX March 07, 2024 1:34pm December 29, 2024 5 :31pm TAKE 1 TABLET BY MOUTH ONCE DAILYStart: 11-20-2022 End: 70-40-5257cknm 1 tablet by mouth once dailyLisinopril 10 mg tablet Discontinued 10 MG PO Daily November 20, 2022 12:00am March 07, 2024 1:34pm loratadine 10 mg oral tablet (20 sources)Start: 79-17-9428wiwh 1 tablet by mouth once dailyLoratadine (Allergy Relief (Loratadine)) 10 mg tablet Active 10 MG PO Daily December 30, 2024 11:34am Complies with drug therapyStart: 11-27-2023 End: 46-28-4676okxp 1 tablet by mouth once dailyLoratadine (Allergy Relief (Loratadine)) 10 mg tablet Discontinued 0 .ROUTE .COMPLEX December 03, 2024 9:05pm December 30, 2024 11:34am TAKE 1 TABLET BY MOUTH DAILYStart: 11-20-2022 End: 20-79-5844qmqx 1 tablet by mouth once dailyLoratadine 10 mg tablet Discontinued 10 MG PO Daily November 20, 2022 12:00am November 27, 2023 1:37pm24 hr metoprolol succinate 100 mg extended release oral tablet (20 sources)beta-Adrenergic BlockerStart: 05-11-2023 End: 31-01-0487blyl 2 tablets by mouth once dailymetoprolol succinate XL (Toprol-XL) 100 mg 24 hr tablet Indications: Cardiomyopathy, ischemic , Esse ntial hypertension Take 2 tablets (200 mg) by mouth once daily. 180 tablet 3 11/22/2023 11/21/2024 ActiveStart: 78-92-8039jhtw 2 tablets by mouth every twenty-four hoursMetoprolol Succinate ER 100 MG 2 tablet Orally Once a day November, ActiveStart: 11-25-2022 End: 27-12-0797Ljxtsiarcg Succinate 100 mg tablet extended release 24 hr Discontinued 200 MG PO Daily 0 November 25, 2022 4:33pm September 06, 2024 2:57pm Start: 37-60-0541ytgu 200 mg by mouth once dailyMetoprolol Succinate Active 200 MG PO Daily 0 November 25, 2022 4:33pmStart: 11-20-2022 End: 30-68-9423Ftqvpwmclo Succinate 100 mg tablet extended release 24 hr Discontinued 150 MG PO Daily November 20, 2022 12:00am November 25, 2022 4:33pmStart: 11-20-2022 End: 04-18-2219uvcv 150 mg by mouth once dailyMetoprolol Succinate Discontinued 150 MG PO Daily November 20, 2022 12:00am November 25, 2022 4:33pmStart: 11-20-2022 take 100 mg by mouth once dailyMetoprolol Succinate Active 100 MG PO Daily November 20, 2022 12:00amnitroglycerin 0.4 mg sublingual tablet (17 sources)Nitrate VasodilatorStart: 08-19-1913Nfiyavppmefgf 0.4 mg Tablet, Sublingual Active 0.4 MG SUBLINGUAL Q5M as needed for Chest Pain 30 30May 2022 12:00am every 5 minutes x 3 doses do not exceed 3 doses per episode Complies with drug therapyNitroglycerin 0.4 MG Sublingual Tablet Sublingual TAKE DIRECTED. Quantity: 25 Refills: 11 Ordered: 06-Dec-2022 DO Activeomeprazole 40 mg delayed release oral capsule (20 sources)Proton Pump InhibitorStart: 65-93-2184Oruaimmmza 40 mg capsule,delayed release(DR/EC) Active 40 MG PO Daily 90 90 December 29, 2024 5:28pm Take on empty stomach, 30 minutes prior to bkfst Complies with drug therapyStart: 09-11-2023 End: 36-71-0158nwty 1 capsule by mouth once daily at breakfastOmeprazole 40 mg capsule,delayed release(DR/EC) Discontinued 0 .ROUTE .COMPLEX March 0649:58am December 29, 2024 5:31pm TAKE 1 CAPSULE BY MOUTH ONCE DAILY ON AN EMPTY STOMACH 30 MINUTES BREAKFASTStart: 01-03-2023 End: 04-40-2400rcsx 1 capsule by mouth once dailyOmeprazole 40 mg capsule,delayed release(DR/EC) Discontinued 40 MG PO Daily September 11, 2023 1:00am September 11, 2023 5:43pmpredniSONE 5 mg oral tablet (10 sources)Start: 65-62-6407lstd 3 tablets by mouth once daily, then take 2 tablets by mouth once daily, then take 1 tablet by mouth once dailyPrednisone 5 mg tablet Active 0 PO Daily 30 October 09, 2024 12:00am 3 tabs daily w/ food x 5 days, then 2 tabs daily w/ food x 5 days, then 1 tab daily w/ food x 5 days orally daily; Complies withdrug therapyStart: 09-30-2024 End: 12-00-0954Jcawlyuudu 20 mg tablet Discontinued 20 MG PO As Directed 29 03September 30, 2024 12:00am October 09, 2024 2:11pm 1 tab tid w/ food x 3 days, then bid w/ food x 6 daysStart: 09-12-2024 End: 98-42-2925pmhj 1 tablet by mouth twice daily, then take 1 tablet by mouth once dailyPrednisone 20 mg tablet Discontinued 20 MG PO As Directed 22 04September 12, 2024 1:00am September 30, 2024 10:10am 1 tablet bid x 5 days followed by 1 tablet qd x 5 daysStart: 09-06-2024 End: 31-17-3049Bdmsmhaenp 20 mg tablet Discontinued 20 MG PO .COMPLEX September 06, 2024 1:00am September 30, 2024 10:10am Take 2 tabs po daily x 4 days, then take 1 tab po x 4 days Completed/Discontinued Medications MedicationDrug Class(es)DatesSig (Normalized)Sig (Original)doxycycline hyclate 100 mg oral capsule (15 sources)Tetracycline-class DrugStart: 03-26-2024 End: 07-22-9933rvku 1 capsule by mouth twice dailyDoxycycline Hyclate 100 mg capsule Discontinued 100 MG PO Twice daily 04 12March 26, 2024 12:00am May 23, 2024 11:04amtake 1 capsule by mouth twice daily as needed Doxycycline Hyclate 100 MG 1 capsule Orally twice daily for 7 days Not-Taking/PRNhydrocortisone 10 mg/ml / neomycin 3.5 mg/ml / polymyxin b 90294 unt/ml otic suspension (12 sources)Aminoglycoside Antibacterial, Polymyxin-class Antibacterial, CorticosteroidStart: 64-79-7099Orrgkptw-Polymyxin-HC 3.5-82348-9 4 drops into affected ear Otic q HS PRN itching for 30 days November, Not-Taking/PRN meloxicam 15 mg oral tablet (18 sources)Nonsteroidal Anti-inflammatory DrugStart: 11-20-2022 End: 63-16-4158ltcr 1 tablet by mouth once dailyMeloxicam 15 mg tablet Discontinued 15 MG PO Daily November 20, 2022 12:00am November 22, 2022 2:17pm Meloxicam Activeticagrelor 90 mg oral tablet (20 sources)Start: 11-22-2022 End: 84-04-6192ovcl 1 tablet by mouth twice dailyTicagrelor (Brilinta) 90 mg Tablet Discontinued 90 MG PO Twice daily 180 90 November 22, 2022 12:00am November 22, 2023 12:47pmtriamcinolone acetonide 40 mg/ml injectable suspension (17 sources)CorticosteroidStart: 21-38-0623Nfeberv-40 May, 60 mgStart: 21-07-5235Prwrxai-40 November, 40 mg Problems Active Problems Problem ClassificationProblemDateDocumented DateEpisodic/ChronicAcute bronchitis (14 sources)Acute bronchitis due to other specified organisms; Translations: [Acute bronchitis]Onset: 50-64-7621OtksqubtRaucx myocardial infarction (20 sources)Myocardial infarction; Translations: [ST elevation (STEMI) myocardial infarction of unspecified site]Onset: hronic Comment on above:Problem List clean-up per request of Phys. EHR CmteAnxiety disorders (11 sources)Generalized anxiety disorder; Translations: [Generalized anxiety disorder]ChronicCardiac dysrhythmias (14 sources)Supraventricular tachycardia; Translations: [Supraventricular tachycardia]ChronicCardiac dysrhythmias (20 sources)Sinus tachycardia; Translations: [Tachycardia, unspecified] 58-10-1289HwdkqsdiWdhfhsj on above:Problem List clean-up per request of Phys. EHR CmteConduction disorders (2 sources)Sinus node dysfunction; Translations: [Sinoatrial node dysfunction] Onset: 28-96-0843DyjrlzoVxjtlihizo heart failure; nonhypertensive (4 sources)Chronic systolic heart failure; Translations: [Chronic systolic (congestive) heart failure]59-01-8227DjqklrnImmrark on above:Echo: LVEF 45%, normal RV size/function, RVSP 24 - 3Coronary atherosclerosis and other heart disease (20 sources)Coronary arteriosclerosis; Translations: [Atherosclerotic heart disease of [place] coronary artery without angina pectoris]Onset: 05-24-2023 ChronicComment on above:Problem List clean-up per request of Phys. EHR Cmte PCI/stent LAD oronary atherosclerosis and other heart disease (12 sources)Stented coronary artery; Translations: [Presence of coronary angioplasty implant and graft]Onset: 624801-82-9231OusirzltZaltopo on above:Problem List clean-up per request of Phys. EHR CmteDeficiency and other anemia (2 sources)Nutritional anemia; Translations: [Nutritional anemia, unspecified] EpisodicDeficiency and other anemia (10 sources)Anemia; Translations: [Anemia, unspecified]26-61-8816Onxzrhnf Deficiency and other anemia (7 sources)Anemia, unspecified; Translations: [Anemia, unspecified]Onset: 02-34-8480TirzgihxOoofzygrf of lipid metabolism (20 sources)Hyperlipidemia, group A; Translations: [Pure hypercholesterolemia, unspecified]Onset: 47-85-2857TwnrhyuOkrfgxj on above:Problem List clean-up per request of Phys. EHR CmteEsophageal disorders (9 sources)Gastro-esophageal reflux disease with esophagitis; Translations: [Gastroesophageal reflux disease with esophagitis without hemorrhage]Chronic Essential hypertension (20 sources)Essential hypertension; Translations: [Essential (primary) hypertension]Onset: 99-68-0970QwtkebsJjzvniq on above:Problem List clean-up per request of Phys. EHR CmteGout and other crystal arthropathies (8 sources)Gouty arthritis of right ankle; Translations: [Gout, unspecified] 67-04-4425FqqgrqfGiinhsmibdf of prostate (16 sources)Benign prostatic hypertrophy without outflow obstruction; Translations: [Benign prostatic hyperplasia without lower urinary tract symptoms]Onset: 17-72-8999UcxokrrWryfdvvvcuduq and screening for infectious disease (4 sources)Vaccination given; Translations: [Encounter for immunization]Episodic Nonspecific chest pain (11 sources)Precordial pain; Translations: [Chest pain]EpisodicComment on above: Problem List clean-up per request of Phys. EHR CmteOther and ill-defined heart disease (2 sources)Left ventricular systolic dysfunction; Translations: [Heart disease, unspecified]ChronicOther and ill-defined heart disease (9 sources)Mild left ventricular systolic dysfunction; Translations: [Other ill- defined heart diseases]Onset: 501067-06-7912MfjjnrrLjmuw and ill-defined heart disease (2 sources)Other ill-defined heart diseases; Translations: [Other ill-defined heart diseases]Onset: 16-76-8848IzbfxwzIhwgc and unspecified benign neoplasm (14 sources)Benign neoplasm of colon; Translations: [Benign neoplasm of descending colon]EpisodicOther and unspecified benign neoplasm (2 sources)Benign neoplasm of descending colon; Translations: [Benign neoplasm of descending colon]EpisodicOther connective tissue disease (12 sources)Pain in limb; Translations: [Pain in right leg]EpisodicOther connective tissue disease (2 sources)Pain in right lower limb; Translations: [Pain in right leg]Episodic Other ear and sense organ disorders (12 sources)Bilateral auditory canal chronic non-infective otitis externa; Translations: [Other otitis externa,bilateral]ChronicOther ear and sense organ disorders (1 source)Other otitis externa, bilateralChronicOther lower respiratory disease (10 sources)Dyspnea; Translations: [Dyspnea, unspecified]77-17-8724Entefpcf Comment on above:Problem List clean-up per request of Phys. EHR CmteOther nervous system disorders (6 sources)Tremor; Translations: [Tremor, unspecified]25-77-0171SbvtaiadMddgl non-traumatic joint disorders (2 sources)Swollen ankle region; Translations: [Effusion, left ankle]09-30-2024 EpisodicOther nutritional; endocrine; and metabolic disorders (2 sources)Body mass index 40+ - severely obese; Translations: [Body mass index (BMI) 40.0-44.9, adult]Onset: 69-90-2232TmgbtukWmmxe nutritional; endocrine; and metabolic disorders (2 sources)Simple obesity ; Translations: [Other obesity due to excess calories] ChronicOther nutritional; endocrine; and metabolic disorders (2 sources)Body mass index 30+ - obesity; Translations: [Body mass index 30.0- 30.9, adult]Onset: 68-02-2979PdezirtNqkbi nutritional; endocrine; and metabolic disorders (8 sources)Obesity; Translations: [Obesity, unspecified]21-11-5259JaehyfzMnlcv nutritional; endocrine; and metabolic disorders (5 sources)Obesity, unspecified; Translations: [Obesity, unspecified]11-12-2023 ChronicOther nutritional; endocrine; and metabolic disorders (5 sources)Overweight in adulthood with body mass index of 25 or more but less than 30; Translations: [Overweight]Onset: 971188-08-7633XpvwgfdhMogif screening for suspected conditions (not mental disorders or infectious disease) (20 sources)Encounter for screening for malignant neoplasm of prostate; Translations: [Electrocardiogram abnormal]Onset: 89-31-9234EvrfopucUkhyhoh on above:PSA: 0.57 - 05/2023,Problem List clean-up per request of Phys. EHR Cmte PSA: 0.57 - 05/2023, 1.01 - 05/2024Other upper respiratory disease (19 sources)Allergic rhinitis due to pollen; Translations: [Allergic rhinitis due to pollen]34-45-8224LnwhvkfZfbfs upper respiratory disease (2 sources)Allergic rhinitis due to pollenChronicOther upper respiratory disease (2 sources)Seasonal allergic rhinitis; Translations: [Other seasonal allergic rhinitis]Onset: 93-25-7488MmuwwfnGqotd upper respiratory disease (4 sources)Allergic rhinitis; Translations: [Allergic rhinitis, unspecified] Onset: 67-36-7449WqxniejRogin upper respiratory disease (1 source)DysphoniaEpisodicOther upper respiratory infections (4 sources)Acute maxillary sinusitis; Translations: [Acute maxillary sinusitis, unspecified]Onset: 73-49-1055WyuaicrlHywoelespdj; intervertebral disc disorders; other back problems (19 sources)Lumbar spondylosis; Translations: [Spondylosis without myelopathy or radiculopathy, lumbar region]Onset: 48-35-9554XtbmzuuMpdhwuhcell; intervertebral disc disorders; other back problems (18 sources)Sciatica; Translations: [Lumbago with sciatica, unspecified side] Onset: 95-14-3825WgazorkeZcxgqfz and strains (6 sources)Strain of muscle, fascia and tendon of right hip, subsequent encounter; Translations: [Strain of right quadriceps muscle, fascia and tendon, initial encounter]Onset: 78-65-4623KzguusvgOfzgvvnhl-related disorders (20 sources)Tobacco user; Translations: [Nicotine dependence, cigarettes, in remission]53-39-4798BdepzhwIxhraen on above:Age started, PPD, Age quit Unclassified (4 sources)LOW BACK PAIN, UNSPECIFIED; Translations: [LOW BACK PAIN, UNSPECIFIED]Onset: 32-91-0281Ovlotoghereb (2 sources)Dietary management surveillance; Translations: [Dietary surveillance and counseling]Onset: 12-30-2013 Past or Other Problems Problem ClassificationProblemDateDocumented DateEpisodic/ChronicAbdominal pain (2 sources)Right upper quadrant pain; Translations: [Right upper quadrant pain] Resolved: 69-44-2046AgpvhrvmVcwmzvxp reactions (2 sources)Contact dermatitis; Translations: [Contact dermatitis and other eczema, due to unspecified cause]Onset: 56-50-0205RzxmliawDgxfaixyi infection; unspecified site (2 sources)Bacterial infectious disease; Translations: [Bacterial infection, unspecified, in conditions classified elsewhere and of unspecified site]Onset: 75-78-9715FmxzogrvUknhilrgpi disorders (3 sources)Esophageal disordersOther non-traumatic joint disorders (2 sources)Shoulder joint pain; Translations: [Pain in left shoulder]Onset: 10-09-2230GmiezukzOnfie nutritional; endocrine; and metabolic disorders (15 sources)Overweight; Translations: [Overweight]Onset: EpisodicOther nutritional; endocrine; and metabolic disorders (2 sources)Body mass index 25-29 - overweight; Translations: [Body mass index 29.0-29.9, adult]Onset: 35-98-3011BpbvruibEbmxr nutritional; endocrine; and metabolic disorders (2 sources)Body mass index (BMI) 29.0-29.9, adult; Translations: [Body mass index (BMI) 29.0-29.9, adult]Onset: 01-28-5843GkhdnpopYgyyy skin disorders (2 sources)Atrophoderma; Translations: [Unspecified hypertrophic and atrophic condition of skin]Onset: 26-45-0564KipepwbvZfifhmcpz and history of mental health and substance abuse codes (9 sources)Ex-smoker; Translations: [Personal history of tobacco use]Onset: 221302-31-5318VamisbhwLmwosdp on above:quit 1993;Unclassified (1 source)LOW BACK PAIN, UNSPECIFIED; Translations: [LOW BACK PAIN, UNSPECIFIED] Onset: 51-56-3496Axrwvncnzvgj (5 sources)Recent myocardial infarction; Translations: [Recent ST elevation myocardial infarction (STEMI)]58-24-0171Mievehp on above:Problem List clean-up per request of Phys. EHR CmteViral infection (2 sources)Verruca vulgaris; Translations: [Viral wart, unspecified]Onset: 80-79-1733OogmcfymAmopq infection (14 sources)Disease caused by 2019-nCoV; Translations: [COVID-19] Results Test NameValueInterpretationReference Teresita 07-18-2024 Specimen: [id number] Received: 07/18/24 Status: JALIL Santillanglo Num: [id number] Spec Type: Surgical Subm Dr: Maxx Doss MD Tissues: A Small Intestine - Biopsy/Polyp (SM BOWEL BX R/O CELIAC) B Colon Biopsy (CECAL POLYP) Procedures: HE/Elsa, Gross/Micro L4/2 Age/ Patient Sex Location Account Attending Physician Aisha Sierra 63/M [id number] Maxx Doss MD SPEC NUM: [id number] RECD: 07/18/24 STATUS: JALIL NEVILLE NUM: [id number] ROSAS: 07/18/[address] [facility] [address]: Maxx Doss MD ENTERED: 07/18/[address] [facility] [address]: ALEYDA TYPE: Surgical DEPT: S ENTERED BY: [id number] RECV BY: [id number] ORDERED: HE/4, Gross/Micro L4/2 ORDERED: HE/4, Gross/Micro [...] submitted in a single cassette. (1, ns, X02-909 A) J Part B is received in formalin labeled with the patients name, date of , and cecal polyp is a hauser-villalba, focally erythematous, friable, 0.5 cm in greatest dimension polypoid fragment. The specimen is entirely submitted in a single cassette. (1, ns, P95- 716 B) JG Specimen: [id number] Received: 07/18/24 Status: JALIL Neville Num: [id number] Spec Type: Surgical Subm Dr: Maxx Doss MD Tissues: A Small Intestine - Biopsy/Polyp (SM BOWEL BX R/O CELIAC) B Colon Biopsy (CECAL POLYP) Procedures: HE/4, Gross/Micro L4/2 Patient: Aisha Sierra [id number] (Continued) Specimen: [id number] Received: 07/18/24 (Continued) Signed (signature on file) Ibrahima Hand MD 07/21/24 1022 Specimen: [id number] Received: 07/18/24 Status: JALIL Neville Num: [id number] Spec Type: Surgical Subm Dr: Maxx Doss MD Tissues: A Small Intestine - Biopsy/Polyp (SM BOWEL BX R/O CELIAC) B Colon Biopsy (CECAL POLYP) Procedures: HE/4, Gross/Micro L4/2 Patient: Aisha Sierra [id number] (Continued) Specimen: [id number] Received: 07/18/24 (Continued) Microscopic Description A B: Microscopic examination is performed CPT Codes 53922 x2 Specimen: [id number] Received: 07/18/24 Status: JALIL Neville Num: [id number] Spec Type: Surgical Subm Dr: Maxx Doss MD Tissues: A Small Intestine - Biopsy/Polyp (SM BOWEL BX R/O CELIAC) B Colon Biopsy (CECAL POLYP) Procedures: HE/4, Gross/Micro L4/2 Patient: Aisha Sierra [id number] (Continued) Signed (signature on file) Ibrahima Hand MD 07/21/24 1022Normal [facility] Physician GroupBasophils Auto (Bld) [#/Vol]on 87-10-0056Hvrfznaki (Bld) [#/Vol]Automated basophil count0.0-0.1FMetroHealth Cleveland Heights Medical Center Basophils/100 WBC Auto (Bld)on 14-36-0019Fiqtcnanw/100 WBC (Bld)Automated basophil %0.2-2.0[facility] CompanyCholesterol in LDL Calc [Mass/Vol]on 56-70-6252Sxwqebwmiug in LDL [Mass/Vol]Cholesterol in LDL [Mass/volume] in Serum or Plasma by [facility] Comment on above:<100 mg/dl QZZCMGN584-205 mg/dl NEAR OR ABOVE ZJZXVTS916-548 mg/dl BORDERLINE ZGSV101-368 mg/dl HIGH>190 mg/dl VERY HIGHCholesterol in VLDL Calc [Mass/Vol]on 06-14-0795Epbnebqbmxs in VLDL [Mass/Vol]Cholesterol in VLDL [Mass/volume] in Serum or Plasma by calculationRegency Hospital Company Eosinophils/100 WBC Auto (Bld)on 52-61-3375Vxtljwlxhfx/100 WBC (Bld)Automated eosinophil %High0.9-7.0[facility] CompanyErythrocyte distribution width Auto (RBC) [Ratio]on 26-45-5207Xfcwbetfqfm distribution width (RBC) [Ratio]Erythrocyte distribution width [Ratio] by Automated count11.0-15.0 [facility] CompanyEstimated glomerular filtration rate (GFR) non- Americanon 25-86-8091GVU/1.73 sq M.predicted among non-blacks MDRD (S/P/Bld) [Vol rate/Area]Estimated glomerular filtration rate (GFR) non->=60 mL/min/1.73m 2FMetroHealth Cleveland Heights Medical CenterGlobulin Calc (S) [Mass/Vol]on 32-23-7345Motqajqw (S) [Mass/Vol]Serum globulin measurement by calculation (mass/volume)[facility] CompanyHematocrit Auto (Bld) [Volume fraction]on 91-42-0621Kfcpvxxruf (Bld) [Volume fraction]Hematocrit [Volume Fraction] of Blood by Automated ifxjsRep01.0-54.0[facility] CompanyHemoglobin [Mass/volume] in Bloodon 69-90-0782Jftovckykz (Bld) [Mass/Vol]Hemoglobin [Mass/volume] in QcsunXte26.0-18.0[facility] CompanyIron binding capacity [Mass/volume] in Serum or Plasmaon 66-01-2631Ffpr binding capacity [Mass/Vol]Iron binding capacity [Mass/volume] in Serum or Scmxvj672.0-450.0[facility] CompanyIron saturation [Mass Fraction] in Serum or Plasmaon 38-84-0512Yspl saturation [Mass fraction] Iron saturation [Mass Fraction] in Serum or PlasmaRegency Hospital CompanyLaboratory - Chemistry and Chemistry - challengeon 75-74-9610Nhivuuq [Mass/Vol]3.7 g/dL3.4-5.0[facility] CompanyALP [Catalytic activity/Vol]89 U/D57-261AikzqxnaaRegency Hospital CompanyALT [Catalytic activity/Vol]27 U/V75-15PnadtpzdmRegency Hospital CompanyAST [Catalytic activity/Vol]21 U/X27-25DfumjsiubRegency Hospital CompanyBilirubin [Mass/Vol]0.5 mg/dL0.2-1.0[facility] CompanyCalcium [Mass/Vol]8.7 mg/dL 8.5-10.1FMetroHealth Cleveland Heights Medical CenterChloride [Moles/Vol]104 mmol/L98-107 [facility] CompanyCholesterol [Mass/Vol]155 mg/dL<=200[facility] CompanyCholesterol in HDL [Mass/Vol]49 mg/aT49-75JmwijmcejRegency Hospital CompanyComment on above:> or =60 mg/dl - LOW CARDIOVASCULAR RISK<40 mg/dl - HIGH CARDIOVASCULAR RISKCO2 [Moles/Vol]24.3 mmol/L21.0-32.0 [facility] CompanyCobalamin (Vitamin B12) [Mass/Vol]529 pg/mL 232-1245[facility] CompanyComment on above:Performed at: [employer] [id number] Director: Yaya Gant PhD, Phone: [phone] [Mass/Vol]1.17 mg/dL0.70-1.30 [facility] CompanyFerritin [Mass/Vol]123.0 ng/mL26.0-388.0 [facility] CompanyGFR/1.73 sq M.predicted MDRD (S/P/Bld) [Vol rate/Area]mL/min/{1.73_m2}>=60 mL/min/1.73m 2FMetroHealth Cleveland Heights Medical Center Glucose [Mass/Vol]118 mg/jYIfqf05-052WnzegapsfRegency Hospital CompanyIron [Mass/Vol]53.0 ug/dLLow65.0-175.0[facility] CompanyPotassium [Moles/Vol]4.1 mmol/L3.5-5.1FMetroHealth Cleveland Heights Medical CenterProtein [Mass/Vol] 7.0 g/dL6.4-8.2FMercy Health – The Jewish Hospitalodium [Moles/Vol]141 mmol/L 136-145[facility] CompanyTriglyceride [Mass/Vol]204 mg/dLHigh <=150[facility] CompanyTSH Qn1.707 m[IU]/L0.358-3.740[facility] CompanyUrea nitrogen [Mass/Vol]12.0 mg/dL7.0-18.0[facility] CompanyUrea nitrogen/Creatinine [Mass ratio]10.3 mg/mgRegency Hospital CompanyLaboratory - Hematology and Cell countson 05-30-2024 Immature granulocytes/100 WBC (Bld)0.2 %0.0-0.5FMetroHealth Cleveland Heights Medical Center Leukocytes [#/volume] corrected for nucleated erythrocytes in Blood by Automated counon 87-58-9136LZH corrected for nucl RBC Auto (Bld) [#/Vol]Leukocytes [#/volume] corrected for nucleated erythrocytes in Blood by Automated coun 4.0-11.0[facility] CompanyLymphocytes Auto (Bld) [#/Vol]on 52-90-9641Mjdqoseqxyw (Bld) [#/Vol]Lymphocytes [#/volume] in Blood by Automated countLow1.2-3.8[facility] CompanyLymphocytes/100 WBC Auto (Bld)on 75-81-4525Dpiazhcnosd/100 WBC (Bld)Lymphocytes/100 leukocytes in Blood by Automated erzedElr56.5-60.0[facility] HospitalH Auto (RBC) [Entitic mass]on 57-76-1903TWK (RBC) [Entitic mass]MCH [Entitic mass] by Automated count25.9-34.0[facility] CompanyMCHC Auto (RBC) [Mass/Vol]on 55-76-7216JIQN (RBC) [Mass/Vol]MCHC [Mass/volume] by Automated count29.9-35.2FMetroHealth Cleveland Heights Medical CenterMCV Auto (RBC) [Entitic vol]on 05-79-6243BLD (RBC) [Entitic vol]MCV [Entitic volume] by Automated count 80.0-94.0[facility] CompanyMonocytes Auto (Bld) [#/Vol]on 86-25-1487Zthuzsodj (Bld) [#/Vol]Automated blood monocyte count0.3-0.8[facility] CenterMonocytes/100 WBC Auto (Bld)on 87-78-5160Ttdwbdnnv/100 WBC (Bld)Automated monocyte %1.7-12.0[facility] Neutrophils Auto (Bld) [#/Vol]on 87-35-5496Uqjrnlnoplu (Bld) [#/Vol]Neutrophils [#/volume] in Blood by Automated count1.4-6.5FMetroHealth Cleveland Heights Medical Center Neutrophils/100 WBC Auto (Bld)on 82-38-0017Jdaunpkrsyz/100 WBC (Bld)Automated neutrophil %43.0-75.0[facility] CompanyNo Panel Informationon 69-28-0811Vgtahiutvks # (Auto)0.6 10 3/uL0.0-0.7FMetroHealth Cleveland Heights Medical CenterFolate12.40 ng/mL8.60-58.90[facility] CompanyImmature Granulocyte # (Auto)0.01 10 3/uL0.00-0.03[facility] Prostate Specific Antigen Screen1.01 ng/mL<=4.00[facility] CompanyPlatelet mean volume Auto (Bld) [Entitic vol]on 16-40-2792Xvxprlmb mean volume (Bld) [Entitic vol]Platelet mean volume [Entitic volume] in Blood by Automated count9.5-13.5FMetroHealth Cleveland Heights Medical CenterPlatelets Auto (Bld) [#/Vol]on 70-76-2359Uxxhidlfl (Bld) [#/Vol]Platelets [#/volume] in Blood by Automated -135VgmtkjigwRegency Hospital CompanyRBC Auto (Bld) [#/Vol]on 30-11-3494TLW (Bld) [#/Vol]Erythrocytes [#/volume] in Blood by Automated count Low4.70-6.10[facility] Medical Centererum or plasma albumin/globulin mass ratioon 84-24-5930Keiivtz/Globulin [Mass ratio]Serum or plasma albumin/globulin mass ratioOhioHealth Southeastern Medical Centererum or plasma anion gap determinationon 72-59-0383Hbsnk gap [Moles/Vol]Serum or plasma anion gap determinationOhioHealth Southeastern Medical Centererum or plasma total cholesterol/high density lipoprotein (HDL) cholesterol mass roxi 05-30-2024 Cholesterol.total/Cholesterol in HDL [Mass ratio]Serum or plasma total cholesterol/high density lipoprotein (HDL) cholesterol mass ratRegency Hospital CompanyComment on above:3.3 - 4.4 LOW RISK4.4 - 7.1 AVERAGE RISK7.1 - 11.0 MODERATE RISK>11.0 HIGH RISKBasophils/100 WBC Manual cnt (Bld)on 39-02-2488Cqovpmbrj/100 WBC (Bld)2.0 %0.2-2.0[facility] Eosinophils/100 WBC Manual cnt (Bld)on 41-02-6501Knxoqspglzi/100 WBC (Bld)5.0 % 0.9-7.0[facility] CompanyErythrocyte distribution width Auto (RBC) [Ratio]on 10-39-4095Ghvkrtluuda distribution width (RBC) [Ratio]13.5 % 11.0-15.0[facility] CompanyHematocrit Auto (Bld) [Volume fraction]on 90-40-1996Bnyqhtxkbk (Bld) [Volume fraction]36.6 %Low42.0-54.0 [facility] CompanyHemoglobin [Mass/volume] in Bloodon 02-05-2024 Hemoglobin (Bld) [Mass/Vol]11.7 g/dLLow14.0-18.0[facility] CompanyLaboratory - Hematology and Cell countson 09-48-5628Fmgsuarulpg/100 WBC (Bld)14.0 %Low20.5-60.0[facility] CompanyMonocytes/100 WBC (Bld) 5.0 %1.7-12.0[facility] CompanyLeukocytes [#/volume] corrected for nucleated erythrocytes in Blood by Automated counon 83-35-2391HUR corrected for nucl RBC Auto (Bld) [#/Vol]4.7 10 3/uL4.0-11.0[facility] HospitalH Auto (RBC) [Entitic mass]on 09-45-9092DIO (RBC) [Entitic mass]28.9 pg 25.9-34.0[facility] CompanyMCHC Auto (RBC) [Mass/Vol]on 69-54-1660ATHG (RBC) [Mass/Vol]32.0 g/dL29.9-35.2FMetroHealth Cleveland Heights Medical CenterMCV Auto (RBC) [Entitic vol]on 34-77-5369BQO (RBC) [Entitic vol]90.4 fL 80.0-94.0[facility] CompanyNo Panel Informationon 02-05-2024 Absolute Basophils (Manual)0.09 10 3/uL0.00-0.10[facility] CompanyEosinophils # (Manual)0.23 10 3/uL0.00-0.70[facility] CompanyLymphocytes # (Manual)0.65 10 3/uLLow1.20-3.80[facility] CompanyMonocytes # (Manual)0.23 10 3/uLLow0.30-0.80[facility] Medical Centeregmented Neutrophils # (Manual)3.47 10 3/uL1.4-6.5FMetroHealth Cleveland Heights Medical CenterPlatelet mean volume Auto (Bld) [Entitic vol]on 30-64-9855Jzduklkv mean volume (Bld) [Entitic vol]10.4 fL9.5-13.5FMetroHealth Cleveland Heights Medical Center Platelets Auto (Bld) [#/Vol]on 49-87-4813Uyubbsdam (Bld) [#/Vol]156 10 3/uL 150-450[facility] CompanyRBC Auto (Bld) [#/Vol]on 73-05-9178VRO (Bld) [#/Vol]4.05 10 6/uLLow4.70-6.10[facility] Centeregmented neutrophils/100 WBC Manual cnt (Bld)on 45-27-5193Xvaxbjoio neutrophils/100 WBC (Bld)74.0 %43.0-75.0[facility] CompanyCholesterol in LDL Calc [Mass/Vol]on 60-43-8891Tujmojtjtgp in LDL [Mass/Vol]70.6 mg/dLRegency Hospital CompanyComment on above:<100 mg/dl TUSVHQM571-191 mg/dl NEAR OR ABOVE VEJDDCN761-972 mg/dl BORDERLINE DJFS290-459 mg/dl HIGH>190 mg/dl VERY HIGH Cholesterol in VLDL Calc [Mass/Vol]on 02-51-2105Nyigfgnferr in VLDL [Mass/Vol] 27.4 mg/dLRegency Hospital CompanyLaboratory - Chemistry and Chemistry - challengeon 85-03-2710Teogxzixsrw [Mass/Vol]149 mg/dL<=200[facility] CompanyCholesterol in HDL [Mass/Vol]51 mg/aS84-18QjxttdckzRegency Hospital CompanyComment on above:> or =60 mg/dl - LOW CARDIOVASCULAR RISK<40 mg/dl - HIGH CARDIOVASCULAR RISKTriglyceride [Mass/Vol]137 mg/dL<=150[facility] Medical Centererum or plasma total cholesterol/high density lipoprotein (HDL) cholesterol mass roxi 75-15-9603Sejlinogvuc.total/Cholesterol in HDL [Mass ratio]2.9 {ratio}[facility] CompanyComment on above:3.3 - 4.4 LOW RISK4.4 - 7.1 AVERAGE RISK7.1 - 11.0 MODERATE RISK>11.0 HIGH RISKUS Heart TransthoracicOrdered By: Sal Dorman on 06-84-3394KZ [facility] EF70.3 [facility] Work Phone: LVIDd5.80[facility] Work Phone: LVOT diam2.60[facility] Work Phone: [facility] Work Phone: [facility] Heart Transthoracicon 07-04-[address], [address] [place] [address] TRANSTHORACIC ECHOCARDIOGRAM REPORT Patient Name: AISHA ZULEMA Huizar Physician: [id number] Sal Dorman MD, [facility] Study Date: 07/03/2023 Ordering Provider: [id number] CONRAD FARRELL MRN/PID: [id number] Fellow: Nurse: Date of /Age: 2 1960 / 62 years Inspector Tester Sorter: Araseli Smith RDCS, RVT Gender: M Additional Staff: Height: 172.72 cm Admit Date: Weight: 86.18 kg Admission Status: BSA: 2.00 m2 Department Location: [facility] Blood Pressure: 136 /82 mmHg Study Type: TRANSTHORACIC ECHO (TTE) LIMITED Diagnosis/ICD: Other ill defined heart diseases-I51.89 Indication: CAD, AR and PTCA-11/2022, Dyspnea on Exertion, Former Smoker, Ischemic Cardiomyopathy CPT Codes: Echo Limited-49873 Study Detail: The following Echo studies were [...] well visualized. The pulmonic valve regurgitation was notassessed. Pericardium: There is no pericardial effusion noted. Aorta: The aortic root is normal. Systemic Veins: The inferior vena cava appears to be of normal size. In comparison to the previous echocardiogram(s): When compared to study from 11/21/2022 the ejectionfraction remains unchanged, current study did not include Doppler imaging. CONCLUSIONS: 1. Left ventricular systolic function is mildly decreased with a 45% estimated ejection fraction. 2. Moderate anteroseptal hypokinesis. 3. When compared to study from 11/21/2022 the ejection fraction remains unchanged, current study didnot include Doppler imaging. QUANTITATIVE DATA SUMMARY: 2D [...] Normal Ranges: LVOT Diameter: 2.60 cm (1.8-2.4cm) [id number] Sal Dorman MD, [facility] Electronically signed on 07/04/2023 at 1:42:19 PM Final Sal Frederick MD - 07/04/2023 [place] [id number] [facility], [address], [place] [address] TRANSTHORACIC ECHOCARDIOGRAM REPORT Patient Name: AISHA SIERRA Gaye Physician: [id number] Sal Dorman MD, [facility] Study Date: 07/03/2023 Ordering Provider: [id number] CONRAD FARRELL MRN/PID: [id number] Fellow: Nurse: Date of /Age: 2 1960 / 62 years Inspector Tester Sorter: Araseli Smith RDCS, RVT Gender: M Additional Staff: Height: 172.72 cm Admit Date: Weight: 86.18 kg Admission Status: BSA: 2.00 m2 Department Location: [facility] Blood Pressure: 136 /82 mmHg Study Type: TRANSTHORACIC ECHO (TTE) LIMITED Diagnosis/ICD: Other ill defined heart diseases-I51.89 Indication: CAD, AR and PTCA-11/2022, Dyspnea on Exertion, Former Smoker, Ischemic Cardiomyopathy CPT Codes: Echo Limited-41667 Study Detail: The following Echo studies were [...] well visualized. The pulmonic valve regurgitation was notassessed. Pericardium: There is no pericardial effusion noted. Aorta: The aortic root is normal. Systemic Veins: The inferior vena cava appears to be of normal size. In comparison to the previous echocardiogram(s): When compared to study from 11/21/2022 the ejectionfraction remains unchanged, current study did not include Doppler imaging. CONCLUSIONS: 1. Left ventricular systolic function is mildly decreased with a 45% estimated ejection fraction. 2. Moderate anteroseptal hypokinesis. 3. When compared to study from 11/21/2022 the ejection fraction remains unchanged, current study didnot include Doppler imaging. QUANTITATIVE DATA SUMMARY: 2D [...] Normal Ranges: LVOT Diameter: 2.60 cm (1.8-2.4cm) [id number] Sal Dorman MD, FACC Electronically signed on 07/04/2023 at 1:42:19 PM Final [facility] Work Phone: TRANSTHORACIC ECHO (TTE) LIMITED 07-03-2023 TRANSTHORACIC ECHO (TTE) [address], [address] [place] [address] TRANSTHORACIC ECHOCARDIOGRAM REPORT Patient Name: AISHA SIERRA Gaye Physician: [id number] Sal Dorman MD, FACC Study Date: 07/03/2023 Ordering Provider: [id number] CONRAD FARRLEL MRN/PID: [id number] Fellow: Nurse: Date of /Age: 2 1960 / 62 years Inspector Tester Sorter: Araseli Smith RDCS, RVT Gender: M Additional Staff: Height: 172.72 cm Admit Date: Weight: 86.18 kg Admission Status: BSA: 2.00 m2 Department Location: [facility] Blood Pressure: 136 /82 mmHg Study Type: TRANSTHORACIC ECHO (TTE) LIMITED Diagnosis/ICD: Other ill defined heart diseases-I51.89 Indication: CAD, AR and PTCA-11/2022, Dyspnea on Exertion, Former Smoker, Ischemic Cardiomyopathy CPT Codes: Echo Limited-22965 Study Detail: The following Echo studies were [...] well visualized. The pulmonic valve regurgitation was notassessed. Pericardium: There is no pericardial effusion noted. Aorta: The aortic root is normal. Systemic Veins: The inferior vena cava appears to be of normal size. In comparison to the previous echocardiogram(s): When compared to study from 11/21/2022 the ejectionfraction remains unchanged, current study did not include Doppler imaging. CONCLUSIONS: 1. Left ventricular systolic function is mildly decreased with a 45% estimated ejection fraction. 2. Moderate anteroseptal hypokinesis. 3. When compared to study from 11/21/2022 the ejection fraction remains unchanged, current study didnot include Doppler imaging. QUANTITATIVE DATA SUMMARY: 2D [...] Normal Ranges: LVOT Diameter: 2.60 cm (1.8-2.4cm) [id number] Sal Dorman MD, FACC Electronically signed on 07/04/2023 at 1:42:19 PM Final [facility] CenterOffice Visit (Cardiology)on 62-80-6335Mvxsow-up visitDiagnoses/Problems Assessed Single vessel coronary disease (414.00) (I25.10) [...] Weight Tips; Status:Complete - Retrospective Authorization; Done: [id number] Cardiac Rehab Referral Evaluation and Treatment Evaluate AND Treat Status: Hold For - Scheduling,Retrospective Authorization Requested for: 06Dec2022 Agreement : I [...] lose weight.; Status:Complete - Retrospective Authorization; Done: [id number] SocHx: Former smoker Tobacco Use Screening; Status:Complete; Done: [id number] Patient Instructions Please bring all medicines, vitamins, [...] 12 RTW in 2 weeks Chief Complaint AISHA SIERRA is being seen for a 2-3 weeks [facility] follow-up of. Patient is a 62-year-old gentleman returns for follow-up following recent large anterior STEMI withrevascularization of the proximal LAD with 3.5 x 15 mm [place] stent without complications. Ejection fraction subsequently measured by echo was 45% confirmed by angiography as well He works at [employer] is anxious to get back to working [...] Vitals Vital Signs Recorded (more content not included)...NormalUH TouchworksTobacco Screening.on 64-38-9698Chehl depression screening assessmentEleanor [facility]ater [facility] [employer] DO Work Phone: Fall risk assessmenta) No falls within the last year [facility] [employer] 250 DO Work Phone: Tobacco use status CPHSb) NoMUniversity Of Washington Medical Center [employer] DO Work Phone: Alanine aminotransferase [Enzymatic activity/volume] in Serum or PlasmaOrdered By: Ottoniel Luis on 99-95-1507SXG [Catalytic activity/Vol]18 U/L7-52[facility] CompanyAlbumin [Mass/volume] in Serum or Plasma by Bromocresol green (BCG) dye binding methoOrdered By: Ottoniel Luis on 25-51-1985Cfbxbio BCG dye [Mass/Vol]3.8 g/dL3.5-5.7FMetroHealth Cleveland Heights Medical CenterAlkaline phosphatase [Enzymatic activity/volume] in Serum or PlasmaOrdered By: Ottoniel Luis on 99-82-7473CMC [Catalytic activity/Vol]40 U/L 34-104[facility] Hospital CompanyAspartate aminotransferase [Enzymatic activity/volume] in Serum or PlasmaOrdered By: Ottoniel Luis on 21-98-3134PTF [Catalytic activity/Vol]17 U/T78-27RtdjlsjybRegency Hospital CompanyBasophils Auto (Bld) [#/Vol]Ordered By: Ottoniel Luis on 82-29-0805Xhgqnnxyk (Bld) [#/Vol] 0.1 10*3/uL0.0-0.2FMetroHealth Cleveland Heights Medical CenterBasophils/100 WBC Auto (Bld) Ordered By: Ottoniel Luis on 93-15-1264Bhhxrmego/100 WBC (Bld)0.7 %.[facility] Hospital CompanyBilirubin.total [Mass/volume] in Serum or PlasmaOrdered By: Ottoniel Luis 64-57-9364Djswkfyqn [Mass/Vol]0.3 mg/dL0.3-1.0[facility] CompanyCalcium [Mass/volume] in Serum or PlasmaOrdered By: Ottoniel Luis 35-33-7327Kliazlw [Mass/Vol]8.0 mg/dL8.6-10.3FMetroHealth Cleveland Heights Medical CenterCarbon dioxide, total [Moles/volume] in Serum or PlasmaOrdered By: Ottoniel Luis 81-76-7536SB4 [Moles/Vol]23.8 mmol/L21.0-31.0[facility] CompanyChloride [Moles/volume] in Serum or PlasmaOrdered By: Ottoniel Luis 16-11-2953Xcabepjy [Moles/Vol]108 mmol/W83-919TlcrfuadpRegency Hospital CompanyCreatinine [Mass/volume] in Serum or PlasmaOrdered By: Ottoniel Luis 40-72-1724Lbzsbtwrom [Mass/Vol]1.24 mg/dL0.70-1.30[facility] CompanyEosinophils Auto (Bld) [#/Vol]Ordered By: Ottoniel Luis on 52-24-2670Lkyzjzbqidc (Bld) [#/Vol]0.2 10*3/uL0.0-0.45[facility] CompanyEosinophils/100 WBC Auto (Bld)Ordered By: Ottoniel Luis on 11-20-2022 Eosinophils/100 WBC (Bld)2.3 %.[facility] CompanyErythrocyte distribution width Auto (RBC) [Ratio]Ordered By: Ottoniel Luis on 11-20-2022 Erythrocyte distribution width (RBC) [Ratio]13.5 %12.0-14.8[facility] CompanyGlobulin Calc (S) [Mass/Vol]Ordered By: Ottoniel Luis on 11-20-2022 Globulin (S) [Mass/Vol]2.4 g/dLRegency Hospital CompanyGlucose [Mass/volume] in Serum or PlasmaOrdered By: Ottoniel Luis on 78-87-3482Prrskma [Mass/Vol]144 mg/aJ47-514DpqruuiosRegency Hospital CompanyComment on above:ADA recommended reference rangeRandom Glucose Reference Range is dependent on time and content of last meal. Glucose of more than 200 mg/dL in a nonstressed, ambulatory subject supports the diagnosisof Diabetes Mellitus.Hematocrit Auto (Bld) [Volume fraction]Ordered By: Ottoniel Luis on 41-20-6502Yxfikobigr (Bld) [Volume fraction]32.9 %38.8-50.0[facility] CompanyHemoglobin [Mass/volume] in BloodOrdered By: Ottoniel Luis on 80-52-5348Rveonderkj (Bld) [Mass/Vol]11.0 g/dL13.0-17.0[facility] CompanyLeukocytes [#/volume] corrected for nucleated erythrocytes in Blood by Automated coun Ordered By: Ottoniel Luis on 30-61-4924LOA corrected for nucl RBC Auto (Bld) [#/Vol]9.4 10*3/uL4.1-10.5FMetroHealth Cleveland Heights Medical CenterLymphocytes Auto (Bld) [#/Vol]Ordered By: Ottoniel Luis on 16-48-3017Lwsxnqzywtv (Bld) [#/Vol]2.0 10*3/uL1.00-4.8[facility] CompanyLymphocytes/100 WBC Auto (Bld) Ordered By: Ottoniel Luis on 15-95-5727Fpjnigvtncq/100 WBC (Bld)21.0 %.[facility] CompanyMCH Auto (RBC) [Entitic mass]Ordered By: Ottoniel Luis on 17-53-7694GVS (RBC) [Entitic mass]30.2 pg27.5-35.2FMetroHealth Cleveland Heights Medical CenterMCHC Auto (RBC) [Mass/Vol]Ordered By: Ottoniel Luis on 98-82-8359LKKN (RBC) [Mass/Vol]33.4 g/dL32.5-35.6FMetroHealth Cleveland Heights Medical CenterMCV Auto (RBC) [Entitic vol]Ordered By: Ottoniel Luis on 11-30-0264QHJ (RBC) [Entitic vol]90.3 fL83.5-101[facility] CompanyMonocytes Auto (Bld) [#/Vol]Ordered By: Ottoniel Luis on 23-93-6968Ktdrfnonk (Bld) [#/Vol]1.0 10*3/uL0.0-0.8[facility] CompanyMonocytes/100 WBC Auto (Bld)Ordered By: Ottoniel Luis on 84-81-4335Dwtaykkgp/100 WBC (Bld)10.6 %.[facility] Natriuretic peptide B [Mass/Vol]Ordered By: Ottoniel Luis on 11-20-2022 Natriuretic peptide B (Bld) [Mass/Vol]8.0 pg/mL5-100[facility] CompanyNeutrophils Auto (Bld) [#/Vol]Ordered By: Ottoniel Luis on 11-20-2022 Neutrophils (Bld) [#/Vol]6.1 10*3/uL1.8-7.7FMetroHealth Cleveland Heights Medical Center Neutrophils/100 WBC Auto (Bld)Ordered By: Ottoniel Luis on 11-20-2022 Neutrophils/100 WBC (Bld)65.4 %.[facility] CompanyNo Panel InformationOrdered By: Ottoniel Luis on 43-85-4126Xyfmsucbd GFR (CKD-EPI)> 60.0 mL/MinRegency Hospital CompanyPharmacy Creatinine Clearance (Chem69.76 [facility] CompanyNucleated erythrocytes [Presence] in Blood by Automated countOrdered By: Ottoniel Luis on 08-98-4484Puagrhykb RBC Auto Ql (Bld) 0.1 /100{WBC}0-0.5FMetroHealth Cleveland Heights Medical CenterPlatelet mean volume Auto (Bld) [Entitic vol]Ordered By: Ottoniel Luis on 20-50-3481Uixxelie mean volume (Bld) [Entitic vol]7.8 fL6.6-10.1FMetroHealth Cleveland Heights Medical CenterPlatelets Auto (Bld) [#/Vol]Ordered By: Ottoniel Luis on 30-38-5878Zjjqavrpu (Bld) [#/Vol]218 10*3/iP296-137PmdzfypqmRegency Hospital CompanyPotassium [Moles/volume] in Serum or PlasmaOrdered By: Ottoniel Luis on 47-18-4607Fpvofucbt [Moles/Vol]4.1 mmol/L 3.5-5.1FMetroHealth Cleveland Heights Medical CenterProtein [Mass/volume] in Serum or Plasma Ordered By: Ottoniel Luis on 67-81-6900Xcoqnmm [Mass/Vol]6.2 g/dL6.4-8.9[facility] CompanyRBC Auto (Bld) [#/Vol]Ordered By: Ottoniel Luis on 31-75-8763CAR (Bld) [#/Vol]3.65 10*6/uL3.90-5.60[facility] Medical Centererum or plasma albumin/globulin mass ratioOrdered By: Ottoniel Luis on 51-03-8483Etbqhdi/Globulin [Mass ratio]1.6 {ratio}[facility] Centererum or plasma anion gap determinationOrdered By: Ottoniel Luis on 89-98-2705Mkhzz gap [Moles/Vol]10.3 mmol/L6.0-15.0[facility] Medical Centerodium [Moles/volume] in Serum or PlasmaOrdered By: Ottoniel Luis on 27-15-2315Qjahfv [Moles/Vol]138 mmol/W217-725NwzgdugbwRegency Hospital Company Troponin I.cardiac [Mass/volume] in Serum or Plasma by Detection limit <= 0.01 ng/Ordered By: Ottoniel Luis on 71-93-5975Gusdrobf I.cardiac DL <= 0.01 ng/mL [Mass/Vol]18.3 pg/mL0.0-20.0[facility] CompanyUrea nitrogen [Mass/volume] in Serum or PlasmaOrdered By: Ottoniel Luis on 22-47-6279Nhyb nitrogen [Mass/Vol]20 mg/dL7-25[facility] CompanyWBC Auto (Bld) [#/Vol]Ordered By: Ottoniel Luis on 57-97-7026OLF (Bld) [#/Vol]9.4 10*3/uL 4.1-10.5FMetroHealth Cleveland Heights Medical CenterMRI [facility] WO CONon 33-53-5931NXY [facility] WO CONEXAMINATION: MRI [facility] WO CON HISTORY: Lumbar spondylosis COMPARISON: No [...] Electronically authenticated by: CAITLYN STODDARD Date: 2022-11-09 17:[address] [place], [place] [address]CB AUTO DIFFon 99-05-7031COIR #0.1 103/ulNormal0.0-0.1The [facility] HospitalComment on above:Performed By: #### CBC #### [facility] [address] [place] [address] Dr. Isabel VegaBasophils/100 WBC (Bld)0.8 %Normal0.2-2.0[facility] Comment on above:Performed By: #### CBC #### [facility] [address] [place] [address] Dr. Isabel Moore #0.3 103/ulNormal0.0-0.7The [facility] HospitalComment on above: Performed By: #### CBC #### [facility] [address] [place] [address] Dr. Isabel Meredithosinophils/100 WBC (Bld)5.5 %Normal0.9-7.0[facility] Comment on above:Performed By: #### CBC #### [facility] [address] [place] [address] Dr. Isabel Meredithrythrocyte distribution width (RBC) [Ratio]12.9 %Pjaqcq48.0-15.0 [facility] TownshipComment on above:Performed By: #### CBC #### [facility] [address] [place] [address] Dr. Isabel VegaHematocrit (Bld) [Volume fraction]37.2 %Critically low42.0-54.0 [facility] TownshipComment on above:Performed By: #### CBC #### [facility] [address] [place] [address] Dr. Isabel VegaHemoglobin (Bld) [Mass/Vol]12.4 g/dLCritically low14.0-18.0[facility] TownshipComment on above:Performed By: #### CBC #### [facility] [address] [place] [address] Dr. Isabel Ornelas #0.02 10e3/ulNormal0.00-0.03The [facility] HospitalComment on above:Performed By: #### CBC #### [facility] [address] [place] [address] Dr. Isabel Ornelas %0.3 %Normal0.0-0.5The [facility] HospitalComment on above: Performed By: #### CBC #### [facility] [address] [place] [address] Dr. Isabel Britt #1.3 103/ulNormal1.2-3.8The [facility] HospitalComment on above:Performed By: #### CBC #### [facility] [address] [place] [address] Dr. Isabel Edmondshocytes/100 WBC (Bld)20.9 %Vsypod08.5-60.0The [facility] HospitalComment on above:Performed By: #### CBC #### [facility] [address] [place] [address] Dr. Isabel Farias DIFF REQNONormalThe [facility] HospitalComment on above: Performed By: #### CBC #### [facility] [address] [place] [address] Dr. Isabel Skaggs (RBC) [Entitic mass]30.4 hnLgyxnk58.9-34.0The [facility] HospitalComment on above:Performed By: #### CBC #### [facility] [address] [place] [address] Dr. Isabel Patel (RBC) [Mass/Vol]33.3 g/kKZzfgcs51.9-35.2The [facility] HospitalComment on above:Performed By: #### CBC #### [facility] [address] [place] [address] Dr. Isabel Worrell (RBC) [Entitic vol]91.2 rCLrftok56.0-94.0The [facility] HospitalComment on above:Performed By: #### CBC #### [facility] [address] [place] [address] Dr. Isabel Justin #0.6 103/ulNormal0.3-0.8The [facility] HospitalComment on above:Performed By: #### CBC #### [facility] [address] [place] [address] Dr. Isabel Zunigaocytes/100 WBC (Bld)10.2 %Normal1.7-12.0The [facility] Comment on above:Performed By: #### CBC #### [facility] [address] [place] [address] Dr. Isabel Brown #3.8 103/ulNormal1.4-6.5The [facility] HospitalComment on above:Performed By: #### CBC #### [facility] [address] [place] [address] Dr. Isabel Leonutrophils/100 WBC (Bld)62.3 %Ouedpg90.0-75.0The [facility] HospitalComment on above:Performed By: #### CBC #### [facility] [address] [place] [address] Dr. Isabel VegaPlatelet mean volume (Bld) [Entitic vol]9.5 fLNormal9.5-13.5The [facility] HospitalComment on above:Performed By: #### CBC #### [facility] [address] [place] [address] Dr. Isabel VegaPLT206 103/tcUnplfb394-949Bzq [facility] HospitalComment on above: Performed By: #### CBC #### [facility] [address] [place] [address] Dr. Isabel VegaRBC4.08 106/ulCritically low4.70-6.10The [facility] HospitalComment on above:Performed By: #### CBC #### [facility] [address] [place] [address] Dr. Isabel VegaWBC6.2 103/ulNormal4.0-11.0The [facility] HospitalComment on above: Performed By: #### CBC #### [facility] [address] [place] [address] Dr. Isabel VegaLIPID PROFILEon [id number]-HDL RATIO NORMSEE BELOWDelaware County HospitalComment on above:Result Comment: 3.3 - 4.4 LOW RISK 4.4 - 7.1 AVERAGE RISK 7.1 - 11.0 MODERATE RISK >11.0 HIGH RISKPerformed By: #### CMP, LIPID #### [facility] [address] [address] [address] Isabel VegaCholesterol [Mass/Vol]169 mg/dLNormal<=200[facility] Comment on above:Performed By: #### CMP, LIPID #### [facility] [address] [place] [address] Dr. Isabel VegaCholesterol in HDL [Mass/Vol]50 mg/wHIonjmf91-77Lum [facility] HospitalComment on above:Performed By: #### CMP, LIPID #### [facility] [address] [place] [address] Dr. Isabel VegaCholesterol in LDL [Mass/Vol]45.4 mg/dLDelaware County HospitalComment on above:Performed By: #### CMP, LIPID #### [facility] [address] [place] [address] Dr. Isabel Richardsonestergricelda.total/Cholesterol in HDL [Mass ratio]3.4 {ratio} NormalThe [facility] HospitalComment on above:Performed By: #### CMP, LIPID #### [facility] [address] [place] [address] Dr. Isabel Benedict NORMAL> or = 60 mg/dl - LOW CARDIOVASCULAR RISK <40 mg/dl - HIGH CARDIOVASCULAR RISKDelaware County HospitalComment on above:Performed By: #### CMP, LIPID #### [facility] [address] [place] [address] Dr. Isabel VegaLDL CALC NORMALSEE BELOWDelaware County HospitalComment on above:Result Comment: <100 mg/dl OPTIMAL 100 - 129 mg/dl NEAR OR ABOVE OPTIMAL 130 - 159 mg/dl BORDERLINE HIGH 160 - 189 mg/dl HIGH >190 mg/dl VERY HIGH Performed By: #### CMP, LIPID #### [facility] [address] [place] [address] Dr. Isabel VegaTriglyceride [Mass/Vol]368 mg/dLCritically high<=150The [facility] HospitalComment on above:Performed By: #### CMP, LIPID #### [facility] [address] [address] [address] Isabel VegaVLDL CALC73.6 mg/dLNormalThe [facility] HospitalComment on above: Performed By: #### CMP, LIPID #### [facility] [address] [address] [address] Isabel VegaPROF 14(COMP METB)on 19-09-3179Jdnasho [Mass/Vol]4.1 g/dLNormal 3.4-5.0The [facility] HospitalComment on above:Performed By: #### CMP, LIPID #### [facility] [address] [address] [address] Isabel VegaAlbumin/Globulin [Mass ratio]1.1 {ratio}NormalThe [facility] HospitalComment on above:Performed By: #### CMP, LIPID #### [facility] [address] [place] [address] Dr. Isabel CastanedaP [Catalytic activity/Vol]62 U/MDalkxc10-113Anu [facility] HospitalComment on above:Performed By: #### CMP, LIPID #### [facility] [address] [place] [address] Dr. Isabel June [Catalytic activity/Vol]30 U/VIzvwtu81-33Szl [facility] HospitalComment on above:Performed By: #### CMP, LIPID #### [facility] [address] [address] [address] Isabel Yousif gap [Moles/Vol]10.5 mmol/LNormalThe [facility] Comment on above:Performed By: #### CMP, LIPID #### [facility] [address] [address] [address] Isabel Keith [Catalytic activity/Vol]17 U/CTozyob84-90Pas [facility] HospitalComment on above:Performed By: #### CMP, LIPID #### [facility] [address] [address] [address] Isabel VegaBilirubin [Mass/Vol]0.4 mg/dLNormal0.2-1.0The [facility] Comment on above:Performed By: #### CMP, LIPID #### [facility] [address] [address] [address] Isabel VegaCalcium [Mass/Vol]9.4 mg/dLNormal8.5-10.1The [facility] Comment on above:Performed By: #### CMP, LIPID #### [facility] [address] [address] [address] Isabel VegaChloride [Moles/Vol]103 mmol/MPdbmgh57-487Eui [facility] Comment on above:Performed By: #### CMP, LIPID #### [facility] [address] [address] [address] Isabel VegaCO2 [Moles/Vol]27.3 mmol/VJcjgsa28.0-32.0The [facility] Comment on above:Performed By: #### CMP, LIPID #### [facility] [address] [place] [address] Dr. Isabel VegaCreatinine [Mass/Vol]0.98 mg/dLNormal0.70-1.30The [facility] HospitalComment on above:Performed By: #### CMP, LIPID #### [facility] [address] [address] [address] Isabel MeredithGFR-AF GERMAN>60Normal>=60The [facility] HospitalComment on above:Performed By: #### CMP, LIPID #### [facility] [address] [place] [address] Dr. Isabel MeredithGFR-NON AF GERMAN>60Normal>=60The [facility] HospitalComment on above:Performed By: #### CMP, LIPID #### [facility] [address] [address] [address] Isabel VegaGlobulin (S) [Mass/Vol]3.8 g/dLNormalThe [facility] HospitalComment on above:Performed By: #### CMP, LIPID #### [facility] [address] [address] [address] Isabel VegaGlucose [Mass/Vol]108 mg/dLCritically ihlo03-442Xax [facility] HospitalComment on above:Performed By: #### CMP, LIPID #### [facility] [address] [address] [address] Isabel VegaPotassium [Moles/Vol]4.8 mmol/LNormal3.5-5.1The [facility] Comment on above:Performed By: #### CMP, LIPID #### [facility] [address] [address] [address] Isabel VegaProtein [Mass/Vol]7.9 g/dLNormal6.4-8.2The [facility] Comment on above:Performed By: #### CMP, LIPID #### [facility] [address] [place] [address] Dr. Isabel VegaSodium [Moles/Vol]136 mmol/TQjcizs460-020Mkn [facility] Comment on above:Performed By: #### CMP, LIPID #### [facility] [address] [place] [address] Dr. Isabel VegaUrea nitrogen [Mass/Vol]14.0 mg/dLNormal7.0-18.0[facility] TownshipComment on above:Performed By: #### CMP, LIPID #### [facility] [address] [place] [address] Dr. Isabel Grewal nitrogen/Creatinine [Mass ratio]14.3 mg/mgNoParkview Health Montpelier HospitalComment on above:Performed By: #### CMP, LIPID #### [facility] [address] [place] [address] Dr. Isabel VegaXR LSPINE 2_3 VIEWSon [id number] LSPINE 2_3 VIEWSEXAMINATION: XR LSPINE 2_3 VIEWS HISTORY: Low back pain COMPARISON: No relevant comparison available. FINDINGS: BONES: Normal alignment with no acute fracture or spondylolisthesis. Moderate degenerative spondylosis and facet osteoarthropathy DISC SPACES: Normal. No significant disc height narrowing, subluxation, or endplate abnormality. PARASPINOUS: Negative. No paraspinous abnormality is seen. OTHER: Negative. IMPRESSION: Moderate degenerative changes Electronically authenticated by: CAITLYN STODDARD Date: 2022-05-12 17:27[facility] Vital Signs Date TimeVital SignValuePerforming JcivbxzrgWxrxerzr35-51-1944 08:46-0400Body wmzswi968.18 cmBenjamin Ball DO Work Phone: 1([phone])418-[address] [place], [place] 1644109-03-2025 08:46-0400 Body mass index (BMI) [Ratio]31.8 kg/d5Elhwyszi Ball DO Work Phone: [phone])[address]09-03-2025 08:46-0400 Body .07 kgBenjamin Ball DO Work Phone: [phone])[address]09-03-2025 08:46-0400 Diastolic blood ybwfmzaw61 mm[Hg]Saman Ball DO Work Phone: [phone]09-03-2025 08:46-0400 Heart rate63 /minBenjamin Ball DO Work Phone: [phone])[address] [place], [place] 6141809-03-2025 08:46-0400 Respiratory rate12 /minBenjamin Ball DO Work Phone: [phone])[address] [place], [place] 6141809-03-2025 08:46-0400 Systolic blood ezwydimp875 mm[Hg]Saman Ball DO Work Phone: 1(630)[address] [place], [place] 6141803-25-2025 10:12-0400 Body ijzgbz728.18 cmBenjamin Ball DO Work Phone: [phone])694-[address] [place], [place] 1644103-25-2025 10:12-0400 Body mass index (BMI) [Ratio]31.9 kg/m2Gnpkactl Ball DO Work Phone: [phone] [place], [place] 1644103-25-2025 10:12-0400 Body bmfuyt85.53 kgBenjamin Ball DO Work Phone: [phone])[address] [place], [place] 6141803-25-2025 10:12-0400 Diastolic blood jqokucnr22 mm[Hg]Saman Ball DO Work Phone: [phone])264-[address] [place], [place] 1644103-25-2025 10:12-0400 Heart rate77 /minBenjamin Ball DO Work Phone: 1(155)079-[address] [place], [place] 1644103-25-2025 10:12-0400 Respiratory rate12 /minBenjamin Ball DO Work Phone: 1(211)907-[address] [place], [place] 1644103-25-2025 10:12-0400 Systolic blood iskpdyfs530 mm[Hg]Saman Ball DO Work Phone: 1(881)[address] [place], [place] 6141803-07-2025 13:31-0500 Body jhqjcy538.18 cmBenjamin Ball DO Work Phone: 1(271)[address]03-07-2025 13:31-0500 Body mass index (BMI) [Ratio]31.8 kg/t0Ixwuflea Ball DO Work Phone: 1(107)[address] [place], [place] 6141803-07-2025 13:31-0500 Body vyoqlv90.24 kgBenjamin Ball DO Work Phone: 1(021)[address] [place], [place] 6141803-07-2025 13:31-0500 Diastolic blood mm[Hg]Saman Ball DO Work Phone: 1(043)[address] [place], [place] 6141803-07-2025 13:31-0500 Heart rate72 /minBenjamin Ball DO Work Phone: 1(351)[facility] [place], [place] 1644103-07-2025 13:31-0500 Respiratory rate12 /minBenjamin Ball DO Work Phone: 1(504)[facility] [place], [place] 1644103-07-2025 13:31-0500 Systolic blood clwhigfg806 mm[Hg]Saman Ball DO Work Phone: 1(032)[address] [place], [place] 6141803-01-2025 14:05-0500 Body iqgdqs776.18 cmBenjamin Ball DO Work Phone: 1(865)[address] [place], [place] 6141803-01-2025 14:05-0500 Body mass index (BMI) [Ratio]31.6 kg/q0Loyralhz Ball DO Work Phone: 1(985)[address] [place], [place] 6141803-01-2025 14:05-0500 Body .3 [degF]Saman Ball DO Work Phone: [facility]03-01-2025 14:05-0500 Body kfpzxe92.62 kgBenjavid Ball DO Work Phone: [facility]03-01-2025 14:05-0500 Diastolic blood mm[Hg]Saman Ball DO Work Phone: [facility]03-01-2025 14:05-0500 Heart rate68 /minBenjamin Ball DO Work Phone: [facility]03-01-2025 14:05-0500 Respiratory rate18 /minBenjamin Ball DO Work Phone: [facility]03-01-2025 14:05-0500 SaO2% (BldA) [Mass fraction]98 %Saman Ball DO Work Phone: [facility]03-01-2025 14:05-0500 Systolic blood rhypvuuh551 mm[Hg]Saman Ball DO Work Phone: [facility]02-06-2025 13:40-0500 Body ykwaxr011.7 cmWisergio Farrell DO Work Phone: [facility]02-06-2025 13:40-0500 Body mass index (BMI) [Ratio]29.8 kg/x2NvmtlvdConrad Mahandon DO Work Phone: [phone]02-06-2025 13:40-0500 Body .91 kgWisergio Mahandon DO Work Phone: [facility]02-06-2025 13:40-0500 Diastolic blood bggairqn22 mm[Hg]Conrad Farrell DO Work Phone: [facility]02-06-2025 13:40-0500 Heart rate68 /minConrad Mahandon DO Work Phone: [facility]02-06-2025 13:40-0500 Systolic blood qmrjevbl368 mm[Hg]Conrad Farrell DO Work Phone: [facility]01-10-2025 10:42-0500 Diastolic blood mm[Hg]Saman Ball DO Work Phone: [facility]01-10-2025 10:42-0500 Heart rate63 /minBenjamin Ball DO Work Phone: [facility]01-10-2025 10:42-0500 Respiratory rate16 /minBenjamin Ball DO Work Phone: [phone]01-10-2025 10:42-0500 SaO2% (BldA) [Mass fraction]99 %Saman Ball DO Work Phone: [facility]01-10-2025 10:42-0500 Systolic blood wsoyqxpf844 mm[Hg]Saman Ball DO Work Phone: [phone]01-10-2025 09:22-0500 Body mynqpp619.18 cmBenjamin Ball DO Work Phone: [facility]01-10-2025 09:22-0500 Body ycqlul97.71 kgBenjamin Ball DO Work Phone: [facility]11-15-2024 10:00-0500 Body eatpal256.72 cmReg[facility]11-15-2024 10:00-0500Body mass index (BMI) [Ratio]31.3 kg/l0QvwlayrbnRegency Hospital Company11-15-2024 10:00-0500Body giafdq66.49 kgReg[facility] Hospital Company11-15-2024 10:00-0500Diastolic blood adkfyotq03 mm[Hg][facility] 05-23-2024 10:00-0500Heart rate90 /[facility] 05-23-2024 10:00-0500Respiratory rate16 /[facility] 05-23-2024 10:00-0500Systolic blood cprkdrue836 mm[Hg][facility]07-31-2024 15:29-0400Body wdmthi827.72 cmReg[facility] Hospital [facility]07-31-2024 15:29-0400Body mass index (BMI) [Ratio]30.2 kg/g5WauxvsnbzRegency Hospital Company07-31-2024 15:29-0400Body gdmxuc75.32 kgRegency Hospital Company07-31-2024 15:29-0400Diastolic blood vwqawutm21 mm[Hg] [facility]07-31-2024 15:29-0400Heart rate75 /[facility]07-31-2024 15:29-0400Respiratory rate12 /[facility]07-31-2024 15:29-0400Systolic blood xkeuujzh239 mm[Hg] [facility]05-16-2024 12:16-0400Diastolic blood pressure 100 mm[Hg]Conrad Ramos DO Work Phone: 1(994)043-[address] [place], [place] 4950705-16-2024 12:16-0400 Systolic blood zyprwwgr704 mm[Hg]Conrad Ramos DO Work Phone: [phone]05-16-2024 11:34-0400 Body gonxme953.7 cmConrad Farrell DO Work Phone: 1(745)849-[address] [place], [place] 4950705-16-2024 11:34-0400 Body mass index (BMI) [Ratio]29.8 kg/j6EjgfassConrad Farrell DO Work Phone: 7(838)475-[address] [place], [place] 4950705-16-2024 11:34-0400 Body yeucvj75.91 kgWisergio Farrell DO Work Phone: [facility]05-16-2024 11:34-0400 Heart rate62 /Kylie Farrell DO Work Phone: [phone])814-[address] [place], [place] 4950705-06-2024 16:09-0400 Body uewjye113.72 cmReg[facility]05-06-2024 16:09-0400Body mass index (BMI) [Ratio]30.2 kg/l9VflggexbaRegency Hospital Company05-06-2024 16:09-0400Body laqhrt82.37 kgRegency Hospital Company05-06-2024 16:09-0400Diastolic blood djiiwhzf72 mm[Hg][facility] 11-12-2023 16:09-0400Heart rate71 /[facility] 11-12-2023 16:09-0400Respiratory rate12 /[facility] 11-12-2023 16:09-0400Systolic blood ilommibs954 mm[Hg][facility]12-26-2023 11:39-0500Body psdolp552.[address]12-26-2023 11:39-0500Body mass index (BMI) [Ratio]28.89 kg/m[address]12-26-2023 11:39-0500Body .[address]12-26-2023 11:39-0500Diastolic blood rddgqqyg39 mm[Hg][address]12-26-2023 11:39-0500Systolic blood txilmcff900 mm[Hg][address]11-16-2023 11:42-0500 Diastolic blood mm[Hg]Conrad Farrell DO Work Phone: 0(271)740-[address] [place], [place] 4950711-16-2023 11:42-0500 Systolic blood buoewvme026 mm[Hg]Conrad Farrell DO Work Phone: 4(138)931-[address] [place], [place] 4950711-16-2023 11:18-0500 Body imfewn540.7 cmConrad Farrell DO Work Phone: 4(282)429-[address] [place], [place] 4950711-16-2023 11:18-0500 Body mass index (BMI) [Ratio]28.89 kg/w5AljtzfzConrad Farrell DO Work Phone: 4(121)548-[address] [place], [place] 4950711-16-2023 11:18-0500 Body vtwzsu58.18 kgConrad Farrell DO Work Phone: 5(795)599-[address] [place], [place] 4950711-16-2023 11:18-0500 Heart rate60 /Kylie Farrell DO Work Phone: [facility]11-06-2023 08:30-0500 Body ricapx897.72 cmBenjamin Ball Other [employer] Other 11-06-2023 08:30-0500Body mass index (BMI) [Ratio]29.1 kg/j8Eihvszca Ball Other [employer] Other 11-06-2023 08:30-0500Body puujgr92.82 kgBenjamin Ball Other [employer] Other [id number] 08:30-0500Diastolic blood yfpyhsnc08 mm[Hg] Saman Ball Other [employer] Other [id number] 08:30-0500Respiratory rate16 /minBenjamin Ball Other [employer] Other 11-06-2023 08:30-0500Systolic blood iiluwpnx679 mm[Hg] Saman Ball Other [employer] Other 06-28-2023 15:15-0400Body awudtx530.72 cmBenjamin Ball Other [employer] Other 06-28-2023 15:15-0400Body mass index (BMI) [Ratio] 28.92 kg/h7Ckbrktcp Ball Other [employer] Other 06-28-2023 15:15-0400Body .27 kgBenjamin Ball Other [employer] Other 06-28-2023 15:15-0400Diastolic blood yadrptrf02 mm[Hg] [facility]an [facility] Other 06-28-2023 15:15-0400Respiratory rate12 /minBenjamin Ball Other [facility] Other 06-28-2023 15:15-0400Systolic blood kyxaqngs426 mm[Hg] Saman Ball Other [facility] [employer] Other 05-31-2023 11:58-0400Body bcayow074.72 cmBenjamin E Ball Work Phone: [phone]-Pmyyo [place] [employer] DO Work Phone: 1(126) 571-955105-31-2023 11:58-0400Body mass index (BMI) [Ratio] 29.19 kg/v2Hhielbwc E Ball Work Phone: 1(946) [phone]-Dyxaj [place] [employer] 250 DO Work Phone: 1(923) 829-753305-31-2023 11:58-0400Body surface area Derived from formula2.01 h7Aqtgxyqf E Ball Work Phone: [phone]-Qoruj [place] [employer] 250 DO Work Phone: 1(242) 423-238205-31-2023 11:58-0400Body .09 kgBenjamin E Ball Work Phone: 1(324) [phone]-Caivl [place] [employer] 250 DO Work Phone: 1(140) 506-929005-31-2023 11:58-0400Diastolic blood tvdcucpt32 mm[Hg] Saman E Ball Work Phone: [phone]-Eytfr [place] [employer] 250 DO Work Phone: 1(374) 573-186605-31-2023 11:58-0400Heart rate80 /minBenjamin E Ball Work Phone: [phone]-Vgowb [place] [employer] 250 DO Work Phone: 1(727) 667-237405-31-2023 11:58-0400Systolic blood mm[Hg] Saman Schaffer Work Phone: 1(712) [phone]-Relme [place] [facility] 250 DO Work Phone: 1(598) 735-622405-15-2023 17:20-0400Body groipdoviec47.9 [degF]RICARDO-Gary Alcazar Luis Work Phone: [facility]05-15-2023 17:20-0400 Diastolic blood wdbmckel51 mm[Hg]PA-C Ottoniel Luis Work Phone: [facility]05-15-2023 17:20-0400 Heart rate81 /minRICARDO-C Ottoniel Luis Work Phone: [phone]05-15-2023 17:20-0400 Respiratory rate18 /minRICARDO-C Ottoniel Luis Work Phone: [phone]05-15-2023 17:20-0400 SaO2% (BldA) [Mass fraction]98 %PA-C Ottoniel Toby Work Phone: [facility]05-15-2023 17:20-0400 Systolic blood iigfbsiz534 mm[Hg]PA-Gary Alcazar Toby Work Phone: [facility]05-15-2023 15:53-0400 Body gokweb942.72 cmPA-C Ottoniel Luis Work Phone: [facility]05-15-2023 15:53-0400 Body .5 kgPA-C Ottoniel Toby Work Phone: [facility]05-02-2023 16:30-0400 Body cmvewh190.72 cmBesarahjavid Schaffer Other [employer] Other 05-02-2023 16:30-0400Body mass index (BMI) [Ratio] 31.41 kg/w0Vvubxugs Ball Other [employer] Other 05-02-2023 16:30-0400Body gyrugp19.71 kgBenjamin Ball Other [employer] Other 05-02-2023 16:30-0400Diastolic blood yfxmfurs91 mm[Hg] Saman Quang Other [facility] [employer] Other 05-02-2023 16:30-0400Respiratory rate12 /minBenjamin Ball Other [facility] Other 05-02-2023 16:30-0400Systolic blood jzvwzbzo467 mm[Hg] Saman Quang Other [facility] [employer] Other Encounters Encounter DateEncounter TypeCare ProviderFacilityStart: 03-11-2025 End: 42-93-1659jnqlridkitBmblswxt Ball DO Work Phone: [facility] Work Phone: Start: 03-11-2025 End: 79-45-0856Sccdpad encounter procedureBenjamin Ball DO-[facility] Work Phone: Start: 09-30-2024 End: 62-23-1576gmclpitoycXkcwpyxi Ball DO Work Phone: [facility] Work Phone: Start: 09-30-2024 End: 35-23-6565Xgvqtro encounter procedureBenjamin Ball DO Work Phone: [facility] Work Phone: Start: 09-12-2024 End: 71-20-4820xlzoxjidnpWmjcijqx Ball DO Work Phone: [facility] Work Phone: Start: 09-12-2024 End: 32-87-2319Lqwjdsf encounter procedureBenjamin Ball DO Work Phone: [facility] Work Phone: Start: 09-06-2024 End: 26-67-7120zqwlnqqkfkKndhswrq Ball DO Work Phone: [facility] Work Phone: Start: 09-06-2024 End: 49-96-3581Mtipijr encounter procedureBenjamin Ball DO Work Phone: [facility] [place] Work Phone: Start: 08-14-2024 End: 98-53-0568Nozjjc outpatient visit [facility] Shabazz Hegins DO Work Phone: uh [facility] on above:ASHD (arteriosclerotic heart disease); Cardiomyopathy, ischemic; ST elevation myocardial infarction (STEMI), unspecified artery (Multi); History of PTCA; BMI 29.0-29.9,adult; Former smokerStart: 08-14-2024 End: 71-14-8927ullwbhkxzkOIZVOLRMcLaren Thumb Region AmbulatoryStart: 78-26-2142Uds-patient / Non-visitBenjamin Ball DO Work Phone: [facility] Work Phone: Start: 84-37-8752Fqj-patient / Non-visitBenjamin Ball DO Work Phone: [facility] Work Phone: Start: 07-18-2024 End: 16-81-8435Qbmbtefwq to same day surgery centerBenjamin Ball DO Work Phone: [facility] Work Phone: Start: 07-18-2024 End: 56-71-9461xfmmdekqmjSqfnyxom Ball DO Work Phone: [facility] Work Phone: Start: 07-04-2024 End: 81-05-5848Esspppl encounter procedureBenjamin Ball DO Work Phone: [facility] Work Phone: Start: 03-96-9693Aab-patient / Non-visitBenjamin Ball DO Work Phone: [facility] Work Phone: Start: 05-23-2024 End: 37-12-0202ilmpewospmFmcegdyhrGerman Hospital Work Phone: Start: 05-23-2024 End: 37-03-0528Nfvaqdigi for general adult medical examination without abnormal findingsOhioHealth Southeastern Medical Centertart: 05-23-2024 End: 68-34-2811Lgnukjm encounter procedure[facility] Work Phone: Start: 03-11-6343Yasfnsf encounter statusOhioHealth Southeastern Medical Centertart: 14-46-0800Nsk-patient / Non-visitFirballad health Physician Group-[facility] Work Phone: Start: 03-26-2024 End: 12-31-1635xgpneghrknEzfasudfrBlanchard Valley Health System Work Phone: Start: 03-26-2024 End: 75-87-9671Qlljutb [facility]At[facility] Work Phone: Start: 02-06-2024 End: 35-90-7036pdftjtwkgqIxwgwsjgaGerman Hospital Work Phone: Start: 02-06-2024 End: 17-28-9132Dikjrkv encounter procedure[facility] Work Phone: Start: 42-33-9392Zsp-patient / Non-visitCritical Access Hospitals [facility] Work Phone: Start: 01-02-2024 End: 86-03-3947vyqdnlymslIOQGGPHE E [facility] AmbulatoryStart: 43-28-7775Oao-patient / Non-visitFirjohnstons Physician Group-[facility] Work Phone: Start: 11-22-2023 End: 01-65-9832Sxlugy outpatient visit 25 minutesConrad Farrell DO Work Phone: uh [facility] on above:ASHD (arteriosclerotic heart disease); Cardiomyopathy, ischemic; Mild left ventricular systolic dysfunction; Essential hypertension; History of PTCA; ST elevation myocardial infarction (STEMI), unspecified artery (Multi); Hyperlipidemia, unspecified hyperlipidemia type; Ejection fraction < 50%Start: 11-12-2023 End: 20-68-4404rleobgesejWxutsqxxtBlanchard Valley Health System Work Phone: Start: 11-12-2023 End: 79-75-9304Msjleih encounter procedureAt[facility] Work Phone: Start: 09-25-2023 End: 70-89-9798xnyvlawemoRlvpsmhmfBlanchard Valley Health System Work Phone: Start: 09-25-2023 End: 68-38-6728Kwasbfc encounter procedureAt[facility] Work Phone: Start: 49-00-8701Ybd-patient / Non-visitAt[facility] Work Phone: Start: 08-20-2023 End: 80-08-3644xlfyeapbquSrhweffn Ball Other noParticle Code Weesh Other Start: 92-38-3191Vyhqasxee encounterBenmadiharazia SchafferMarietta Memorial Hospital ClinicStart: 08-15-2023 End: 14-02-3536gfcmfsimilEyvstanh Quang Other noParticle Code Weesh Other Start: 50-15-7218Dinppwkhr encounterBenmadihamin QuangMarietta Memorial Hospital ClinicStart: 07-03-2023 End: 06-61-1857Nmlonhxztd hospital visit by Tunde Gonzalez Echo/[facility]asc [facility] 2[facility] SystemComment on above:Mild left ventricular systolic dysfunction Start: 07-03-2023 End: 18-23-3670qfshergwplWUNUTWH Memorial Hospitaltart: 05-24-2023 End: 94-12-4803Caqhks outpatient visit 15 [facility] HospitalevelynThe [facility]als [facility] DO Work Phone: [facility] on above:ASHD (arteriosclerotic heart disease); ST elevation myocardial infarction (STEMI), unspecified artery (CMS/HCC); Cardiomyopathy, ischemic; Mild left ventricular systolic dysfunction; Essential hypertension; History of PTCAStart: 05-21-2023 End: 74-19-6337lixucbynbmMbxgkkzn Ball Other [employer] Other Start: 39-50-3370Lnledsw evaluation of patient and reportBenjavid James [facility] ClinicStart: 05-15-2023 End: 82-15-1529yjmkpoknveKhplzspa Ball Other [employer] Other Start: 51-22-2867Fzpbnbmbs encounterBenjavid FaustG [facility] ClinicStart: 05-14-2023 End: 55-48-5203mmbwfmhfjeKgfoyeep Ball Other noKaryopharm [employer]rapeutics Other Start: 72-23-5890Uiwbmrnju for general adult medical examination without abnormal findingsBenjavid FaustG [facility] ClinicStart: 30-95-3872Jtcvegpq preventive med est patient 40-64yrsBenjavid FaustG [facility] ClinicStart: 03-02-2023 End: 22-90-4594pxpbylxgazCfgmajau Ball Other noKaryopharm Therapeutics Other Start: 28-17-8287Napxprmsi encounterBenjamin BallFPG [facility] ClinicStart: 02-05-2023 End: 28-32-8808egqeayukexYfhuabep Ball Other noKaryopharm Therapeutics Other Start: 21-20-5732Intgxmubb encounterBenjamin BallFPG [facility] ClinicStart: 01-10-2023 End: 20-75-6607nmobfavpxxUwxhmzqv Ball Other [facility] Weesh Other Start: 72-54-8549Czyzcyfmr encounterBenjamin BallFPG [facility] ClinicStart: 01-03-2023 End: 68-97-0424vxlhpbljfuEpvlpowe Ball Other noParticle Code Weesh Other Start: 23-02-7255Mmpeda outpatient visit 25 minutes Saman BallFPG [facility] ClinicStart: 01-01-2023 End: 27-85-1964amrqlsuywfXvkpsef Vytautas Giedraitis MDFacility:PM [place] Start: 26-30-6151qiocuhcjfdNM SAMAN SCHAFFERFacility:E9Qxjon: 44-80-2344Zfllgxxvt encounterBenjamin BallFPG [facility] ClinicStart: 47-07-3798Wrymgq outpatient visit 25 minutesBenjamin E Ball Work Phone: [phone]-CokwdWorthington [facility]-[place] [address] DO Work Phone: Start: 12-06-2022 End: 65-36-6496bjenvekiwdFy. Saman [employer] Other Start: 94-18-1290bjzkmugfpgDl. Conrad Farrell Facility:9090Start: 31-49-0755ekiggsnqucGn. Conrad FarrellFacility:9090Start: 73-66-4873Eqlvaohda encounterBenjamin BallFPG [facility] ClinicStart: 11-21-2022 End: 08-79-2086bizdrmpfbxRw. Saman [employer] Other Start: 49-57-0138Xtoizpmgq to same day surgery center LUIS Luis Work Phone: [facility] Work Phone: Start: 07-04-1461akjmofwahvEQ-C Arthur J Myers Work Phone: [facility] Work Phone: Start: 78-26-0236dehzbjyxwwFo. Saman Schaffer Facility:9090Start: 11-09-2022 End: 98-09-1388mzvulzadjeRTYGVGTQWWCW LAKSHMIPATHY .Facility:R2Zhlvv: 11-07-2022 End: 19-24-5328qmgergarpwEyekkgwc Ball Other [facility] Weesh Other Start: 42-32-5614Ihsrxi outpatient visit 25 minutes Saman Sch[facility] ClinicStart: 09-14-2022 End: 20-31-1090ncmiaomcziCH KASEY S HELM .Facility:O6Hfaon: 08-22-2022 End: 74-47-5492bttvizfzkdNU KASEY S HELM .Facility:Q0Zyrck: 08-03-2022 End: 28-79-2677mmguhmlrmcLJ KASEY S HELM .Facility:J8Jrjbk: 07-11-2022 End: 17-76-4047lhkqyxidmbTW KASEY S HELM .Facility:Z4Xfbia: 06-13-2022 End: 82-93-8446ucrfarhcjiIR KASEY S HELM .Facility:R8Jrhav: 55-66-0225Tgpnuwopu for general adult medical examination without abnormal findingsDR SAMAN SCHAFFER [facility] Systemtart: 91-63-8174Nbzmg health examinationBesarahjavid Schaffer Other [employer] Other Start: 05-12-2022 End: 01-02-8309wgljtyzqmcNIEle Santanaity:C0Aeixj: 05-12-2022 End: 16-23-7411Rfqvdbmml for general adult medical examination without abnormal findingsDR SAMAN BALLFacility:H1 Procedures DateProcedureProcedure DetailPerforming ClinicianStart: 07-18-2024 EsophagogastroduodenoscopyBenjavid Schaffer DO Work Phone: Start: 59-76-6722ROJBVXYXQLGUK ECHO (TTE) LIMITED CONRAD FARRELLStart: 59-14-3115Jrnf transthorc r-t 2d w/wo m-mode rec f-up/lmtd Conrad Farrell DO Work Phone: Start: 39-27-0227Zeurvdd of percutaneous transluminal coronary angioplastyHistory of PTCMychal Farrell DO Work Phone: Start: 42-00-4239BJ Closure Device Placement 0PA-C Ottoniel Luis Work Phone: Start: 84-53-8243OF Coronary Thrombolysis ICPA-C Ottoniel Luis Work Phone: Start: 64-58-3538GE LHC & COR AngioPA-C Ottoniel Luis Work Phone: Start: 66-90-6212TA PCI AMI 1st Vessel LAD DESPA-C Ottoniel Luis Work Phone: Start: 68-71-9283SIH screeningDR KASEY HELM .Comment on above:Performed By: #### PSASC #### [facility] [address] [place] [address] Dr. Isabel VegaStart: 17-60-5526Vfobunf examination of patientBedaniel Schaffer Other Cardiac catheterizationBenjarazia E Ball Work Phone: ColonoscopyBenjamin E Quang Work Phone: Depression screeningBenjavid Schaffer Other History of percutaneous transluminal coronary angioplastyHistory of PTCAaronllsujit Farrell DO Work Phone: History of percutaneous transluminal coronary angioplastyHistory of PTCAaronlliam Mele Farrell DO Work Phone: Screening for malignant neoplasm of prostateSaman Schaffer Other Plan of Treatment DateCare ActivityDetailAuthorStart: 08-27-2025 End: 24-02-5781Pehsyza encounter ktcrjujcs92/19/2026 10:00 AM EST Office Visit [address] [place] [address] Conrad Farrell, DO [address] [facility] [place] [address] [facility]Start: 08-14-2024 End: 47-79-5863Xampuym encounter dadqctekc37/06/2025 9:40 AM EST Office Visit [address] [place] [address] Conrad Farrell, DO [address] [facility] [address], [address] [place] [address] [facility] HospitalStart: 58-20-5152ZmcofpxrcOhioHealth Southeastern Medical Centertart: 97-11-3827AKFYV-19 Vaccine ( season)COVID-19 Vaccine ( season)[facility]Start: 18-77-3210Zerxyvffs vaccinationInfluenza Vaccine (Season Ended)[facility] Start: 11-22-2023 End: 00-01-0713Kauid 1996 panel - Serum or PlasmaLipid Panel Lab Routine Hyperlipidemia, unspecified hyperlipidemia type Expected: 11/22/2023 (Approx imate), Expires: 11/21/2024[facility] Work Phone: Comment on above:Expected: 11/22/2023 (Approximate), Expires: 11/21/2024Start: 11-22-2023 End: 99-41-5132Hbobqrm encounter pxwixjagt22/16/2024 11:00 AM EDT Office Visit [address] [place] [address] Conrad Farrell, DO [address] [facility] [address], [address] [place] [address] [facility]Start: 05-24-2023 End: 24-87-6069DW Heart TransthoracicTransthoracic Echo (TTE) Limited Echocardiography Routine Mild left ventricular systolic dysfunction Expected: 05/24/2023 (Approximate), Expires: 05/24/2025[facility] Service Area Work Phone: Comment on above:Expected: 05/24/2023 (Approximate), Expires: 05/24/2025Start: 44-29-1094YMO, Provider: Conrad Farrell, Status: Pen, Time: 10:40 AMFUV, Provider: Conrad Farrell, Status: Pen, Time: 10:40 AMMP- [facility] [address] DO Work Phone: Start: 52-11-2097RYRZD-19 Vaccine ( season) COVID-19 Vaccine ( season)[facility]: 91-78-0449Idijxzxfw vaccinationInfluenza Vaccine (#1)[facility]: 53-69-9602HldctLake County Memorial Hospital - Westtart: 67-59-5408WpmynwnhuOhioHealth Southeastern Medical Centertart: 65-83-4590Fzesy [facility] Healthtart: 51-86-7834ItnlfwwfeThe Christ Hospital CenterStart: 26-27-4657Eeuah [facility] CenterStart: 24-24-7802PgbgwiimiThe Christ Hospital CenterStart: 20-26-8237Ugpsd [facility] CenterStart: 05-38-4780RrihzhnzkThe Christ Hospital CenterStart: 63-59-7831Ypogc [facility] CenterStart: 60-51-0667Ntuge panelThe Christ Hospital CenterStart: 23-46-8815HkawdqoqvThe Christ Hospital CenterStart: 88-78-9550AlxxgfhqdThe Christ Hospital CenterStart: 13-72-4787VfsqtltcqThe Christ Hospital CenterStart: 63-78-2548AbkaebnhdPremier Health Miami Valley Hospitaltart: 40-91-1872BhvbxnarfzvyKfocpbakoRegency Hospital Company Start: 23-79-1912Txihgmdg admissionOhioHealth Southeastern Medical Centertart: 34-96-0465Dzaneknz to cardiac rehabilitation programOhioHealth Southeastern Medical Centertart: 11-20-2022 End: 28-90-1594NlyepnjwkOhioHealth Southeastern Medical Centertart: 27-35-8248SDF High Risk: (Elderly (60+) or Population) (1 - Risk 60-74 years 1-dose series)RSV High Risk: (Elderly (60+) or Population) (1 - Risk 60-74 years 1-dose series)[facility]: 75-72-0387MOE patients and/or patients aged 60+ years (1 - 1-dose 60+ series)RSV patients and/or patients aged 60+ years (1 - 1-dose 60+ series)[facility]: 23-30-7720ZFDDL-19 Vaccine (4 - Pfizer series)COVID-19 Vaccine (4 - Pfizer series)[facility]: 94-76-2470Fyxolr Vaccines (1 of 2)Zoster Vaccines (1 of 2)[facility]: 61-13-1909MQkG/Tdap/Td Vaccines (1 - Tdap)DTaP/Tdap/Td Vaccines (1 - Tdap) [facility]: 40-99-2586Dhejpqkhsioy vaccination Pneumococcal Vaccine (1 of 2 - PCV)[facility]: 90-66-7279Uvtxordr mellitus screeningDiabetes ScreeningUnBerger Hospital: 37-58-9224Jfibtpalb C screeningHepatitis C ScreeningProMedica Bay Park Hospital: 80-40-1340Mdxrbdmjajxa Vaccine: Pediatrics (0 to 5 Years) and At-Risk Patients (6 to 64 Years) (1 - PCV)Pneumococcal Vaccine: Pediatrics (0 to 5 Years) and At-Risk Patients (6 to 64 Years) (1 - PCV) [facility]: 62-57-9093Iiheaeenwylt Vaccine: Pediatrics (0 to 5 Years) and At-Risk Patients (6 to 64 Years) (1 of 2 - PCV) Pneumococcal Vaccine: Pediatrics (0 to 5 Years) and At-Risk Patients (6 to 64 Years) (1 of 2 - PCV)[facility]: 32-27-9173BSC Vaccines (1 of 1 - Standard series)MMR Vaccines (1 of 1 - Standard series) [facility]: 35-93-5986JSR screeningHIV Screening [facility]: 59-63-8365Ozvsx panelLipid Panel [facility]: 89-12-8122Lwtsseikx for malignant neoplasm of colonProMedica [facility]: 87-20-9341Sagmye Adult PhysicalYearly Adult PhysicalKettering Health MiamisburgComprehensive metabolic 2000 panel - Serum or PlasmaRegency Hospital CompanyPatient EducationLima Memorial Hospital Work Phone: End: 47-91-3226AQ [facility] Service Area Work Phone: Comment on above:Once for 1 Occurrences starting 07/03/2023 until 07/03/2023XR Ankle - left GE 3 ViewsC[facility] Clinic [facility] Immunizations Immunization DateImmunizationNotesCare SqxwkuzxMbxuyhmy47-10-6167vkccikbuc, seasonal, injectable, preservative freeRegency Hospital Company 20-41-1821gptzdhlwe, injectable, quadrivalent, preservative freeQuintinmin Quang Other [facility]11-04-2022influenza virus vaccine, split virus (incl. purified surface antigen)Saman Schaffer Other Reading Weesh Other 288398-81-6463Dsixcayxc, injectable, Madin [place] Canine Kidney, preservative free, quadrivalentBenjamin Robson Schaffer Work Phone: [phone]-Uvymw [facility] [address] DO Work Phone: [phone]owylv virus vaccine, unspecified formulationConrad Farrell DO Work Phone: [facility]12-16-2021Pfizer- BioNTech COVID-19 Vacc 30 MCG/0.3ML Intramuscular SuspensionBenjamin E Ball Work Phone: [phone]-[place] [address] DO Work Phone: [phone]pq virus vaccine, split virus (incl. purified surface antigen)Saman Schaffer Other Reading We[employer] Other 11503205-10-0074palqmdgct virus vaccine, unspecified formulationRegency Hospital Company04-17-2021Pfizer-BioNTech COVID-19 Vacc 30 MCG/0.3ML Intramuscular SuspensionBenjamin E Ball Work Phone: [phone]-[place]zuhaJul[place] [address] DO Work Phone: [phone]eaqa-QugJNlmf COVID-19 Vacc 30 MCG/0.3ML Intramuscular SuspensionBenjamin E Ball Work Phone: [phone]-[place]rmzJul[place] [address] DO Work Phone: [phone]zyeip virus vaccine, split virus (incl. purified surface antigen)Saman Schaffer Other Reading [employer] Other 10612423-89-6763oczonapch virus vaccine, unspecified formulationRegency Hospital Company10-26-2020influenza, injectable, quadrivalent, preservative freeBenjamin E Ball Work Phone: [phone]-JxkliJul[place] [address] DO Work Phone: [phone]rvv virus vaccine, split virus (incl. purified surface antigen)Saman Schaffer Other [facility] Weesh Other 10108094-04-5530ebzwwbxlj virus vaccine, unspecified formulationRegency Hospital Company09-25-2018influenza virus vaccine, split virus (incl. purified surface antigen)Saman Schaffer Other Reading [employer] Other 09348473-59-6092exxvyqvei virus vaccine, unspecified formulationRegency Hospital Company09-25-2018influenza, injectable, quadrivalent, preservative freeBenjamin E Ball Work Phone: [phone]-Vncoc [facility] [address] DO Work Phone: [phone]kfmg, seasonal, injectable, preservative freeBenjamin E Ball Work Phone: [facility]10-26-2015tetanus and diphtheria toxoids, adsorbed, preservative free, for adult use (5 Lf of tetanus toxoid and 2 Lf of diphtheria toxoid)Saman Schaffer Other [facility]08-13-2003diphtheria, tetanus toxoids and acellular pertussis vaccine, unspecified formulation Saman Schaffer Other [facility] Payers DatePayer CategoryPayerPolicy [id number]-[id number] Health InsuranceGENERIC COMMERCIAL [id number] 840.1.238348.3.57[id number] 2.16.840.1.848141.3.57[id number] 2.16.840.1.456767.3.57[id number] 2.16.840.1.571514.3.579.2.64996-07-0218Tqxqoyu8958053 2.16.840.1.087289.3.579.2.17710-71-7228Mpffzow4625282 2.16.840.1.253255.3.579.2.77525-93-5589Zyrsgpp5686236 2.16.840.1.949136.3.579.2.25474-10-1758Mnrnxdl0962689 2.16.840.1.955907.3.579.2.77207-10-6468Kifvliz553318132 2.16.840.1.950215.3.579.2.98949-18-1304Qaadcfi733238010 2.16.840.1.561049.3.579.2.44249-70-7145Kvicwbq763907575 2.16.840.1.693451.3.579.2.66427-03-1817Ikgrjui299118612 2.16.840.1.763780.3.579.2.73358-05-6504Lhyalgm587934684 2.16.840.1.994685.3.579.2.18895-84-6026Hfcrwxn153035654 2.16.840.1.312207.3.579.2.87885-63-0296Mtomrzz661690628 2.16.840.1.337224.3.579.2.37318-89-3331Fjvjcit302634044 2.16.840.1.303862.3.579.2.87932-43-5331Gnjwybv17122273 2.0.1.226708.3.579.2.299181-96-2250Rxyhrmr183809659 2.0.1.752777.3.579.2.027660-98-8277Mdvghis69453515 2.0.1.802259.3.579.2.154099-05-1878Ijonbie98654486 8lqe8535-42d9-12dl-z3wi-e5f2g9i7u92849-54-9113Rupvsxp364502320Wouzybt4704977274 2..1.256056.08Wvsilix45775922 2.0.1.736118.3.579.2.531UnknownRegular [id number] 552p3553-6w9i-4283-xi16-39o03641of98 Social History DateTypeDetailFacilityStart: 05-24-2023 End: 70-62-1101Nca Assigned At [facility] Weesh Other Start: 11-20-2022 End: 12-88-0785Ktrcifj smoking status NHISEx-smoker (finding)[facility] Centertart: 69-46-5398Hgk Assigned At [facility] Shawtart: 05-24-2023 End: 77-71-1872Spoixdjz alcohol occasionallyConsumes alcohol occasionallyMP- [facility] [address] DO Work Phone: Comment on above:quit 1993; End: 96-06-0179Mpotxxd of tobacco useCurrent smokerUnOhioHealth Riverside Methodist Hospital Work Phone: End: 88-46-9448Qmkfgrd of tobacco useCigarette SmokerUnOhioHealth Riverside Methodist Hospital Work Phone: Start: 05-24-2023 End: 70-18-0574Itszwnn use and exposureSmokeless tobacco non-userUnOhioHealth Riverside Methodist Hospital Work Phone: Start: 05-24-2023 End: 81-72-9126Eqmkxwp intakeCurrent drinker of alcohol (finding)[facility] Work Phone: Start: 76-21-5193Fpmulth CommentoccasionallyUnOhioHealth Riverside Methodist Hospital Work Phone: Start: 04-91-4513Gbr Assigned At BirthNot on file [facility] Work Phone: Start: 05-14-2023 End: 52-13-3804Ucxaywld to SARS-CoV-2 (event)Not sureKettering Health MiamisburgStart: 74-26-5034Zwwmlnp smoking status NHISNever smoked tobacco (finding)[facility] Centertart: 05-23-2024 End: 55-82-0460VpsFdtb (finding)[facility] Medical Equipment Procedure CodeEquipment CodeEquipment Original TextEquipment IdentifierDatesCL CLOSURE DEVICE ANGIOSEAL 6FFDAStart: 74-83-4522FV STENT CHIARA FRONTIER 3.5 X 15 FDAStart: 70-33-9872RJ CLOSURE DEVICE ANGIOSEAL 6FFDAStart: 09-94-5649KR STENT CHIARA FRONTIER 3.5 X 15FDAStart: 38-75-3178EH CLOSURE DEVICE ANGIOSEAL 6FFDA Start: 30-05-6282WY STENT CHIARA FRONTIER 3.5 X 15FDAStart: 62-85-7644JG CLOSURE DEVICE ANGIOSEAL 6FFDAStart: 74-84-4827UC STENT CHIARA FRONTIER 3.5 X 15FDAStart: 41-33-5828AP CLOSURE DEVICE ANGIOSEAL 6FFDAStart: 72-02-2728MJ STENT CHIARA FRONTIER 3.5 X 15FDAStart: 99-47-6254KH CLOSURE DEVICE ANGIOSEAL 6FFDAStart: 68-51-0629QN STENT CHIARA FRONTIER 3.5 X 15FDAStart: 84-29-9418CP CLOSURE DEVICE ANGIOSEAL 6FFDAStart: 86-82-4343LF STENT CHIARA FRONTIER 3.5 X 15FDAStart: 86-94-9503UM CLOSURE DEVICE ANGIOSEAL 6FFDAStart: 97-99-3500ML STENT CHIARA FRONTIER 3.5 X 15FDAStart: 80-46-8868MH CLOSURE DEVICE ANGIOSEAL 6FFDAStart: 97-19-1674KG STENT CHIARA FRONTIER 3.5 X 15FDAStart: 99-96-7469LM CLOSURE DEVICE ANGIOSEAL 6FFDAStart: 98-55-1956AT STENT CHAIRA FRONTIER 3.5 X 15FDAStart: 11-20-2022 Goals DatePatient GoalDesired Activity/State Functional Status XknpDbdtqiivmtGhllymYqdaipdp50-89-2343Foshrehmpw statusPatient is Progressing Toward BaselineLima Memorial Hospital Work Phone: Mental Status VatrRagyvrcsxaZedcviWnayrwby91-78-6703Tmtfnipat functionCognitive Status Patient at [facility] Work Phone: Clinical Notes 06-13-2022 to 09-06-2024 Note Date & ZaarIvogOjdqrfey82-00-9314 Evaluation note* Diagnosis Onset Date Resolution Status Admit Date Gout of right ankle acuteMarch 2024 1:57pmEssential hypertensionacuteMarch 2024 1:23pmGout of right ankleacuteMarch 2024 1:23pmIschemic cardiomyopathyacuteMarch 2024 1:23pm [facility] Work Phone: 1(234) 742-195203-01-2025 Evaluation note* Diagnosis Onset Date Resolution Status Admit Date Gout of right ankle acuteMarch 2024 1:57pmEssential hypertensionacuteMarch 2024 1:23pmGout of right ankleacuteMarch 2024 1:23pmIschemic cardiomyopathyacuteMarch 2024 1:23pmEssential hypertensionacuteMarch 2024 9:58amGout of right ankleacuteMarch 2024 9:58amIschemic cardiomyopathyacuteMarch 2024 9:58am [facility] Work Phone: 1(944) 308-563402-06-2025 History of Present illness Narrative* Conrad Farrell, - 08/14/2024 1:40 PM EST Subjective Aisha Sierra is a 63 y.o. male Chief [...] Attestation By signing my name below, I, Shirley Forman LPNibrobson attest that this documentation has been prepared [...] exam, discussion and plan. documented in this [facility] Work Phone: 1(465) 110-397002-06-2025 Instructions* Patient Instructions* Charlotte Ramirez LPN - [...] Provided instructions on exercise. documented in this [facility] Work Phone: 1(594) 142-194401-10-2025 [place] [address] EGD/Colonoscopy Procedure Signed Patient: Aisha Sierra MR#: [id number] 8 : 1960 Acct:[id number] Age/Sex: 63 / M Adm Date: 5 Loc: Room: Type: [facility] Attending Dr: Maxx Doss MD Copies to: [...] slowly withdrawn with the findings as below. [place] bowel prep score was good. Findings colonoscopy: [...] Doss MD 07/18/24 0944 Signed By: 07/18/[address] [place], [place] 6866101-10-2025 [place] [address] Gastroenterology H&P Signed Patient: Aisha Sierra MR#: [id number] 8 : 1960 Acct:[id number] Age/Sex: 63 / M Adm Date: 5 Loc: Room: Type: [facility] Attending Dr: Maxx Doss MD Copies to: [...] MD 07/18/24 0943 Signed By: 07/18/24 0944 [facility]11-15-2024 Evaluation note* Diagnosis Onset Date Resolution Status Admit Date Anemia acuteMay 23, 2024 9:57amASHD (arteriosclerotic heart disease)acute May 23, 2024 9:57amElevated cholesterolacuteMay 23, 2024 9:57am Essential hypertensionacuteMay 23, 2024 9:57amNicotine dependence, cigarettes, in remissionacuteMay 23, 2024 9:57amObesityacuteMay 23, 2024 9:57amScreening PSA (prostate specific antigen)acuteMay 23, 2024 9:57amWellness examination2023 9:57am [facility] Work Phone: 1(784) 545-237109-18-2024 Evaluation note* Diagnosis Onset Date Resolution Status Admit Date Acute bronchitis due to other specified organisms acuteSept2023 11:48amASHD (arteriosclerotic heart disease)acute March 26, 2024 11:48amAnemiaacuteNov2023 9:57amASHD (arteriosclerotic heart disease)acuteMay 23, 2024 9:57amElevated cholesterolacuteMay 23, 2024 9:57amEssential hypertensionacuteMay 23, 2024 9:57amNicotine dependence, cigarettes, in remissionacuteMay 23, 2024 9:57amObesityacuteMay 23, 2024 9:57amScreening PSA (prostate specific antigen)acuteMay 23, 2024 9:57amWellness examinationacute May 23, 2024 9:57am [facility] Work Phone: 1(951) 537-788705-16-2024 History of Present illness Narrative* Conrad Farrell, - 11/22/2023 11:00 AM EDT Subjective Aisha Sierra is a 63 y.o. male Chief [...] Scribe Attestation By signing my name below, I Charlotte FARTUN , Shirleyibrobson attest that this documentation has been prepared [...] exam, discussion and plan. [facility] Work Phone: 1(224) 946-129405-16-2024 Instructions* Patient Instructions* Sam Buenrostro MA - [...] time of your visit. [facility] Work Phone: [phone]) 663-838002-07-2024 Evaluation note* Encounter Date Diagnosis Assessment Notes Treatment Notes Treatment Clinical Notes Aug, Anemia (ICD-10 - D64.9) [facility] Other 11-16-2023 History of Present illness Narrative* Conrad Farrell DO - 05/24/2023 10:40 AM EST Heath Sierra is a 62 y.o. male Chief [...] 6. History of PTCA [facility] Phone: 1([phone]) 388-646911-16-2023 Instructions* Patient Instructions* Rosa Marcano CMA - [...] time of your visit. [facility] Work Phone: 1([phone]) 622-278311-06-2023 Evaluation note* Encounter Date Diagnosis Assessment Notes Treatment Notes Treatment Clinical Notes May, Wellness examination (ICD-10 - Z 00.00) Healthy diet and exercise. Reviewed age-appropriate preventive testing recommended. May,SHD (arteriosclerotic heart disease) (ICD-10 - I25.10)PCI/stent LAD - 11/2022This patient is stable without activity related CP, dyspnea or lightheadedness. They are instructedto continue exercise and AHA diet plan. Continue secondary prevention measures. May,rimary hypertension (ICD-10 - I10)This patient is instructed to consume a healthy, low-fat, low-salt diet. They are also encouraged to continue exercise to achieve/maintain a normal BMI. May,Hyperlipidemia, group A (ICD-10 - E78.00)Instructed on diet and exercise with continued statin therapy.Discussed the beneficial effects of lo wering cholesterol in reducing the risk for cerebrovascular and cardiovascular disease. May,astroesophageal reflux disease with esophagitis without hemorrhage (ICD-10 - K21.00)Diet instructions: Smaller portions, avoid eating and laying flat, avoid eating or drinking prior to bedtime. Weight loss. May,AD (generalized anxiety disorder) (ICD-10 - F41.1)Healthy diet and exercise, keep active. Continue medical therapy, counseled against abrupt cessation May,Seasonal allergic rhinitis due to pollen (ICD-10 - J30.1)Continue antihistamine and Flonase. Irrigate nasal passages w/ saline May,Screening PSA (prostate specific antigen) (ICD-10 - Z12.5) [facility] Other 08-25-2023 Evaluation note* Encounter Date Diagnosis Assessment Notes Treatment Notes Treatment Clinical Notes Feb, ASHD (arteriosclerot ic heart disease) (ICD-10 - I25.10) PCI/stent LAD - 11/2022astroesophageal reflux disease with esophagitis without hemorrhage (ICD-10 - K21.00) [facility] Other 07-05-2023 Evaluation note* Encounter Date Diagnosis Assessment Notes Treatment Notes Treatment Clinical Notes Jan, Acute bronchitis due to other sp ecified organisms (ICD-10 - J20.8) [facility] Other 06-28-2023 Evaluation note* Encounter Date Diagnosis Assessment Notes Treatment Notes Treatment Clinical Notes Dec, Precordial pain (ICD-10 - R07.2) Evaluated in ER: - no improvement w/ SLNTG - normal EKG and cardiac enzymes - reassured DIscussed alternative dx - GERD - MODESTA Dec,SHD (arteriosclerotic heart disease) (ICD-10 - I25.10)PCI/stent LAD - 11/2022This patient is stable without activity related CP, dyspnea or lightheadedness. They are instructedto continue exercise and AHA diet plan. ER evaluation negative 28 Asher, 2023GAD (generalized anxiety disorder) (ICD-10 - F41.1)Healthy diet, exercise and keep active. Begin SSRI Dec,astroesophageal reflux disease with esophagitis without hemorrhage (ICD-10 - K21.00)Diet instructions: Smaller portions, avoid eating and laying flat, avoid eating or drinking prior to bedtime. Weight loss. Initiate PPI Dec,Hoarseness of voice (ICD-10 - R49.0)Likely due to GERD. Nonsmoker. Denies PND Recommend initiating PPI w/ GERD instructions. - update in month - ENT if no improvement [facility] Other 05-16-2023 Evaluation note* Encounter Date Diagnosis Assessment Notes Treatment Notes Treatment Clinical Notes November, ASHD (arteriosclerot ic heart disease) (ICD-10 - I25.10) PCI/stent LAD - 11/2022 [facility] Other 05-15-2023 Procedure [facility]05-15-2023 [facility]23 Evaluation note* Encounter Date Diagnosis Assessment Notes Treatment Notes Treatment Clinical Notes November, Essential hypertension (ICD-10 - I10) This patient is instructed to consume a healthy, low-fat, low-salt diet. They are also encouraged to continue exercise to achieve/maintain a normal BMI. November,Hyperlipidemia, group A (ICD-10 - E78.00)Instructed on diet and exercise with continued statin therapy.Discussed the beneficial effects of lo wering cholesterol in reducing the risk for cerebrovascular and cardiovascular disease. November,Lumbar spondylosis (ICD-10 - M47.816)The patient is instructed to avoid bending, twisting or lifting. They are to use intermittent heat and ice as needed. They may schedule a massage or gentle manipulation. They may safely use Tylenol as needed. f/u pain management for ablation. November,hronic actinic otitis externa of both ears (ICD-10 - H60.8X3)Keep clean and dry. Avoid use of QTips. Initiated cortisporin November,Seasonal allergic rhinitis due to pollen (ICD-10 - J30.1) Antihistamine: Meseret, Claritin or Zyrtec. Flonase NS Placidokel for seasonal flare of symptoms [facility] Other 03-09-2023 NoteCONSULTATION CONSULTATION DATE: 09/14/2022 HISTORY [...] be followed up in the office thereafter.[facility] [id number] NoteCONSULTATION CONSULTATION DATE: 08/03/2022 HISTORY OF PRESENT [...] be followed up in the clinic thereafter.[facility] [id number] NoteCONSULTATION CONSULTATION DATE: 06/13/2022 CHIEF COMPLAINT: Low [...] like to proceed. CC: Saman Schaffer D.O.[facility] HospitalEvaluation note* Diagnosis Onset Date Resolution Status Hypercholesteremia acuteHypertensionacuteST elevation (STEMI) myocardial infarctionacute [facility] Work Phone: Evaluation noteNo InformationNort Weesh Other Evaluation note* Diagnosis ASHD (arteriosclerotic heart disease) Coronary atherosclerosis of unspecified type of vessel, [place] or graft ST elevation myocardial infarction (STEMI), unspecified artery (CMS/HCC) Cardiomyopathy, ischemic Other specified forms of chronic ischemic heart disease Mild left ventricular systolic dysfunction Essential hypertension Unspecified essential hypertension History of PTCA Postsurgical percutaneous transluminal coronary angioplasty status [facility] Work Phone: Evaluation note* Diagnosis Mild left ventricular systolic dysfunction documented in this encounter [facility] Work Phone: Evaluation note* Diagnosis Mild left ventricular systolic dysfunction documented in this encounter [facility] Work Phone: Evaluation noteNo assessment information available [facility] Work Phone: Evaluation note* Diagnosis Onset Date Resolution Status ASHD (arteriosclerotic heart disease) acuteElevated cholesterolacuteEssential hypertensionacuteNicotine dependence, cigarettes, in remissionacute [facility] Work Phone: Evaluation note* Diagnosis ASHD (arteriosclerotic heart disease) Coronary atherosclerosis of unspecified type of vessel, [place] or graft Cardiomyopathy, ischemic Other specified forms of chronic ischemic heart disease Mild left ventricular systolic dysfunction Essential hypertension Unspecified essential hypertension History of PTCA Postsurgical percutaneous transluminal coronary angioplasty status ST elevation myocardial infarction (STEMI), unspecified artery (Multi) Hyperlipidemia, unspecified hyperlipidemia type Ejection fraction < 50% Other symptoms involving cardiovascular system documented in this encounter [facility] Work Phone: Evaluation note* Diagnosis Onset Date Resolution Status Anemia acuteASHD (arteriosclerotic heart disease)acuteElevated cholesterolacute Essential hypertensionacuteNicotine dependence, cigarettes, in remissionacute ObesityacuteAnemiaacuteASHD (arteriosclerotic heart disease)acuteElevated cholesterolacuteEssential hypertensionacuteNicotine dependence, cigarettes, in remissionacuteObesityacute [facility] Work Phone: Evaluation note* Diagnosis Onset Date Resolution Status Anemia acuteASHD (arteriosclerotic heart disease)acuteElevated cholesterolacute Essential hypertensionacuteNicotine dependence, cigarettes, in remissionacute ObesityacuteAcute bronchitis due to other specified organismsacuteASHD (arteriosclerotic heart disease)acute [facility] Work Phone: Evaluation note* Diagnosis ASHD (arteriosclerotic heart disease) Coronary atherosclerosis of unspecified type of vessel, [place] or graft Cardiomyopathy, ischemic Other specified forms of chronic ischemic heart disease ST elevation myocardial infarction (STEMI), unspecified artery (Multi) History of PTCA Postsurgical percutaneous transluminal coronary angioplasty status BMI 29.0-29.9,adult Former smoker Personal history of tobacco use, presenting hazards to health documented in this encounter [facility] Work Phone: History and physical note Author Daryl Farrell [facility] November 20, 2022 5:18pmNote Date/TimeMay 2022 5:01pm[place] [address] Cardiology H&P Signed Patient: Aisha Sierra MR#: [id number] 8 : 1960 Acct:[id number] Age/Sex: 62 / M Adm Date: 3 Loc: Room: [address] [place] [address] Type: [facility] Attending Dr: Daryl Farrell DO Copies to: DO Daryl Mcdaniel DO~ Date of Service: 11/20/2022 Cardiology HPI History of Present Illness Chief complaint: Anterolateral STEMI HPI: Mr. Sierra is a 62 year old male admitted in transfer from [facility]) with acute anterior ST elevation myocardial infarction. Patient developed chest discomfort at approximately 1445. He called the paramedics, transferred to the [facility], initial ECGs at 1523 and 1529 and 1545PM were all reviewed. Patient arrived at ER at 1548, [facility] at 1603 and PCI of primaryinfarct vessel at 1623; door to device time was 20 minutes, after administering upstream antithrombotic and antiplatelet therapies, obtaining ECG. Past medical history is noted for hypertension and hyperlipidemia Patient is a non-smoker nondiabetic He denies any previous myocardial infarction, revascularization, stroke, thromboembolic or bleedingdisorder. Upon arrival he is hemodynamically stable, with normal sinus rhythm with PVCs, no evidence of cardiogenic shock or pulmonary edema. A total of 60 minutes nonprocedural critical care time were devoted to the ER staff, reviewing of ECGs from the field, [facility] [employer] staff, nursing staff, patient and family both [...] x10E3/uL Lymph # (Auto) 2.0 (1.00-4.8) x10E3/uL [place] # (Auto) 1.0 H (0.0-0.8) x10E3/uL Eos [...] Interpretations EKG EKG results cardiology: sinus rhythm AR, pacemaker, normal Myocardial infarction: anterior AR (acute or recent) A&P - Cardiology (1) ST elevation (STEMI) myocardial infarction: Code(s): I21.3 - ST elevation (STEMI) myocardial infarction of unspecified site (2) Hypertension: Code(s): I10 - Essential (primary) hypertension (3) Hypercholesteremia: Code(s): E78.00 - Pure hypercholesterolemia, unspecified Documented By: Daryl Farrell DO 11/20/22 0667 Signed By: <Electronically signed by Daryl Farrell DO> 11/20/22 0125 [facility] Work Phone: History and physical note Author Maxx Doss [facility] CompanyNote Date/TimeJanuary 2024 9:44am [place] [address] Gastroenterology H&P Signed Patient: Aisha Sierra MR#: [id number] 8 : 1960 Acct:[id number] Age/Sex: 63 / M Adm Date: 5 Loc: Room: Type: [facility] Attending Dr: Maxx Doss MD Copies to: [...] Doss MD Documented By: Maxx Doss MD 07/18/2443 Signed By: <Electronically signed by Maxx Doss MD> 07/18/24 0904 [facility] Work Phone: History general Narrative - Reported* Type Description Date Medical History Seasonal allergic rhinitis due t o pollen Medical HistoryLow back pain with radiationMedical HistoryLeg pain, anterior, rightMedical HistoryCOVIDMedical HistoryANEMIA, DEFICENCYMedical HistoryNicotine dependence, cigarettes, in remissionMedical HistoryHyperlipidemia, group A Medical HistoryAdenomatous polyp of descending colonMedical HistoryEssential hypertensionMedical HistoryBenign prostatic hyperplasia without lower urinary tract symptomsSurgical [id number],2019Surgical HistoryLIGATION, HEMORRHOID, [id number] HistorySEE SURGICAL [facility] Other History general Narrative - Reported* Type Description Date Medical History Seasonal allergic rhinitis due t o pollen Medical HistoryLow back pain with radiationMedical HistoryLeg pain, anterior, rightMedical HistoryCOVIDMedical HistoryANEMIA, DEFICENCYMedical HistoryNicotine dependence, cigarettes, in remissionMedical HistoryHyperlipidemia, group A Medical HistoryAdenomatous polyp of descending colonMedical HistoryEssential hypertensionMedical HistoryBenign prostatic hyperplasia without lower urinary tract symptomsMedical HistoryASHDSurgical [id number],2020Surgical HistoryLIGATION, HEMORRHOID, [id number] HistoryPCI/stent LAD11/2022 Hospitalization HistorySEE SURGICAL [facility] Other History general Narrative - Reported* Type Description Date Medical History Seasonal allergic rhinitis due t o pollen Medical HistoryLow back pain with radiationMedical HistoryLeg pain, anterior, rightMedical HistoryCOVIDMedical HistoryANEMIA, DEFICENCYMedical HistoryNicotine dependence, cigarettes, in remissionMedical HistoryHyperlipidemia, group A Medical HistoryAdenomatous polyp of descending colonMedical HistoryEssential hypertensionMedical HistoryBenign prostatic hyperplasia without lower urinary tract symptomsMedical HistoryASHDSurgical HistoryCOLONOSCOPY (repeat in 10 years) - hyperplastic qdeiit7605/28/2020Surgical HistoryLIGATION, HEMORRHOID, [id number] HistoryPCI/stent LAD11/2022Surgical ApsaicqOniztetikmi2061 Hospitalization HistoryE SURGICAL [facility] Other Reason for referral (narrative)* Consultation (Routine) - AuthorizedSpecialtyDiagnoses / ProceduresReferred By Contact Referred To ContactCardiology Diagnoses Cardiomyopathy, ischemic Procedures Follow Up In Cardiology Conrad Farrell DO [address] [place] [address] [address], [address] [address] Conrad Farrell [address] [place] [address] 2, [address] [address] Referral IDStatusReasonStart DateExpiration DateVisits RequestedVisits [id number]/16/20245/16/202511 [facility] Work Phone: Reason for referral (narrative)No reason for referral information available[facility] Work Phone: Chief Complaint and Reason for Visit Chief Complaint chest pain Reason for Visit Hypercholesteremia Hypertension ST elevation (STEMI) myocardial infarction Chief Complaint Amb Documentation Allergy Shot Chief Complaint Amb Documentation Allergy Shot 6 month follow upReason for VisitASHD (arteriosclerotic heart disease) Elevated cholesterol Essential hypertension Nicotine dependence, cigarettes, in remission Chief Complaint 6 month follow up 3 month f/uReason for VisitAnemia ASHD (arteriosclerotic heart disease) Elevated cholesterol Essential hypertension Nicotine dependence, cigarettes, in remission Obesity Anemia ASHD (arteriosclerotic heart disease) Elevated cholesterol Essential hypertension Nicotine dependence, cigarettes, in remission Obesity Chief Complaint 3 month f/u [phone] cough up phlem 3 days covid negReason for VisitAnemia ASHD (arteriosclerotic heart disease) Elevated cholesterol Essential hypertension Nicotine dependence, cigarettes, in remission Obesity Acute bronchitis due to other specified organisms ASHD (arteriosclerotic heart disease) Chief Complaint Admit Date [phone] cough up phlem 3 days covid neg [...] Right ankle pain w/o injury September 06 025 1:57pm Chief Complaint Admit Date allergy shot July 04, 2024 8:51am Iron def anemia July 18, 2024 8 :47am Iron def anemia July 18, 2024 9 :43am Amb Documentation July 23, 2024 3 :53pm Right ankle pain w/o injury September 06 025 1:57pm gout September 12, 2024 1:23 pm Reason for Visit Admit Date Gout of right ankle September 06, 2024 1:57 pm Essential hypertension September 12, 2024 1 :23pm Gout of right ankle September 12, 2024 1:23 pm Ischemic cardiomyopathy September 12, 2024 1:23pm Chief Complaint Admit Date allergy shot July 04, 2024 8:51am Iron def anemia July 18, 2024 8 :47am Iron def anemia July 18, 2024 9 :43am Amb Documentation July 23, 2024 3 :53pm Right ankle pain w/o injury September 06 2 025 1:57pm gout September 12, 2024 1:23 pm right ankle pain September 30, 2024 9:5 8am Reason for Visit Admit Date Gout of right ankle September 06, 2024 1:57 pm Essential hypertension September 12, 2024 1 :23pm Gout of right ankle September 12, 2024 1:23 pm Ischemic cardiomyopathy September 12, 2024 1:23pm Essential hypertension September 30, 2024 9:58am Gout of right ankle September 30, 2024 9:5 8am Ischemic cardiomyopathy September 30, 2024 9:58am Chief Complaint Admit Date URI, 1 week, covid neg March 11 8:40am Advance Directives Advance Directive Response Recorded Date/ Time Advance Directives No November 20 4:03pm Advance Directive Response Recorded Date/ Time Advance Directives No November 20 3:03pm Summary Purpose Family History Unknown Family Member Name Dates Details No pertinent family history: Mother(V49.89, Z78.9) Status:ActiveFamily history of coronary artery disease: Sister(V17.3, Z82.49) Status:ActiveFamily history of PTCA: Sister(V17.49, Z82.49) Status:Active Unknown Family Member Name Dates Details No pertinent family history: Mother(V49.89, Z78.9) Status:ActiveFamily history of coronary artery disease: Sister(V17.3, Z82.49) Status:ActiveFamily history of PTCA: Sister(V17.49, Z82.49) Status:Active Relationship Condition Age at Onset Recorded Date/T yari Not Specified Hypertension Unknown Relationship Condition Age at Onset Recorded Date/T yari mother Hypertension Unknown Relationship Condition Age at Onset Recorded Date/T yari mother Hypertension Unknown brotherMalignant neoplasm of throatUnknown Reason for Referral SpecialtyDiagnoses / ProceduresReferred By ContactReferred To ContactCardiology Diagnoses Mild left ventricular systolic dysfunction Procedures Transthoracic Echo (TTE) Limited NE ECHO TRANSTHORC R-T 2D W/WO M-MODE REC F-UP/LMTD NE DOP ECHOCARD COLOR FLOW VELOCITY MAPPING NE DOP ECHOCARD PULSE WAVE W/SPECTRAL F-UP/LMTD STD Conrad Farrell, [address] [facility] 2, [address] [address] Referral IDStatusReasonStart DateExpiration DateVisits RequestedVisits [id number] Review Perform Procedure [id number] / ProceduresReferred By ContactReferred To ContactCardiology Diagnoses ASHD (arteriosclerotic heart disease) Cardiomyopathy, ischemic Mild left ventricular systolic dysfunction Essential hypertension History of PTCA Procedures Follow Up In Cardiology Conrad Farrell, DO [address] [place] [address] 2, [place] [phone] Conrad Farrell, DO [address] [place] [address] 2, [place] [phone] Referral IDStatusReasonStart DateExpiration DateVisits RequestedVisits [id number]/16/202311/15/202411 Additional Source Comments REASON FOR VISIT (unrecogniz ed section and content) ReasonCommentsFollow-up6 monthsSpecialtyDiagnoses / ProceduresReferred By ContactReferred To ContactCardiology Diagnoses Mild left ventricular systolic dysfunction Procedures Transthoracic Echo (TTE) Limited NE ECHO TRANSTHORC R-T 2D W/WO M-MODE REC F-UP/LMTD NE DOP ECHOCARD COLOR FLOW VELOCITY MAPPING NE DOP ECHOCARD PULSE WAVE W/SPECTRAL F-UP/LMTD STD Conrad Farrell, [address] [place] [address] 2, [place] [address] Referral IDStatusReasonStart DateExpiration DateVisits RequestedVisits [id number] Perform Procedure [id number]-ni0nNdnxaeedyZymlegvpz / Procedures Referred By ContactReferred To ContactCardiology Diagnoses ASHD (arteriosclerotic heart disease) Cardiomyopathy, ischemic Mild left ventricular systolic dysfunction Essential hypertension History of PTCA Procedures Follow Up In Cardiology Conrad Farrell, [address] [place] [address] 2, [place] [phone] Conrad Farrell, DO [address] [place] [address] 2, [place] [phone] Referral IDStatusReasonStart DateExpiration DateVisits RequestedVisits [id number]/16/202311/[id number]-mb0 months SpecialtyDiagnoses / ProceduresReferred By ContactReferred To ContactCardiology Diagnoses Cardiomyopathy, ischemic Procedures Follow Up In Cardiology Conrad Farrell, DO [address] [place] [address] Phone: tel: fax: Conrad Farrell, DO [address] [place] [address] Phone: tel: fax: Referral IDStatusJacqueasonStart DateExpiration DateVisits RequestedVisits [id number]/16/20245/16/202511 Care Teams (unrecognized sec tion and content) [...] Active Start: July 18, 2024 End: July 18Virginie Benson ProviderActiveStart: July 18, 2024 End: July 18, 2024 Team Status: Active Member Role Status Dates Saman Schaffer DO Primary Care Provider Active Start: July 18, 2024 Virginie Shafer Provider, Other ProviderActiveStart: July 18, 2024 Team Status: Active Member Role Status Dates Saman Schaffer DO Primary Care Provider Active Start: July 23, 2024 Elvi Faust ProviderActiveStart: July 23, 2024 Team Status: Inactive Member Role Status Dates Saman Schaffer DO Primary Care Provider Active Start: September 06, 2024 End: September 06, 2024Gianluca Bowers ProviderActiveStart: September 06, 2024 End: September 06, 2024 Team Status: Active Member Role Status Dates Saman Schaffer DO Primary Care Provide r, Attending Provider Active Start: May 15, 2024 Team Status: Inactive Member Role Status Dates Saman Schaffer , DO Primary Care Provide r, Attending Provider Active Start: May 23, 2024 End: May 23, 2024 Team Status: Active Member Role Status Dates Saman Schaffer , DO Primary Care Provide r, Attending Provider Active Start: May 30, 2024 Team Status: Inactive Member Role Status Dates Saman Schaffer , DO Primary Care Provide r, Attending Provider Active Start: March 26, 2024 End: March 26, 2024 Team Status: Active Member Role Status Dates Saman Schaffer , DO Primary Care Provide r, Attending Provider Active Start: February 05, 2024 Team Status: Inactive Member Role Status Dates Saman Quang , DO Primary Care Provide r, Attending Provider Active Start: February 06, 2024 End: February 06, 2024 Team Status: Inactive Member Role Status Dates Saman Schaffer , DO Primary Care Provide r, Attending Provider Active Start: November 12, 2023 End: November 12, 2023 Team Status: Active Member Role Status Dates Saman Schaffer , Primary Care Provider Active Start: November 30, 2023 Daryl Farrell DOAttdenise ProviderActiveStart: November 30, 2023 Team Status: Active Member Role Status Dates Ottoniel Luis PA-C Emergency Provider Active Saman Quang DOPrimary Care ProviderActiveW Cruz Farrell DOAttdenise ProviderActiveTeam MemberRelationshipSpecialtyStart DateEnd Date Saman Schaffer, DO [address] [place] [address] PCP - General12/06/22Team MemberRelationshipSpecialtyStart DateEnd Date Saman Schaffer, DO [address] [place] [address] PCP - GeneralInternal Liubzcpe17/26/23Team MemberRelationshipSpecialtyStart Date End Date Saman Schaffer, DO [address] [place] [address] PCP - GeneralInternal Axyeunfr95/26/23 Team Status: Active Member Role Status Dates Saman Schaffer DO Primary Care Provider Active Start: September 11, 2023 Iesha JAVI AlvaradoAAtsushma ProviderActiveStart: September 11, 2023 Team Status: Inactive Member Role Status Dates Saman Schaffer DO Primary Care Provide r, Attending Provider Active Start: September 25, 2023 End: September 25, 2023Team MemberRelationshipSpecialtyStart DateEnd Date Saman Schaffer DO PCP - [facility]07/03/23Team MemberRelationshipSpecialtyStart Date End Date Saman Schaffer DO PCP - [facility]07/03/23 Team Status: Inactive Member Role Status Dates Saman Schaffer DO Primary Care Provide r, Attending Provider Active Start: September 12, 2024 End: September 12, 2024 Team Status: Inactive Member Role Status Dates Saman Schaffer DO Primary Care Provide r, Attending Provider Active Start: September 30, 2024 End: September 30, 2024 Team Status: Inactive Member Role Status Dates Saman Schaffer DO Primary Care Provider Active Start: March 11, 2025 End: March 11James Serrano ProviderActiveStart: March 11, 2025 End: March 11, 2025 Goals (unrecognized section and content) Goals may be documented in a n alternate section (unrecognized sect ion and content) No Status Records FoundNo Status Records FoundNo Status Records FoundNo Status Records FoundNo Status Records FoundNo Status Records FoundNo Status Records Found INFORMATION SOURCE (unrecogn ized section and content) DATE CREATED AUTHOR 12/16/2022 [facility] DATE CREATED AUTHOR AUTHOR'S ORGANIZ ATION 12/16/2022 [facility] DATE CREATED AUTHOR AUTHOR'S ORGANIZ ATION 01/20/2023 [facility] DATE CREATED AUTHOR AUTHOR'S ORGANIZ ATION 02/27/2023 [facility] DATE CREATED AUTHOR AUTHOR'S ORGANIZ ATION 03/22/2024 [facility] DATE CREATED AUTHOR AUTHOR'S ORGANIZ ATION 07/27/2024 [facility] DATE CREATED AUTHOR AUTHOR'S ZHAO COLLAZO 12/28/2024 [facility] FOR RECORDS PERTAINING TO PATIENTS WHO [...] BE BASED ON THE PRIMARY CLINICAL RECORDS. [facility]. provides no warranty or guarantee of the accuracy or completeness of information in this document.
[2025-05-27 10:33] LABS: Hematocrit 35.8 % (42.0-54.0); Hemoglobin 12.1 g/dL (14.0-18.0); Immature Granulocytes Abs Auto 0.00 10^3/uL (0.00-0.03); Immature Granulocytes Pct Auto 0.0 % (0.0-0.5); Lymphocytes Absolute Auto 1.0 10^3/uL (1.2-3.8); Mean Corpuscular HGB Conc 33.8 g/dL (29.9-35.2); Mean Corpuscular Hemoglobin 29.6 pg (25.9-34.0); Mean Corpuscular Volume 87.5 fL (80.0-94.0); Platelet Count 156 10^3/uL (150-450); Red Blood Count 4.09 10^6/uL (4.70-6.10); White Blood Count 5.1 10^3/uL (4.0-11.0)
[2025-05-27 10:52] LABS: Alanine Aminotransferase 27 U/L (16-63); Albumin Globulin Ratio 1.1; Albumin Level 3.8 g/dL (3.4-5.0); Alkaline Phosphatase 93 U/L (46-116); Anion Gap 14.5; Aspartate Amino Transferase 20 U/L (15-37); Blood Urea Nitrogen 17.0 mg/dL (7.0-18.0); Calcium 8.7 mg/dL (8.5-10.1); Carbon Dioxide 25.8 mmol/L (21.0-32.0); Chloride 106 mmol/L (98-107); Cholesterol 135 mg/dL (<=200); Estimated GFR (African America >60 (>=60 mL/min/1.73m^2); Estimated GFR (Non-African Ame >60 (>=60 mL/min/1.73m^2); Globulin 3.4 g/dL; Glucose 114 mg/dL (74-106); HDL Cholesterol 45 mg/dL (40-60); Potassium 4.3 mmol/L (3.5-5.1); Sodium 142 mmol/L (136-145); Total Protein 7.2 g/dL (6.4-8.2); Triglycerides 151 mg/dL (<=150); Uric Acid 9.6 mg/dL (3.5-7.2); VLDL CHOLESTEROL 30.2 mg/dL
== END 2025-05-27 10:12 | disposition home or self-care (01) ==
LOC: LAB 10:20
PROVIDERS: PCP Internal Medicine; Visit Provider Internal Medicine
DX: Z00.00 Encounter for general adult medical examination without abnormal findings (principal); Z12.5 Encounter for screening for malignant neoplasm of prostate
CPT/HCPCS: 36415; 80053; 80061; 84550; 85025; G0103